=== PATIENT | female | born 1945 | race Caucasian/White ===

== ENCOUNTER → 2023-06-06 10:34 | Outpatient (REF) | payer MEDICARE, BC, SELFPAY | LOC: WOUND 10:34 | PROVIDERS: ATTENDING PHYSICIAN Surgery; REFERRING PHYSICIAN Surgery | DX: L89.314 Pressure ulcer of right buttock, stage 4 (principal); E11.65 Type 2 diabetes mellitus with hyperglycemia; E66.01 Morbid (severe) obesity due to excess calories | CPT/HCPCS: 11042 ==

== ENCOUNTER → 2023-06-14 13:58 | Outpatient (REF) | payer MEDICARE, BC, SELFPAY | LOC: RAD 13:58 | PROVIDERS: ATTENDING PHYSICIAN Internal Medicine Critical Care Medicine | DX: R06.00 Dyspnea, unspecified (principal) | CPT/HCPCS: 71046 ==

== ENCOUNTER → 2023-06-27 10:27 | Outpatient (REF) | payer MEDICARE, BC, SELFPAY | LOC: WOUND 10:27 | PROVIDERS: ATTENDING PHYSICIAN Surgery; FAMILY PHYSICIAN Family Medicine | DX: L89.314 Pressure ulcer of right buttock, stage 4 (principal); E11.65 Type 2 diabetes mellitus with hyperglycemia; E66.01 Morbid (severe) obesity due to excess calories; I10 Essential (primary) hypertension; J44.9 Chronic obstructive pulmonary disease, unspecified; D64.9 Anemia, unspecified; I35.0 Nonrheumatic aortic (valve) stenosis | CPT/HCPCS: 11042 ==

== ENCOUNTER → 2023-07-18 10:34 | Outpatient (REF) | payer MEDICARE, BC, SELFPAY | LOC: WOUND 10:34 | PROVIDERS: ATTENDING PHYSICIAN Surgery; FAMILY PHYSICIAN Family Medicine | DX: L89.314 Pressure ulcer of right buttock, stage 4 (principal); E11.65 Type 2 diabetes mellitus with hyperglycemia; E66.01 Morbid (severe) obesity due to excess calories; I10 Essential (primary) hypertension; J44.9 Chronic obstructive pulmonary disease, unspecified; D64.9 Anemia, unspecified; I35.0 Nonrheumatic aortic (valve) stenosis | CPT/HCPCS: 11042 ==

== ENCOUNTER → 2023-08-15 10:27 | Outpatient (REF) | payer MEDICARE, BC, SELFPAY | LOC: WOUND 10:27 | PROVIDERS: ATTENDING PHYSICIAN Surgery; FAMILY PHYSICIAN Family Medicine | DX: L89.314 Pressure ulcer of right buttock, stage 4 (principal); E11.65 Type 2 diabetes mellitus with hyperglycemia; E66.01 Morbid (severe) obesity due to excess calories; I10 Essential (primary) hypertension; J44.9 Chronic obstructive pulmonary disease, unspecified; D64.9 Anemia, unspecified; I35.0 Nonrheumatic aortic (valve) stenosis | CPT/HCPCS: 11042 ==

== ENCOUNTER 2023-08-19 17:49 | Emergency (ER) | payer MEDICARE, BC, SELFPAY ==
[2023-08-19 17:52] VITALS: BP 113/84
[2023-08-19 17:55] VITALS: BP 113/84
--- NOTE | 2023-08-19 17:55 | ED.MUSCINJ ---
HPI-Injury
General
Chief Complaint: Fall
Source: patient and ambulance crew
Exam Limitations: none
Nursing documentation reviewed up to this point in time: agreed with
Travel History
Have you had any contact with someone who has COVID-19?: No
Do you have any symptoms of coronavirus? Fever > 100 degrees, chills, cough, shortness of breath, sore throat, loss of taste or smell, muscle aches, or headache?: No
History of Present Illness-Injury
Initial Injury comments:
78 yo female w h/o COPD Home O2, CHF HTN, IDDM, from home where she lives with her states she was holding on to her walker, bend over to pick something up from the floor, lost her balance and fell backwards hitting back of head on walker.
States pain left side of neck, pain and scrape left knee. EMS arrived to find her sitting upright against the counter.
Denies headache, vision change, CP, SOB, abd pain, n/v/d/c, denies feeling weak or dizzy prior to fall, denies weakness in arms or legs.
Past History
Past History
ED Past Medical History: COPD, HTN, IDDM and Other (Pneumonia, home O2, morbid obesity)
ED Past Surgical History: Appendectomy, , Gynecological and Orthopedic
Social History
Tobacco: Former smoker
Alcohol: None
Personal:
Living: with family
Review of Systems
Review of Systems
Allergies reviewed?: Yes
All Other Systems: ROS reviewed and negative except as documented in HPI and ROS
Constitutional: Denies fever
Respiratory: Denies trouble breathing
Cardiac: Denies chest pain or syncope
ABD/GI: Denies abdominal pain, nausea, vomiting or diarrhea
: Denies dysuria, frequency, flank pain, difficulty voiding or urgency
Musculoskeletal: Reports neck pain; Denies edema
Skin: Reports other (mild scrape left knee)
Neurological: Denies dizzy, headache, weakness or numbness
Phy Exam
Physical Exam
Physical Exam:
GENERAL: No acute distress. A&Ox3.
CONSTITUTIONAL: Afebrile.
EYES: PERRL, conjunctivae normal
Neck: Hard collar removed, left and mid c spine tender, collar replaced.
ENMT: moist mucus membranes, Pharynx nl
RESPIRATORY: Regular respirations, nonlabored, lungs clear with diminished BS
CARDIOVASCULAR: Regular rate and rhythm, no murmurs, no rubs.
GI: Soft, obese, normal BS
MUSCULOSKELETAL: Mid C spine tenderness, rest of spine and back nontender. Extremities non tender with adequate ROM. Moves with ease. Well perfused. No edema
SKIN: Warm, dry, pink, superficial abrasion and mild ecchymosis and swelling over patella
PSYCH: Normal mood and affect. Well kept, interactive and appropriate
NEUROLOGIC: Awake, alert and oriented. Speech clear. CN 2-12 intact. No focal neurological deficits Strength equal throughout
Injury Course
Orders/Labs/Results
Orders:
Orders
08/19/23 17:54
CT Cervical Spine W/o Iv Contr Urgent
Comment:
Reason For Exam: left neck pain after fall.
08/19/23 17:55
CT Head W/o Iv Contrast Urgent
Comment:
Reason For Exam: fall, struck head
Knee, Left 4 or More Views [CR Knee - Left 4 Or More View*] Urgent
Comment:
Reason For Exam: fall, direct impact to patella
MDM/Problems Addressed
Differential Diagnosis Includes:
cervical strain/fx, minor head injury/concussion, knee contusion/fracture
MDM/Problems Addressed:
78 yo female w h/o COPD Home O2, CHF HTN, IDDM, from home where she lives with her states she was holding on to her walker, bend over to pick something up from the floor, lost her balance and fell backwards hitting back of head on walker.
States pain left side of neck, pain and scrape left knee. EMS arrived to find her sitting upright against the counter.
Denies headache, vision change, CP, SOB, abd pain, n/v/d/c, denies feeling weak or dizzy prior to fall, denies weakness in arms or legs.
This was clearly a mechanical fall, no indication for lab work
7:42 PM
Left knee x-ray initially read by this examiner, no acute bony abnormality. Small suprapatellar effusion. Confirmed with radiology read.
Head and C-spine CT: Radiology report read no acute abnormality: No acute fracture or subluxation of the cervical spine, multilevel degenerative changes of the C-spine.
Patient out of bed and ambulating well
Stable for discharge, family here to take her home
Chronic conditions affecting care: DM, HTN and COPD
*Critical Care Note
Total Time (30-74mins, 75-104mins- exclusive of procedures): Not Applicable
ED Attending Note
-
Portions of this chart may have been created with voice recognition software.� Occasional wrong word or��sound alike� substitutions may have occurred due to the inherent limitations of voice recognition software.
Discharge Plan
Departure
Patient Disposition: Home (Routine Discharge)
Date of Disposition: 08/19/23
Time of Disposition: 19:43
Patient with high blood pressure during this ER visit?: No
Condition: Good
Discharge Problem:
Fall from slip, trip, or stumble, Acute cervical myofascial strain, Contusion of left knee
Instructions: Head Injury in Adults (DC), Contusion (DC), Preventing falls in adults, Cervical Muscle Strain (DC)
Prescriptions:
No Action
albuterol sulfate 1 PUFF HFA aerosol inhaler
2 puff inhalation R Q4HPRN PRN (Reason: sob)
Humulin N NPH U-100 Insulin 100 UNIT/1 ML suspension
60 - 80 units SC HS
insulin lispro [Humalog U-100 Insulin] 100 UNIT/ML solution
12 unit SC AC
Rx Instructions:
14-16 units at dinner
metoprolol tartrate 25 MG tablet
25 mg PO BID
atorvastatin 20 MG tablet
20 mg PO HS
ipratropium-albuterol 3 ML solution for nebulization
3 ml inhalation R QID
metformin 1,000 MG tablet
1,000 mg PO BID@0800,1700
budesonide 0.5 MG/2 ML suspension for nebulization
0.5 mg inhalation R BID@0800,1700
multivitamin with folic acid [Tab-A-Vern] 1 TABLET tablet
1 tab PO DAILY
ferrous sulfate [FeroSul] 325 MG tablet
325 mg PO QPM
nifedipine 30 MG tablet extended release
30 mg PO DAILY Qty: 30 0RF
Jardiance 10 MG tablet
10 mg PO DAILY Qty: 30 0RF
terazosin 2 mg Capsule
2 mg PO HS
Hold Instructions: this medication was HELD during hospitalization due to low blood pressure - please DO NOT take this medication until you follow up with your primary care doctor - please discuss if this should be restarted
Dakin's Solution 0.125 % solution
1 applic topical BID
miconazole nitrate [Desenex] 2 % Powder
1 applic TOPICAL DAILY
furosemide 80 mg Tablet
80 mg PO BID 30 Days Qty: 60 0RF
Referrals:
Trina Ralph DO [Family Provider] - As needed
Activity Restrictions/Additional Instructions:
As we discussed, the CAT scan of your head and neck showed nothing worrisome.
Your knee x-ray shows nothing broken
You may be more stiff and sore in the next day or 2. Tylenol 1000 mg up to 3 times a day as needed for pain.
Cool compress 20 minutes off and on as needed to reduce swelling
Interventions
Interventions:
*Risk Screen - Suicide Last Done: 08/19/23 17:53
*General Assessment Last Done: 08/19/23 17:53
*Neglect/Abuse Screening Last Done: 08/19/23 17:53
ED- Fall Risk Assessment Last Done: 08/19/23 20:02
*ED COVID-19 Vaccine History Last Done: 08/19/23 17:53
*Nursing Disposition Last Done: 08/19/23 20:02
ED-Musculoskeletal Assessment Last Done: 08/19/23 17:55
ED- Neurological Assessment Last Done: 08/19/23 17:55
ED-Skin Assessment Last Done: 08/19/23 17:55
Discharge Date and Time
Discharge Date/Time: 08/19/23 20:10
Print Language: PAKISTANI
[2023-08-19 18:01] VITALS: BP 98/55
== END 2023-08-19 20:10 | disposition home or self-care (01) ==
LOC: EMR 17:49
PROVIDERS: EMERGENCY PHYSICIAN Student in an Organized Health Care Education/Training Program; FAMILY PHYSICIAN Family Medicine
DX: S80.02XA Contusion of left knee, initial encounter (principal); S80.212A Abrasion, left knee, initial encounter; S16.1XXA Strain of muscle, fascia and tendon at neck level, initial encounter; W01.198A Fall on same level from slipping, tripping and stumbling with subsequent striking against other object, initial encounter; Y92.009 Unspecified place in unspecified non-institutional (private) residence as the place of occurrence of the external cause; J44.9 Chronic obstructive pulmonary disease, unspecified; I11.0 Hypertensive heart disease with heart failure; I50.9 Heart failure, unspecified; E11.9 Type 2 diabetes mellitus without complications; Z99.81 Dependence on supplemental oxygen; Z79.4 Long term (current) use of insulin; Z87.891 Personal history of nicotine dependence; Z87.01 Personal history of pneumonia (recurrent); Z88.6 Allergy status to analgesic agent
CPT/HCPCS: 99284; 70450; 72125; 73564

== ENCOUNTER → 2023-09-12 10:30 | Outpatient (REF) | payer MEDICARE, BC, SELFPAY | LOC: WOUND 10:30 | PROVIDERS: ATTENDING PHYSICIAN Surgery; FAMILY PHYSICIAN Family Medicine | DX: L89.314 Pressure ulcer of right buttock, stage 4 (principal); E11.65 Type 2 diabetes mellitus with hyperglycemia; E66.01 Morbid (severe) obesity due to excess calories; I10 Essential (primary) hypertension; J44.9 Chronic obstructive pulmonary disease, unspecified; D64.9 Anemia, unspecified; I35.0 Nonrheumatic aortic (valve) stenosis | CPT/HCPCS: 11042 ==

== ENCOUNTER → 2023-10-10 10:29 | Outpatient (REF) | payer MEDICARE, BC, SELFPAY | LOC: WOUND 10:29 | PROVIDERS: ATTENDING PHYSICIAN Surgery; FAMILY PHYSICIAN Family Medicine | DX: L89.314 Pressure ulcer of right buttock, stage 4 (principal); E11.65 Type 2 diabetes mellitus with hyperglycemia; E66.01 Morbid (severe) obesity due to excess calories; I10 Essential (primary) hypertension; J44.9 Chronic obstructive pulmonary disease, unspecified; D64.9 Anemia, unspecified; I35.0 Nonrheumatic aortic (valve) stenosis | CPT/HCPCS: 11042 ==

== ENCOUNTER → 2023-11-14 10:29 | Outpatient (REF) | payer MEDICARE, BC, SELFPAY | LOC: WOUND 10:29 | PROVIDERS: ATTENDING PHYSICIAN Surgery; FAMILY PHYSICIAN Family Medicine | DX: L89.314 Pressure ulcer of right buttock, stage 4 (principal) | CPT/HCPCS: 11042 ==

== ENCOUNTER → 2023-12-12 10:25 | Outpatient (REF) | payer MEDICARE, BC, SELFPAY | LOC: WOUND 10:25 | PROVIDERS: ATTENDING PHYSICIAN Surgery; FAMILY PHYSICIAN Family Medicine | DX: L89.314 Pressure ulcer of right buttock, stage 4 (principal); D64.9 Anemia, unspecified; E11.65 Type 2 diabetes mellitus with hyperglycemia; I35.0 Nonrheumatic aortic (valve) stenosis | CPT/HCPCS: 11042 ==

== ENCOUNTER → 2023-12-21 13:55 | Outpatient (REF) | payer MEDICARE, BC, SELFPAY | LOC: RCS 13:55 | PROVIDERS: ATTENDING PHYSICIAN Internal Medicine Cardiovascular Disease; FAMILY PHYSICIAN Family Medicine | DX: I35.0 Nonrheumatic aortic (valve) stenosis (principal) | CPT/HCPCS: 93306 ==

== ENCOUNTER → 2024-01-16 10:24 | Outpatient (REF) | payer MEDICARE, BC, SELFPAY | LOC: WOUND 10:24 | PROVIDERS: ATTENDING PHYSICIAN Surgery; FAMILY PHYSICIAN Family Medicine | DX: L89.314 Pressure ulcer of right buttock, stage 4 (principal); E11.65 Type 2 diabetes mellitus with hyperglycemia; E66.01 Morbid (severe) obesity due to excess calories; I10 Essential (primary) hypertension; J44.9 Chronic obstructive pulmonary disease, unspecified; D64.9 Anemia, unspecified; I35.0 Nonrheumatic aortic (valve) stenosis | CPT/HCPCS: 11042 ==

== ENCOUNTER → 2024-02-13 10:24 | Outpatient (REF) | payer MEDICARE, BC, SELFPAY | LOC: WOUND 10:24 | PROVIDERS: ATTENDING PHYSICIAN Surgery; FAMILY PHYSICIAN Family Medicine | DX: L89.314 Pressure ulcer of right buttock, stage 4 (principal); E11.65 Type 2 diabetes mellitus with hyperglycemia; E66.01 Morbid (severe) obesity due to excess calories; I10 Essential (primary) hypertension; J44.9 Chronic obstructive pulmonary disease, unspecified; I35.0 Nonrheumatic aortic (valve) stenosis | CPT/HCPCS: 11042 ==

== ENCOUNTER → 2024-03-12 10:25 | Outpatient (REF) | payer MEDICARE, BC, SELFPAY | LOC: WOUND 10:25 | PROVIDERS: ATTENDING PHYSICIAN Surgery; FAMILY PHYSICIAN Family Medicine | DX: L89.314 Pressure ulcer of right buttock, stage 4 (principal); E11.65 Type 2 diabetes mellitus with hyperglycemia; E66.01 Morbid (severe) obesity due to excess calories; I10 Essential (primary) hypertension; J44.9 Chronic obstructive pulmonary disease, unspecified; D64.9 Anemia, unspecified; I35.0 Nonrheumatic aortic (valve) stenosis | CPT/HCPCS: 11042 ==

== ENCOUNTER → 2024-04-09 10:27 | Outpatient (REF) | payer MEDICARE, BC, SELFPAY | LOC: WOUND 10:27 | PROVIDERS: ATTENDING PHYSICIAN Surgery; FAMILY PHYSICIAN Family Medicine | DX: L89.314 Pressure ulcer of right buttock, stage 4 (principal); E11.65 Type 2 diabetes mellitus with hyperglycemia; E66.01 Morbid (severe) obesity due to excess calories; I10 Essential (primary) hypertension; J44.9 Chronic obstructive pulmonary disease, unspecified; D64.9 Anemia, unspecified; I35.0 Nonrheumatic aortic (valve) stenosis | CPT/HCPCS: 11042 ==

== ENCOUNTER → 2024-05-14 10:23 | Outpatient (REF) | payer MEDICARE, BC, SELFPAY | LOC: WOUND 10:23 | PROVIDERS: ATTENDING PHYSICIAN Surgery; FAMILY PHYSICIAN Family Medicine | DX: L89.314 Pressure ulcer of right buttock, stage 4 (principal); E11.65 Type 2 diabetes mellitus with hyperglycemia; E66.01 Morbid (severe) obesity due to excess calories; I10 Essential (primary) hypertension; J44.9 Chronic obstructive pulmonary disease, unspecified; I35.0 Nonrheumatic aortic (valve) stenosis | CPT/HCPCS: 11042; 72190 ==

== ENCOUNTER 2024-06-10 16:36 | Inpatient (IN) | payer MEDICARE, BC, SELFPAY ==
[2024-06-10] VITALS (11 sets, daily range): BP systolic 105–138; BP diastolic 46–63; PULSE 2–86; BMI 36.4
--- NOTE | 2024-06-10 13:49 | ED.GENMED ---
ED Provider Triage
<Jaret Nevarez PA-C - Last Filed: 06/10/24 13:51>
-
Patient seen by provider in Triage?: Seen in Triage
78-year-old female with history of COPD chronically on 3 L of oxygen presents with increased shortness of breath. She is now on 5 L of oxygen. She had some pain in her chest on the way over here.
In triage she is toxic on 5 L and tachypneic. Ordered labs including troponin EKG BNP CBC CMP. Chest x-ray ordered as well
Patient seen by provider in triage. Recommended that patient receive her room secondary to increased work of breathing tachypnea and hypoxia
History of Present Illness
<Jaret Nevarez PA-C - Last Filed: 06/10/24 13:51>
General
Chief Complaint: Breathing Problem
Time Seen by Provider: 06/10/24 14:11
<Bouchra Wilson MD - Last Filed: 06/10/24 15:22>
History of Present Illness
History of Present Illness:
Patient is a 78-year-old woman with history of COPD on 3 L presenting to the emergency department shortness of breath. Patient states for the past 3 to 4 days has been having worsening shortness of breath rhinorrhea. She does feel as if she needs
more oxygen than normal. This morning she went to her primary care doctor given the constellation of symptoms she was about to go for an outpatient chest x-ray when symptoms worsened so she came in for further evaluation. She denies any chest pain
hemoptysis leg swelling. No nausea vomiting. No diarrhea.
Past History
<Jaret Nevarez PA-C - Last Filed: 06/10/24 13:51>
Past History
ED Past Medical History: COPD, HTN, IDDM and Other (Pneumonia, home O2, morbid obesity)
ED Past Surgical History: Appendectomy, , Gynecological and Orthopedic
Social History
Tobacco: Former smoker
Alcohol: None
Personal:
Living: with family
Phy Exam
<Bouchra Wilson MD - Last Filed: 06/10/24 15:22>
Physical Exam
Physical Exam:
GENERAL: in no acute distress
HEENT: normocephalic, extraocular movements intact, moist oral mucosa
NECK: normal inspection
RESPIRATORY: Tachypneic, mild respiratory distress, poor air movement bilaterally with some crackles at right base
CARDIOVASCULAR: regular rate and rhythm
ABDOMEN/: soft, non-distended, non-tender to palpation, no rebound or guarding
EXTREMITIES: non-tender, no edema/swelling
NEUROLOGIC: awake and alert, moves all extremities
SKIN: warm
Scores
<Bouchra Wilson MD - Last Filed: 06/10/24 15:22>
Heart Failure Risk
Heart Failure Risk Score: Not Applicable
Course
<Jaret Nevarez PA-C - Last Filed: 06/10/24 13:51>
Orders/Labs/Results
Orders:
Orders
06/10/24 13:48
Electrocardiogram (*1) Urgent
Reason for Study: Shortness of Breath
EKG- Treatment ONCE
06/10/24 13:49
CR Chest - 2 Views Urgent
Comment:
Reason For Exam: sob
06/10/24 14:03
COVID-19 Antigen Urgent
Source: Nasal Swab
Complete Blood Count/With Diff Urgent
Comprehensive Metabolic Panel Urgent
NT-proBNP Urgent
Troponin I Urgent
Influenza A+B Rapid Molecular Urgent
JUSTINE Source: Nasal Swab
Specimen Description:
06/10/24 14:17
Albuterol Sulfate [Ventolin Nebules] 15 mg INH R NOW STA
Ipratropium Nebs [Atrovent Nebules] 1 mg INH R NOW STA
06/10/24 14:22
Venous Blood Gas Urgent
%Oxygen/Room Air: 80
06/10/24 14:31
Dexamethasone Sod Phosphate [Decadron] 8 mg IV NOW STA
Abnormal Lab Results
06/10/24 06/10/24
14:03 14:22
WBC 13.3 H 10^3/uL
(4.8-10.8)
RBC 3.54 L 10^6/uL
(4.20-5.40)
Hgb 10.1 L g/dL
(12.0-16.0)
Hct 34.7 L %
(37.0-47.0)
MCHC 29.1 L g/dL
(33.0-37.0)
MPV 10.7 H fL
(7.4-10.4)
Abs Immat Gran (auto) 0.1 H 10^3/uL
(0-0.05)
Absolute Neuts (auto) 11.3 H 10^3/uL
(1.4-6.5)
Absolute Lymphs (auto) 0.8 L 10^3/uL
(1.2-3.4)
Absolute Monos (auto) 1.0 H 10^3/uL
(0.1-0.6)
Neutrophils % 84.8 H %
(42.2-75.2)
Lymphocytes % 5.9 L %
(20.5-51.1)
VBG pCO2 85 H* mmHg
(35-48)
VBG HCO3 45.9 H mmol/L
(22-27)
Chloride 92 L mmol/L
(98-107)
Carbon Dioxide 37 H mmol/L
(22-30)
BUN 35 H mg/dl
(7-17)
Glucose 199 H mg/dl
(70-99)
06/10/24 14:03
06/10/24 14:03
Vital Signs
Initial and Last Documented VS:
Initial Vital Signs
Temp Pulse Resp BP Pulse Ox
99.3 F 90 30 118/57 80
06/10/24 13:48 06/10/24 13:48 06/10/24 13:48 06/10/24 13:48 06/10/24 13:48
Last Documented Vital Signs
Temp Pulse Resp BP Pulse Ox
99.3 F 95 30 129/59 90
06/10/24 13:48 06/10/24 15:00 06/10/24 15:00 06/10/24 15:00 06/10/24 15:00
<Bouchra Wilson MD - Last Filed: 06/10/24 15:22>
Orders/Labs/Results
Orders:
Orders
06/10/24 13:48
Electrocardiogram (*1) Urgent
Reason for Study: Shortness of Breath
EKG- Treatment ONCE
06/10/24 13:49
CR Chest - 2 Views Urgent
Comment:
Reason For Exam: sob
06/10/24 14:03
COVID-19 Antigen Urgent
Source: Nasal Swab
Complete Blood Count/With Diff Urgent
Comprehensive Metabolic Panel Urgent
NT-proBNP Urgent
Troponin I Urgent
Influenza A+B Rapid Molecular Urgent
JUSTINE Source: Nasal Swab
Specimen Description:
06/10/24 14:17
Albuterol Sulfate [Ventolin Nebules] 15 mg INH R NOW STA
Ipratropium Nebs [Atrovent Nebules] 1 mg INH R NOW STA
06/10/24 14:22
Venous Blood Gas Urgent
%Oxygen/Room Air: 80
06/10/24 14:31
Dexamethasone Sod Phosphate [Decadron] 8 mg IV NOW STA
Abnormal Lab Results
06/10/24 06/10/24
14:03 14:22
WBC 13.3 H 10^3/uL
(4.8-10.8)
RBC 3.54 L 10^6/uL
(4.20-5.40)
Hgb 10.1 L g/dL
(12.0-16.0)
Hct 34.7 L %
(37.0-47.0)
MCHC 29.1 L g/dL
(33.0-37.0)
MPV 10.7 H fL
(7.4-10.4)
Abs Immat Gran (auto) 0.1 H 10^3/uL
(0-0.05)
Absolute Neuts (auto) 11.3 H 10^3/uL
(1.4-6.5)
Absolute Lymphs (auto) 0.8 L 10^3/uL
(1.2-3.4)
Absolute Monos (auto) 1.0 H 10^3/uL
(0.1-0.6)
Neutrophils % 84.8 H %
(42.2-75.2)
Lymphocytes % 5.9 L %
(20.5-51.1)
VBG pCO2 85 H* mmHg
(35-48)
VBG HCO3 45.9 H mmol/L
(22-27)
Chloride 92 L mmol/L
(98-107)
Carbon Dioxide 37 H mmol/L
(22-30)
BUN 35 H mg/dl
(7-17)
Glucose 199 H mg/dl
(70-99)
06/10/24 14:03
06/10/24 14:03
Vital Signs
Initial and Last Documented VS:
Initial Vital Signs
Temp Pulse Resp BP Pulse Ox
99.3 F 90 30 118/57 80
06/10/24 13:48 06/10/24 13:48 06/10/24 13:48 06/10/24 13:48 06/10/24 13:48
Last Documented Vital Signs
Temp Pulse Resp BP Pulse Ox
99.3 F 95 30 129/59 90
06/10/24 13:48 06/10/24 15:00 06/10/24 15:00 06/10/24 15:00 06/10/24 15:00
<Bouchra Wilson MD - Last Filed: 06/10/24 15:22>
MDM/Problems Addressed
Differential Diagnosis Includes:
Patient is a 78-year-old with history of COPD on 3 L, CHF, diabetes presenting to the emergency department shortness of breath. On arrival patient was increased to 5L with improvement in her oxygenation. On exam patient is in mild respiratory
distress. She is tachypneic with diminished air movement. Likely COPD exacerbation howeoerv Concern for pneumonia versus CHF exacerbation. Consider atypical ACS though less likely. History exam not consistent with PE. Will check blood work EKG
chest x-ray and obtain a VBG. Will give continuous nebulizer. Patient will need admission.
<Bouchra Wilson MD - Last Filed: 06/10/24 15:22>
*Critical Care Note
Total Time (30-74mins, 75-104mins- exclusive of procedures): Not Applicable
<Bouchra Wilson MD - Last Filed: 06/10/24 15:22>
Update Note
Update Note:
VBG does show chronic retention. considered bipap though patient appears comfortable. Discussed with hospitalist who accepted patient. Chest x-ray pending at this time.
ED Attending Note
<Jaret Nevarez PA-C - Last Filed: 06/10/24 13:51>
-
Portions of this chart may have been created with voice recognition software.� Occasional wrong word or��sound alike� substitutions may have occurred due to the inherent limitations of voice recognition software.
Discharge Plan
Departure
Patient Disposition: Admit
Date of Disposition: 06/10/24
Time of Disposition: 15:19
Presentation/result/management discussed w/ accepting /: Hospitalist
Discharge Problem:
COPD exacerbation
Prescriptions:
No Action
albuterol sulfate 1 PUFF HFA aerosol inhaler
2 puff inhalation R Q4HPRN PRN (Reason: sob)
Humulin N NPH U-100 Insulin 100 UNIT/1 ML suspension
60 - 80 units SC HS
insulin lispro [Humalog U-100 Insulin] 100 UNIT/ML solution
12 unit SC AC
Rx Instructions:
14-16 units at dinner
metoprolol tartrate 25 MG tablet
25 mg PO BID
atorvastatin 20 MG tablet
20 mg PO HS
ipratropium-albuterol 3 ML solution for nebulization
3 ml inhalation R QID
metformin 1,000 MG tablet
1,000 mg PO BID@0800,1700
budesonide 0.5 MG/2 ML suspension for nebulization
0.5 mg inhalation R BID@0800,1700
multivitamin with folic acid [Tab-A-Vern] 1 TABLET tablet
1 tab PO DAILY
ferrous sulfate [FeroSul] 325 MG tablet
325 mg PO QPM
nifedipine 30 MG tablet extended release
30 mg PO DAILY Qty: 30 0RF
Jardiance 10 MG tablet
10 mg PO DAILY Qty: 30 0RF
terazosin 2 mg Capsule
2 mg PO HS
Dakin's Solution 0.125 % solution
1 applic topical BID
miconazole nitrate [Desenex] 2 % Powder
1 applic TOPICAL DAILY
furosemide 80 mg Tablet
80 mg PO BID 30 Days Qty: 60 0RF
Referrals:
Trina Ralph DO [Family Provider] -
Interventions
Interventions:
*Risk Screen - Suicide Last Done: 06/10/24 13:48
*General Assessment Last Done: 06/10/24 14:05
*Neglect/Abuse Screening Last Done: 06/10/24 13:48
*ED COVID-19 Vaccine History Last Done: 06/10/24 14:05
ED- Cardiac Assessment Last Done: 06/10/24 14:05
ED- Pulmonary Assessment Last Done: 06/10/24 14:05
Discharge Date and Time
Print Language: AFGHAN
[2024-06-10] MEDS: VENTOLIN NEBULES 15 MG INH (14:25)
[2024-06-10] MEDS: ATROVENT NEBULES 1 MG INH (14:26)
[2024-06-10 14:27] LABS: Venous Blood Gas B.E. 16.9 mmol/L (-4 to +4); Venous Blood Gas HCO3 45.9 mmol/L (22-27); Venous Blood Gas O2 Sat % 78.1 %; Venous Blood Gas pH 7.34 (7.32-7.43); Venous Blood Gas pO2 49 mmHg (30-50)
[2024-06-10 14:30] LABS: % Basophils 0.4 % (0-2); % Immature Granulocytes 0.5 % (0-0.5); % Lymphocytes 5.9 % (20.5-51.1); % Monocytes 7.4 % (1.7-9.3); % Neutrophils 84.8 % (42.2-75.2); Absolute Basophils 0.1 10^3/uL (0-0.2); Absolute Eosinophils 0.1 10^3/uL (0-0.7); Absolute Immature Granulocytes 0.1 10^3/uL (0-0.05); Absolute Lymphocytes 0.8 10^3/uL (1.2-3.4); Absolute Neutrophils 11.3 10^3/uL (1.4-6.5); Hematocrit 34.7 % (37.0-47.0); Hemoglobin 10.1 g/dL (12.0-16.0); Mean Corp Hgb Conc. 29.1 g/dL (33.0-37.0); Mean Corpuscular Hgb 28.5 pg (27.0-31.0); Mean Platelet Volume 10.7 fL (7.4-10.4); Nucleated Red Blood Cells % 0 %; Platelet Count 335 10^3/uL (130-400); Red Blood Cell Count 3.54 10^6/uL (4.20-5.40); Red Cell Dist. Width 14.4 % (11.5-14.5); White Blood Cell Count 13.3 10^3/uL (4.8-10.8)
[2024-06-10 14:33] LABS: Venous Blood Gas pCO2 85 mmHg (35-48)
[2024-06-10] MEDS: DECADRON 8 MG IV (14:38)
[2024-06-10 14:43] LABS: ALT (SGPT) 13 U/L (0-35); AST (SGOT) 20 U/L (14-36); Albumin 4.1 g/dl (3.5-5.0); Alkaline Phosphatase 100 U/L (38-126); Blood Urea Nitrogen 35 mg/dl (7-17); Calcium 8.5 mg/dl (8.4-10.2); Chloride 92 mmol/L (98-107); Glucose 199 mg/dl (70-99); Potassium 4.7 mmol/L (3.5-5.1); Sodium 142 mmol/L (135-145); Total Bilirubin 0.5 mg/dl (0.2-1.3); Total Protein 8.2 g/dl (6.3-8.2); eGFR > 60.00
[2024-06-10 14:51] LABS: COVID-19 Antigen Negative (Negative); NT-proBNP 1590 pg/ml; Troponin I < 0.012 ng/ml
[2024-06-10 15:08] LABS: Carbon Dioxide 37 mmol/L (22-30)
--- NOTE | 2024-06-10 18:01 | W.PN.UPDATE ---
Update Note
Progress Note Update
Seen and examined by me independently in collaboration with the resident Dr. Sonya Gaitan.
Past medical history/social history/medication/allergies reviewed.
Lab data and imaging data reviewed.
Patient with history of underlying COPD on inhaler therapy, BiPAP, and home O2 for chronic hypoxic respiratory insufficiency presents with 4-day symptoms of progressive shortness of breath and increasing hypoxia at home.
She has got some runny nose and phlegm but not significant cough. No fever or chills. Denies any chest pain.
Holt improved with the treatments in the ED.
Currently without respiratory distress. No active bronchospasm but has bilateral basilar crackles.
No lower extremity edema noted. No JVD. Troponins negative. BNP 1599 higher than her prior labs .
Clinical concern is acute COPD flare. Start on DuoNebs, empirical antibiotics with doxycycline, and IV steroids.
Swab for COVID-19 and flu were negative. Chest x-ray shows small right pleural effusion but there is a diffuse prominence of interstitial marking. Cardiomegaly noted. Cant rule out concurrent CHF. Will add IV lasix and follow response and chest
x-ray.
Echo from December 2023 showed LV function of 55 to 60% with moderate mitral stenosis and moderate aortic stenosis. There were progression of valve gradients both across the mitral and aortic valve compared to a year ago. Will consider repeat
echocardiogram if no improvement.
Full code.
Discussed with at bedside.
--- NOTE | 2024-06-10 19:00 | PTCARENOTE ---
Patient arrived to 339-2 from ED via stretcher, present at bedside. Patient alert and oriented, no complaints of pain, slight SOB noted with ambulation. Patient ambulated from stretcher to bed with walker and assist of 1 person, slightly
unsteady on feet. Patient uses walker and cane at baseline. Maintained on 5LNC at this time, uses 3LNC baseline at home. Hx COPD/sleep apnea -- bipap at HS baseline. Patient requesting to sit up in chair at this time, tolerated well. Upon arrival
patient stating she felt her blood sugar was low -- checked fingerstick level, resulted 231. Provided patient with boxed lunch as she did not receive a dinner tray in ED and was not available to receive one once on unit. Will recheck HS sugar around
2300pm. Call schuster in reach, patient verbalizes understanding on use. Will continue to monitor.
--- NOTE | 2024-06-10 19:41 | HPS.HSE ---
Family Physician
-
Family Physician: Trina Ralph
Chief Complaint
-
Shortness of breath, rhinorrhea
History of Present Illness
Patient is a 78-year-old female with past medical history of COPD on BiPAP (IPAP 20, EPAP 12), hypertension, insulin-dependent diabetes, hypercholesterolemia, obesity, HFpEF, AAS, MS, chronic left pleural effusion presenting with shortness of breath
and hypoxemia (lower 80s) for the past 3 to 4 days. Patient also reports runny nose but denies cough, fever, chest pain, nausea/vomiting, abdominal pain, diarrhea, headache. Denies sick contacts and recent travel. Patient was seen by her PCP this
morning and was going to get an outpatient chest x-ray but her symptoms worsened and she came to the hospital. Reports some mild pain between her shoulders on the way to the hospital which has resolved now.
Patient has a history of chronic left pleural effusion for which she follows up with Dr. Zapien.
Medical History
Past Medical History
Past Medical History: Reports CHF (HFpEF), COPD, HTN, Hypercholesterolemia and IDDM
Additional Past Medical History:
Pressure ulcer on right buttock, chronic left pleural effusion, , MS, obesity
Past Surgical History: Reports Appendectomy, Gynocological (Hysterectomy) and Orthopedic
Social History
Tobacco: Former Smoker
Personal:
Living: With Family
Family History
Family History: Not pertinent
Allergies / Home Medications
Allergies reflects when Allergies were last updated in [employer].
Home Medications with original date entered in [employer]
Allergy/Medication List:
Allergies
Allergy/AdvReac Type Severity Reaction Status Date / Time
aspirin Allergy Anxiety Verified 03/25/22 12:50
Home Medications
albuterol sulfate 90 mcg/actuation aerosol inhaler 2 puff inhalation R Q4HPRN PRN sob 05/03/13
insulin NPH isoph U-100 human 100 unit/mL subcutaneous suspension (Humulin N NPH U-100 Insulin (isophane susp)) 20 - 40 units SC HS Diabetes 10/15/15
insulin lispro 100 unit/mL subcutaneous solution (Humalog U-100 Insulin) 12 unit SC BID@0730,1130 Diabetes 10/15/15
metoprolol tartrate 25 mg tablet 25 mg PO BID Blood pressure 10/15/15
atorvastatin 20 mg tablet 20 mg PO HS High cholesterol 09/23/21
budesonide 0.5 mg/2 mL suspension for nebulization 0.5 mg inhalation R BID Lung/breathing issues 09/23/21
ferrous sulfate 325 mg (65 mg iron) tablet (FeroSul) 325 mg PO QPM Supplement 09/23/21
ipratropium 0.5 mg-albuterol 3 mg (2.5 mg base)/3 mL nebulization soln 3 ml inhalation R TID Lung/breathing issues 09/23/21
metformin 1,000 mg tablet 1,000 mg PO BID@0800,1700 Diabetes 09/23/21
multivitamin with folic acid 400 mcg tablet (Tab-A-Vern) 1 tab PO DAILY Supplement 09/23/21
empagliflozin 10 mg tablet (Jardiance) 10 mg PO DAILY Heart Failure #30 tabs 09/28/21
nifedipine 30 mg tablet,extended release 30 mg PO DAILY Blood pressure #30 tabs 09/28/21
miconazole nitrate 2 % topical powder (Desenex) 1 applic topical DAILY underbreasts, abd fold,flanks 03/25/22
ammonium lactate 5 % lotion 1 applic topical DAILYPRN PRN feet rash 06/10/24
ferrous sulfate 325 mg (65 mg iron) tablet 650 mg PO DAILY 06/10/24
furosemide 80 mg tablet 80 mg PO BID@0800,1600 06/10/24
insulin lispro 100 unit/mL subcutaneous solution (Humalog U-100 Insulin) 16 unit SC DAILY@1630 06/10/24
potassium chloride 20 mEq tablet,extended release(part/cryst) (Klor-Con M) 20 meq PO BID@0800,1700 06/10/24
Review of Systems
-
History Source: Patient
Constitutional: Reports No Symptoms
EENT: Reports No Symptoms, Runny Nose and Other (Phlegm)
Respiratory: Reports Trouble Breathing
Cardiac: Reports No Symptoms
Abdomen/GI: Reports No Symptoms
: Reports No Symptoms
Musculoskeletal: Reports No Symptoms
Skin: Reports No Symptoms
Neurological: Reports No Symptoms
Endocrine: Reports No Symptoms
Hematologic/Lymphatic: Reports No Symptoms
Psych: Reports Calm
Physical Exam
Vital Signs
Vital Signs
Temp Pulse Resp BP Pulse Ox
99.3 F 106 30 105/46 92
06/10/24 16:47 06/10/24 17:15 06/10/24 17:15 06/10/24 17:00 06/10/24 17:15
Physical Exam
General: Well Developed, Well Nourished, No Apparent Distress and Comfortable
HEENT: NormoCephalic
Respiratory: Crackles (Right lung base) and Decreased Breath Sounds (Bilateral lung bases)
Cardiac: S1/S2, Regular Rhythm, Tachycardia and Murmur
GI: Soft, Non Tender, Non Distended and Normal Bowel Sounds
Genito-urinary: No costovertebral tender
Musculoskeletal: No Clubbing, No Cyanosis and No Edema
Skin: Warm
Neuro: Awake, Alert and Oriented
Hematologic/Lymphatic: No Lymphadenopathy
Psych: Calm
Laboratory Results
-
06/10/24 14:03
06/10/24 14:03
Laboratory Results
Total Bilirubin 0.5 mg/dl (0.2-1.3) 06/10/24 14:03
AST 20 U/L (14-36) 06/10/24 14:03
ALT 13 U/L (0-35) 06/10/24 14:03
Alkaline Phosphatase 100 U/L (38-126) 06/10/24 14:03
Troponin I < 0.012 ng/ml 06/10/24 14:03
Impression/Plan
-
78-year-old female with past medical history of COPD on BiPAP presenting with:
#Shortness of breath, acute on chronic hypoxic respiratory failure
- likely COPD exacerbation vs CHF
- Patient tachypneic and hypoxic in ED, now on 5 L oxygen -- wean oxygen as able
- DuoNebs and dexamethasone started in ED, will continue
- Chest x-ray: New small right pleural effusion, diffuse interstitial markings possible CHF, moderate cardiomegaly.
- Will treat for possible pneumonia, start doxycycline
- Continue BiPAP on home settings
- Troponin negative, EKG normal sinus rhythm with RBBB
- VBG shows chronic CO2 retention
- COVID, flu negative
- Continue lasix
#Respiratory acidosis
#HFpEF
- Continue lasix, jardiance
#IDDM
- Continue insulin
- Metformin held
#Right buttock pressure ulcer
- Wound care consult
#HTN
- Continue nifedipine and metoprolol
#Anemia, chronic
- Stable
- Continue ferrous sulfate
#Hyperlipidemia
- Continue statin
DVT prophylaxis Lovenox
Full code
[2024-06-10] MEDS: PULMICORT 0.5 MG INH (19:56)
[2024-06-10] MEDS: DUONEB 3 ML INH (19:56)
[2024-06-10 20:05] LABS: Glucose - Point of Care 231 mg/dl (70-99)
[2024-06-10] MEDS: FEOSOL 325 MG PO (20:40)
[2024-06-10] MEDS: VIBRAMYCIN 100 MG PO (20:40)
[2024-06-10] MEDS: LIPITOR 20 MG PO (20:40)
[2024-06-10] MEDS: LOPRESSOR 25 MG PO (20:40)
[2024-06-10] MEDS: KCL 20 MEQ PO (20:41)
[2024-06-10] MEDS: DESENEX/MITRAZOL/ZEASORB 1 APPLIC TOPICAL (20:41)
[2024-06-10] MEDS: LOVENOX 40 MG SC (20:41)
[2024-06-10] MEDS: FLUSH (NSS) 1 FLUSH IV (20:42)
[2024-06-10] MEDS: DECADRON 4 MG IV (20:42)
[2024-06-10] MEDS: NOVOLOG FLEXPEN-LOW RESISTANCE 2 UNITS SC (20:43)
[2024-06-10] MEDS: LASIX 40 MG IV (20:45)
[2024-06-10 23:06] LABS: Glucose - Point of Care 332 mg/dl (70-99)
[2024-06-10] MEDS: HUMULIN N KWIKPEN 20 UNITS SC (23:17)
[2024-06-11] MEDS: FLUSH (NSS) 1 FLUSH IV (02:47)
[2024-06-11] MEDS: DECADRON 4 MG IV ×4 (02:47→20:06)
[2024-06-11 06:01] LABS: % Basophils 0.1 % (0-2); % Immature Granulocytes 0.5 % (0-0.5); % Lymphocytes 5.6 % (20.5-51.1); % Monocytes 2.4 % (1.7-9.3); % Neutrophils 91.4 % (42.2-75.2); Absolute Lymphocytes 0.5 10^3/uL (1.2-3.4); Absolute Monocytes 0.2 10^3/uL (0.1-0.6); Absolute Neutrophils 7.6 10^3/uL (1.4-6.5); Hematocrit 33.6 % (37.0-47.0); Hemoglobin 9.8 g/dL (12.0-16.0); Mean Corp Hgb Conc. 29.2 g/dL (33.0-37.0); Mean Corpuscular Volume 99.4 fL (81.0-99.0); Mean Platelet Volume 10.8 fL (7.4-10.4); Nucleated Red Blood Cells % 0 %; Platelet Count 304 10^3/uL (130-400); Red Blood Cell Count 3.38 10^6/uL (4.20-5.40); Red Cell Dist. Width 14.4 % (11.5-14.5); White Blood Cell Count 8.3 10^3/uL (4.8-10.8)
[2024-06-11 06:05] LABS: Blood Urea Nitrogen 42 mg/dl (7-17); Calcium 8.7 mg/dl (8.4-10.2); Chloride 97 mmol/L (98-107); Estimated Creatinine Clearance 70 ml/min; Glucose 180 mg/dl (70-99); Potassium 5.1 mmol/L (3.5-5.1); Sodium 148 mmol/L (135-145); eGFR > 60.00
[2024-06-11 06:17] LABS: Carbon Dioxide 39 mmol/L (22-30)
[2024-06-11 07:30] VITALS: BP 114/56
[2024-06-11 08:01] LABS: Glucose - Point of Care 179 mg/dl (70-99)
[2024-06-11] MEDS: PULMICORT 0.5 MG INH ×2 (08:16→19:12)
[2024-06-11] MEDS: DUONEB 3 ML INH ×4 (08:16→19:12)
[2024-06-11 08:48] LABS: Glycohemoglobin (HgbA1c) 6.8 % (4.0-5.6)
[2024-06-11] MEDS: HYDROPHOR 1 APPLIC TOPICAL (09:14)
[2024-06-11] MEDS: FARXIGA 10 MG PO (09:17)
[2024-06-11] MEDS: VIBRAMYCIN 100 MG PO ×2 (09:17→20:06)
[2024-06-11] MEDS: FEOSOL 650 MG PO (09:19)
[2024-06-11] MEDS: KCL 20 MEQ PO (09:20)
[2024-06-11] MEDS: LOPRESSOR 25 MG PO ×2 (09:24→20:07)
[2024-06-11] MEDS: PROCARDIA XL (EXTENDED RELEASE) 30 MG PO (09:24)
[2024-06-11] MEDS: LASIX 40 MG IV ×2 (09:36→17:45)
[2024-06-11] MEDS: NOVOLOG FLEXPEN 12 UNITS SC ×2 (09:46→13:54)
[2024-06-11] MEDS: NOVOLOG FLEXPEN-LOW RESISTANCE 1 UNITS SC ×3 (09:46→17:47)
[2024-06-11] MEDS: DESENEX/MITRAZOL/ZEASORB 1 APPLIC TOPICAL (09:47)
--- NOTE | 2024-06-11 10:01 | W.PN.HOSP.TC ---
Addendum entered and electronically signed by Jerel Connelly MD 06/11/24 16:00:
Seen and examined by me independently in collaboration with the medical record administrator.
Lab data and imaging data reviewed.
Addendum as below :
Patient this morning had more shortness of breath and respiratory distress which settled down. Currently on 5 L. No chest pain. Remains with cough butproductive phlegm.
No active wheezing but she has bilateral lower zone crackles.
Continue with the treatments for COPD flare as well as treatments for possible heart failure. Repeated chest x-ray in a.m. Follow on telemetry. Add antitussives.
Discussed with at bedside regarding the treatment plan.
Total time spent on today's encounter was 52 minutes which included time spent in counseling the patient/family regarding diagnosis and treatment plan as listed above, goals of care, and symptom management. Case was discussed with nursing staff,
specialists, and care coordinators/case management. All labs and imaging personally reviewed by me. Remainder the time spent in detailed review of previous records, lab data, imaging, and other medical provider documentation.
Original Note:
Today's Communication/Plan
-
Continue doxycycline
Continue IV Lasix
Continue Duonebs, Decadron
Wean oxygen as able
Assessment / Plan
Assessment / Plan
78-year-old female with past medical history of COPD on BiPAP presenting with:
#Shortness of breath, acute on chronic hypoxic respiratory failure
- likely COPD exacerbation vs CHF
- Patient tachypneic and hypoxic in ED, now on 6 L oxygen -- wean oxygen as able
- DuoNebs and dexamethasone started in ED, will continue
- Chest x-ray: New small right pleural effusion, diffuse interstitial markings possible CHF, moderate cardiomegaly.
- Will treat for possible pneumonia, continue doxycycline
- Continue BiPAP, currently IPAP 10, EPAP 6, on 6 Lit, saturating at 92-94%
- Troponin negative, EKG normal sinus rhythm with RBBB
- VBG shows chronic CO2 retention
- COVID, flu negative
- Continue lasix IV 40 BID
#Respiratory acidosis
#HFpEF
- Continue lasix, jardiance
#IDDM
- Continue insulin
- Metformin held
#Right buttock pressure ulcer
- Wound care consult
#HTN
- Continue nifedipine and metoprolol
#Anemia, chronic
- Stable
- Continue ferrous sulfate
#Hyperlipidemia
- Continue statin
DVT prophylaxis Lovenox
Full code
Anticipated Discharge: 24 - 48 hours
Subjective/Interval History
-
Date of Service: June 11, 2024
Objective Data
-
Labs:
Laboratory Results
06/11/24
05:21
WBC 8.3
Hgb 9.8 L
Hct 33.6 L
Plt Count 304
Sodium 148 H
Potassium 5.1
Chloride 97 L
Carbon Dioxide 39 H
BUN 42 H
Creatinine 0.7
Glucose 180 H
Calcium 8.7
Vital Signs:
Vital Signs
Temp Pulse Resp BP Pulse Ox
98.1 F 98 20 114/56 94
06/11/24 07:30 06/11/24 09:24 06/11/24 08:22 06/11/24 09:24 06/11/24 08:22
I&O
06/10/24 06/11/24 06/12/24
06:59 06:59 06:59
Intake Total 120 / 120
Balance 120 / 120
Review of Systems
-
History Source: Patient
Constitutional: Reports No Symptoms
EENT: Reports No Symptoms Reported
Respiratory: Reports Trouble Breathing
Cardiac: Reports No Symptoms; Denies Chest Pain
Abdomen/GI: Reports No Symptoms
Breast: Reports No Symptoms
Genitourinary: Reports No Symptoms
Musculoskeletal: Reports No Symptoms
Skin: Reports No Symptoms
Neuro: Reports No Symptoms
Endocrine: Reports No Symptoms
Hematologic / Lymphatic: Reports No Symptoms
Allergy / Immunology: Reports No Symptoms
Physical Exam
-
General: Well Developed, Well Nourished, No Apparent Distress and Comfortable
HEENT: Normocephalic
Respiratory: Crackles and Decreased Breath Sounds
Cardiac: Regular Rhythm, S1/S2 and Tachycardic
GI: Soft, Nontender, Nondistended and Normal Bowel Sounds
Genito-urinary: No Costovertebral Tender
Musculoskeletal: No Clubbing, No Cyanosis and No Edema
Skin: Warm
Neuro: Awake, Alert and Oriented
Hematologic / Lymphatic: No Lymphadenopathy
Psych: Agitated
--- NOTE | 2024-06-11 10:52 | WOUNDNOTE ---
R UPPER BUTTOCK AND SACRUM
--- NOTE | 2024-06-11 10:54 | WOUNDNOTE ---
R DISTAL BUTTOCK AND ISCHIUM
--- NOTE | 2024-06-11 10:55 | WOUNDNOTE ---
WON RN note: Patient admitted with COPD exacerbation.
See H&P for complete history. Patient lives with her . She is current with [facility].
PMH: COPD (on o2), CHF, stage 4 R sacral pressure injury, morbid obesity, IDDM, uses Bipap, former smoker.
Wound Location and type/assessment:Patient known to service, last seen 04/28/22 for same R buttock PI stage 4. Patient goes to [facility] monthly and at bedside states he does wound care at home. Confirmed has ROHO cushion for wheelchair and air
mattress at home. Ambulates with walker states patient. Compared to last seen, wound much smaller and latrine cleaner. Sacrum and heels are intact, patient turns to sides with minimal assist.
Appetite: Good. Drinks boost as protein supplement.
Pressure redistribution devices in place: Accumax, added air overlay to bed while patient sitting on commode. air chair cushion provided and pillow under calves.
Plan: R proximal buttock dressing changed with 1/2 ' Iodoform packing, 2x2 gauze and silicone foam, already on order. Sacral Silicone border foam applied and heel foams to protect. Instructed patient and , pressure injury prevention measures
while in chair and in bed, they state understanding.
Confirmed orders with hospitalist and updated RN.
Updated care plan and will follow as needed. Patient to follow up with [facility] when discharged.
[2024-06-11 11:03] VITALS: BP 128/63; PULSE 87; O2SAT 90
[2024-06-11 11:05] VITALS: BP 128/63; O2SAT 90
[2024-06-11 11:26] LABS: Glucose - Point of Care 176 mg/dl (70-99)
[2024-06-11 15:11] VITALS: BP 101/53
[2024-06-11 16:31] LABS: Glucose - Point of Care 178 mg/dl (70-99)
--- NOTE | 2024-06-11 16:35 | CM ---
Alert awake oriented patient who lives with her Elfego who lives in a 2 story home with 0 step to enter and stairlyft to upstairs bed bathroom. She is independent in all activities of daily living.Will need PT for dc planning.Pt has Oxygen
Bipap with Rotch, walker and wheelchair.
[facility] hx / No SNF hx
Pharmacy [facility]
PCP Dr Ambrocio
PLAN will need PT OT for dc plan
[2024-06-11] MEDS: NOVOLOG FLEXPEN 16 UNITS SC (17:47)
[2024-06-11] MEDS: FEOSOL 325 MG PO (17:48)
[2024-06-11] MEDS: LOVENOX 40 MG SC (17:48)
[2024-06-11 20:00] VITALS: BP 120/55
[2024-06-11] MEDS: LIPITOR 20 MG PO (20:06)
[2024-06-11 21:54] LABS: Glucose - Point of Care 141 mg/dl (70-99)
[2024-06-11] MEDS: HUMULIN N KWIKPEN 20 UNITS SC (22:44)
[2024-06-11 23:45] VITALS: BP 109/58
[2024-06-12] MEDS: DECADRON 4 MG IV ×3 (01:33→20:47)
--- NOTE | 2024-06-12 03:37 | PTCARENOTE ---
Pt assessed as per flow sheet. No s/s of distress assessed thus far. Dsg to buttock changed as it was soiled. Sm amt purulent drainage noted on iodiform. Area cleansed with NS. Packed and dressed as per wound care recommendation. Will continue to
monitor.
[2024-06-12 04:00] VITALS: BP 138/68
[2024-06-12 05:43] VITALS: BMI 36.4
[2024-06-12 07:10] LABS: % Basophils 0.1 % (0-2); % Immature Granulocytes 0.5 % (0-0.5); % Lymphocytes 5.6 % (20.5-51.1); % Monocytes 2.1 % (1.7-9.3); % Neutrophils 91.7 % (42.2-75.2); Absolute Immature Granulocytes 0.1 10^3/uL (0-0.05); Absolute Lymphocytes 0.6 10^3/uL (1.2-3.4); Absolute Monocytes 0.2 10^3/uL (0.1-0.6); Absolute Neutrophils 9.1 10^3/uL (1.4-6.5); Blood Urea Nitrogen 59 mg/dl (7-17); Calcium 8.7 mg/dl (8.4-10.2); Chloride 94 mmol/L (98-107); Estimated Creatinine Clearance 62 ml/min; Glucose 190 mg/dl (70-99); Hematocrit 36.1 % (37.0-47.0); Hemoglobin 10.2 g/dL (12.0-16.0); Mean Corp Hgb Conc. 28.3 g/dL (33.0-37.0); Mean Corpuscular Hgb 28.3 pg (27.0-31.0); Mean Corpuscular Volume 100.3 fL (81.0-99.0); Mean Platelet Volume 10.9 fL (7.4-10.4); Nucleated Red Blood Cells % 0 %; Platelet Count 332 10^3/uL (130-400); Red Cell Dist. Width 14.2 % (11.5-14.5); Sodium 147 mmol/L (135-145); White Blood Cell Count 9.9 10^3/uL (4.8-10.8); eGFR > 60.00
[2024-06-12 07:16] VITALS: BP 111/59
[2024-06-12 07:35] LABS: Carbon Dioxide 35 mmol/L (22-30)
[2024-06-12 07:38] LABS: Anisocytosis 1+; Hypochromasia 1+; Normal RBC Morphology No; Polychromasia 1+
[2024-06-12 07:39] LABS: Ovalocytes 1+
[2024-06-12] MEDS: PULMICORT INH (08:01)
[2024-06-12] MEDS: DUONEB INH (08:01)
[2024-06-12 08:05] LABS: Glucose - Point of Care 175 mg/dl (70-99)
--- NOTE | 2024-06-12 08:24 | W.PN.HOSP.TC ---
Today's Communication/Plan
-
Cardiology consulted
Increase Lasix to 80 twice daily
Continue Doxy and DuoNeb
Taper steroids to Decadron 4 Q12
Assessment / Plan
Assessment / Plan
78-year-old female with past medical history of COPD on BiPAP presenting with:
#Shortness of breath, acute on chronic hypoxic respiratory failure
- likely COPD exacerbation vs CHF
- Patient tachypneic and hypoxic in ED,
- Now on 5 L oxygen -- wean oxygen as able
- Continue DuoNebs and switch to dexamethason 4 q12
- Chest x-ray: New small right pleural effusion, diffuse interstitial markings possible CHF, moderate cardiomegaly --> Repeat chest x-ray: Mild improvement
- Will treat for possible pneumonia, continue doxycycline
- Continue BiPAP, home settings, saturating at >95%
- Troponin negative, EKG normal sinus rhythm with RBBB
- VBG shows chronic CO2 retention
- COVID, flu negative
- Continue lasix IV 40 BID
- Cardiology consulted for CHF management - increase Lasix to 80 twice daily, could consider metolazone
#Respiratory acidosis
#HFpEF
- Cardiology consulted
- Increase lasix
- Continue jardiance
#IDDM
- Continue insulin
- Metformin held
#Right buttock pressure ulcer
- Wound care consult
#HTN
- Continue nifedipine and metoprolol
#Anemia, chronic
- Stable
- Continue ferrous sulfate
#Hyperlipidemia
- Continue statin
DVT prophylaxis Lovenox
Full code
Anticipated Discharge: 24 - 48 hours
Subjective/Interval History
-
Date of Service: June 12, 2024
Objective Data
-
Labs:
Laboratory Results
06/12/24
06:01
WBC 9.9
Hgb 10.2 L
Hct 36.1 L
Plt Count 332
Sodium 147 H
Potassium 5.0
Chloride 94 L
Carbon Dioxide 35 H
BUN 59 H
Creatinine 0.8
Glucose 190 H
Calcium 8.7
Vital Signs:
Vital Signs
Temp Pulse Resp BP Pulse Ox
97.7 F 80 22 111/59 97
06/12/24 07:16 06/12/24 07:16 06/12/24 07:16 06/12/24 07:16 06/12/24 07:16
I&O
06/11/24 06/12/24 06/13/24
06:59 06:59 06:59
Intake Total 120 / 120 1020 / 1020
Balance 120 / 120 1020 / 1020
Review of Systems
-
History Source: Patient
Constitutional: Reports No Symptoms
EENT: Reports No Symptoms Reported
Respiratory: Reports No Symptoms
Cardiac: Reports No Symptoms
Abdomen/GI: Reports No Symptoms
Breast: Reports No Symptoms
Genitourinary: Reports No Symptoms
Musculoskeletal: Reports No Symptoms
Skin: Reports No Symptoms
Neuro: Reports No Symptoms
Endocrine: Reports No Symptoms
Hematologic / Lymphatic: Reports No Symptoms
Allergy / Immunology: Reports No Symptoms
Physical Exam
-
General: Well Developed, Well Nourished, No Apparent Distress and Comfortable
HEENT: Normocephalic
Respiratory: Rales
Cardiac: Regular Rhythm and S1/S2
GI: Soft, Nontender, Nondistended and Normal Bowel Sounds
Genito-urinary: No Costovertebral Tender
Musculoskeletal: No Clubbing and No Cyanosis
Skin: Warm
Neuro: Awake, Alert, Oriented and AO x 3
Hematologic / Lymphatic: No Lymphadenopathy
Psych: Calm
[2024-06-12] MEDS: VIBRAMYCIN 100 MG PO ×2 (09:10→20:47)
[2024-06-12] MEDS: FEOSOL 650 MG PO (09:11)
[2024-06-12] MEDS: LOPRESSOR 25 MG PO ×2 (09:11→20:47)
[2024-06-12] MEDS: PROCARDIA XL (EXTENDED RELEASE) 30 MG PO (09:12)
[2024-06-12] MEDS: FARXIGA 10 MG PO (09:12)
[2024-06-12] MEDS: LASIX 40 MG IV (09:14)
[2024-06-12] MEDS: DESENEX/MITRAZOL/ZEASORB 1 APPLIC TOPICAL (09:20)
[2024-06-12] MEDS: NOVOLOG FLEXPEN-LOW RESISTANCE 1 UNITS SC ×2 (10:06→13:06)
[2024-06-12] MEDS: NOVOLOG FLEXPEN 12 UNITS SC ×2 (10:08→13:07)
[2024-06-12] MEDS: DUONEB 3 ML INH ×3 (11:48→20:32)
[2024-06-12 11:50] VITALS: BP 109/53
[2024-06-12 12:02] LABS: Glucose - Point of Care 193 mg/dl (70-99)
--- NOTE | 2024-06-12 14:50 | CON.CAR ---
Addendum entered and electronically signed by Cy Cantor DO 06/12/24 16:51:
I saw and examined the patient.
The Farm Instructor's note was reviewed and I agree with the note.
Comment:
Admitted with exacerbation of COPD
Cardiology consulted for possible component of heart failure.
Patient was initially started on oral diuretic therapy then transition to Lasix 40 mg IV twice daily. Will increase Lasix to 80 mg IV twice daily for improved diuresis. Could consider metolazone.
Continue daily weights, I's and O's and creatinine monitoring.
Check echo to reevaluate left ventricular systolic function. Last echo from December 2023 showed preserved LV function and evaluation of mitral and aortic stenosis which were moderate by last echo.
Discussed with family at bedside.
Original Note:
Consultation
Consultation Request
Date/Time Consultation Requested: 06/12/24
Date/Time Consultation Performed: 06/12/24
Requesting Provider: Dr. Connelly
Performing Provider: Dr. Cantor
Reason for Consultation: Acute HF, MS,
Medical History
-
History of Present Illness:
Patient came to [facility] on Monday after she was sent for an outpatient CXR by her PCP and was in distress so instead she went to [facility] and was admitted with AE COPD, but cardiology is now consulted for possible component of acute HF. Patient saw her PCP
on 06/10/2024 for increased SOB. Patient has chronic hypoxic respiratory failure and is generally on supplemental oxygen at 3 L NC, but had increased to 5 L NC. Her PCP was worried and started patient on Levaquin and referred her to for an
outpatient CXR, but when patient arrived and ambulated to outpatient registration she felt unstable and asked to go to ER instead. Patient was negative for COVID and influenza swabs. Initial concern was for AECOPD and patient was started on
Decadron IV. CXR showed a small right pleural effusion and patient was given Lasix 40 mg IV x 1 on 06/10/2024, but then transition back to her outpatient dose of Lasix 80 mg PO BID as it was felt that she had more COPD than CHF.
PMH:
COPD
Chronic HFpEF
Mod peak/mean 48/27 mmHg and ZAY 1.0 cm sq by echo 12/21/23
Mod MS with peak/mean 17/7 mmHg by echo 12/21/23
MARK on BiPAP
HTN
HLD
DM2
Chronic iron deficiency anemia
Morbid obesity, BMI 36.4
h/o pulmonary nodules
Past Medical History
Past Medical History: Other (See HPI)
Past Surgical History: Appendectomy, and Other (Reconstruction of finger)
Social History
Tobacco: Former Smoker
Alcohol: None
Drug: None
Personal:
Living: With Family (Lives with granddaughter)
Family History
Family History: CAD (Father) and Hypertension (Mother)
Allergies / Home Medications
Allergy/AdvReac Type Severity Reaction Status Date / Time
aspirin Allergy Anxiety Verified 03/25/22 12:50
�Medication �Instructions �Recorded �Confirmed �Type
albuterol sulfate 90 mcg/actuation 2 puff inhalation R Q4HPRN PRN sob 05/03/13 06/10/24 History
aerosol inhaler
insulin NPH isoph U-100 human 100 20 - 40 units SC HS Diabetes 10/15/15 06/10/24 History
unit/mL subcutaneous suspension
(Humulin N NPH U-100 Insulin
(isophane susp))
insulin lispro 100 unit/mL 12 unit SC BID@0730,1130 Diabetes 10/15/15 06/10/24 History
subcutaneous solution (Humalog
U-100 Insulin)
metoprolol tartrate 25 mg tablet 25 mg PO BID Blood pressure 10/15/15 06/10/24 History
atorvastatin 20 mg tablet 20 mg PO HS High cholesterol 09/23/21 06/10/24 History
budesonide 0.5 mg/2 mL suspension 0.5 mg inhalation R BID 09/23/21 06/10/24 History
for nebulization Lung/breathing issues
ferrous sulfate 325 mg (65 mg 325 mg PO QPM Supplement 09/23/21 06/10/24 History
iron) tablet (FeroSul)
ipratropium 0.5 mg-albuterol 3 mg 3 ml inhalation R TID 09/23/21 06/10/24 History
(2.5 mg base)/3 mL nebulization Lung/breathing issues
soln
metformin 1,000 mg tablet 1,000 mg PO BID@0800,1700 Diabetes 09/23/21 06/10/24 History
multivitamin with folic acid 400 1 tab PO DAILY Supplement 09/23/21 06/10/24 History
mcg tablet (Tab-A-Vern)
empagliflozin 10 mg tablet 10 mg PO DAILY Heart Failure #30 09/28/21 06/10/24 Rx
(Jardiance) tabs
nifedipine 30 mg tablet,extended 30 mg PO DAILY Blood pressure #30 09/28/21 06/10/24 Rx
release tabs
miconazole nitrate 2 % topical 1 applic topical DAILY 03/25/22 06/10/24 History
powder (Desenex) underbreasts, abd fold,flanks
ammonium lactate 5 % lotion 1 applic topical DAILYPRN PRN feet 06/10/24 06/10/24 History
rash
ferrous sulfate 325 mg (65 mg 650 mg PO DAILY Supplement 06/10/24 06/10/24 History
iron) tablet
furosemide 80 mg tablet 80 mg PO BID@0800,1600 Fluid 06/10/24 06/10/24 History
Retention/Swelling
insulin lispro 100 unit/mL 16 unit SC DAILY@1630 Diabetes 06/10/24 06/10/24 History
subcutaneous solution (Humalog
U-100 Insulin)
potassium chloride 20 mEq 20 meq PO BID@0800,1700 Supplement 06/10/24 06/10/24 History
tablet,extended
release(part/cryst) (Klor-Con M)
Review of Systems
-
History Source: Patient and Family ( sitting bedside helps with HPI)
All other systems: Negative unless noted
Physical Exam
Vital Signs
Temp Pulse Resp BP Pulse Ox
97.7 F 71 18 109/53 93
06/12/24 11:50 06/12/24 11:51 06/12/24 11:51 06/12/24 11:50 06/12/24 11:51
Gen: NAD, AAOx3, obese
HEENT: EOMI, MMM, wearing glasses
CV: SR. Reg, NL s1/s2, 2/6 FINA
Lungs: 5 L NC. B/L rales
Abd: Distended abdomen with +BS and NT
Ext: Chronic skin changes with thickened and rough skin B/L LE and +1 non-pitting B/L LE edema. No clubbing, cyanosis or lesions
Skin: Warm, dry and pink. No rash
Neuro: Non-focal
Lab Results
06/12/24 06:01
06/12/24 06:01
Troponin I < 0.012 ng/ml 06/10/24 14:03
Xjk-T-Pletiosvtbo Pept 1590 pg/ml 06/10/24 14:03
Impression / Plan
-
Family Physician:� Trina Ralph
Primary Probate Clerk: Dr. Simmons
Impression:
Admitted with SOB and acute on hypoxic respiratory failure 06/10/24
AE COPD
Acute HFpEF
Mod peak/mean 48/27 mmHg and ZAY 1.0 cm sq by echo 12/21/23
Mod MS with peak/mean 17/7 mmHg by echo 12/21/23
MARK on BiPAP
HTN
HLD
DM2
Chronic iron deficiency anemia
Morbid obesity, BMI 36.4
h/o pulmonary nodules
ECHO 07/2019: EF 60-65%, mod cLVH, MAC, mild MR, mild to mod , peak/mean 26/16mmHg, ZAY 1.1cm2
ECHO 09/24/21: EF 65 to 70%, mild concentric LVH, mild , peak/mean gradients 31/19 mmHg, ZAY 1.1 cm�, trivial pericardial effusion, no significant change compared to prior
Echo 12/21/23: EF 55-60%, mild conc LVH, mod MS with peak/mean 17/7 mmHg, mod peak/mean 48/27 mmHg and ZAY 1.0 cm sq
Plan:
-Patient came to [facility] on Monday after she was sent for an outpatient CXR by her PCP and was in distress so instead she went to [facility] and was admitted with AE COPD, but cardiology is now consulted for possible component of acute HF. Patient saw her
PCP on 06/10/2024 for increased SOB. Patient has chronic hypoxic respiratory failure and is generally on supplemental oxygen at 3 L NC, but had increased to 5 L NC. Her PCP was worried and started patient on Levaquin and referred her to for an
outpatient CXR, but when patient arrived and ambulated to outpatient registration she felt unstable and asked to go to ER instead. Patient was negative for COVID and influenza swabs. Initial concern was for AECOPD and patient was started on
Decadron IV. CXR showed a small right pleural effusion and patient was given Lasix 40 mg IV x 1 on 06/10/2024, but then transition back to her outpatient dose of Lasix 80 mg PO BID as it was felt that she had more COPD than CHF.
-ECG on admission reviewed by me shows NSR with RBBB. Telemetry reviewed by me also shows NSR
-Patient has a report chronic rales at left base, but I hear rales B/L. Patient reports weight is down 3 lbs at home with daily weights, but proBNP here is elevated at 1590 and suspect there is a component of acute HFpEF.
-Patient was taking Lasix 80 mg PO BID prior to admission and currently ordered Lasix 40 mg IV BID. Will increase to Lasix 80 mg IV BID and pending response to diuresis could consider dose of metolazone.
-Follow daily weights. Patient is below any previous dry weight we have on record. Will need to establish a new dry weight on day of d/c.
-Recheck echo, EF was 55-60% by echo in 12/2023.
-Outpatient dose of Lopressor 25 mg twice daily has been continued, but would consider transitioning to Toprol XL or Coreg in the setting of CHF
-Patient is not chronically on NAJMA/ARB/aldosterone antagonist and will not add at this time due to hypotension
-Outpatient dose of Jardiance 10 mg daily was transition to Farxiga 10 mg daily due to formulary changes while in , but patient should resume Jardiance upon discharge.
-Patient with mod MS and by last echo. Await updated echo gradients. Not clear what type of intervention the patient would be a candidate for based on her chronic hypoxic respiratory failure and body habitus
[2024-06-12 15:02] VITALS: BP 103/51
[2024-06-12 15:30] VITALS: BMI 36.4
--- NOTE | 2024-06-12 16:16 | W.PN.UPDATE ---
Update Note
Progress Note Update
Seen and examined by me independently in collaboration with the medical scientific officer.
Lab data and imaging data reviewed.
Addendum as below :
Better morning than yesterday. Feeling improved with the breathing. No chest pain.
Remains without bronchospasm. Still crackles heard in bibasilar R>L but less prominent than yesterday. Follow-up chest x-ray today shows improvement in CHF.
She is known to have stenotic valvular heart disease. I suspect this is more likely CHF than COPD flare. Consult cardiology. Continue diuresis.
Taper steroids.
Discussed with at bedside
Total time spent on today's encounter was 52 minutes which included time spent in counseling the patient/family regarding diagnosis and treatment plan as listed above, goals of care, and symptom management. Case was discussed with nursing staff,
specialists, and care coordinators/case management. All labs and imaging personally reviewed by me. Remainder the time spent in detailed review of previous records, lab data, imaging, and other medical provider documentation.
[2024-06-12 16:20] LABS: Glucose - Point of Care 205 mg/dl (70-99)
[2024-06-12] MEDS: LOVENOX 40 MG SC (17:25)
[2024-06-12] MEDS: FEOSOL 325 MG PO (17:26)
[2024-06-12] MEDS: LASIX 80 MG IV (17:26)
[2024-06-12] MEDS: NOVOLOG FLEXPEN-LOW RESISTANCE 2 UNITS SC (17:27)
[2024-06-12] MEDS: NOVOLOG FLEXPEN 16 UNITS SC (17:27)
[2024-06-12 19:25] VITALS: BP 130/63
[2024-06-12] MEDS: PULMICORT 0.5 MG INH (20:32)
[2024-06-12] MEDS: LIPITOR 20 MG PO (20:51)
[2024-06-12 21:29] LABS: Glucose - Point of Care 144 mg/dl (70-99)
[2024-06-12] MEDS: HUMULIN N KWIKPEN 20 UNITS SC (21:54)
[2024-06-12 23:27] VITALS: BP 108/54
[2024-06-13] VITALS (12 sets, daily range): BP systolic 105–121; BP diastolic 48–81; PULSE 2–85; O2SAT 92; BMI 36.8; BMI 36.6
[2024-06-13 05:56] LABS: % Basophils 0.1 % (0-2); % Immature Granulocytes 1.3 % (0-0.5); % Lymphocytes 8.3 % (20.5-51.1); % Neutrophils 85.3 % (42.2-75.2); Absolute Immature Granulocytes 0.1 10^3/uL (0-0.05); Absolute Lymphocytes 0.9 10^3/uL (1.2-3.4); Absolute Monocytes 0.5 10^3/uL (0.1-0.6); Absolute Neutrophils 8.7 10^3/uL (1.4-6.5); Hematocrit 35.3 % (37.0-47.0); Mean Corp Hgb Conc. 28.3 g/dL (33.0-37.0); Mean Corpuscular Volume 102.3 fL (81.0-99.0); Mean Platelet Volume 10.8 fL (7.4-10.4); Nucleated Red Blood Cells % 0 %; Platelet Count 336 10^3/uL (130-400); Red Blood Cell Count 3.45 10^6/uL (4.20-5.40); Red Cell Dist. Width 13.8 % (11.5-14.5); White Blood Cell Count 10.2 10^3/uL (4.8-10.8)
[2024-06-13 06:17] LABS: Blood Urea Nitrogen 63 mg/dl (7-17); Calcium 8.7 mg/dl (8.4-10.2); Chloride 91 mmol/L (98-107); Estimated Creatinine Clearance 49 ml/min; Glucose 158 mg/dl (70-99); Potassium 4.6 mmol/L (3.5-5.1); Sodium 143 mmol/L (135-145); eGFR 58.02
[2024-06-13 07:14] LABS: Carbon Dioxide 46 mmol/L (22-30)
[2024-06-13 07:50] LABS: Glucose - Point of Care 155 mg/dl (70-99)
[2024-06-13] MEDS: DUONEB INH (08:08)
[2024-06-13] MEDS: PULMICORT INH (08:08)
--- NOTE | 2024-06-13 08:30 | W.PN.HOSP.TC ---
Addendum entered and electronically signed by Jerel Connelly MD 06/13/24 14:29:
Seen and examined by me independently in collaboration with the biomedical engineering aide.
Lab data and imaging data reviewed.
Addendum as below :
Patient slowly improved from her breathing. Still requiring 5 L of oxygen via nasal cannula. She is normally on 3 L. No chest pain or cough.
Chest without wheeze. Her crackles are much improved hardly hear them in the left and very few in the right lower zone. Weight has come down.
Continue the diuretics per cardiology and DC home when stable from cardiology.
Taper steroids further
Original Note:
Today's Communication/Plan
-
Continue IV lasix
Echo today
Assessment / Plan
Assessment / Plan
78-year-old female with past medical history of COPD on BiPAP presenting with:
#Shortness of breath, acute on chronic hypoxic respiratory failure
- likely COPD exacerbation vs CHF
- Patient tachypneic and hypoxic in ED
- On 5 L oxygen -- wean oxygen as able
- Continue DuoNebs and switch to dexamethason 4 q12
- Chest x-ray: New small right pleural effusion, diffuse interstitial markings possible CHF, moderate cardiomegaly --> Repeat chest x-ray: Mild improvement
- Will treat for possible pneumonia, continue doxycycline
- Continue BiPAP, home settings, saturating at >95%
- Troponin negative, EKG normal sinus rhythm with RBBB
- VBG shows chronic CO2 retention
- COVID, flu negative
- Continue lasix IV 80 BID
- Cardiology following for CHF management - continue IV Lasix 80 twice daily, could consider metolazone, echo this am
#Respiratory acidosis
#HFpEF
- Cardiology following -- echo this am
- Increase lasix
- Continue jardiance
#IDDM
- Continue insulin
- Metformin held
#Right buttock pressure ulcer
- Wound care consult
#HTN
- Continue nifedipine and metoprolol
#Anemia, chronic
- Stable
- Continue ferrous sulfate
#Hyperlipidemia
- Continue statin
DVT prophylaxis Lovenox
Full code
Anticipated Discharge: 24 - 48 hours
Subjective/Interval History
-
Date of Service: June 13, 2024
Objective Data
-
Labs:
Laboratory Results
06/13/24
05:05
WBC 10.2
Hgb 10.0 L
Hct 35.3 L
Plt Count 336
Sodium 143
Potassium 4.6
Chloride 91 L
Carbon Dioxide 46 H
BUN 63 H
Creatinine 1.0
Glucose 158 H
Calcium 8.7
Vital Signs:
Vital Signs
Temp Pulse Resp BP Pulse Ox
98.1 F 79 19 119/81 99
06/13/24 07:05 06/13/24 07:05 06/13/24 07:05 06/13/24 07:05 06/13/24 07:05
I&O
06/12/24 06/13/24 06/14/24
06:59 06:59 06:59
Intake Total 1020 / 1020 680 / 680
Balance 1020 / 1020 680 / 680
Review of Systems
-
History Source: Patient
Constitutional: Reports No Symptoms
EENT: Reports No Symptoms Reported
Respiratory: Reports No Symptoms
Cardiac: Reports No Symptoms
Abdomen/GI: Reports No Symptoms
Breast: Reports No Symptoms
Genitourinary: Reports No Symptoms
Musculoskeletal: Reports No Symptoms
Skin: Reports No Symptoms
Neuro: Reports No Symptoms
Endocrine: Reports No Symptoms
Hematologic / Lymphatic: Reports No Symptoms
Allergy / Immunology: Reports No Symptoms
Physical Exam
-
General: Well Developed, Well Nourished and Comfortable
HEENT: Normocephalic
Respiratory: Rales (Improved compared to yesterday) and Decreased Breath Sounds
Cardiac: Regular Rhythm, S1/S2 and Murmur
GI: Soft, Nontender, Normal Bowel Sounds and Distended
Genito-urinary: No Costovertebral Tender
Musculoskeletal: No Clubbing, No Cyanosis and No Edema
Skin: Warm and Dry
Neuro: Awake, Alert and Oriented
Hematologic / Lymphatic: No Lymphadenopathy
Psych: Calm
[2024-06-13] MEDS: PROCARDIA XL (EXTENDED RELEASE) 30 MG PO (09:21)
[2024-06-13] MEDS: LASIX 80 MG IV ×2 (09:22→17:02)
[2024-06-13] MEDS: VIBRAMYCIN 100 MG PO ×2 (09:22→19:50)
[2024-06-13] MEDS: LOPRESSOR 25 MG PO ×2 (09:22→19:50)
[2024-06-13] MEDS: FEOSOL 650 MG PO (09:22)
[2024-06-13] MEDS: FARXIGA 10 MG PO (09:23)
[2024-06-13] MEDS: DECADRON 4 MG IV (09:23)
[2024-06-13] MEDS: DESENEX/MITRAZOL/ZEASORB 1 APPLIC TOPICAL (09:23)
[2024-06-13] MEDS: NOVOLOG FLEXPEN-LOW RESISTANCE SC ×2 (11:01→17:03)
[2024-06-13] MEDS: NOVOLOG FLEXPEN SC ×3 (11:01→17:03)
[2024-06-13 11:46] LABS: Glucose - Point of Care 186 mg/dl (70-99)
[2024-06-13] MEDS: DUONEB 3 ML INH (11:51)
[2024-06-13] MEDS: NOVOLOG FLEXPEN-LOW RESISTANCE 1 UNITS SC (12:05)
[2024-06-13] MEDS: NOVOLOG FLEXPEN 12 UNITS SC (12:06)
--- NOTE | 2024-06-13 12:10 | VNURNOTE ---
Home Health Liaison met with patient and spouse at bedside to discuss [facility] nurse/therapy, visits, schedule and homebound status. Patient is agreeable and understands that visits at home will be 2-3 x per week to assess and teach medical management.
[facility] brochure provided with contact information. Patient is aware that [facility] will contact them for start of care in 1-2 days after discharge from .
[facility] referral completed in [facility].
--- NOTE | 2024-06-13 13:11 | W.PN.CARDCBS ---
Addendum entered and electronically signed by Nazario Navas MD 06/13/24 13:23:
I saw and examined the patient.
The SHOP TECHNICIAN or PA's note was reviewed and I agree with the note.
Comment: General: Well developed, well nourished in NAD.
Neck: Supple, no JVD, HJR, carotids +2 B/L, no bruits bilaterally.
Heart: Non displaced PMI, RRR, no murmurs, No S3, S4, no rubs.
Lungs: Scattered rhonchi throughout
Extremities: No clubbing, cyanosis or edema bilaterally.
Neuro: Grossly nonfocal, awake, alert and oriented x3.
Difficult to determine how much is COPD versus CHF. Continue IV Lasix. She remains on 5 L of oxygen and is on 3 L at home. Discussed with patient and at bedside.
Original Note:
Today's Communication / Plan
-
Remains on 5 L
Await echo
Cont Lasix 80 mg IV BID
Volume status is difficult and bed scale weight measurements don't help
Impression / Plan
-
Family Physician:� Trina Ralph
Primary Boxcar Weigher: Dr. Simmons
Impression:
Admitted with SOB and acute on hypoxic respiratory failure 06/10/24
AE COPD
Acute HFpEF
Mod peak/mean 48/27 mmHg and ZAY 1.0 cm sq by echo 12/21/23
Mod MS with peak/mean 17/7 mmHg by echo 12/21/23
MARK on BiPAP
HTN
HLD
DM2
Chronic iron deficiency anemia
Morbid obesity, BMI 36.4
h/o pulmonary nodules
ECHO 07/2019: EF 60-65%, mod cLVH, MAC, mild MR, mild to mod , peak/mean 26/16mmHg, ZAY 1.1cm2
ECHO 09/24/21: EF 65 to 70%, mild concentric LVH, mild , peak/mean gradients 31/19 mmHg, ZAY 1.1 cm�, trivial pericardial effusion, no significant change compared to prior
Echo 12/21/23: EF 55-60%, mild conc LVH, mod MS with peak/mean 17/7 mmHg, mod peak/mean 48/27 mmHg and ZAY 1.0 cm sq
Echo 06/13/24: Report pending
Plan:
-Patient being weighed with bed scale. I&Os not accurate. Some mild subjective improvement.
-Cont Lasix 80 mg IV BID. Patient was taking Lasix 80 mg PO BID prior to admission. Pending response to diuresis could consider dose of metolazone.
-Patient is below any previous dry weight we have on record. Will need to establish a new dry weight on day of d/c.
-Recheck echo, EF was 55-60% by echo in 12/2023.
-Outpatient dose of Lopressor 25 mg BID has been continued, but will switch to Toprol XL 25 mg dialy due to CHF
-Patient is not chronically on NAJMA/ARB/aldosterone antagonist and will not add at this time due to hypotension
-Outpatient dose of Jardiance 10 mg daily was transition to Farxiga 10 mg daily due to formulary changes while in , but patient should resume Jardiance upon discharge.
-Patient with mod MS and by last echo. Await updated echo gradients. Not clear what type of intervention the patient would be a candidate for based on her chronic hypoxic respiratory failure and body habitus
-Remains on Decadron 4 mg IV q 12 hours and antibiotics
HPI: Patient came to [facility] on Monday after she was sent for an outpatient CXR by her PCP and was in distress so instead she went to [facility] and was admitted with AE COPD, but cardiology is now consulted for possible component of acute HF. Patient saw
her PCP on 06/10/2024 for increased SOB. Patient has chronic hypoxic respiratory failure and is generally on supplemental oxygen at 3 L NC, but had increased to 5 L NC. Her PCP was worried and started patient on Levaquin and referred her to for
an outpatient CXR, but when patient arrived and ambulated to outpatient registration she felt unstable and asked to go to ER instead. Patient was negative for COVID and influenza swabs. Initial concern was for AECOPD and patient was started on
Decadron IV. CXR showed a small right pleural effusion and patient was given Lasix 40 mg IV x 1 on 06/10/2024, but then transition back to her outpatient dose of Lasix 80 mg PO BID as it was felt that she had more COPD than CHF.
Progress Note - Boxcar Weigher
Subjective
Date of Service: June 13, 2024
She just had the echo, they didn't get to it yesterday, she feels a bit better
Objective
Labs:
06/13/24 05:05
06/13/24 05:05
Labs
Hgb 10.0 g/dL (12.0-16.0) L 06/13/24 05:05
Hct 35.3 % (37.0-47.0) L 06/13/24 05:05
Plt Count 336 10^3/uL (130-400) 06/13/24 05:05
Sodium 143 mmol/L (135-145) 06/13/24 05:05
Potassium 4.6 mmol/L (3.5-5.1) 06/13/24 05:05
BUN 63 mg/dl (7-17) H 06/13/24 05:05
Creatinine 1.0 mg/dL (0.6-1.0) 06/13/24 05:05
Glucose 158 mg/dl (70-99) H 06/13/24 05:05
Troponins
06/10/24
14:03
Troponin I < 0.012
Vital Signs and I&O:
Vital Signs
Temp Pulse Resp BP Pulse Ox
97.9 F 78 16 114/68 96
06/13/24 11:06 06/13/24 11:57 06/13/24 11:57 06/13/24 11:06 06/13/24 11:57
Vital Signs
Temp Pulse Resp BP Pulse Ox
97.9 F 78 16 114/68 96
06/13/24 11:06 06/13/24 11:57 06/13/24 11:57 06/13/24 11:06 06/13/24 11:57
Intake & Output
06/11/24 06/12/24 06/13/24 06/14/24
06:59 06:59 06:59 06:59
Intake Total 120 / 120 1020 / 1020 680 / 680
Balance 120 / 120 1020 / 1020 680 / 680
Physical Exam
Physical Exam
Gen: NAD, AAOx3, obese
HEENT: EOMI, MMM, wearing glasses
CV: SR.
Lungs: 5 L NC. B/L rales
Abd: Distended abdomen with +BS and NT
Ext: Chronic skin changes, +1 non-pitting B/L LE edema
Skin: Warm, dry and pink. No rash
Neuro: Non-focal
[2024-06-13 16:01] LABS: Venous Blood Gas B.E. 20.5 mmol/L (-4 to +4); Venous Blood Gas HCO3 51.9 mmol/L (22-27); Venous Blood Gas O2 Sat % 81.5 %; Venous Blood Gas pH 7.27 (7.32-7.43); Venous Blood Gas pO2 49 mmHg (30-50)
[2024-06-13 16:05] LABS: Venous Blood Gas pCO2 113 mmHg (35-48)
--- NOTE | 2024-06-13 16:18 | PTCARENOTE ---
PCT alerted RN that patient's family member wanted to speak with their nurse. This RN went in to speak to family, family expressed concern that patients mentation was not right and her breathing was off. This RN assessed patient. Pt. appeared
visibly short of breath with head bobbing and nodding in and out of sleep mid conversation. Pulse ox 99% and VSS. This RN updated MD, STAT VBG obtained. Critical lab-pCO2 113. MD updated and orders for patient to be transferred to IMU put in. Pt.
currently on her own CPAP from home and awaiting transfer to IMU.
--- NOTE | 2024-06-13 16:39 | CON.PUL ---
Consultation
Consultation Request
Date/Time Consultation Requested: 06/13
Date/Time Consultation Performed: 06/13
Reason for Consultation: shortness of breath, hypercapnia
Medical History
-
History of Present Illness:
history obtained from the patient, family at bedside, reviewing inpatient and outpatient records. 78-year-old female with chronic hypercapnia on nocturnal BiPAP, chronic hypoxia, diabetes, morbid obesity who had been complaining of increased upper
respiratory symptoms, shortness of breath for 4 days prior to admission. Patient saw primary physician. Upon arrival to the [facility], temperature 99.3, pulse 90, breathing at 30, blood pressure 118/57, 80% saturation. White count noted to
be 13.3, serum bicarbonate 37. Chest x-ray suggested pneumonia versus heart failure. Patient was given nebulizer, antibiotics, admitted for further management. Hospital course was reviewed. Patient was seen by cardiology. Patient diuresis was
increased. Of note, daughter states patient was more lethargic, noted to have hypercapnia. Patient had been using her BiPAP during hospital stay. We are asked to help from a standpoint
Presently, she denies cough, chest pain. She is able to sit up with minimal assistance. She is following commands, BiPAP is in place
.
PMH: Hypertension, hyperlipidemia, insulin-dependent diabetes, history of heart failure, but sleep apnea on BiPAP, history of anemia, asthma, aortic stenosis, elevated IgE, history of pleural effusion
Past Medical History
Past Medical History: None ( see above)
Past Surgical History: None ( see above)
Social History
Tobacco: Non-smoker
Alcohol: None
Drug: None
Personal:
Living: With Family
Employment: Not Employed
Family History
Family History: Other ( 3 brothers, 2 sisters. 3 children. Healthy. One sister from cancer. There is a family history of heart disease and hypertension)
Allergies / Home Medications
Allergies
Allergy/AdvReac Type Severity Reaction Status Date / Time
aspirin Allergy Anxiety Verified 03/25/22 12:50
Home Medications
�Medication �Instructions �Recorded �Confirmed �Last Taken �Type
albuterol sulfate 90 mcg/actuation 2 puff inhalation R Q4HPRN PRN sob 05/03/13 06/10/24 03/24/22 History
aerosol inhaler
insulin NPH isoph U-100 human 100 20 - 40 units SC HS Diabetes 10/15/15 06/10/24 04/13/22 History
unit/mL subcutaneous suspension
(Humulin N NPH U-100 Insulin
(isophane susp))
insulin lispro 100 unit/mL 12 unit SC BID@0730,1130 Diabetes 10/15/15 06/10/24 04/14/22 History
subcutaneous solution (Humalog
U-100 Insulin)
metoprolol tartrate 25 mg tablet 25 mg PO BID Blood pressure 10/15/15 06/10/24 04/14/22 History
atorvastatin 20 mg tablet 20 mg PO HS High cholesterol 09/23/21 06/10/24 04/13/22 History
budesonide 0.5 mg/2 mL suspension 0.5 mg inhalation R BID 09/23/21 06/10/24 04/14/22 History
for nebulization Lung/breathing issues
ferrous sulfate 325 mg (65 mg 325 mg PO QPM Supplement 09/23/21 06/10/24 04/13/22 History
iron) tablet (FeroSul)
ipratropium 0.5 mg-albuterol 3 mg 3 ml inhalation R TID 09/23/21 06/10/24 04/14/22 History
(2.5 mg base)/3 mL nebulization Lung/breathing issues
soln
metformin 1,000 mg tablet 1,000 mg PO BID@0800,1700 Diabetes 09/23/21 06/10/24 04/14/22 History
multivitamin with folic acid 400 1 tab PO DAILY Supplement 09/23/21 06/10/24 04/14/22 History
mcg tablet (Tab-A-Vern)
empagliflozin 10 mg tablet 10 mg PO DAILY Heart Failure #30 09/28/21 06/10/24 04/14/22 Rx
(Jardiance) tabs
nifedipine 30 mg tablet,extended 30 mg PO DAILY Blood pressure #30 09/28/21 06/10/24 04/14/22 Rx
release tabs
miconazole nitrate 2 % topical 1 applic topical DAILY 03/25/22 06/10/24 03/25/22 History
powder (Desenex) underbreasts, abd fold,flanks
ammonium lactate 5 % lotion 1 applic topical DAILYPRN PRN feet 06/10/24 06/10/24 Unknown History
rash
ferrous sulfate 325 mg (65 mg 650 mg PO DAILY Supplement 06/10/24 06/10/24 Unknown History
iron) tablet
furosemide 80 mg tablet 80 mg PO BID@0800,1600 Fluid 06/10/24 06/10/24 Unknown History
Retention/Swelling
insulin lispro 100 unit/mL 16 unit SC DAILY@1630 Diabetes 06/10/24 06/10/24 Unknown History
subcutaneous solution (Humalog
U-100 Insulin)
potassium chloride 20 mEq 20 meq PO BID@0800,1700 Supplement 06/10/24 06/10/24 Unknown History
tablet,extended
release(part/cryst) (Klor-Con M)
Review of Systems
-
All other systems: Negative unless noted
Vitals / Labs / Diagnostic Testing
Vital Signs
Temp Pulse Resp BP Pulse Ox
97.4 F 78 19 121/60 99
06/13/24 15:05 06/13/24 15:05 06/13/24 15:05 06/13/24 15:05 06/13/24 15:05
Lab Data
06/13/24 05:05
06/13/24 05:05
Microbiology
06/11/24 12:10 Nose MRSA Screen - Final
No Methicillin Resistant Staphylococcus aureus isolated.
06/10/24 14:03 Nasal Swab Influenza Types A & B ([place]) - Final
Negative for Influenza A & B, NAAT
Negative results must be combined with clinical observations
and patient history.
Nucleic Acid Amplification test (NAAT)performed on the
[employer] platform.
Diagnostic Testing:
Physical Exam
-
HEENT: Normocephalic, Anicteric and Other ( on BiPAP in place)
Cardiovascular: S1/S2, Regular Rhythm, Murmur ( 2/6 systolic murmur) and Peripheral Edema ( trace edema)
Respiratory: Wheeze (n), Rales (n), Rhonchi (n) and Non-Labored Respirations
GI: Soft, Non Distended ( obese) and Non Tender
Neurology: Awake, Alert and No Motor Deficits
Skin: Good Color
General: Comfortable
Assessment
-
78-year-old female with complex medical history, on home oxygen chronically, chronic hypercapnia compensated on BiPAP first for severe sleep apnea, aortic stenosis, history of heart failure, history of recurrent right pleural effusion, resolved. We
are asked to comment on her pulmonary process 06/13/24
Acute hypoxic respiratory insufficiency, requiring 5 L
Baseline 3 L at home
Bilateral infiltrates
Pneumonitis versus heart failure
Left lower lobe atelectasis/pneumonitis
Valvular disease, per echo 06/13/24
Moderate mitral stenosis, moderate aortic stenosis, valve area 1.1 cm�
Normal biventricular function, right heart pressures not determined
Leukocytosis, improved
Acute on chronic hypercapnic respiratory failure
Baseline PCO2 90
Severe sleep apnea, total index 56, desaturation adamaris 51%
Compliant and adequate with auto BiPAP
Conditions present prior to admission
Diabetes
Hypertension/hyperlipidemia
Morbid obesity
Elevated IgE
Moderate to severe asthma, FEV1 33%
TLC 86%, DLCO 40% (2017)
History of recurrent heart failure
History of anemia
History of pleural effusions, stable since 2010
Plan/recommendations
At this time, patient appears to be comfortable, currently on her home auto BiPAP. This has been adequate with 100% compliance, no apnea in the past. She has severe baseline sleep apnea total index 56 with desaturation adamaris 51%
She uses 3 L with her BiPAP at home
She also has severe obstructive lung disease
This is likely more consistent with asthma than COPD, she has minimal smoking history
She has not tolerated inhaled therapy in the past. She is maintained on duo nebs and budesonide
In the past or shortness of breath, hypoxia has improved with diuresis
Although she has left lower lobe atelectasis, possible pneumonia, I suspect that the majority of her symptoms may be fluid related
Cardiology correspondence reviewed. Continues with diuresis
Furthermore, given her current acute illness, she may be napping more during the day than usual, less active than usual
This likely has led to an elevated PCO2 given her baseline PCO2 is 90. She has very little room for changes
Given that she is awake, comfortable, would maintain BiPAP intimately throughout the day and daily at bedtime as you are
We will repeat chest x-ray 06/14 given more aggressive diuresis per cardiology
Her valvular disease is noted
Hopefully she can initiate PT/OT
Reviewed above at length with patient, family members at bedside
Patient is well-known to myself
We will follow
[2024-06-13 16:40] LABS: Glucose - Point of Care 149 mg/dl (70-99)
[2024-06-13] MEDS: FEOSOL 325 MG PO (17:03)
[2024-06-13] MEDS: LOVENOX 40 MG SC (17:03)
--- NOTE | 2024-06-13 17:43 | PTCARENOTE ---
Pt. transferred to IMU with RT on 5L nasal cannula and on ekg monitor. RT to connect patient to our BiPAP in IMU. Report given to IMU nurse, pt AAO x3 and VSS.
--- NOTE | 2024-06-13 18:10 | PTCARENOTE ---
Patient received from the floors. Patient awake and alert but to be placed on Hospital BiPAP unit and not home unit. Family at bedside. Skin assessed. Oriented to new room. Call schuster in reach.
[2024-06-13 19:01] LABS: Glucose - Point of Care 112 mg/dl (70-99)
[2024-06-13] MEDS: PULMICORT 0.5 MG INH (19:57)
[2024-06-13] MEDS: LIPITOR 20 MG PO (20:00)
[2024-06-13 21:37] LABS: Glucose - Point of Care 283 mg/dl (70-99)
[2024-06-13] MEDS: HUMULIN N KWIKPEN 20 UNITS SC (22:17)
[2024-06-14] VITALS (18 sets, daily range): BP systolic 96–129; BP diastolic 49–71; PULSE 2–116; BMI 33.1
--- NOTE | 2024-06-14 00:54 | PTCARENOTE ---
Assumed care of patient from previous RN. Patient is Aox3 and NSR with BBB on monitor. Patient on bipap 18/8 with 10L tolerating well. purewick in place draining yellow urine. and daughter at bedside. Assessment and vital signs as
documented.
[2024-06-14 05:06] LABS: Venous Blood Gas B.E. 27.7 mmol/L (-4 to +4); Venous Blood Gas HCO3 54.7 mmol/L (22-27); Venous Blood Gas O2 Sat % 99.1 %; Venous Blood Gas pCO2 67 mmHg (35-48); Venous Blood Gas pH 7.52 (7.32-7.43); Venous Blood Gas pO2 110 mmHg (30-50)
[2024-06-14 05:15] LABS: % Basophils 0.1 % (0-2); % Eosinophils 0.5 % (0-6); % Immature Granulocytes 0.4 % (0-0.5); % Lymphocytes 11.7 % (20.5-51.1); % Monocytes 9.9 % (1.7-9.3); % Neutrophils 77.4 % (42.2-75.2); Absolute Eosinophils 0.1 10^3/uL (0-0.7); Absolute Lymphocytes 1.1 10^3/uL (1.2-3.4); Absolute Monocytes 0.9 10^3/uL (0.1-0.6); Absolute Neutrophils 7.1 10^3/uL (1.4-6.5); Hematocrit 35.2 % (37.0-47.0); Hemoglobin 10.1 g/dL (12.0-16.0); Mean Corp Hgb Conc. 28.7 g/dL (33.0-37.0); Mean Corpuscular Hgb 28.5 pg (27.0-31.0); Mean Corpuscular Volume 99.2 fL (81.0-99.0); Mean Platelet Volume 10.7 fL (7.4-10.4); Nucleated Red Blood Cells % 0 %; Platelet Count 328 10^3/uL (130-400); Red Blood Cell Count 3.55 10^6/uL (4.20-5.40); Red Cell Dist. Width 13.8 % (11.5-14.5); White Blood Cell Count 9.2 10^3/uL (4.8-10.8)
[2024-06-14 05:37] LABS: Blood Urea Nitrogen 73 mg/dl (7-17); Calcium 8.6 mg/dl (8.4-10.2); Chloride 93 mmol/L (98-107); Estimated Creatinine Clearance 62 ml/min; Glucose 119 mg/dl (70-99); Magnesium 2.2 mg/dl (1.6-2.3); Potassium 3.8 mmol/L (3.5-5.1); Sodium 146 mmol/L (135-145); eGFR > 60.00
[2024-06-14 05:48] LABS: Carbon Dioxide 51 mmol/L (22-30)
[2024-06-14 06:13] LABS: B.E. 28.4 mmol/L; O2 Saturation % 99.7 % (94-98); PO2 129 mmHg (83-108); pH 7.41 (7.35-7.45)
[2024-06-14 06:24] LABS: PCO2 90 mmHg (32-35)
[2024-06-14] MEDS: DUONEB 3 ML INH (07:29)
[2024-06-14] MEDS: PULMICORT 0.5 MG INH ×2 (07:29→19:55)
[2024-06-14 07:44] LABS: Glucose - Point of Care 109 mg/dl (70-99)
--- NOTE | 2024-06-14 08:09 | W.PN.HOSP.TC ---
Addendum entered and electronically signed by Jerel Connelly MD 06/14/24 14:35:
Seen and examined by me independently in collaboration with the medical claims manager.
Lab data and imaging data reviewed.
Addendum as below :
Last evening events noted. Patient was confused along with worsening hypoxia with acidosis.
Patient was transferred to IMU was put on BiPAP. She normally uses auto BiPAP at home.
This morning patient is alert and oriented to place, day, month and the year. Her immediate recall was 3 out of 3 objects.
Says her breathing is okay. She has a cough but not much phlegm. No chest pain. No nausea vomiting. No fevers.
No respiratory distress noted.
No wheezing. Few right basilar crackles.
ABG from this morning shows compensated hypercapnic respiratory acidosis. There is also worsening metabolic alkalosis. She was put on a higher dose of Lasix.
Unclear the precipitant of decompensation of her compensated respiratory acidosis-may be more alkalotic from diuresis. We will start her on Diamox for couple of days and follow ABG closely.
Continue with diuresis per cardiology. Continue to wean steroids. Nebulizers as needed
Monitor shows tachycardia. Twelve-lead EKG shows rate controlled A-fib. Notified cardiology.
Discussed with pulmonary.
Discussed with family at bedside.
Total time spent on today's encounter was 52 minutes which included time spent in counseling the patient/family regarding diagnosis and treatment plan as listed above, goals of care, and symptom management. Case was discussed with nursing staff,
specialists, and care coordinators/case management. All labs and imaging personally reviewed by me. Remainder the time spent in detailed review of previous records, lab data, imaging, and other medical provider documentation.
Original Note:
Today's Communication/Plan
-
Continue IV Lasix, consider transition to p.o. tomorrow
Continue BiPAP
Monitor rate
Start Diamox 250 twice daily
Continue prednisone 20 Mg daily
Replete potassium and magnesium as needed
Continue metoprolol
Assessment / Plan
Assessment / Plan
78-year-old female with past medical history of COPD on BiPAP presenting with:
#Shortness of breath, acute on chronic hypoxic respiratory insufficiency
- likely multifactorial, COPD exacerbation vs CHF
- Patient tachypneic and hypoxic in ED
- On 3 L oxygen -- wean oxygen as able
- Continue DuoNebs and BiPAP
- Continue prednisone 20 mg daily
- Chest x-ray: New small right pleural effusion, diffuse interstitial markings possible CHF, moderate cardiomegaly --> Repeat chest x-ray today: Mild pulmonary edema, slightly improved compared to prior. Partial obstruction of the left
hemidiaphragm, which may represent left lower lobe airspace disease and/or small left pleural effusion.
- Last dose of doxycycline today
- Continue BiPAP, home settings, saturating at >99%
- Troponin negative
- VBG shows chronic CO2 retention
- COVID, flu negative
- Continue lasix IV 80 BID
- Weight stable
- Cardiology following for CHF management - continue IV Lasix 80 twice daily, could consider metolazone, echo this am
- Per family, patient became more confused yesterday. VBG stat showed pH 27 and CO2 113. Patient was transferred to IMU, pulmonary consulted.
- Today, patient is oriented and seems to be back at baseline. ABG this a.m. shows pH 7.41, CO2 90, bicarb 57. Metabolic alkalosis likely related to IV Lasix. Will add Diamox.
# Atrial fibrillation, new
- Patient was tachycardic this a.m.
- Asymptomatic, no chest pain, no palpitations
- EKG shows A-fib, rate controlled
- Cardiology following
- Continue metoprolol
#Respiratory acidosis
- Chronic CO2 retention
# Metabolic alkalosis
- Likely secondary to diuresis
#HFpEF
- Cardiology following -- echo no significant change compared to prior
- Increase lasix
- Continue jardiance
#IDDM
- Continue insulin
- Metformin held
#Right buttock pressure ulcer
- Wound care consult
#HTN
- Continue nifedipine and metoprolol
#Anemia, chronic
- Stable
- Continue ferrous sulfate
#Hyperlipidemia
- Continue statin
DVT prophylaxis Lovenox
Full code
Anticipated Discharge: 24 - 48 hours
Subjective/Interval History
-
Date of Service: June 14, 2024
Objective Data
-
Labs:
Laboratory Results
06/14/24 06/14/24
04:57 05:56
WBC 9.2
Hgb 10.1 L
Hct 35.2 L
Plt Count 328
HCO3 57.0 H*
Sodium 146 H
Potassium 3.8
Chloride 93 L
Carbon Dioxide 51 H
BUN 73 H
Creatinine 0.8
Glucose 119 H
Calcium 8.6
Vital Signs:
Vital Signs
Temp Pulse Resp BP Pulse Ox
98.7 F 71 22 107/51 95
06/13/24 19:40 06/14/24 02:00 06/14/24 02:00 06/14/24 02:00 06/14/24 01:00
I&O
06/13/24 06/14/24 06/15/24
06:59 06:59 06:59
Intake Total 680 / 680
Output Total 1000 / 1000
Balance 680 / 680 -1000 / -1000
Review of Systems
-
History Source: Patient and Family
Constitutional: Reports Fatigue
EENT: Reports No Symptoms Reported
Respiratory: Reports No Symptoms
Cardiac: Reports No Symptoms
Abdomen/GI: Reports No Symptoms
Breast: Reports No Symptoms
Genitourinary: Reports No Symptoms
Musculoskeletal: Reports No Symptoms
Skin: Reports No Symptoms
Neuro: Reports No Symptoms
Endocrine: Reports No Symptoms
Hematologic / Lymphatic: Reports No Symptoms
Allergy / Immunology: Reports No Symptoms
Physical Exam
-
General: Well Developed, Well Nourished, No Apparent Distress, Comfortable and Obese
HEENT: Normocephalic
Respiratory: Rales and Decreased Breath Sounds
Cardiac: S1/S2, Irregular Rhythm, Murmur and Tachycardic
GI: Soft, Nontender, Normal Bowel Sounds and Distended
Genito-urinary: No Costovertebral Tender
Musculoskeletal: No Clubbing, No Cyanosis and No Edema
Skin: Warm
Neuro: Awake, Alert, Oriented and Tremors
Hematologic / Lymphatic: No Lymphadenopathy
Psych: Calm and Intact Judgement/Insight
--- NOTE | 2024-06-14 08:10 | W.PN.PUL3 ---
Today's Communication / Plan
-
Patient appears to be comfortable from respiratory standpoint
Recommend continued BiPAP throughout the day and nightly
Recommend ongoing diuresis, crackles on exam noted
ABG noted, pCO2 is her baseline
Okay to try Diamox twice a day for 2 days, plan to repeat ABG prior to discharge
Assessment
-
78-year-old female with complex medical history, on home oxygen chronically, chronic hypercapnia compensated on BiPAP first for severe sleep apnea, aortic stenosis, history of heart failure, history of recurrent right pleural effusion, resolved. We
are asked to comment on her pulmonary process 06/13/24
Acute hypoxic respiratory insufficiency, requiring 5 L
Baseline 3 L at home
Bilateral infiltrates
Pneumonitis versus heart failure
Left lower lobe atelectasis/pneumonitis
Valvular disease, per echo 06/13/24
Moderate mitral stenosis, moderate aortic stenosis, valve area 1.1 cm�
Normal biventricular function, right heart pressures not determined
Leukocytosis, improved
Acute on chronic hypercapnic respiratory failure
Baseline PCO2 90
Severe sleep apnea, total index 56, desaturation adamaris 51%
Compliant and adequate with auto BiPAP
Conditions present prior to admission
Diabetes
Hypertension/hyperlipidemia
Morbid obesity
Elevated IgE
Moderate to severe asthma, FEV1 33%
TLC 86%, DLCO 40% (2018)
History of recurrent heart failure
History of anemia
History of pleural effusions, stable since 2010
Plan/recommendations
At this time, patient appears to be comfortable, currently on her home auto BiPAP.
This has been adequate with 100% compliance, no apnea in the past. She has severe baseline sleep apnea total index 56 with desaturation adamaris 51%
She uses 3 L with her BiPAP at home
Chest exam with scattered crackles posteriorly
Negative fluid status noted
ABG reviewed
7.41/90/129 on BiPAP with 5 L
She also has severe obstructive lung disease
This is likely more consistent with asthma than COPD, she has minimal smoking history
She has not tolerated inhaled therapy in the past. She is maintained on duo nebs and budesonide
Moving forward
I suspect given her crackles, this is more fluid than airway inflammation
Agree with continued diuresis per cardiology, negative fluid status is encouraging
Her ABG is at her baseline with regards to her pCO2, baseline is around 90
MARK/obesity hypoventilation syndrome
Okay to start Diamox 250 mg twice a day for the next few days with plans to repeat ABG prior to discharge
Would not discharge on Diamox
In the past or shortness of breath, hypoxia has improved with diuresis
Although she has left lower lobe atelectasis, possible pneumonia, I suspect that the majority of her symptoms may be fluid related
Cardiology correspondence reviewed. Continues with diuresis
Furthermore, given her current acute illness, she may be napping more during the day than usual, less active than usual
This likely has led to an elevated PCO2 given her baseline PCO2 is 90. She has very little room for changes
Hopefully we can get her out of bed, PT/OT, ambulate
Repeat x-ray today appears to be improved somewhat
Hopefully she can initiate PT/OT
Reviewed above at length with patient, family members at bedside
Patient is well-known to myself
Disposition efforts
Reviewed with primary service
Subjective Data
-
Date of Service:
Date of Service: June 14, 2024
Subjective:
Patient awake, following commands. Daughter at bedside states she is still a little bit confused. Patient denies any chest pain, nausea. She is coughing up, expectorating mucus
Objective Data
Data Reviewed
Vital Signs / I&O / Oxygen:
Vital Signs
Temp Pulse Resp BP Pulse Ox
98.7 F 71 22 107/51 95
06/13/24 19:40 06/14/24 02:00 06/14/24 02:00 06/14/24 02:00 06/14/24 01:00
Intake and Output
06/13/24 06/14/24 06/15/24
06:59 06:59 06:59
Intake Total 680 / 680
Output Total 1000 / 1000
Balance 680 / 680 -1000 / -1000
SaO2 95
Nasal Cannula flow liters per 5
minute
Physical Exam
General: Comfortable and Other (Large neck)
HEENT: Normocephalic and Anicteric
Cardiovascular: S1-S2, Regular Rhythm, Murmur (2/6 systolic murmur) and Peripheral Edema (Trace to 1+)
Respiratory: Wheeze (n), Crackles (Few scattered posteriorly), Rhonchi (n) and Non-Labored Respirations
GI: Soft, Non Distended (Obese) and Non Tender
Neurology: Awake, Alert and No Motor Deficits (Generally weak but can sit up with minimal assistance)
Skin: Good Color (n), Cyanosis (n) and Jaundice (n)
Labs/Micro/Reports
Lab Data
06/14/24 04:57
06/14/24 04:57
Laboratory Results
06/14/24
05:56
pH 7.41
pCO2 90 H*
pO2 129 H
HCO3 57.0 H*
O2 Delivery Level Bipap, 5l
Microbiology
06/11/24 12:10 Nose MRSA Screen - Final
No Methicillin Resistant Staphylococcus aureus isolated.
--- NOTE | 2024-06-14 08:35 | PTCARENOTE ---
Patient received from shift superintendent caustic cresylate. Patient resting comfortably in bed. AAO but a little confused, VSS. No events noted overnight. No complaints of pain at this time. Daughter spent the night again. Continuing ABX and IV Lasix. Patient wore
BiPAP for the night, ABG was drawn. Plan to let patient off at times to eat and have breaks but other than that to have on BiPAP as tolerated. No tests scheduled at this time. Call schuster in reach.
[2024-06-14] MEDS: NOVOLOG FLEXPEN-LOW RESISTANCE SC ×3 (09:33→17:24)
[2024-06-14] MEDS: LASIX 80 MG IV ×2 (09:34→17:20)
[2024-06-14] MEDS: NOVOLOG FLEXPEN 12 UNITS SC ×2 (09:34→13:29)
[2024-06-14] MEDS: FARXIGA 10 MG PO (09:36)
[2024-06-14] MEDS: DESENEX/MITRAZOL/ZEASORB 1 APPLIC TOPICAL (09:36)
[2024-06-14] MEDS: DELTASONE 20 MG PO (09:36)
[2024-06-14] MEDS: VIBRAMYCIN 100 MG PO ×2 (09:36→20:12)
[2024-06-14] MEDS: LOPRESSOR 25 MG PO ×2 (09:36→20:12)
[2024-06-14] MEDS: PROCARDIA XL (EXTENDED RELEASE) 30 MG PO (09:36)
[2024-06-14] MEDS: FEOSOL 650 MG PO (09:36)
--- NOTE | 2024-06-14 09:54 | W.PN.CARDCBS ---
Today's Communication / Plan
-
Continue IV diuresis, hopefully can transition to PO in next 24-48hrs
Start spironolactone
Impression / Plan
-
Family Physician:� Trina Ralph
Primary Computer Systems Security Analyst: Dr. Simmons
Impression:
Admitted with SOB and acute on hypoxic respiratory failure 06/10/24
AE COPD
Acute HFpEF
Mod peak/mean 48/27 mmHg and ZAY 1.0 cm sq by echo 12/21/23
Mod MS with peak/mean 17/7 mmHg by echo 12/21/23
MARK on BiPAP
HTN
HLD
DM2
Chronic iron deficiency anemia
Morbid obesity, BMI 36.4
h/o pulmonary nodules
ECHO 07/2019: EF 60-65%, mod cLVH, MAC, mild MR, mild to mod , peak/mean 26/16mmHg, ZAY 1.1cm2
ECHO 09/24/21: EF 65 to 70%, mild concentric LVH, mild , peak/mean gradients 31/19 mmHg, ZAY 1.1 cm�, trivial pericardial effusion, no significant change compared to prior
Echo 12/21/23: EF 55-60%, mild conc LVH, mod MS with peak/mean 17/7 mmHg, mod peak/mean 48/27 mmHg and ZYA 1.0 cm sq
Echo 06/13/24: EF 55-60%, mild conc LVH, mild-mod MS, peak/mean 46/28 mmHg and ZAY 1.1 cm sq
Plan:
-Suspect worsening dyspnea is multifactorial but in part due to CHF
-Echo stable with preserved LVEF and mod
-Cont Lasix 80 mg IV BID. Patient was taking Lasix 80 mg PO BID prior to admission. Pending response to diuresis could consider dose of metolazone.
-Follow Cr and electrolytes
-Ideally would have standing weights. Patient is below any previous dry weight we have on record. Will need to establish a new dry weight on day of d/c
-Outpatient dose of Jardiance 10 mg daily was transition to Farxiga 10 mg daily due to formulary changes while in , but patient should resume Jardiance upon discharge.
-Add low dose spironolactone
-Given mitral stenosis would likely benefit from HR ~60 bpm, continue home BB
-Management of steroids/antibiotics/nebs per pulmonology and primary team
Discussed with family at bedside
HPI: Patient came to [facility] on Monday after she was sent for an outpatient CXR by her PCP and was in distress so instead she went to [facility] and was admitted with AE COPD, but cardiology is now consulted for possible component of acute HF. Patient saw
her PCP on 06/10/2024 for increased SOB. Patient has chronic hypoxic respiratory failure and is generally on supplemental oxygen at 3 L NC, but had increased to 5 L NC. Her PCP was worried and started patient on Levaquin and referred her to for
an outpatient CXR, but when patient arrived and ambulated to outpatient registration she felt unstable and asked to go to ER instead. Patient was negative for COVID and influenza swabs. Initial concern was for AECOPD and patient was started on
Decadron IV. CXR showed a small right pleural effusion and patient was given Lasix 40 mg IV x 1 on 06/10/2024, but then transition back to her outpatient dose of Lasix 80 mg PO BID as it was felt that she had more COPD than CHF.
Progress Note - Computer Systems Security Analyst
Subjective
Date of Service: June 14, 2024
No acute overnight events. Patient moved from telemetry floor up to IMU. Resting comfortably in bed, eating breakfast this morning, no cardiac complaints.
Objective
Labs:
06/14/24 04:57
06/14/24 04:57
Labs
Hgb 10.1 g/dL (12.0-16.0) L 06/14/24 04:57
Hct 35.2 % (37.0-47.0) L 06/14/24 04:57
Plt Count 328 10^3/uL (130-400) 02/07/25 04:57
Sodium 146 mmol/L (135-145) H 06/14/24 04:57
Potassium 3.8 mmol/L (3.5-5.1) 06/14/24 04:57
BUN 73 mg/dl (7-17) H 06/14/24 04:57
Creatinine 0.8 mg/dL (0.6-1.0) 06/14/24 04:57
Glucose 119 mg/dl (70-99) H 06/14/24 04:57
Vital Signs and I&O:
Vital Signs
Temp Pulse Resp BP Pulse Ox
98.4 F 106 22 123/57 95
06/14/24 07:20 06/14/24 09:34 06/14/24 02:00 06/14/24 09:34 06/14/24 09:17
Vital Signs
Temp Pulse Resp BP Pulse Ox
98.4 F 106 22 123/57 95
06/14/24 07:20 06/14/24 09:34 06/14/24 02:00 06/14/24 09:34 06/14/24 09:17
Intake & Output
06/12/24 06/13/24 06/14/24 06/15/24
06:59 06:59 06:59 06:59
Intake Total 1020 / 1020 680 / 680
Output Total 1000 / 1000
Balance 1020 / 1020 680 / 680 -1000 / -1000
Physical Exam
Physical Exam
Gen: NAD, AA
HEENT: NC/AT, sclera anicteric
Neck: No JVD
CV: RRR, NL s1/s2, 2 out of 6 systolic ejection murmur throughout the precordium
Lungs: Crackles at the bases bilaterally on 3L NC
Abd: S/ND
Ext: No LE edema
Skin: Warm, dry
Neuro: Non-focal
[2024-06-14] MEDS: ALDACTONE 12.5 MG PO (10:51)
[2024-06-14] MEDS: KCL 20 MEQ PO (10:51)
[2024-06-14 12:34] LABS: Glucose - Point of Care 129 mg/dl (70-99)
[2024-06-14] MEDS: DIAMOX 250 MG PO (17:19)
[2024-06-14] MEDS: FEOSOL 325 MG PO (17:20)
[2024-06-14] MEDS: LOVENOX 40 MG SC (17:20)
[2024-06-14] MEDS: NOVOLOG FLEXPEN SC (17:30)
[2024-06-14 17:35] LABS: Glucose - Point of Care 95 mg/dl (70-99)
--- NOTE | 2024-06-14 20:00 | PTCARENOTE ---
Received pt at shift change, family at the bedside. Pt AAOx3, c/o mild throat pain, offers no other complaints. Pt Afib on the monitor, controlled rate 80's-90's. Pt currently on 3L O2 NC, which pt states is her baseline during the day at home,
lungs diminished with crackles at the bases. Purewick in place draining yellow urine, remainder of assessment as documented. RT at the bedside, waiting to place pt on BiPAP when she's finished with HS medications. Pt and family updated on POC for
the evening.
[2024-06-14] MEDS: LIPITOR 20 MG PO (20:12)
[2024-06-14 21:52] LABS: Glucose - Point of Care 200 mg/dl (70-99)
[2024-06-14] MEDS: MYCOSTATIN ORAL SUSPENSION 5 ML PO (22:06)
[2024-06-14] MEDS: HUMULIN N KWIKPEN 20 UNITS SC (22:07)
[2024-06-15] VITALS (36 sets, daily range): BP systolic 89–127; BP diastolic 50–67; PULSE 2–92; O2SAT 98; BMI 33.1; BMI 33.7
[2024-06-15 04:43] LABS: % Basophils 0.2 % (0-2); % Eosinophils 0.9 % (0-6); % Immature Granulocytes 0.5 % (0-0.5); % Lymphocytes 11.8 % (20.5-51.1); % Monocytes 10.7 % (1.7-9.3); % Neutrophils 75.9 % (42.2-75.2); Absolute Eosinophils 0.1 10^3/uL (0-0.7); Absolute Lymphocytes 1.1 10^3/uL (1.2-3.4); Absolute Neutrophils 6.7 10^3/uL (1.4-6.5); Hematocrit 37.3 % (37.0-47.0); Hemoglobin 10.7 g/dL (12.0-16.0); Mean Corp Hgb Conc. 28.7 g/dL (33.0-37.0); Mean Corpuscular Hgb 28.5 pg (27.0-31.0); Mean Corpuscular Volume 99.2 fL (81.0-99.0); Nucleated Red Blood Cells % 0 %; Platelet Count 326 10^3/uL (130-400); Red Blood Cell Count 3.76 10^6/uL (4.20-5.40); Red Cell Dist. Width 14.1 % (11.5-14.5); White Blood Cell Count 8.9 10^3/uL (4.8-10.8)
[2024-06-15 05:02] LABS: Blood Urea Nitrogen 54 mg/dl (7-17); Calcium 8.8 mg/dl (8.4-10.2); Chloride 92 mmol/L (98-107); Estimated Creatinine Clearance 49 ml/min; Glucose 111 mg/dl (70-99); Magnesium 2.2 mg/dl (1.6-2.3); Potassium 3.4 mmol/L (3.5-5.1); Sodium 148 mmol/L (135-145); eGFR 58.02
[2024-06-15 06:36] LABS: Carbon Dioxide 51 mmol/L (22-30)
[2024-06-15] MEDS: PULMICORT 0.5 MG INH ×2 (07:28→19:26)
[2024-06-15] MEDS: DUONEB 3 ML INH ×2 (07:29→19:26)
[2024-06-15 08:12] LABS: Glucose - Point of Care 112 mg/dl (70-99)
[2024-06-15] MEDS: NOVOLOG FLEXPEN-LOW RESISTANCE SC ×2 (08:52→18:01)
[2024-06-15] MEDS: ALDACTONE 12.5 MG PO (08:52)
[2024-06-15] MEDS: LASIX 80 MG IV ×2 (08:53→15:41)
[2024-06-15] MEDS: FARXIGA 10 MG PO (08:54)
[2024-06-15] MEDS: VIBRAMYCIN 100 MG PO (08:54)
[2024-06-15] MEDS: DIAMOX 250 MG PO ×2 (08:54→15:42)
[2024-06-15] MEDS: LOPRESSOR 25 MG PO (08:55)
[2024-06-15] MEDS: FEOSOL 650 MG PO (08:55)
[2024-06-15] MEDS: ELIQUIS 5 MG PO ×2 (09:01→20:00)
[2024-06-15] MEDS: DESENEX/MITRAZOL/ZEASORB 1 APPLIC TOPICAL (09:01)
[2024-06-15] MEDS: NOVOLOG FLEXPEN 12 UNITS SC ×2 (09:06→13:53)
--- NOTE | 2024-06-15 09:11 | W.PN.HOSP.TC ---
Today's Communication/Plan
-
Continue with IV Lasix, spironolactone. Continue with Diamox
Eliquis initiated today
Wean steroids
PT OT eval
Assessment / Plan
Assessment / Plan
78-year-old female with past medical history of COPD on BiPAP presenting with:
#Shortness of breath secondary to acute hypoxic and hypercapnic respiratory failure on chronic respiratory insufficiency
- likely multifactorial, most likely primarily secondary to CHF. Doubt COPD flare. With cough and phlegm cannot rule out superimposed bronchitis.
-Clinically improved. Not confused anymore. Still feeling weak.
-Improved oxygenation-back to her 3 L of oxygen which she uses at home
- Continue DuoNebs and BiPAP
- Continue prednisone 20 mg daily and taper for pulmonary
- Chest x-ray: New small right pleural effusion, diffuse interstitial markings possible CHF, moderate cardiomegaly --> Repeat chest x-ray today: Mild pulmonary edema, slightly improved compared to prior. Partial obstruction of the left
hemidiaphragm, which may represent left lower lobe airspace disease and/or small left pleural effusion.
-Finished 5 days of antibiotics
- Troponin negative
- VBG shows chronic CO2 retention
- COVID, flu negative
- Continue lasix IV 80 BID. Continue Diamox for another day or so for superimposed metabolic alkalosis from diuresis. Follow ABG
- Weight improved
- Cardiology following for CHF management - continue IV Lasix 80 twice daily.
- echo no significant change compared to prior
# Atrial fibrillation, new
-Hemodynamically stable.
- Asymptomatic, no chest pain, no palpitations
- EKG shows A-fib, rate controlled
-Discussed with cardiology-initiating on Eliquis today
- Continue metoprolol
#Hypokalemia-replete
#IDDM
- Continue insulin
- Metformin held
#Right buttock pressure ulcer
- Wound care consult
#HTN
- Continue nifedipine and metoprolol
#Anemia, chronic
- Stable
- Continue ferrous sulfate
#Hyperlipidemia
- Continue statin
DVT prophylaxis Lovenox
Full code
Renew PT OT eval and treatments.
Discussed with and family at bedside
Discussed with RN.
Total time spent on today's encounter was 52 minutes which included time spent in counseling the patient/family regarding diagnosis and treatment plan as listed above, goals of care, and symptom management. Case was discussed with nursing staff,
specialists, and care coordinators/case management. All labs and imaging personally reviewed by me. Remainder the time spent in detailed review of previous records, lab data, imaging, and other medical provider documentation.
Anticipated Discharge: > 48 hours
Subjective/Interval History
-
Date of Service: June 15, 2024
Improved per family but still a bit slow according to the Family
Patient denies shortness of breath at rest. She is alert and oriented. No chest pain. Cough present.
Tolerating diet.
Objective Data
-
Labs:
Laboratory Results
06/15/24
04:12
WBC 8.9
Hgb 10.7 L
Hct 37.3
Plt Count 326
Sodium 148 H
Potassium 3.4 L
Chloride 92 L
Carbon Dioxide 51 H
BUN 54 H
Creatinine 1.0
Glucose 111 H
Calcium 8.8
Vital Signs:
Vital Signs
Temp Pulse Resp BP Pulse Ox
98.3 F 92 22 124/59 99
06/15/24 07:18 06/15/24 08:00 06/15/24 08:00 06/15/24 08:00 06/15/24 08:00
I&O
06/14/24 06/15/24 06/16/24
06:59 06:59 06:59
Intake Total 600 / 600
Output Total 1000 / 1000 2400 / 2400
Balance -1000 / -1000 -1800 / -1800
Review of Systems
-
Constitutional: Denies Fever
Cardiac: Denies Chest Pain or Palpitations
Abdomen/GI: Denies Abdominal Pain, Nausea or Vomiting
Neuro: Denies Dizzy
Physical Exam
-
General: No Apparent Distress
Respiratory: Crackles (I do not hear any crackles today) and Non Labored Respirations; Negative Wheezes or Accessory Resp Muscle Use
Cardiac: S1/S2, Irregular Rhythm and Tachycardic
GI: Soft and Nontender
Musculoskeletal: No Edema
Neuro: AO x 3
Data Reviewed
-
Labs: Labs Reviewed by me
[2024-06-15] MEDS: KCL 40 MEQ PO (10:32)
--- NOTE | 2024-06-15 11:15 | PTCARENOTE ---
Patient drowsy but easily arousable. Family in room at bedside. Patient out of bed to chair. Heavy assist x 2. IV lasix given as ordered. Pure wick in use. Sacral foam intact. Sacrum pink but blanchable, calazime cream applied. VS stable.
Will continue to monitor.
--- NOTE | 2024-06-15 13:05 | W.PN.CARDCBS ---
Today's Communication / Plan
-
Newly in atrial fibrillation
Increase metoprolol for rate control
Add Eliquis
Continue IV diuretics
Ideally would have standing weights
Impression / Plan
-
Family Physician:� Trina Ralph
Primary Manager Unix: Dr. Simmons
Impression:
Admitted with SOB and acute on hypoxic respiratory failure 06/10/24
AE COPD
Acute HFpEF
Mod peak/mean 48/27 mmHg and ZAY 1.0 cm sq by echo 12/21/23
Mod MS with peak/mean 17/7 mmHg by echo 12/21/23
Atrial fibrillation - new this admission
MARK on BiPAP
HTN
HLD
DM2
Chronic iron deficiency anemia
Morbid obesity, BMI 36.4
h/o pulmonary nodules
ECHO 07/2019: EF 60-65%, mod cLVH, MAC, mild MR, mild to mod , peak/mean 26/16mmHg, ZAY 1.1cm2
ECHO 09/24/21: EF 65 to 70%, mild concentric LVH, mild , peak/mean gradients 31/19 mmHg, ZAY 1.1 cm�, trivial pericardial effusion, no significant change compared to prior
Echo 12/21/23: EF 55-60%, mild conc LVH, mod MS with peak/mean 17/7 mmHg, mod peak/mean 48/27 mmHg and ZAY 1.0 cm sq
Echo 06/13/24: EF 55-60%, mild conc LVH, mild-mod MS, peak/mean 46/28 mmHg and ZAY 1.1 cm sq
Plan:
-Suspect worsening dyspnea is multifactorial but in part due to CHF
-Echo stable with preserved LVEF and mod
-Cont Lasix 80 mg IV BID. Patient was taking Lasix 80 mg PO BID prior to admission. Pending response to diuresis could consider dose of metolazone.
-Follow Cr and electrolytes
-Ideally would have standing weights. Patient is below any previous dry weight we have on record. Will need to establish a new dry weight on day of d/c
-Outpatient dose of Jardiance 10 mg daily was transition to Farxiga 10 mg daily due to formulary changes while in , but patient should resume Jardiance upon discharge.
-Low dose spironolactone added
-Currently in atrial fibrillation, this seems to be a new diagnosis for her
-Increase metoprolol for rate control goal HR <110 bpm
-Start Eliquis 5mg BID for cardioembolic ppx
-Management of steroids/antibiotics/nebs per pulmonology and primary team
Discussed with family at bedside
HPI: Patient came to [facility] on Monday after she was sent for an outpatient CXR by her PCP and was in distress so instead she went to [facility] and was admitted with AE COPD, but cardiology is now consulted for possible component of acute HF. Patient saw
her PCP on 06/10/2024 for increased SOB. Patient has chronic hypoxic respiratory failure and is generally on supplemental oxygen at 3 L NC, but had increased to 5 L NC. Her PCP was worried and started patient on Levaquin and referred her to for
an outpatient CXR, but when patient arrived and ambulated to outpatient registration she felt unstable and asked to go to ER instead. Patient was negative for COVID and influenza swabs. Initial concern was for AECOPD and patient was started on
Decadron IV. CXR showed a small right pleural effusion and patient was given Lasix 40 mg IV x 1 on 06/10/2024, but then transition back to her outpatient dose of Lasix 80 mg PO BID as it was felt that she had more COPD than CHF.
Progress Note - Manager Unix
Subjective
Date of Service: June 15, 2024
No cardiac complaints. Remains in IMU on supplemental O2. Went into AFib last evening and remains in AFib this AM.
Objective
Labs:
06/15/24 04:12
06/15/24 04:12
Labs
Hgb 10.7 g/dL (12.0-16.0) L 06/15/24 04:12
Hct 37.3 % (37.0-47.0) 06/15/24 04:12
Plt Count 326 10^3/uL (130-400) 06/15/24 04:12
Sodium 148 mmol/L (135-145) H 06/15/24 04:12
Potassium 3.4 mmol/L (3.5-5.1) L 06/15/24 04:12
BUN 54 mg/dl (7-17) H 06/15/24 04:12
Creatinine 1.0 mg/dL (0.6-1.0) 06/15/24 04:12
Glucose 111 mg/dl (70-99) H 06/15/24 04:12
Vital Signs and I&O:
Vital Signs
Temp Pulse Resp BP Pulse Ox
98.8 F 95 25 113/57 97
06/15/24 11:00 06/15/24 11:00 06/15/24 11:00 06/15/24 10:30 06/15/24 10:30
Vital Signs
Temp Pulse Resp BP Pulse Ox
98.8 F 95 25 113/57 97
06/15/24 11:00 06/15/24 11:00 06/15/24 11:00 06/15/24 10:30 06/15/24 10:30
Intake & Output
06/13/24 06/14/24 06/15/24 06/16/24
06:59 06:59 06:59 06:59
Intake Total 680 / 680 600 / 600
Output Total 1000 / 1000 2400 / 2400
Balance 680 / 680 -1000 / -1000 -1800 / -1800
Physical Exam
Physical Exam
Gen: NAD, AA
HEENT: NC/AT, sclera anicteric
Neck: No JVD
CV: Irregularly irregular, 2 out of 6 systolic ejection murmur
Lungs: Crackles at the bases bilaterally on 3 L nasal cannula
Abd: S/ND
Ext: Trace LE edema
Skin: Warm, dry
Neuro: Non-focal
[2024-06-15 13:12] LABS: Glucose - Point of Care 216 mg/dl (70-99)
[2024-06-15] MEDS: NOVOLOG FLEXPEN-LOW RESISTANCE 2 UNITS SC (13:53)
--- NOTE | 2024-06-15 15:36 | W.PN.PUL3 ---
Today's Communication / Plan
-
Continue BiPAP at night and with naps
Continue diuretics
Acetazolamide for additional 24 to 48 hours
Incentive spirometry
Follow renal function electrolytes
Continue nebulizer therapy
No indication for systemic corticosteroids
Will follow-up
Assessment
-
78-year-old female with complex medical history, on home oxygen chronically, chronic hypercapnia compensated on BiPAP first for severe sleep apnea, aortic stenosis, history of heart failure, history of recurrent right pleural effusion, resolved. We
are asked to comment on her pulmonary process 06/13/24
Acute hypoxic respiratory insufficiency, requiring 5 L
Baseline 3 L at home
Bilateral infiltrates
Pneumonitis versus heart failure
Left lower lobe atelectasis/pneumonitis
Valvular disease, per echo 06/13/24
Moderate mitral stenosis, moderate aortic stenosis, valve area 1.1 cm�
Normal biventricular function, right heart pressures not determined
Leukocytosis, improved
Acute on chronic hypercapnic respiratory failure
Baseline PCO2 90
Severe sleep apnea, total index 56, desaturation adamaris 51%
Compliant and adequate with auto BiPAP
Conditions present prior to admission
Diabetes
Hypertension/hyperlipidemia
Morbid obesity
Elevated IgE
Moderate to severe asthma, FEV1 33%
TLC 86%, DLCO 40% (2018)
History of recurrent heart failure
History of anemia
History of pleural effusions, stable since 2010
Plan/recommendations
Comfortable at rest, currently on her home auto BiPAP. Baseline mental status.
This has been adequate with 100% compliance, no apnea in the past. She has severe baseline sleep apnea total index 56 with desaturation adamaris 51%
She uses 3 L with her BiPAP at home
-
Crackles on exam consistent with pulmonary edema.
Negative fluid status noted
ABG -7.41/90/129 on BiPAP with 5 L(compensated)
History of obstructive lung disease:
This is likely more consistent with asthma than COPD, she has minimal smoking history
She has not tolerated inhaled therapy in the past.
-Continue for now. She is maintained on duo nebs and budesonide
no indication for systemic corticosteroids.
I suspect given her crackles, this is more fluid than airway inflammation
Agree with continued diuresis per cardiology, negative fluid status is encouraging
-
MARK/obesity hypoventilation syndrome
Her ABG is at her baseline with regards to her pCO2, baseline is around 90
continue Diamox 250 mg twice a day for the next few days with plans to repeat ABG prior to discharge
Daily labs
Would not discharge on Diamox
In the past or shortness of breath, hypoxia has improved with diuresis
Continue with cardiac management for now.
Anticoagulation started for atrial fibrillation.
Chest x-ray 06/14/2024 appears to be improved somewhat
Physical therapy/Occupational Therapy as able.
Outpatient follow-up with Dr. Zapien after DC
Disposition efforts
Reviewed with primary service
Subjective Data
-
Date of Service:
Date of Service: June 15, 2024
Chief Complaint: Pulmonary Follow Up
Subjective:
No new complaints
Continues to tolerate BiPAP
Review of Systems
Cardiopulmonary: Dyspnea and Dyspnea on Exertion
Objective Data
Data Reviewed
Vital Signs / I&O / Oxygen:
Vital Signs
Temp Pulse Resp BP Pulse Ox
98.3 F 95 25 113/57 97
06/15/24 15:00 06/15/24 11:00 06/15/24 11:00 06/15/24 10:30 06/15/24 10:30
Intake and Output
06/14/24 06/15/24 06/16/24
06:59 06:59 06:59
Intake Total 600 / 600 325 / 325
Output Total 1000 / 1000 2400 / 2400
Balance -1000 / -1000 -1800 / -1800 325 / 325
SaO2 97
Nasal Cannula flow liters per 3
minute
Physical Exam
General: Comfortable and Other (Large neck)
HEENT: Normocephalic and Anicteric
Cardiovascular: S1-S2, Regular Rhythm, Murmur (2/6 systolic murmur) and Peripheral Edema (Trace to 1+)
Respiratory: Wheeze (n), Crackles (Few scattered posteriorly), Rhonchi (n) and Non-Labored Respirations
GI: Soft, Non Distended (Obese) and Non Tender
Neurology: Awake, Alert and No Motor Deficits (Generally weak but can sit up with minimal assistance)
Skin: Good Color (n), Cyanosis (n) and Jaundice (n)
Labs/Micro/Reports
Lab Data
06/15/24 04:12
06/15/24 04:12
Microbiology
06/11/24 12:10 Nose MRSA Screen - Final
No Methicillin Resistant Staphylococcus aureus isolated.
[2024-06-15 17:02] LABS: Glucose - Point of Care 93 mg/dl (70-99)
[2024-06-15] MEDS: FEOSOL 325 MG PO (18:07)
[2024-06-15] MEDS: NOVOLOG FLEXPEN 8 UNITS SC (18:11)
[2024-06-15] MEDS: LOPRESSOR 50 MG PO (20:00)
[2024-06-15] MEDS: LIPITOR PO (22:00)
[2024-06-15] MEDS: HUMULIN N KWIKPEN 20 UNITS SC (22:00)
[2024-06-15 22:03] LABS: Glucose - Point of Care 133 mg/dl (70-99)
[2024-06-16] VITALS (16 sets, daily range): BP systolic 84–107; BP diastolic 44–74; PULSE 2–95; BMI 34.9; BMI 34.6
[2024-06-16 05:41] LABS: Blood Urea Nitrogen 46 mg/dl (7-17); Calcium 8.5 mg/dl (8.4-10.2); Chloride 91 mmol/L (98-107); Estimated Creatinine Clearance 48 ml/min; Glucose 128 mg/dl (70-99); Magnesium 2.4 mg/dl (1.6-2.3); Potassium 3.7 mmol/L (3.5-5.1); Sodium 145 mmol/L (135-145); eGFR 58.02
[2024-06-16 06:00] LABS: Carbon Dioxide 49 mmol/L (22-30)
[2024-06-16 06:03] LABS: % Basophils 0.2 % (0-2); % Eosinophils 1.9 % (0-6); % Immature Granulocytes 0.5 % (0-0.5); % Lymphocytes 9.5 % (20.5-51.1); % Monocytes 8.9 % (1.7-9.3); Absolute Eosinophils 0.2 10^3/uL (0-0.7); Absolute Immature Granulocytes 0.1 10^3/uL (0-0.05); Absolute Monocytes 0.9 10^3/uL (0.1-0.6); Absolute Neutrophils 8.1 10^3/uL (1.4-6.5); Hematocrit 36.8 % (37.0-47.0); Hemoglobin 10.6 g/dL (12.0-16.0); Mean Corp Hgb Conc. 28.8 g/dL (33.0-37.0); Mean Corpuscular Hgb 28.7 pg (27.0-31.0); Mean Corpuscular Volume 99.7 fL (81.0-99.0); Mean Platelet Volume 10.9 fL (7.4-10.4); Nucleated Red Blood Cells % 0 %; Platelet Count 298 10^3/uL (130-400); Red Blood Cell Count 3.69 10^6/uL (4.20-5.40); Red Cell Dist. Width 14.2 % (11.5-14.5); White Blood Cell Count 10.3 10^3/uL (4.8-10.8)
[2024-06-16] MEDS: PULMICORT 0.5 MG INH ×2 (07:10→17:47)
[2024-06-16] MEDS: DUONEB 3 ML INH (07:10)
[2024-06-16 08:07] LABS: Glucose - Point of Care 138 mg/dl (70-99)
--- NOTE | 2024-06-16 09:22 | W.PN.HOSP.TC ---
Today's Communication/Plan
-
Continue diuresis per cardiology
Consult Diamox today. Check ABG in AM.
Start on nystatin oral
Assessment / Plan
Assessment / Plan
78-year-old female with past medical history of COPD on BiPAP presenting with:
#Shortness of breath secondary to acute hypoxic and hypercapnic respiratory failure on chronic respiratory insufficiency
- likely multifactorial, most likely primarily secondary to CHF. Doubt COPD flare. With cough and phlegm cannot rule out superimposed bronchitis.
-Clinically improved. Not confused .feels weak mostly in the afternoons but better in the morning.
-Improved oxygenation-back to her 3 L of oxygen which she uses at home
- Continue DuoNebs and BiPAP
-Steroids discontinued by pulmonary
- Chest x-ray: New small right pleural effusion, diffuse interstitial markings possible CHF, moderate cardiomegaly --> Repeat chest x-ray today: Mild pulmonary edema, slightly improved compared to prior. Partial obstruction of the left
hemidiaphragm, which may represent left lower lobe airspace disease and/or small left pleural effusion.
-Finished 5 days of antibiotics
- Troponin negative
- VBG shows chronic CO2 retention
- COVID, flu negative
- Continue lasix IV 80 BID. Continue Diamox for today for superimposed metabolic alkalosis from diuresis. Follow ABG in a.m.
- Weight fluctuate due to variance from scale used. Always check standing scale.
- Cardiology following for CHF management - continue IV Lasix 80 twice daily.
- echo no significant change compared to prior
# Atrial fibrillation, new
-Hemodynamically stable.
- Asymptomatic, no chest pain, no palpitations
- EKG shows A-fib, rate controlled
-Patient initiated on Eliquis this admission.
- Continue metoprolol
# Oral thrush-start on nystatin swish and swallow
#IDDM
- Continue insulin
- Metformin held
#Right buttock pressure ulcer
- Wound care consult
#HTN
- Continue nifedipine and metoprolol
#Anemia, chronic
- Stable
- Continue ferrous sulfate
#Hyperlipidemia
- Continue statin
DVT prophylaxis Lovenox
Full code
cw PT OT eval and treatments.
Discussed with and family at bedside
Discussed with RN.
Discussed with cardiology this morning
Anticipated Discharge: > 48 hours
Subjective/Interval History
-
Date of Service: June 16, 2024
Patient has improved a then couple of days ago.
Family had noticed that when she gets up in the morning she is perky but in the afternoon she is weaker. No confusion today.
Patient denies shortness of breath at rest. She is on 3 L which is her home O2.
Complains of sore throat.
Objective Data
-
Labs:
Laboratory Results
06/16/24
05:02
WBC 10.3
Hgb 10.6 L
Hct 36.8 L
Plt Count 298
Sodium 145
Potassium 3.7
Chloride 91 L
Carbon Dioxide 49 H
BUN 46 H
Creatinine 1.0
Glucose 128 H
Calcium 8.5
Vital Signs:
Vital Signs
Temp Pulse Resp BP Pulse Ox
98.3 F 86 20 101/59 98
06/16/24 07:27 06/16/24 07:14 06/16/24 07:14 06/16/24 06:00 06/16/24 07:14
I&O
06/15/24 06/16/24 06/17/24
06:59 06:59 06:59
Intake Total 600 / 600 1205 / 1205
Output Total 2400 / 2400 1200 / 1200
Balance -1800 / -1800 5 / 5
Review of Systems
-
Constitutional: Denies Fever
Cardiac: Denies Chest Pain
Abdomen/GI: Denies Abdominal Pain, Nausea, Vomiting or Anorexia
Neuro: Denies Dizzy
Physical Exam
-
General: Comfortable
HEENT: Moist Mucous Membranes
Respiratory: Non Labored Respirations; Negative Wheezes or Crackles (Today)
Cardiac: S1/S2 and Irregular Rhythm; Negative Tachycardic
GI: Soft, Nontender and Other (Obese)
Neuro: AO x 3
Psych: Calm
Data Reviewed
-
Labs: Labs Reviewed by me
[2024-06-16] MEDS: NOVOLOG FLEXPEN 12 UNITS SC ×2 (09:41→14:34)
[2024-06-16] MEDS: NOVOLOG FLEXPEN-LOW RESISTANCE SC ×3 (09:41→17:38)
[2024-06-16] MEDS: FARXIGA 10 MG PO (09:42)
[2024-06-16] MEDS: ALDACTONE 25 MG PO (09:42)
[2024-06-16] MEDS: DIAMOX 250 MG PO ×2 (09:42→16:34)
[2024-06-16] MEDS: FEOSOL 650 MG PO (09:42)
[2024-06-16] MEDS: LASIX 80 MG IV ×2 (09:43→16:34)
[2024-06-16] MEDS: ELIQUIS 5 MG PO ×2 (09:43→21:04)
[2024-06-16] MEDS: DESENEX/MITRAZOL/ZEASORB 1 APPLIC TOPICAL (09:43)
[2024-06-16] MEDS: HYDROPHOR 1 APPLIC TOPICAL (09:44)
[2024-06-16] MEDS: FLUSH (NSS) 2 FLUSH IV (09:44)
--- NOTE | 2024-06-16 11:56 | W.PN.CARDCBS ---
Today's Communication / Plan
-
Transition to oral Lasix tomorrow
We will sign off, please recall as needed
Impression / Plan
-
Family Physician:� Trina Ralph
Primary Disease And Insect Control Boss: Dr. Simmons
Impression:
Admitted with SOB and acute on hypoxic respiratory failure 06/10/24
AE COPD
Acute HFpEF
Mod peak/mean 48/27 mmHg and ZAY 1.0 cm sq by echo 12/21/23
Mod MS with peak/mean 17/7 mmHg by echo 12/21/23
Atrial fibrillation - new this admission
MARK on BiPAP
HTN
HLD
DM2
Chronic iron deficiency anemia
Morbid obesity, BMI 36.4
h/o pulmonary nodules
ECHO 07/2019: EF 60-65%, mod cLVH, MAC, mild MR, mild to mod , peak/mean 26/16mmHg, ZAY 1.1cm2
ECHO 09/24/21: EF 65 to 70%, mild concentric LVH, mild , peak/mean gradients 31/19 mmHg, ZAY 1.1 cm�, trivial pericardial effusion, no significant change compared to prior
Echo 12/21/23: EF 55-60%, mild conc LVH, mod MS with peak/mean 17/7 mmHg, mod peak/mean 48/27 mmHg and ZAY 1.0 cm sq
Echo 06/13/24: EF 55-60%, mild conc LVH, mild-mod MS, peak/mean 46/28 mmHg and ZAY 1.1 cm sq
Plan:
-Suspect worsening dyspnea is multifactorial but in part due to CHFpEF
-Echo stable with preserved LVEF and mod
-Weight is lowest on record and volume status is reasonable on exam
-Cont Lasix 80 mg IV BID today and transition to PO Lasix 80 mg BID tomorrow and continue on discharge.
-Outpatient dose of Jardiance 10 mg daily was transition to Farxiga 10 mg daily due to formulary changes while in , but patient should resume Jardiance upon discharge.
-Low dose spironolactone added
-Currently in atrial fibrillation, this seems to be a new diagnosis for her
-Metoprolol increased for rate control goal HR <110 bpm
-New to Eliquis 5mg BID for cardioembolic ppx
-Consideration of outpatient DCCV if she remains in AFib
-Management of steroids/antibiotics/nebs per pulmonology and primary team
We will sign off, please recall as needed
Discussed with family at bedside and hospitalist
Cardiac meds on discharge:
-Lasix 80 mg twice daily
-Jardiance 10 mg daily
-Spironolactone 12.5 mg daily
-Metoprolol 50 mg twice daily
-Eliquis 5 mg twice daily
HPI: Patient came to [facility] on Monday after she was sent for an outpatient CXR by her PCP and was in distress so instead she went to [facility] and was admitted with AE COPD, but cardiology is now consulted for possible component of acute HF. Patient saw
her PCP on 06/10/2024 for increased SOB. Patient has chronic hypoxic respiratory failure and is generally on supplemental oxygen at 3 L NC, but had increased to 5 L NC. Her PCP was worried and started patient on Levaquin and referred her to for
an outpatient CXR, but when patient arrived and ambulated to outpatient registration she felt unstable and asked to go to ER instead. Patient was negative for COVID and influenza swabs. Initial concern was for AECOPD and patient was started on
Decadron IV. CXR showed a small right pleural effusion and patient was given Lasix 40 mg IV x 1 on 06/10/2024, but then transition back to her outpatient dose of Lasix 80 mg PO BID as it was felt that she had more COPD than CHF.
Progress Note - Disease And Insect Control Boss
Subjective
Date of Service: June 16, 2024
No acute overnight events. No cardiac complaints. Oxygenation seems to be at baseline. Feels lower extremity edema has resolved.
Objective
Labs:
06/16/24 05:02
06/16/24 05:02
Labs
Hgb 10.6 g/dL (12.0-16.0) L 06/16/24 05:02
Hct 36.8 % (37.0-47.0) L 06/16/24 05:02
Plt Count 298 10^3/uL (130-400) 06/16/24 05:02
Sodium 145 mmol/L (135-145) 06/16/24 05:02
Potassium 3.7 mmol/L (3.5-5.1) 06/16/24 05:02
BUN 46 mg/dl (7-17) H 06/16/24 05:02
Creatinine 1.0 mg/dL (0.6-1.0) 06/16/24 05:02
Glucose 128 mg/dl (70-99) H 06/16/24 05:02
Vital Signs and I&O:
Vital Signs
Temp Pulse Resp BP Pulse Ox
98.3 F 95 25 99/59 97
06/16/24 07:27 06/16/24 11:00 06/16/24 11:00 06/16/24 10:00 06/16/24 11:00
Vital Signs
Temp Pulse Resp BP Pulse Ox
98.3 F 95 25 99/59 97
06/16/24 07:27 06/16/24 11:00 06/16/24 11:00 06/16/24 10:00 06/16/24 11:00
Intake & Output
06/14/24 06/15/24 06/16/24 06/17/24
06:59 06:59 06:59 06:59
Intake Total 600 / 600 1205 / 1205
Output Total 1000 / 1000 2400 / 2400 1200 / 1200 700 / 700
Balance -1000 / -1000 -1800 / -1800 5 / 5 -700 / -700
Physical Exam
Physical Exam
Gen: NAD, AA
HEENT: NC/AT, sclera anicteric
Neck: No JVD
CV: Irregularly irregular, 3 out of 6 systolic ejection murmur at the base
Lungs: No increased work of breathing on 3 L nasal cannula
Abd: S/ND
Ext: No LE edema
Skin: Warm, dry
Neuro: Non-focal
[2024-06-16] MEDS: LOPRESSOR 50 MG PO (12:07)
[2024-06-16] MEDS: MYCOSTATIN ORAL SUSPENSION 5 ML PO ×3 (12:36→21:04)
[2024-06-16 13:06] LABS: Glucose - Point of Care 169 mg/dl (70-99)
--- NOTE | 2024-06-16 14:09 | W.PN.PUL3 ---
Today's Communication / Plan
-
Diuresis per cardiology
Continue BiPAP
Obtain ABG tomorrow
Will complete course of Diamox in the next 24 to 48 hours
Avoid sedative
Continue oxygen supplementation which is baseline
Clinically improved
Hopefully discharge soon
Assessment
-
78-year-old female with complex medical history, on home oxygen chronically, chronic hypercapnia compensated on BiPAP first for severe sleep apnea, aortic stenosis, history of heart failure, history of recurrent right pleural effusion, resolved. We
are asked to comment on her pulmonary process 06/13/24
Acute hypoxic respiratory insufficiency, requiring 5 L
Baseline 3 L at home
Bilateral infiltrates
Pneumonitis versus heart failure
Left lower lobe atelectasis/pneumonitis
Valvular disease, per echo 06/13/24
Moderate mitral stenosis, moderate aortic stenosis, valve area 1.1 cm�
Normal biventricular function, right heart pressures not determined
Leukocytosis, improved
Acute on chronic hypercapnic respiratory failure
Baseline PCO2 90
Severe sleep apnea, total index 56, desaturation adamaris 51%
Compliant and adequate with auto BiPAP
Conditions present prior to admission
Diabetes
Hypertension/hyperlipidemia
Morbid obesity
Elevated IgE
Moderate to severe asthma, FEV1 33%
TLC 86%, DLCO 40% (2018)
History of recurrent heart failure
History of anemia
History of pleural effusions, stable since 2010
Plan/recommendations:
Clinically improved since admission.
Responded to diuresis.
-
Obesity hypoventilation/obstructive sleep apnea: Continue BiPAP therapy at the current settings.
She has severe baseline sleep apnea total index 56 with desaturation adamaris 51%-per [facility] reports compliance is excellent.
3 L of oxygen with BiPAP.
-
Mental status is baseline.
ABG with baseline pCO2 around 90.
continue Diamox 250 mg twice a day for the next few days with plans to repeat ABG prior to discharge
Daily labs
Would not discharge on Diamox
Obtain ABG tomorrow 06/17/2024.
-
Heart failure exacerbation: Responding to diuresis. Historically in the past hypoxemia has improved with diuresis.
Chest x-ray 06/14/2024: Moderate cardiomegaly. Mild increased interstitial markings. Improved compared to prior 06/12/2024
Lung exam improved
Negative fluid status noted
ABG -7.41/90/129 on BiPAP with 5 L(compensated)
Cardiology recommending transition to oral Lasix tomorrow. They have signed off.
History of obstructive lung disease:
This is likely more consistent with asthma than COPD, she has minimal smoking history
She has not tolerated inhaled therapy in the past.
-Continue for now. She is maintained on duo nebs and budesonide
no indication for systemic corticosteroids.
I suspect given her crackles, this is more fluid than airway inflammation
Agree with continued diuresis per cardiology, negative fluid status is encouraging
-
Anticoagulation started for atrial fibrillation.
-
Physical therapy/Occupational Therapy as able.
Outpatient follow-up with Dr. Zapien after DC
Disposition efforts
Reviewed with primary service
Subjective Data
-
Date of Service:
Date of Service: June 16, 2024
Chief Complaint: Pulmonary Follow Up
Subjective:
No new complaints.
Denies increased phlegm production or hemoptysis
Review of Systems
Cardiopulmonary: Dyspnea (none at rest)
GI: Abdominal Pain (n) and Nausea (n)
Neuro: Headache
Objective Data
Data Reviewed
Vital Signs / I&O / Oxygen:
Vital Signs
Temp Pulse Resp BP Pulse Ox
97.8 F 95 25 99/59 97
06/16/24 11:13 06/16/24 11:00 06/16/24 11:00 06/16/24 10:00 06/16/24 11:00
Intake and Output
06/15/24 06/16/24 06/17/24
06:59 06:59 06:59
Intake Total 600 / 600 1205 / 1205
Output Total 2400 / 2400 1200 / 1200 700 / 700
Balance -1800 / -1800 5 / 5 -700 / -700
SaO2 97
Nasal Cannula flow liters per 3
minute
Physical Exam
General: Comfortable and Other (Large neck)
HEENT: Normocephalic and Anicteric
Cardiovascular: S1-S2, Regular Rhythm, Murmur (2/6 systolic murmur) and Peripheral Edema (Trace to 1+)
Respiratory: Wheeze (n), Crackles (Few scattered posteriorly), Rhonchi (n) and Non-Labored Respirations
GI: Soft, Non Distended (Obese) and Non Tender
Neurology: Awake (n), Alert and No Motor Deficits (Generally weak but can sit up with minimal assistance)
Skin: Good Color (n), Cyanosis (n) and Jaundice (n)
Labs/Micro/Reports
Lab Data
06/16/24 05:02
06/16/24 05:02
[2024-06-16] MEDS: FLUSH (NSS) 1 FLUSH IV (16:35)
[2024-06-16 17:37] LABS: Glucose - Point of Care 122 mg/dl (70-99)
[2024-06-16] MEDS: NOVOLOG FLEXPEN 14 UNITS SC (17:38)
[2024-06-16] MEDS: FEOSOL 325 MG PO (17:51)
[2024-06-16] MEDS: LIPITOR 20 MG PO (21:05)
[2024-06-16 21:38] LABS: Glucose - Point of Care 118 mg/dl (70-99)
[2024-06-16] MEDS: HUMULIN N KWIKPEN 20 UNITS SC (22:19)
[2024-06-16] MEDS: LOPRESSOR PO (23:30)
[2024-06-17] VITALS (20 sets, daily range): BP systolic 81–114; BP diastolic 51–79; PULSE 2–130; O2SAT 97; BMI 33.4; BMI 35.0
--- NOTE | 2024-06-17 01:09 | PTCARENOTE ---
Pt. rec'd in bed this shift AAOx3, awake visiting with family, watching Superbowl. No complaints of pain/discomfort, AF with [employer] on the monitor. 2000 Lopressor dose held due to SBP 90's; HR maintained 70's-90's. Bibasilar crackles present on
auscultation, pulse ox mid 90's on 3L O2 NC when awake, bipap 18/8 with sleep . Pt. heavily incontinent of urine, Purewick draining large amounts yellow urine. Pt. currently sleeping.
[2024-06-17 06:02] LABS: B.E. 23.4 mmol/L; O2 Saturation % 98.9 % (94-98); PO2 95 mmHg (83-108); pH 7.41 (7.35-7.45)
[2024-06-17 06:05] LABS: HCO3 52.6 mmol/L (21-28); PCO2 83 mmHg (32-35)
[2024-06-17 06:09] LABS: Blood Urea Nitrogen 53 mg/dl (7-17); Calcium 8.6 mg/dl (8.4-10.2); Chloride 87 mmol/L (98-107); Estimated Creatinine Clearance 43 ml/min; Glucose 128 mg/dl (70-99); Potassium 3.9 mmol/L (3.5-5.1); Sodium 141 mmol/L (135-145); eGFR 51.75
[2024-06-17 06:28] LABS: Carbon Dioxide 47 mmol/L (22-30)
[2024-06-17 08:00] LABS: Glucose - Point of Care 119 mg/dl (70-99)
[2024-06-17] MEDS: ALDACTONE 12.5 MG PO (08:35)
[2024-06-17] MEDS: DESENEX/MITRAZOL/ZEASORB 1 APPLIC TOPICAL (08:38)
[2024-06-17] MEDS: FEOSOL 650 MG PO (08:39)
[2024-06-17] MEDS: DIAMOX 250 MG PO ×2 (08:39→17:07)
[2024-06-17] MEDS: LASIX 80 MG PO ×2 (08:39→17:05)
[2024-06-17] MEDS: FARXIGA 10 MG PO (08:40)
[2024-06-17] MEDS: ELIQUIS 5 MG PO ×2 (08:40→20:28)
[2024-06-17] MEDS: MYCOSTATIN ORAL SUSPENSION 5 ML PO ×4 (08:40→20:28)
[2024-06-17] MEDS: NOVOLOG FLEXPEN-LOW RESISTANCE SC (08:47)
[2024-06-17] MEDS: NOVOLOG FLEXPEN 12 UNITS SC ×2 (08:48→12:51)
[2024-06-17] MEDS: LOPRESSOR PO (09:00)
--- NOTE | 2024-06-17 09:01 | W.PN.HOSP.TC ---
Addendum entered and electronically signed by Pinky Anderson MD 06/17/24 20:44:
I saw and evaluated the patient independently. I reviewed the resident�s note and agree with findings and plan as documented by Dr. Tam.
GENERAL: well developed, well nourished, female in no apparent distress
HEENT: NC/AT--3L O2 at baseline
HEART: regular rate and rhythm, +S1, +S2
LUNGS : clear to auscultation bilaterally
ABDOM: soft, nontender, nondistended, + bowel sounds
EXT: no cyanosis, clubbing, or edema
NEUROLOGIC: grossly intact
Shortness of breath secondary to acute on chronic hypoxemic/hypercapnic respiratory failure with chronic CO2 retention c/w metabolic compensation from chronic hypercarbia--CHF likely exacerbation factor--back on 3 L--cont nebs/BiPAP--apprec
pulm--Chest x-ray conducted on 06/14/2024 showed a mild cardiomegaly with mild interstitial prominence that improved compared to prior chest x-ray conducted on 06/12/2024. There is partial obscuration of the left hemidiaphragm. No radiographic
evidence of free intraperitoneal air--completed ABX, troponin neg--COVID, flu negative--Continue lasix IV 80 BID. Continue Diamox for today for superimposed metabolic alkalosis from diuresis--ABG conducted on 06/17/2024 had a pH of 7.4 with a pCO2
of 83, pO2 of 95, and bicarb of 52.6�this suggests compensated metabolic alkalosis from chronic respiratory acidosis
Constipation--glycerin suppository given
Atrial fibrillation, new--cont eliquis--apprec cards--Continue metoprolol
Oral thrush-Nystatin swish and swallow given
IDDM--Continue insulin--Metformin held
Right buttock pressure ulcer--Wound care consult
Essential HTN--Continue nifedipine and metoprolol
Anemia, chronic--cont iron supps
Hyperlipidemia--Continue statin
DVT proph-- Lovenox
code status--Full code
Original Note:
Today's Communication/Plan
-
The patient appears to be at her baseline on her normal flow of oxygen of 3 L. Current discharge plan is home with visiting nurse vs SNF. Moving forward with discharge planning.
Assessment / Plan
Assessment / Plan
HPI: The patient is a 78-year-old woman with a history of COPD on 3 L who presented to the emergency department with shortness of breath. The patient stated for the past 3 to 4 days prior to her presentation she had been having worsening symptoms
of shortness of breath with rhinorrhea. She did not feel as if she needed more oxygen than normal. The morning of her presentation she went to her primary care doctor given the constellation of symptoms and was going to go for an outpatient chest
x-ray when her symptoms significantly worsened and she decided to come in to the emergency department for further evaluation. The patient denied any chest pain, hemoptysis, or leg swelling. There was no nausea or vomiting or diarrhea. The patient
reported some mild pain between her shoulders on the way to the hospital which resolved by the time she arrived. The patient has a history of chronic left pleural effusion for which she follows up with Dr. Zapien in the outpatient setting. Chest
x-ray conducted in the emergency department showed a small right pleural effusion with a diffuse prominence of interstitial markings. Cardiomegaly was noted. An echo from December 2023 showed left ventricular function of 55 to 60% with moderate
mitral stenosis and moderate aortic stenosis. These were a progression of valve gradients both across the mitral and aortic valve compared to a year ago. The patient was admitted to [facility] for shortness of breath due to acute on chronic
hypoxemic respiratory failure.
Assessment/plan:
- Shortness of breath secondary to acute hypoxic and hypercapnic respiratory failure on chronic respiratory insufficiency
most likely primarily secondary to CHF.
Clinically improved. Not confused .feels weak mostly in the afternoons but better in the morning.
Improved oxygenation-back to her 3 L of oxygen which she uses at home
Continue DuoNebs and BiPAP
Pulmonology assessed the patient and believes the patient is at her baseline of 3 L at home and has signed off.
Chest x-ray conducted on 06/14/2024 showed a mild cardiomegaly with mild interstitial prominence that improved compared to prior chest x-ray conducted on 06/12/2024. There is partial obscuration of the left hemidiaphragm. No radiographic evidence of
free intraperitoneal air.
Finished 5 days of antibiotics
Troponin negative
VBG shows chronic CO2 retention
COVID, flu negative
No change from prior echo
Cardiology continues to follow
Continue lasix IV 80 BID. Continue Diamox for today for superimposed metabolic alkalosis from diuresis.
ABG conducted on 06/17/2024 had a pH of 7.4 with a pCO2 of 83, pO2 of 95, and bicarb of 52.6�this suggests metabolic alkalosis with compensatory respiratory acidosis
Pulmonology believes that the patient has clinically improved and is appropriate for discharge
-Constipation:
glycerin suppository given
-Atrial fibrillation, new: Stable
Hemodynamically stable.
Asymptomatic, no chest pain, no palpitations
EKG shows A-fib, rate controlled
Patient initiated on Eliquis this admission.
Continue metoprolol
-Oral thrush-
Nystatin swish and swallow given
-IDDM
Continue insulin
Metformin held
-Right buttock pressure ulcer
Wound care consult
-HTN
Continue nifedipine and metoprolol
-Anemia, chronic
Stable
Continue ferrous sulfate
-Hyperlipidemia
Continue statin
DVT prophylaxis Lovenox
Full code
Anticipated Discharge: 24 - 48 hours
Subjective/Interval History
-
Met with patient at the bedside. She is doing well but she stated that she has not had a bowel movement in 4 days. She offers no other complaints at the present time.
Objective Data
-
Labs:
Laboratory Results
02/10/25 02/10/25 02/10/25
05:25 05:53 08:10
WBC Pending
Hgb Pending
Hct Pending
Plt Count Pending
HCO3 52.6 H*
Sodium 141
Potassium 3.9
Chloride 87 L
Carbon Dioxide 47 H
BUN 53 H
Creatinine 1.1 H
Glucose 128 H
Calcium 8.6
Vital Signs:
Vital Signs
Temp Pulse Resp BP Pulse Ox
98.6 F 94 19 96/63 95
06/17/24 07:30 06/17/24 08:35 06/17/24 06:00 06/17/24 08:39 06/17/24 05:00
I&O
06/16/24 06/17/24 06/18/24
06:59 06:59 06:59
Intake Total 1205 / 1205 1530 / 1530
Output Total 1200 / 1200 1720 / 1720
Balance 5 / 5 -190 / -190
Review of Systems
-
History Source: Patient
Constitutional: Reports No Symptoms
EENT: Reports No Symptoms Reported
Cardiac: Reports No Symptoms
Abdomen/GI: Reports No Symptoms
Neuro: Reports No Symptoms
Endocrine: Reports No Symptoms
Physical Exam
-
General: Well Developed, Well Nourished, No Apparent Distress and Obese
HEENT: Normocephalic, Atraumatic and Moist Mucous Membranes
Respiratory: Clear to Auscultation and Non Labored Respirations
Cardiac: S1/S2 and Irregular Rhythm
Breast: Deferred by me
GI: Soft, Nontender, Nondistended and Normal Bowel Sounds
Rectal: Deferred by Provider
Genito-urinary: Deferred by me
Musculoskeletal: No Clubbing, No Cyanosis and No Edema
Skin: Warm and Dry
Neuro: Awake, Alert and Oriented
Psych: Calm
--- NOTE | 2024-06-17 09:18 | W.PN.PUL3 ---
Today's Communication / Plan
-
Remains on baseline O2 use, 3L
Encouraged OOB, IS, PT--ambulation if able
Lasix per cards team, follow daily weights/IOs
Reviewed discharge planning per primary team
No further recs from our perspective, we will sign off at this time, pls call with questions
Assessment
-
78-year-old female with complex medical history, on home oxygen chronically, chronic hypercapnia compensated on BiPAP first for severe sleep apnea, aortic stenosis, history of heart failure, history of recurrent right pleural effusion, resolved. We
are asked to comment on her pulmonary process 06/13/24
Acute hypoxic respiratory insufficiency, requiring 5 L
Baseline 3 L at home
Bilateral infiltrates
Pneumonitis versus heart failure
Left lower lobe atelectasis/pneumonitis
Valvular disease, per echo 06/13/24
Moderate mitral stenosis, moderate aortic stenosis, valve area 1.1 cm�
Normal biventricular function, right heart pressures not determined
Leukocytosis, improved
Acute on chronic hypercapnic respiratory failure
Baseline PCO2 90
Severe sleep apnea, total index 56, desaturation adamaris 51%
Compliant and adequate with auto BiPAP
Conditions present prior to admission
Diabetes
Hypertension/hyperlipidemia
Morbid obesity
Elevated IgE
Moderate to severe asthma, FEV1 33%
TLC 86%, DLCO 40% (2018)
History of recurrent heart failure
History of anemia
History of pleural effusions, stable since 2010
Plan/recommendations:
Clinically improved since admission, 95% on 3L NC
She is on baseline O2 use
Responded to diuresis.
-
Obesity hypoventilation/obstructive sleep apnea: Continue BiPAP therapy at the current settings.
She has severe baseline sleep apnea total index 56 with desaturation adamaris 51%-per [facility] reports compliance is excellent.
3 L of oxygen with BiPAP.
-
Mental status is baseline.
ABG with baseline pCO2 around 90.
Continue Diamox 250 mg twice a day for the next few days with plans to repeat ABG prior to discharge
Daily labs
Would not discharge on Diamox
Obtain ABG tomorrow 06/17/2024.
-
Heart failure exacerbation: Responding to diuresis. Historically in the past hypoxemia has improved with diuresis.
Chest x-ray 06/14/2024: Moderate cardiomegaly. Mild increased interstitial markings. Improved compared to prior 06/12/2024
Lung exam improved
Negative fluid status noted
ABG -7.41/90/129 on BiPAP with 5 L(compensated)
Cardiology recommending transition to oral Lasix tomorrow. They have signed off.
History of obstructive lung disease:
This is likely more consistent with asthma than COPD, she has minimal smoking history
She has not tolerated inhaled therapy in the past.
-Continue for now. She is maintained on duo nebs and budesonide
no indication for systemic corticosteroids.
I suspect given her crackles, this is more fluid than airway inflammation
Agree with continued diuresis per cardiology, negative fluid status is encouraging
-
Anticoagulation started for atrial fibrillation.
-
Physical therapy/Occupational Therapy as able.
Outpatient follow-up with Dr. Zapien after DC
Disposition efforts
Reviewed with primary service
Subjective Data
-
Date of Service:
Date of Service: June 17, 2024
Chief Complaint: Pulmonary Follow Up
Subjective:
No new complaints, sitting in chair
Maintained on baseline O2, wants to go home
Objective Data
Data Reviewed
Vital Signs / I&O / Oxygen:
Vital Signs
Temp Pulse Resp BP Pulse Ox
98.6 F 94 19 96/63 95
06/17/24 07:30 06/17/24 08:35 06/17/24 06:00 06/17/24 08:39 06/17/24 05:00
Intake and Output
06/16/24 06/17/24 06/18/24
06:59 06:59 06:59
Intake Total 1205 / 1205 1530 / 1530
Output Total 1200 / 1200 1720 / 1720
Balance 5 / 5 -190 / -190
SaO2 95
Nasal Cannula flow liters per 3
minute
Physical Exam
General: Comfortable and Other (Large neck)
HEENT: Normocephalic and Anicteric
Cardiovascular: S1-S2, Regular Rhythm, Murmur (2/6 systolic murmur) and Peripheral Edema (Trace to 1+)
Respiratory: Clear (overall diminished sounds), Wheeze (n), Rhonchi (n) and Non-Labored Respirations
GI: Soft, Non Distended (Obese) and Non Tender
Neurology: Awake (n), Alert and No Motor Deficits (Generally weak but can sit up with minimal assistance)
Skin: Good Color (n), Cyanosis (n) and Jaundice (n)
Labs/Micro/Reports
Lab Data
06/17/24 05:25
Laboratory Results
06/17/24
05:53
pH 7.41
pCO2 83 H*
pO2 95
HCO3 52.6 H*
O2 Delivery Level
[2024-06-17] MEDS: PULMICORT 0.5 MG INH ×2 (09:37→20:26)
[2024-06-17 10:34] LABS: Hematocrit 38.6 % (37.0-47.0); Hemoglobin 11.1 g/dL (12.0-16.0); Mean Corp Hgb Conc. 28.8 g/dL (33.0-37.0); Mean Corpuscular Hgb 28.7 pg (27.0-31.0); Mean Corpuscular Volume 99.7 fL (81.0-99.0); Mean Platelet Volume 11.1 fL (7.4-10.4); Platelet Count 305 10^3/uL (130-400); Red Blood Cell Count 3.87 10^6/uL (4.20-5.40); Red Cell Dist. Width 14.2 % (11.5-14.5); White Blood Cell Count 13.1 10^3/uL (4.8-10.8)
[2024-06-17 12:34] LABS: Glucose - Point of Care 207 mg/dl (70-99)
[2024-06-17] MEDS: NOVOLOG FLEXPEN-LOW RESISTANCE 2 UNITS SC (12:51)
[2024-06-17] MEDS: GLYCERIN SUPPOSITORY ADULT 1 SUPP RECTAL (14:33)
[2024-06-17 16:58] LABS: Glucose - Point of Care 261 mg/dl (70-99)
[2024-06-17] MEDS: FEOSOL 325 MG PO (17:06)
[2024-06-17] MEDS: NOVOLOG FLEXPEN-LOW RESISTANCE 3 UNITS SC (17:08)
[2024-06-17] MEDS: NOVOLOG FLEXPEN 16 UNITS SC (17:09)
--- NOTE | 2024-06-17 17:33 | CM ---
Patient seen at bedside with patient present. Patient for reassessment of PT/OT and patient would like to return home with [facility] and home O2 from [facility]. Patient also given IMM forms to review. Patient seen by PT/OT today and they are
recommending SNF however family is continuing to discuss options. CM will continue to follow for discharge planning needs.
Plan; home with VN vs SNF
[2024-06-17] MEDS: LOPRESSOR 50 MG PO (20:27)
[2024-06-17] MEDS: LIPITOR 20 MG PO (20:27)
[2024-06-17 21:29] LABS: Glucose - Point of Care 317 mg/dl (70-99)
[2024-06-17] MEDS: HUMULIN N KWIKPEN 20 UNITS SC (21:58)
[2024-06-17] MEDS: NOVOLOG FLEXPEN 4 UNITS SC (21:59)
--- NOTE | 2024-06-17 22:48 | PTCARENOTE ---
Caring for pt overnight. aaox3, flat affect. at bedside. Pt oob to chair & bsc x2RW. Denies pain. Remains on 3LNC. Afib. Blood sugar at night 317, may have contributed to apple sauce the pt ate with her pills (pt wanted to finish container).
TT [employer], 4Unovolog given on top of 20Ulong acting. Call schuster in reach. NO issues. will monitor.
[2024-06-18] VITALS (18 sets, daily range): BP systolic 85–106; BP diastolic 46–62; PULSE 2–97; BMI 33.4
[2024-06-18 05:46] LABS: Hematocrit 40.4 % (37.0-47.0); Mean Corp Hgb Conc. 29.7 g/dL (33.0-37.0); Mean Corpuscular Hgb 29.1 pg (27.0-31.0); Mean Corpuscular Volume 98.1 fL (81.0-99.0); Mean Platelet Volume 11.3 fL (7.4-10.4); Platelet Count 279 10^3/uL (130-400); Red Blood Cell Count 4.12 10^6/uL (4.20-5.40); Red Cell Dist. Width 14.4 % (11.5-14.5)
[2024-06-18 06:10] LABS: ALT (SGPT) 20 U/L (0-35); AST (SGOT) 29 U/L (14-36); Albumin 3.3 g/dl (3.5-5.0); Alkaline Phosphatase 73 U/L (38-126); Blood Urea Nitrogen 54 mg/dl (7-17); Calcium 8.3 mg/dl (8.4-10.2); Chloride 87 mmol/L (98-107); Estimated Creatinine Clearance 47 ml/min; Glucose 149 mg/dl (70-99); Potassium 3.8 mmol/L (3.5-5.1); Sodium 139 mmol/L (135-145); Total Bilirubin 0.6 mg/dl (0.2-1.3); Total Protein 6.5 g/dl (6.3-8.2); eGFR 58.02
[2024-06-18 06:32] LABS: Carbon Dioxide 41 mmol/L (22-30)
--- NOTE | 2024-06-18 07:49 | W.PN.HOSP.TC ---
Addendum entered and electronically signed by Pinky Anderson MD 06/18/24 19:01:
I saw and evaluated the patient independently. I reviewed the resident�s note and agree with findings and plan as documented by Dr. Tam.
GENERAL: well developed, well nourished, female in no apparent distress
HEENT: NC/AT--3L O2 at baseline
HEART: regular rate and rhythm, +S1, +S2
LUNGS : clear to auscultation bilaterally
ABDOM: soft, nontender, nondistended, + bowel sounds
EXT: no cyanosis, clubbing, or edema
NEUROLOGIC: grossly intact
Shortness of breath secondary to acute on chronic hypoxemic/hypercapnic respiratory failure with chronic CO2 retention c/w metabolic compensation from chronic hypercarbia--CHF likely exacerbation factor--back on 3 L--cont nebs/BiPAP--apprec
pulm--Chest x-ray conducted on 06/14/2024 showed a mild cardiomegaly with mild interstitial prominence that improved compared to prior chest x-ray conducted on 06/12/2024. There is partial obscuration of the left hemidiaphragm. No radiographic
evidence of free intraperitoneal air--completed ABX, troponin neg--COVID, flu negative--Continue lasix IV 80 BID. Continue Diamox for today for superimposed metabolic alkalosis from diuresis--ABG conducted on 06/17/2024 had a pH of 7.4 with a pCO2
of 83, pO2 of 95, and bicarb of 52.6�this suggests compensated metabolic alkalosis from chronic respiratory acidosis--pt was back on baseline 3 L
Constipation--glycerin suppository given
Atrial fibrillation, new--cont eliquis--apprec cards--Continue metoprolol
Oral thrush-Nystatin swish and swallow given
IDDM--Continue insulin--Metformin held
Right buttock pressure ulcer--Wound care consult
Essential HTN--Continue nifedipine and metoprolol
Anemia, chronic--cont iron supps
Hyperlipidemia--Continue statin
DVT proph-- Lovenox
code status--Full code
while preparing to d/c the patient, daughter noticed pt was lethargic in the early afternoon so a ABG was ordered. An ABG showed a pH of 7.33 comparatively to 7.41 from the day prior, pCO2 was 89 and slightly higher than the 83 from the day prior.
Bicarbonate was 46.9 as compared to 52.6 the day prior. Despite pulm 'signing off' yesterday, we did discuss with Dr. Pa these findings and she recommended that the patient be put at a 20 set rate for BiPAP and increase her duration of BiPAP time
by 2 hours. These changes were made and we will reassess tomorrow with a subsequent ABG. Patient also difficulty urinating and with straight cath to produce around 400 mL. Bladder scan showed 500 mL. Urine analysis with reflex to culture from
urine sample obtained.
Would hold off on ABX unless UA positive--review indicated not clean catch with > 30 squamous cells
discharge on hold
Original Note:
Today's Communication/Plan
-
Patient appeared to be lethargic in the early afternoon so a ABG was ordered. An ABG showed a pH of 7.33 comparatively to 7.41 from the day prior, pCO2 was 89 and slightly higher than the 83 from the day prior. Bicarbonate was 46.9 as compared to
52.6 the day prior. Had a curbside consultation with Dr. Pa in regards to these findings and she recommended that the patient be put at a 20 set rate for BiPAP and increase her duration of BiPAP time by 2 hours. These changes were made and we
will reassess tomorrow with a subsequent ABG. Patient also difficulty urinating and with straight cath to produce around 400 mL. Bladder scan showed 500 mL. Urine analysis with reflex to culture from urine sample obtained.
Assessment / Plan
Assessment / Plan
Assessment/plan:
- Shortness of breath secondary to acute hypoxic and hypercapnic respiratory failure on chronic respiratory insufficiency
most likely primarily secondary to CHF.
Clinically improved. Not confused .feels weak mostly in the afternoons but better in the morning.
Improved oxygenation-back to her 3 L of oxygen which she uses at home
Continue DuoNebs and BiPAP
Pulmonology assessed the patient and believes the patient is at her baseline of 3 L at home and has signed off.
Chest x-ray conducted on 06/14/2024 showed a mild cardiomegaly with mild interstitial prominence that improved compared to prior chest x-ray conducted on 06/12/2024. There is partial obscuration of the left hemidiaphragm. No radiographic evidence of
free intraperitoneal air.
Finished 5 days of antibiotics
Troponin negative
VBG shows chronic CO2 retention
COVID, flu negative
No change from prior echo
Cardiology continues to follow
Continue lasix IV 80 BID. Continue Diamox for today for superimposed metabolic alkalosis from diuresis.
ABG conducted on 06/17/2024 had a pH of 7.4 with a pCO2 of 83, pO2 of 95, and bicarb of 52.6�this suggests compensated metabolic alkalosis from chronic respiratory acidosis
Patient appeared to be lethargic in the early afternoon so a ABG was ordered. An ABG showed a pH of 7.33 comparatively to 7.41 from the day prior, pCO2 was 89 and slightly higher than the 83 from the day prior. Bicarbonate was 46.9 as compared to
52.6 the day prior. Had a curbside consultation with Dr. Pa in regards to these findings and she recommended that the patient be put at a 20 set rate for BiPAP and increase her duration of BiPAP time by 2 hours. We made these changes and will
reassess tomorrow with a subsequent ABG.
-Urinary Retention:
Patient complained of inability to void and bladder scan showed 500 mL
Patient was straight cathed and 400 mL was produced.
WBCs at 12
UA with reflex to culture obtained from urine sample. Culture pending
-Constipation:
glycerin suppository given
-Atrial fibrillation, new: Stable
Hemodynamically stable.
Asymptomatic, no chest pain, no palpitations
EKG shows A-fib, rate controlled
Patient initiated on Eliquis this admission.
Continue metoprolol
-Oral thrush-
Nystatin swish and swallow given
-IDDM
Continue insulin
Metformin held
-Right buttock pressure ulcer
Wound care consult
-HTN
Continue nifedipine and metoprolol
-Anemia, chronic
Stable
Continue ferrous sulfate
-Hyperlipidemia
Continue statin
DVT prophylaxis Lovenox
Full code
Anticipated Discharge: > 48 hours
Subjective/Interval History
-
Met with the patient at the bedside. She is pleasant in conversation and responds accordingly. Patient was hopeful to go home in the near future and wants to be discharged if medically stable.
Objective Data
-
Labs:
Laboratory Results
06/18/24
05:35
WBC 12.0 H
Hgb 12.0
Hct 40.4
Plt Count 279
Sodium 139
Potassium 3.8
Chloride 87 L
Carbon Dioxide 41 H
BUN 54 H
Creatinine 1.0
Glucose 149 H
Calcium 8.3 L
Total Bilirubin 0.6
AST 29
ALT 20
Alkaline Phosphatase 73
Vital Signs:
Vital Signs
Temp Pulse Resp BP Pulse Ox
97.8 F 76 12 106/52 96
06/18/24 03:00 06/18/24 06:00 06/18/24 06:00 06/18/24 04:00 06/18/24 06:00
I&O
06/17/24 06/18/24 06/19/24
06:59 06:59 06:59
Intake Total 1530 / 1530
Output Total 1720 / 1720 1150 / 1150
Balance -190 / -190 -1150 / -1150
Review of Systems
-
History Source: Patient
Constitutional: Reports Fatigue
EENT: Reports No Symptoms Reported
Respiratory: Reports No Symptoms
Cardiac: Reports No Symptoms
Abdomen/GI: Reports No Symptoms
Breast: Reports No Symptoms
Genitourinary: Reports Difficulty Voiding
Musculoskeletal: Reports No Symptoms
Skin: Reports No Symptoms
Neuro: Reports No Symptoms
Endocrine: Reports No Symptoms
Hematologic / Lymphatic: Reports No Symptoms
Physical Exam
-
General: Well Developed, Well Nourished, No Apparent Distress and Comfortable
HEENT: Normocephalic, Atraumatic and Moist Mucous Membranes
Respiratory: Clear to Auscultation
Cardiac: Regular Rhythm and Murmur
Breast: Deferred by me
GI: Soft, Nontender, Nondistended and Normal Bowel Sounds
Rectal: Deferred by Provider
Genito-urinary: Deferred by me
Musculoskeletal: No Clubbing and No Cyanosis
Skin: Warm and Dry
Psych: Calm
[2024-06-18 08:42] LABS: Magnesium 2.6 mg/dl (1.6-2.3)
[2024-06-18 09:12] LABS: Glucose - Point of Care 148 mg/dl (70-99)
[2024-06-18] MEDS: NOVOLOG FLEXPEN-LOW RESISTANCE SC (09:20)
[2024-06-18] MEDS: MYCOSTATIN ORAL SUSPENSION 5 ML PO ×4 (09:35→20:59)
[2024-06-18] MEDS: DIAMOX 250 MG PO (09:35)
[2024-06-18] MEDS: LASIX 80 MG PO (09:35)
[2024-06-18] MEDS: ALDACTONE 12.5 MG PO (09:36)
[2024-06-18] MEDS: FARXIGA 10 MG PO (09:36)
[2024-06-18] MEDS: LOPRESSOR 50 MG PO (09:37)
[2024-06-18] MEDS: ELIQUIS 5 MG PO ×2 (09:37→20:57)
[2024-06-18] MEDS: FEOSOL 650 MG PO (09:38)
[2024-06-18] MEDS: DESENEX/MITRAZOL/ZEASORB 1 APPLIC TOPICAL (09:38)
[2024-06-18] MEDS: NOVOLOG FLEXPEN 12 UNITS SC ×2 (09:39→12:48)
[2024-06-18] MEDS: NOVOLOG FLEXPEN-LOW RESISTANCE 3 UNITS SC (12:49)
[2024-06-18 12:53] LABS: Glucose - Point of Care 287 mg/dl (70-99)
--- NOTE | 2024-06-18 14:36 | CM ---
Addendum entered by Nanci Chopra 06/18/24 14:37:
family with concerns and additional testing ordered per physician
Original Note:
Patient and family seen at bedside this am. Patient wants to go home and referral in place for [facility]. IMM completed and signed form placed on chart. Patient family stated that they have home O2 and will take patient home via family car. CM will
continue to follow for discharge planning needs.
Plan; home with [facility] and has home O2
[2024-06-18 14:54] LABS: B.E. 17.1 mmol/L; O2 Saturation % 97.1 % (94-98); PO2 83 mmHg (83-108); pH 7.33 (7.35-7.45)
[2024-06-18 14:58] LABS: HCO3 46.9 mmol/L (21-28); PCO2 89 mmHg (32-35)
--- NOTE | 2024-06-18 15:05 | PTCARENOTE ---
Pt voided 500ml in pure wik but now is complaining of inability to void after 2 trials on the BSC. Bladder scan was 500ml. Notified . Orders obtained
--- NOTE | 2024-06-18 15:50 | PTCARENOTE ---
Pt Straight cath for 400ml. PT worked with pt but she was unable to step up onto one step.2 assist back to bed. very weak. Granddaughter reported pt seemed more lethargic and sleepy, concern for high CO2. ABG ordered. UA sent also as ordered.
[2024-06-18 15:55] LABS: Urine Albumin 1+ (Neg - Trace); Urine Bilirubin Negative (Negative); Urine Character Clear (Clear); Urine Color Yellow; Urine Glucose 4+ (Negative); Urine Ketone Negative (Negative); Urine Leukocyte 1+ (Negative); Urine Nitrite Negative (Negative); Urine Occult Blood 1+ (Negative); Urine Urobilinogen Negative (Neg - 1+); Urine pH 6.5 (5.0-9.0)
[2024-06-18] MEDS: LASIX PO (16:14)
[2024-06-18] MEDS: DIAMOX PO (16:14)
[2024-06-18 17:01] LABS: Urine Bacteria Few (Negative); Urine Red Blood Cell 0-2 /HPF (0-2); Urine Squamous Cell >30 /LPF (Few)
[2024-06-18] MEDS: NOVOLOG FLEXPEN 16 UNITS SC (18:13)
[2024-06-18] MEDS: NOVOLOG FLEXPEN-LOW RESISTANCE 2 UNITS SC (18:13)
[2024-06-18] MEDS: FEOSOL 325 MG PO (18:14)
[2024-06-18 18:17] LABS: Glucose - Point of Care 213 mg/dl (70-99)
[2024-06-18] MEDS: LIPITOR 20 MG PO (20:57)
[2024-06-18] MEDS: HUMULIN N KWIKPEN 20 UNITS SC (21:31)
[2024-06-18 21:32] LABS: Glucose - Point of Care 252 mg/dl (70-99)
[2024-06-18] MEDS: LOPRESSOR PO (22:17)
--- NOTE | 2024-06-18 23:19 | PTCARENOTE ---
assumed care of patient. pt is AAOx3, daughter and at bedside. daughter asking questions about UA that was sent. concerned about next bladder scan/straight cath. all questions answered to best of ability. notified covering [employer]ANCIAL RECRUITER of UA result.
awaiting orders. wound care to sacrum done. q2t. pt was straight cath'd x1 so far for nightshift. on 3L 95%, placed on bipap HS. daughter sleeping overnight. a-fib on the monitor. unable to give HS lopressor d/t soft BP's. family and patient in
agreement. care ongoing.
[2024-06-19] VITALS (13 sets, daily range): BP systolic 85–108; BP diastolic 44–58; PULSE 2–88; BMI 35.6
--- NOTE | 2024-06-19 07:18 | W.PN.HOSP.TC ---
Addendum entered and electronically signed by Pinky Anderson MD 06/19/24 17:23:
I saw and evaluated the patient independently. I reviewed the resident�s note and agree with findings and plan as documented by Dr. Tam.
GENERAL: well developed, well nourished, female in no apparent distress
HEENT: NC/AT--3L O2 at baseline
HEART: regular rate and rhythm, +S1, +S2
LUNGS : clear to auscultation bilaterally
ABDOM: soft, nontender, nondistended, + bowel sounds
EXT: no cyanosis, clubbing, or edema
NEUROLOGIC: grossly intact
Shortness of breath secondary to acute on chronic hypoxemic/hypercapnic respiratory failure with chronic CO2 retention c/w metabolic compensation from chronic hypercarbia--CHF likely exacerbation factor--back on 3 L--cont nebs/BiPAP--apprec
pulm--Chest x-ray conducted on 06/14/2024 showed a mild cardiomegaly with mild interstitial prominence that improved compared to prior chest x-ray conducted on 06/12/2024. There is partial obscuration of the left hemidiaphragm. No radiographic
evidence of free intraperitoneal air--completed ABX, troponin neg--COVID, flu negative-- Continue Diamox for today for superimposed metabolic alkalosis from diuresis--ABG conducted on 06/17/2024 had a pH of 7.4 with a pCO2 of 83, pO2 of 95, and
bicarb of 52.6�this suggests compensated metabolic alkalosis from chronic respiratory acidosis--pt was back on baseline 3 L
Constipation--glycerin suppository given
Atrial fibrillation, new--cont eliquis--apprec cards--Continue metoprolol
Oral thrush-Nystatin swish and swallow given
IDDM--Continue insulin--Metformin held
Right buttock pressure ulcer--Wound care consult
Essential HTN--Continue nifedipine and metoprolol
Anemia, chronic--cont iron supps
Hyperlipidemia--Continue statin
DVT proph-- Lovenox
code status--Full code
while preparing to d/c the patient on 06/18/24, daughter noticed pt was lethargic in the early afternoon so an ABG was ordered. An ABG showed a pH of 7.33 comparatively to 7.41 from the day prior, pCO2 was 89 and slightly higher than the 83 from the
day prior. Bicarbonate was 46.9 as compared to 52.6 the day prior. Despite pulm 'signing off', we did discuss with Dr. Pa these findings and she recommended that the patient be put at a 20 set rate for BiPAP and increase her duration of BiPAP
time by 2 hours. These changes were made and we will reassess-- Patient also difficulty urinating and with straight cath to produce around 400 mL. Bladder scan showed 500 mL. Urine analysis with reflex to culture from urine sample obtained.
Would hold off on ABX unless UA positive--review indicated not clean catch with > 30 squamous cells--urine culture with strep agalactiae 30K colonies and 5K of mixed reid--sending pt on Keflex TID x 5 days
pt having urinary retention--will send pt with sheth cath AND flomax with urology follow up--daughter in agreement
Original Note:
Today's Communication/Plan
-
The patient is at her baseline flow of oxygen at 3 L. She is a chronic CO2 retainer and adjustments to her set rate to 20 and her duration of time on BiPAP increasing 2 hours appears to be beneficial for her. Patient will be sent home with a 5-day
course of 500 mg of Keflex 3 times daily. Patient will also be sent home with Flomax 0.4 mg in the evening. It is also recommended the patient follow-up with pulmonology and urology in the outpatient setting 1 week following discharge.
Assessment / Plan
Assessment / Plan
Assessment/plan:
- Shortness of breath secondary to acute hypoxic and hypercapnic respiratory failure on chronic respiratory insufficiency
most likely primarily secondary to CHF.
Clinically improved. Not confused .feels weak mostly in the afternoons but better in the morning.
Improved oxygenation-back to her 3 L of oxygen which she uses at home
Continue DuoNebs and BiPAP
Pulmonology assessed the patient and believes the patient is at her baseline of 3 L at home and has signed off.
Chest x-ray conducted on 06/14/2024 showed a mild cardiomegaly with mild interstitial prominence that improved compared to prior chest x-ray conducted on 06/12/2024. There is partial obscuration of the left hemidiaphragm. No radiographic evidence of
free intraperitoneal air.
Finished 5 days of antibiotics
Troponin negative
VBG shows chronic CO2 retention
COVID, flu negative
No change from prior echo
Cardiology continues to follow
Continue lasix IV 80 BID. Continue Diamox for today for superimposed metabolic alkalosis from diuresis.
ABG conducted on 06/17/2024 had a pH of 7.4 with a pCO2 of 83, pO2 of 95, and bicarb of 52.6�this suggests compensated metabolic alkalosis from chronic respiratory acidosis
Patient appeared to be lethargic in the early afternoon so a ABG was ordered. An ABG showed a pH of 7.33 comparatively to 7.41 from the day prior, pCO2 was 89 and slightly higher than the 83 from the day prior. Bicarbonate was 46.9 as compared to
52.6 the day prior. Patient is at a 20 set rate for BiPAP and has increased her duration of BiPAP time by 2 hours.
-Urinary Retention:
Patient complained of inability to void and bladder scan showed 500 mL
Patient was straight cathed and 400 mL was produced.
WBCs at 12
UA with reflex to culture obtained from urine sample. Culture pending - Strep Agalactae found- Likely obtained from a non-clean catch/contaminated specimen due to >30 Squamous Epithelial Cells detected in sample. Given Rocephin prophylactically
and will be given Keflex for 500 mg for 5 days 3 times daily.
Patient will be sent home with Flomax 0.4 daily in the evening.
Patient will be sent home with a Sheth catheter placed due to urinary retention
-Constipation:
glycerin suppository given
Colace added for bowel regimen
-Atrial fibrillation, new: Stable
Hemodynamically stable.
Asymptomatic, no chest pain, no palpitations
EKG shows A-fib, rate controlled
Patient initiated on Eliquis this admission.
Continue metoprolol
-Oral thrush-
Nystatin swish and swallow given
-IDDM
Continue insulin
Metformin held
-Right buttock pressure ulcer
Wound care consult
-HTN
Continue nifedipine and metoprolol
-Anemia, chronic
Stable
Continue ferrous sulfate
-Hyperlipidemia
Continue statin
DVT prophylaxis Lovenox
Full code
Anticipated Discharge: Today
Subjective/Interval History
-
Met with patient at the bedside. She was sitting up in bed and spending time with her family. Her daughter who is an ICU nurse was at the bedside and her hospital course was discussed. The patient hopes to be discharged home even though PT OT
recommends a skilled rehab facility. Family believes that they will be better able to care for her at home.
Objective Data
-
Labs:
Labs
06/19/24 08:49
06/19/24 08:49
Vital Signs:
Vital Signs
Temp Pulse Resp BP Pulse Ox
97.3 F 76 19 94/58 95
06/19/24 04:47 06/19/24 06:00 06/19/24 06:00 06/19/24 06:00 06/19/24 06:00
I&O
06/18/24 06/19/24 06/20/24
06:59 06:59 06:59
Output Total 1150 / 1150 2375 / 2375
Balance -1150 / -1150 -2375 / -2375
Review of Systems
-
History Source: Patient
Constitutional: Reports No Symptoms
EENT: Reports No Symptoms Reported
Respiratory: Reports No Symptoms
Cardiac: Reports No Symptoms
Abdomen/GI: Reports No Symptoms
Breast: Reports No Symptoms
Genitourinary: Reports No Symptoms
Musculoskeletal: Reports Muscle Weakness
Skin: Reports No Symptoms
Neuro: Reports No Symptoms
Endocrine: Reports No Symptoms
Physical Exam
-
General: Well Developed, Well Nourished, No Apparent Distress and Comfortable
HEENT: Normocephalic, Atraumatic and Moist Mucous Membranes
Respiratory: Clear to Auscultation
Cardiac: Regular Rhythm and Murmur
Breast: Deferred by me
GI: Soft, Nontender, Nondistended and Normal Bowel Sounds
Rectal: Deferred by Provider
Genito-urinary: Deferred by me
Musculoskeletal: No Clubbing, No Cyanosis and No Edema
Skin: Warm and Dry
Neuro: Awake, Alert, Oriented and AO x 3
Psych: Calm
[2024-06-19 08:31] LABS: Glucose - Point of Care 169 mg/dl (70-99)
[2024-06-19 09:07] LABS: Hematocrit 34.8 % (37.0-47.0); Hemoglobin 10.5 g/dL (12.0-16.0); Mean Corp Hgb Conc. 30.2 g/dL (33.0-37.0); Mean Corpuscular Hgb 29.1 pg (27.0-31.0); Mean Corpuscular Volume 96.4 fL (81.0-99.0); Mean Platelet Volume 11.5 fL (7.4-10.4); Platelet Count 261 10^3/uL (130-400); Red Blood Cell Count 3.61 10^6/uL (4.20-5.40); Red Cell Dist. Width 14.6 % (11.5-14.5); White Blood Cell Count 11.1 10^3/uL (4.8-10.8)
[2024-06-19] MEDS: LASIX PO ×2 (09:14→09:58)
[2024-06-19] MEDS: FEOSOL 650 MG PO (09:14)
[2024-06-19] MEDS: ELIQUIS 5 MG PO (09:14)
[2024-06-19] MEDS: FARXIGA 10 MG PO (09:15)
[2024-06-19] MEDS: MYCOSTATIN ORAL SUSPENSION 5 ML PO ×2 (09:16→13:36)
[2024-06-19] MEDS: DESENEX/MITRAZOL/ZEASORB 1 APPLIC TOPICAL (09:16)
[2024-06-19] MEDS: ROCEPHIN 1000 MG IV (09:17)
[2024-06-19] MEDS: STERILE WATER FOR INJECTION 10 ML IV (09:18)
[2024-06-19 09:30] LABS: ALT (SGPT) 21 U/L (0-35); AST (SGOT) 24 U/L (14-36); Albumin 3.1 g/dl (3.5-5.0); Alkaline Phosphatase 85 U/L (38-126); Blood Urea Nitrogen 51 mg/dl (7-17); Chloride 83 mmol/L (98-107); Estimated Creatinine Clearance 49 ml/min; Glucose 162 mg/dl (70-99); Magnesium 2.8 mg/dl (1.6-2.3); Potassium 3.7 mmol/L (3.5-5.1); Sodium 137 mmol/L (135-145); Total Bilirubin 0.7 mg/dl (0.2-1.3); Total Protein 6.2 g/dl (6.3-8.2); eGFR 58.02
[2024-06-19] MEDS: LOPRESSOR PO (09:59)
--- NOTE | 2024-06-19 10:00 | CM ---
Patient spoke with CM via phone stated that daughter's stayed overnight to give him a break. Patient stated that he still plans to have patient come home when medically appropriate and daughters to help. CM will continue to follow
for discharge planning needs.
Plan; home with [facility]; family supports.
[2024-06-19] MEDS: NOVOLOG FLEXPEN 12 UNITS SC ×2 (10:19→13:36)
[2024-06-19] MEDS: NOVOLOG FLEXPEN-LOW RESISTANCE 1 UNITS SC (10:20)
[2024-06-19] MEDS: ALDACTONE PO (10:40)
[2024-06-19] MEDS: DIAMOX PO (10:41)
[2024-06-19 11:03] LABS: Carbon Dioxide 44 mmol/L (22-30)
--- NOTE | 2024-06-19 11:12 | W.PN.PUL3 ---
Today's Communication / Plan
-
Doing well today, remains on baseline 3L
Repeat labs/UA are negative, culture pending
ABG reviewed, can encourage PAP use during the day with naps (up to 2 hours), continue nightly
Will need FU with our office, we will arrange
SNF recommended, family has declined
Ok for d/c planning per team
Assessment
-
78-year-old female with complex medical history, on home oxygen chronically, chronic hypercapnia compensated on BiPAP first for severe sleep apnea, aortic stenosis, history of heart failure, history of recurrent right pleural effusion, resolved. We
are asked to comment on her pulmonary process 06/13/24
Acute hypoxic respiratory insufficiency, requiring 5 L
Baseline 3 L at home
Bilateral infiltrates
Pneumonitis versus heart failure
Left lower lobe atelectasis/pneumonitis
Valvular disease, per echo 06/13/24
Moderate mitral stenosis, moderate aortic stenosis, valve area 1.1 cm�
Normal biventricular function, right heart pressures not determined
Leukocytosis, improved
Acute on chronic hypercapnic respiratory failure
Baseline PCO2 90
Severe sleep apnea, total index 56, desaturation adamaris 51%
Compliant and adequate with auto BiPAP
Conditions present prior to admission
Diabetes
Hypertension/hyperlipidemia
Morbid obesity
Elevated IgE
Moderate to severe asthma, FEV1 33%
TLC 86%, DLCO 40% (2018)
History of recurrent heart failure
History of anemia
History of pleural effusions, stable since 2010
Plan/recommendations:
Clinically improved since admission, 95% on 3L NC
She is on baseline O2 use
Responded to diuresis.
-
Obesity hypoventilation/obstructive sleep apnea: Continue BiPAP therapy at the current settings.
She has severe baseline sleep apnea total index 56 with desaturation adamaris 51%-per [facility] reports compliance is excellent.
3 L of oxygen with BiPAP.
Repeat ABG showing slight increase in her CO2, encouraged to use 2 hr during the day additional to her nightly use
-
Mental status is baseline.
ABG with baseline pCO2 around 90.
Stop diamox
-
Heart failure exacerbation: Responding to diuresis.
Historically in the past hypoxemia has improved with diuresis.
Chest x-ray 06/14/2024: Moderate cardiomegaly. Mild increased interstitial markings. Improved compared to prior 06/12/2024
Lung exam improved
Negative fluid status noted
ABG -7.41/90/129 on BiPAP with 5 L(compensated)
Cardiology recommending transition to oral Lasix tomorrow. They have signed off.
History of obstructive lung disease:
This is likely more consistent with asthma than COPD, she has minimal smoking history
She has not tolerated inhaled therapy in the past.
-Continue for now. She is maintained on duo nebs and budesonide
no indication for systemic corticosteroids.
I suspect given her crackles, this is more fluid than airway inflammation
Agree with continued diuresis per cardiology, negative fluid status is encouraging
-
Anticoagulation started for atrial fibrillation.
-
Physical therapy/Occupational Therapy as able.
Family has declined SNF
Outpatient follow-up with Dr. Zapien after DC
Disposition efforts
Reviewed with primary service
Subjective Data
-
Date of Service:
Date of Service: June 19, 2024
Chief Complaint: Pulmonary Follow Up
Subjective:
Asked to re-eval for lethargy yesterday. noted by family
This AM, seems awake/alert, offers no new complaints
Remains on baseline O2 use
Objective Data
Data Reviewed
Vital Signs / I&O / Oxygen:
Vital Signs
Temp Pulse Resp BP Pulse Ox
97.3 F 76 19 94/58 98
06/19/24 04:47 06/19/24 06:00 06/19/24 06:00 06/19/24 06:00 06/19/24 08:51
Intake and Output
06/18/24 06/19/24 06/20/24
06:59 06:59 06:59
Output Total 1150 / 1150 2375 / 2375
Balance -1150 / -1150 -2375 / -2375
SaO2 98
Nasal Cannula flow liters per 3
minute
Physical Exam
General: Comfortable and Other (Large neck)
HEENT: Normocephalic and Anicteric
Cardiovascular: S1-S2, Regular Rhythm, Murmur (2/6 systolic murmur) and Peripheral Edema (Trace to 1+)
Respiratory: Clear (overall diminished sounds), Wheeze (n), Rhonchi (n) and Non-Labored Respirations
GI: Soft, Non Distended (Obese) and Non Tender
Neurology: Awake (n), Alert, Oriented and No Motor Deficits (Generally weak but can sit up with minimal assistance)
Skin: Good Color (n), Cyanosis (n) and Jaundice (n)
Labs/Micro/Reports
Lab Data
06/19/24 08:49
06/19/24 08:49
Laboratory Results
06/18/24 06/18/24
13:43 14:43
pH Cancelled 7.33 L
pCO2 Cancelled 89 H*
pO2 Cancelled 83
HCO3 Cancelled 46.9 H*
O2 Delivery Level Cancelled Not Reportable
[2024-06-19 12:56] LABS: Glucose - Point of Care 251 mg/dl (70-99)
[2024-06-19] MEDS: NOVOLOG FLEXPEN-LOW RESISTANCE 3 UNITS SC (13:35)
[2024-06-19] MEDS: COLACE 100 MG PO (13:36)
--- NOTE | 2024-06-19 14:29 | CM ---
Patient seen at bedside with patient, and daughter. Plan is home with sheth to [facility] for follow up and patient family has home O2, bipap and wheelchair. they will take patient home today. IMM completed and signed form placed on chart. CM will
continue to follow for discharge planning needs.
Plan; home with [facility]
--- NOTE | 2024-06-19 17:00 | PTCARENOTE ---
Pt for d/c home. Santana placed and d/c instructions completed by floor coordination nurse. D/c off unit via WC.
--- NOTE | 2024-06-19 18:23 | W.DCSUMMARY ---
Addendum entered and electronically signed by Pinky Anderson MD 06/20/24 07:09:
Read, reviewed, and agree. See same day progress note for additional details. Time spent coordinating care, DC planning, review of DC plan of care with resident, transition of care, review of records in EMR, med rec, consults, notes, d/w
consultants, nursing, family, and CM = 35 minutes
Original Note:
Discharge Summary
Discharge Data
Date of Admission: 06/10/24
Date of Discharge: 06/19/24
-
Pending Results: No
Hospital Course
The patient is a 78-year-old woman with a history of COPD on 3 L who presented to the emergency department with shortness of breath. The patient stated for the past 3 to 4 days prior to her presentation she had been having worsening symptoms of
shortness of breath with rhinorrhea. She did not feel as if she needed more oxygen than normal. The morning of her presentation she went to her primary care doctor given the constellation of symptoms and was going to go for an outpatient chest
x-ray when her symptoms significantly worsened and she decided to come in to the emergency department for further evaluation. The patient denied any chest pain, hemoptysis, or leg swelling. There was no nausea or vomiting or diarrhea. The patient
reported some mild pain between her shoulders on the way to the hospital which resolved by the time she arrived. The patient has a history of chronic left pleural effusion for which she follows up with Dr. Zapien in the outpatient setting. Chest
x-ray conducted in the emergency department showed a small right pleural effusion with a diffuse prominence of interstitial markings. Cardiomegaly was noted. An echo from December 2023 showed left ventricular function of 55 to 60% with moderate
mitral stenosis and moderate aortic stenosis. These were a progression of valve gradients both across the mitral and aortic valve compared to a year ago. The patient was admitted to [facility] for shortness of breath due to Acute on Chronic
Hypoxemic/Hypercapnic Respiratory Failure.
Upon admission she required 5 L of oxygen and was given DuoNebs and dexamethasone. Checks x-ray conducted showed a small right pleural effusion, diffuse interstitial markings with possible CHF, moderate cardiomegaly. There was suspicion for
possible pneumonia and she was treated with doxycycline. Metformin was held. She was also continued on her BiPAP with home settings. Troponins were negative and EKG was normal sinus rhythm with right bundle branch block. She was continued to be
diuresed for multiple days and her Lasix was increased to 80 twice a day. Cardiology was consulted for CHF management. Pulmonology was consulted as well. As she was diuresed her supplemental oxygen demand went back down to 3 L nasal cannula which
is her baseline. ABGs taken on the seventh showed an elevated pCO2 and bicarbonate suggesting compensated metabolic alkalosis from chronic respiratory acidosis. Diamox was started twice a day and given to address the metabolic alkalosis. The
patient was initiated on Eliquis 5 mg p.o. twice daily for her atrial fibrillation. Echocardiogram conducted on 06/13/2024 showed moderate mitral stenosis, moderate aortic stenosis, and a valve area of 1.1 cm�. She was given potassium due to
hypokalemia. Steroids were tapered downwards and discontinued. The patient was also found to have oral thrush and was given nystatin swish and swallow. Another ABG was conducted on 17 June which continue to follow the pattern of compensated
metabolic alkalosis from chronic respiratory acidosis. Due to concerns of increased lethargy her BiPAP usage was increased to at least 2 more hours daily than what was initially her baseline usage in order to help her reduce carbon dioxide
retention. She clinically improved after these adjustments to her BiPAP usage and had a 95% pulse ox on 3 L nasal cannula. Unfortunately, the patient began to have voiding difficulties and on bladder scan was found to have 500 mL. The patient was
straight cathed multiple times but unfortunately continued to have difficulty voiding on her own. Urine analysis was obtained and due to possible risk of UTI based on bacteria collected in the sample she was given Rocephin IV and then given a
prescription for Keflex 500 mg 3 times daily for 5 days. The patient was also given 0.4 mg of Flomax to help with urinary retention. The patient felt that she wanted to go home and would like to be discharged. With concerns of ongoing urinary
retention the patient and her family opted for Santana catheter insertion and that they would follow-up with urology in the outpatient setting. The patient will have [facility] visiting nurses help assist the patient at home for health needs.
PT OT recommended that the patient receive skilled rehab at a fpc facility but the patient and her family opted to not do that as they were uncertain as to the quality of care they would received at a fpc facility and believe
that she would be better served at home.
The patient has reached maximal benefit from this hospital stay and is appropriate for discharge at the present time. The patient should follow-up with pulmonology, urology, and cardiology in the outpatient setting within 1 week following
discharge. The patient should also follow-up with her primary care provider 1 week after discharge.
Discharge Plan
-
Patient Disposition: Home with Home Care
Discharge Diagnosis/Procedures: Acute on Chronic Hypoxemic/Hypercapnic Respiratory Failure with Chronic CO2 retention
Condition: Good
Diet: No restrictions
Activity: No restrictions
Driving Restrictions: As prior to admission
Activity Restrictions/Additional Instructions:
Wound Care Instructions
Right buttock - clean with mild soap and water, skin prep periwound, 1/2 ' Iodoform packing,dry dressing, change daily.
Continue air mattress and ROHO cushion at home.
Follow up at wound care center call for an appointment.
Referrals:
Tu Zapien MD [Active] - in one to two weeks (PFTs, with [employer])
Trina Ralph DO [Family Provider] - in less than 1 week
Tyrone Caballero MD [Active] - in less than 1 week
Cy Cantor DO [Active] - in one week
Prescriptions:
New
docusate sodium 100 mg Capsule
100 mg PO BIDPRN PRN (Reason: Constipation) 30 Days Qty: 30 0RF
tamsulosin [Flomax] 0.4 mg capsule
0.4 mg PO DAILY 30 Days Qty: 30 0RF
Rx Instructions:
Take one daily at night
cephalexin 500 mg capsule
500 mg PO TID 5 Days Qty: 15 0RF
Rx Instructions:
Take One pill in the morning, afternoon, and evening. 3 times daily.
Eliquis 5 mg tablet
5 mg PO BID 30 Days Qty: 60 0RF
Continued
albuterol sulfate 1 PUFF HFA aerosol inhaler
2 puff inhalation R Q4HPRN PRN (Reason: sob)
Humulin N NPH U-100 Insulin 100 UNIT/1 ML suspension
20 - 40 units SC HS
insulin lispro [Humalog U-100 Insulin] 100 UNIT/ML solution
12 unit SC BID@0730,1130
Rx Instructions:
14-16 units at dinner
metoprolol tartrate 25 MG tablet
25 mg PO BID
atorvastatin 20 MG tablet
20 mg PO HS
ipratropium-albuterol 3 ML solution for nebulization
3 ml inhalation R TID
metformin 1,000 MG tablet
1,000 mg PO BID@0800,1700
budesonide 0.5 MG/2 ML suspension for nebulization
0.5 mg inhalation R BID
multivitamin with folic acid [Tab-A-Vern] 1 TABLET tablet
1 tab PO DAILY
ferrous sulfate [FeroSul] 325 MG tablet
325 mg PO QPM
nifedipine 30 MG tablet extended release
30 mg PO DAILY Qty: 30 0RF
Jardiance 10 MG tablet
10 mg PO DAILY Qty: 30 0RF
miconazole nitrate [Desenex] 2 % Powder
1 applic TOPICAL DAILY
potassium chloride [Klor-Con M20] 20 mEq tablet,ER particles/crystals
20 meq PO BID@0800,1700
ferrous sulfate 325 mg (65 mg iron) Tablet
650 mg PO DAILY
insulin lispro [Humalog U-100 Insulin] 100 unit/mL solution
16 unit SC DAILY@1630
ammonium lactate 5 % Lotion
1 applic TOPICAL DAILYPRN PRN (Reason: feet rash)
furosemide 80 mg tablet
80 mg PO BID@0800,1600
Discharge Orders:
Discharge Patient (As Directed); Ordered 06/19/24
Ordered By: Bernabe Tam
Discharge Date and Time
Discharge Date/Time: 06/19/24 17:00
Print Language: AZERBAIJANI
== END 2024-06-19 17:00 | disposition home health service (06) | DRG 193 ==
LOC: IMU 16:36
PROVIDERS: Physician Assistant; Physician Assistant Medical; ADMITTING PHYSICIAN Internal Medicine; ATTENDING PHYSICIAN Internal Medicine; CONSULT PHYSICIAN Internal Medicine Critical Care Medicine; CONSULT PHYSICIAN Nuclear Medicine Nuclear Cardiology; EMERGENCY PHYSICIAN Student in an Organized Health Care Education/Training Program; FAMILY PHYSICIAN Family Medicine
PROC: 5A09357 Assistance with Respiratory Ventilation, Less than 24 Consecutive Hours, Continuous Positive Airway Pressure (ICD-10-PCS; 2024-06-10)
DX: J18.9 Pneumonia, unspecified organism (principal); I50.33 Acute on chronic diastolic (congestive) heart failure; J96.21 Acute and chronic respiratory failure with hypoxia; J96.22 Acute and chronic respiratory failure with hypercapnia; E87.29 Other acidosis; B37.0 Candidal stomatitis; E87.4 Mixed disorder of acid-base balance; J44.0 Chronic obstructive pulmonary disease with (acute) lower respiratory infection; I11.0 Hypertensive heart disease with heart failure; E78.00 Pure hypercholesterolemia, unspecified; E11.9 Type 2 diabetes mellitus without complications; G47.33 Obstructive sleep apnea (adult) (pediatric); F41.9 Anxiety disorder, unspecified; E87.6 Hypokalemia; K59.00 Constipation, unspecified; L89.319 Pressure ulcer of right buttock, unspecified stage; R33.8 Other retention of urine; I48.91 Unspecified atrial fibrillation; I08.0 Rheumatic disorders of both mitral and aortic valves; D50.9 Iron deficiency anemia, unspecified; J98.4 Other disorders of lung; I45.10 Unspecified right bundle-branch block; E66.01 Morbid (severe) obesity due to excess calories; Z99.81 Dependence on supplemental oxygen; Z68.36 Body mass index [BMI] 36.0-36.9, adult; Z11.52 Encounter for screening for COVID-19; Z79.51 Long term (current) use of inhaled steroids; Z87.891 Personal history of nicotine dependence; Z88.6 Allergy status to analgesic agent; Z79.899 Other long term (current) drug therapy; Z79.4 Long term (current) use of insulin; Z79.84 Long term (current) use of oral hypoglycemic drugs
CPT/HCPCS: 93308; 36600; 71045; 71046; 80048; 80053; 81003; 81015; 82805; 82962; 83036; 83735; 83880; 84484; 85025; 85027; 87070; 87077; 87086; 87147; 87502; 87811; 93005; 93321; 93325; 94640; 94660; 96374; 97116; 97163; 97166; 97530; 97535; 99285

== ENCOUNTER → 2024-07-08 10:47 | Outpatient (REF) | payer MEDICARE, BC, SELFPAY | LOC: WOUND 10:47 | PROVIDERS: ATTENDING PHYSICIAN Surgery; FAMILY PHYSICIAN Family Medicine | DX: L89.314 Pressure ulcer of right buttock, stage 4 (principal); E11.65 Type 2 diabetes mellitus with hyperglycemia; E66.01 Morbid (severe) obesity due to excess calories; I10 Essential (primary) hypertension; J44.9 Chronic obstructive pulmonary disease, unspecified; D64.9 Anemia, unspecified; I35.0 Nonrheumatic aortic (valve) stenosis | CPT/HCPCS: 99213 ==

== ENCOUNTER 2024-07-08 14:21 | Inpatient (IN) | payer MEDICARE, BC, SELFPAY ==
[2024-07-08] VITALS (16 sets, daily range): BP systolic 88–109; BP diastolic 44–66; BMI 36.1; BMI 36.4
--- NOTE | 2024-07-08 11:55 | EDRN ---
Nayeli CANO in room w/ pt.
[2024-07-08 12:25] LABS: Venous Blood Gas B.E. 7.6 mmol/L (-4 to +4); Venous Blood Gas HCO3 36.5 mmol/L (22-27); Venous Blood Gas O2 Sat % 95.8 %; Venous Blood Gas pH 7.29 (7.32-7.43); Venous Blood Gas pO2 74 mmHg (30-50)
[2024-07-08 12:26] LABS: Venous Blood Gas O2 Therapy ON 4L
[2024-07-08 12:27] LABS: Venous Blood Gas pCO2 76 mmHg (35-48)
--- NOTE | 2024-07-08 12:28 | EDRN ---
Portable CXR done at stretcher side at this time.
[2024-07-08 12:29] LABS: % Basophils 0.4 % (0-2); % Eosinophils 0.6 % (0-6); % Immature Granulocytes 1.2 % (0-0.5); % Lymphocytes 6.7 % (20.5-51.1); % Monocytes 6.7 % (1.7-9.3); % Neutrophils 84.4 % (42.2-75.2); Absolute Eosinophils 0.1 10^3/uL (0-0.7); Absolute Immature Granulocytes 0.1 10^3/uL (0-0.05); Absolute Lymphocytes 0.6 10^3/uL (1.2-3.4); Absolute Monocytes 0.6 10^3/uL (0.1-0.6); Absolute Neutrophils 7.9 10^3/uL (1.4-6.5); Hematocrit 38.3 % (37.0-47.0); Hemoglobin 10.7 g/dL (12.0-16.0); Mean Corp Hgb Conc. 27.9 g/dL (33.0-37.0); Mean Corpuscular Hgb 28.6 pg (27.0-31.0); Mean Corpuscular Volume 102.4 fL (81.0-99.0); Nucleated Red Blood Cells % 0.5 %; Platelet Count 400 10^3/uL (130-400); Red Blood Cell Count 3.74 10^6/uL (4.20-5.40); Red Cell Dist. Width 16.3 % (11.5-14.5); White Blood Cell Count 9.4 10^3/uL (4.8-10.8)
[2024-07-08 12:44] LABS: Blood Urea Nitrogen 86 mg/dl (7-17); Calcium 8.9 mg/dl (8.4-10.2); Carbon Dioxide 34 mmol/L (22-30); Chloride 97 mmol/L (98-107); Estimated Creatinine Clearance 54 ml/min; Glucose 198 mg/dl (70-99); Sodium 138 mmol/L (135-145); eGFR > 60.00
[2024-07-08 12:51] LABS: NT-proBNP 9300 pg/ml; Troponin I 0.018 ng/ml
--- NOTE | 2024-07-08 12:54 | ED.GENMED ---
History of Present Illness
General
Chief Complaint: Breathing Problem
Time Seen by Provider: 07/08/24 11:51
History of Present Illness
History of Present Illness:
78-year-old female with history of COPD, CHF, hypertension, hyperlipidemia, and insulin-dependent diabetes presents to the emergency department for evaluation of generalized weakness and low pulse ox. She is chronically on 3 L nasal cannula. Went
to wound care today where she was noted to be increasingly short of breath, checked her pulse oximetry wound care and noted to be in the 60s to 70s. On arrival the patient is in the low 90s on 4 L nasal cannula. Denies leg swelling or
chest pain at this time. No fevers or chills.
Past History
Past History
ED Past Medical History: COPD, HTN, IDDM and Other (Pneumonia, home O2, morbid obesity)
ED Past Surgical History: Appendectomy, , Gynecological and Orthopedic
Social History
Tobacco: Former smoker
Alcohol: None
Personal:
Living: with family
Review of Systems
Review of Systems
Allergies reviewed?: Yes
All Other Systems: ROS reviewed and negative except as documented in HPI and ROS
Phy Exam
Physical Exam
Physical Exam:
GEN: Well appearing, NAD, WDWN
Eyes: PERRLA, EOMs intact, no scleral icterus
HENT: NCAT, oral mucosa moist, no JVD, no cervical adenopathy.
Lungs: Tachypneic, grossly diminished breath sounds with faint crackles particularly in the right base, no wheezes
Cardiac: Tachycardic, regular, high-pitched holosystolic murmur
Abdomen: S, NT, ND, NABS, no masses or hepatosplenomegaly
Neuro: AO x 3
MSK: No gross deformity or ecchymosis. 2+ pitting edema bilateral lower extremities no digital clubbing
Skin: No rashes, petechiae. Normal color, no pallor or jaundice.
Psych: Calm, cooperative, proper hygiene
Scores
Heart Failure Risk
Heart Failure Risk Score: Yes
History of Stroke or TIA: No
History of intubation for respiratory distress: No
Heart rate on ED arrival >/= 110: No
SaO2 <90% on arrival on room air: Yes
HR >/=110 during 3min walk test (or too ill to perform test): Yes
ECG has acute ischemic changes: No
Urea >/=12mmol/L (BUN 33.6mg/dL): No
Serum CO2>/=35mmol/L: Yes
Troponin I or T elevated to LA Level (0.4mg/dL): No
NT-proBNP >/=5,000ng/L (5,000pg/ml): Yes
HF Risk Score: 6
Admission Status: VERY HIGH RISK 55.3% Consider admission to hospital
Course
Orders/Labs/Results
Orders:
Orders
07/08/24 Lunch
2 Gram Sodium [Sodium, 2 Gram]
At Your Request: Full Participation
07/08/24 11:58
Electrocardiogram (*1) Urgent
Reason for Study: Chest Pain
Cardiac Monitoring- Treatment ONCE
EKG- Treatment ONCE
IV Insert/Care/Rem.- Treatment PRN
CR Chest Portable - 1 View Urgent
Comment:
Reason For Exam: SOB
Reason Study Needs to be Portable: Other
07/08/24 12:16
Basic Metabolic Panel Urgent
Complete Blood Count/With Diff Urgent
Pro-BNP [NT-proBNP] Urgent
Reticulocyte Count Urgent
Comment: ADD ON
Troponin I Urgent
Venous Blood Gas Urgent
%Oxygen/Room Air: 90
Comment: on 4L
07/08/24 13:33
Bladder Scan- Treatment ONCE
07/08/24 14:03
Midodrine [ProAmatine] 5 mg PO NOW STA
07/08/24 14:07
Admit/Transfer Patient As Directed
Co-Sign Provider:
Level of Care: Inpatient admission
Assign to:: IMU- Intermediate Care
Physician / Group: Leana
Diagnosis: Acute CHF
Reason for Hospitalization: Diuresis, cardiology consult
Expected length of stay greater than two midnights?: Yes
ELOS- Estimated Length of Stay in days: 4
I certify the patient meets the requirements for IP care: Yes
PRN Pain Medication Management As Directed
May give lesser potent ordered pain med per pt: Yes
preference::
Protocol:: Medication orders for pain may be administered in a
manner that supports deferring to patient preference
when the pt is:
- Requesting an ordered lesser potent pain medication.
Least to most potent pain medications are defined
as: acetaminophen < NSAID < tramadol < opioids
(morphine, oxycodone, hydromorphone).
- Requesting a lesser dose of the same medication IF
ORDERED.
- Requesting a less intrusive route of administration
if both routes are prescribed by the provider (PO <
IV).
07/08/24 14:08
Code Status As Directed
Resuscitation Status: Full Code
07/08/24 15:00
Ipratropium/Albuterol Sulfate [Duoneb] 3 ml INH R ONCE ONE
07/08/24 16:46
Acetaminophen [Tylenol] 650 mg PO Q6HPRN PRN
Furosemide [Lasix] 80 mg IV BID AT 0800,1600
07/08/24 16:46
CARDIOLOGY CONSULT Routine
Consulting Provider: Nazario Navas
Was physician already notified: Yes
Activity As Directed
Activity Level: With Assistance
I&O [Intake/ Output] As Directed
Frequency: q12h
Orthostatic Vital Signs As Directed
Orthostatic VS Frequency: Now
Ot Eval And Treat Routine
Pt Eval And Treat Routine
Activity Level: With Assistance
07/08/24 18:00
Midodrine [ProAmatine] 5 mg PO TID@0800,1300,1800
07/08/24 20:00
Apixaban [Eliquis] 5 mg PO BID
07/08/24 22:00
Bipap [RESP] HS
Patient to use own unit?: No
Inspiratory Pressure (cm H2O): 15
Expiratory Pressure (cm H2O): 12
07/09/24 06:00
Basic Metabolic Panel IN AM
Complete Blood Count/With Diff IN AM
07/10/24 06:00
Basic Metabolic Panel IN AM
07/11/24 06:00
Basic Metabolic Panel IN AM
07/12/24 06:00
Basic Metabolic Panel IN AM
Abnormal Lab Results
07/08/24
12:16
RBC 3.74 L 10^6/uL
(4.20-5.40)
Hgb 10.7 L g/dL
(12.0-16.0)
MCV 102.4 H fL
(81.0-99.0)
MCHC 27.9 L g/dL
(33.0-37.0)
RDW 16.3 H %
(11.5-14.5)
MPV 11.0 H fL
(7.4-10.4)
Abs Immat Gran (auto) 0.1 H 10^3/uL
(0-0.05)
Absolute Neuts (auto) 7.9 H 10^3/uL
(1.4-6.5)
Absolute Lymphs (auto) 0.6 L 10^3/uL
(1.2-3.4)
Immature Gran % 1.2 H %
(0-0.5)
Neutrophils % 84.4 H %
(42.2-75.2)
Lymphocytes % 6.7 L %
(20.5-51.1)
VBG pH 7.29 L
(7.32-7.43)
VBG pCO2 76 H* mmHg
(35-48)
VBG pO2 74 H mmHg
(30-50)
VBG HCO3 36.5 H mmol/L
(22-27)
Chloride 97 L mmol/L
(98-107)
Carbon Dioxide 34 H mmol/L
(22-30)
BUN 86 H mg/dl
(7-17)
Glucose 198 H mg/dl
(70-99)
07/08/24 12:16
07/08/24 12:16
Vital Signs
Initial and Last Documented VS:
Initial Vital Signs
Temp Pulse Resp BP Pulse Ox
97.4 F 115 40 94/61 87
07/08/24 11:48 07/08/24 11:48 07/08/24 11:48 07/08/24 11:48 07/08/24 11:48
Last Documented Vital Signs
Temp Pulse Resp BP Pulse Ox
97.7 F 100 28 109/57 96
07/08/24 16:39 07/08/24 18:16 07/08/24 18:12 07/08/24 18:16 07/08/24 18:12
MDM/Problems Addressed
MDM/Problems Addressed:
Patient is mildly hypercapnic however I do not suspect that BiPAP will be of benefit at this point particularly given tenuous blood pressures. Suspect the ultimate cause of her symptoms is acute on chronic CHF. Will admit for further management
*Critical Care Note
Total Time (30-74mins, 75-104mins- exclusive of procedures): Not Applicable
ED Attending Note
-
Portions of this chart may have been created with voice recognition software.� Occasional wrong word or��sound alike� substitutions may have occurred due to the inherent limitations of voice recognition software.
Discharge Plan
Departure
Patient Disposition: Admit
Date of Disposition: 07/08/24
Time of Disposition: 13:39
Admit to: IMU
Presentation/result/management discussed w/ accepting MD/DO: Hospitalist
Discharge Problem:
Acute heart failure with preserved ejection fraction (HFpEF)
Interventions
Interventions:
*Risk Screen - Suicide Last Done: 07/08/24 12:01
*General Assessment Last Done: 07/08/24 12:01
*Neglect/Abuse Screening Last Done: 07/08/24 12:01
ED- Fall Risk Assessment Last Done: 07/08/24 12:02
*ED COVID-19 Vaccine History Last Done: 07/08/24 12:01
*Nursing Disposition Last Done: 07/08/24 16:25
ED- Cardiac Assessment Last Done: 07/08/24 12:15
ED- Pulmonary Assessment Last Done: 07/08/24 12:15
Discharge Date and Time
Discharge Date/Time: 07/08/24 16:25
--- NOTE | 2024-07-08 12:57 | WOUNDNOTE ---
WOUND/SKIN care note: Pt identified by name and .
Sacral wound Stage 4, is packed from wound care visit today
Packed Stage 4 sacral decubitus
[2024-07-08 13:23] LABS: Anisocytosis 1+; Macrocytosis Slight; Normal RBC Morphology No; Ovalocytes Slight; Polychromasia Slight
--- NOTE | 2024-07-08 13:50 | EDRN ---
Dr. Mcconnell in room w/ pt at this time.
--- NOTE | 2024-07-08 14:04 | EDRN ---
Nayeli CNAO said okay for pt to eat and boxed lunch given to daughter.
--- NOTE | 2024-07-08 14:07 | EDRN ---
Pharmacist Venecia in room doing med rec at this time.
--- NOTE | 2024-07-08 14:13 | HPS.HSE ---
Family Physician
-
Family Physician: Trina Ralph
Chief Complaint
-
Shortness of breath, weakness
History of Present Illness
78-year-old female with history of heart failure here with increasing shortness of breath and weakness over the past 24 hours. Has had a cough for the past few days as well.
She is a limited historian. Information gathered by speaking with her family.
Apparently she went to the wound clinic this morning and was noted to be hypoxic and short of breath and was referred back to the emergency room.
Baseline uses 3 L of oxygen continuously at home.
Took all her morning meds this morning. Denies medication noncompliance.
No recent changes in her body weight.
Medical History
Past Medical History
Past Medical History: Reports Other
Additional Past Medical History:
Chronic heart failure preserved EF
COPD
Atrial fibrillation
Essential hypertension
DM 2
Chronic anemia
MARK
Hyperlipidemia
Moderate aortic stenosis
Moderate mitral stenosis
Obesity
History of pulmonary nodules
Past Surgical History: Reports Appendectomy, Gynocological and Orthopedic
Social History
Tobacco: Former Smoker
Alcohol: None
Drug: None
Personal:
Living: With Family
Employment: Not Employed
Family History
Family History: Not pertinent
Allergies / Home Medications
Allergies reflects when Allergies were last updated in [facility].
Home Medications with original date entered in [facility]
Allergy/Medication List:
Allergies
Allergy/AdvReac Type Severity Reaction Status Date / Time
aspirin Allergy Anxiety Verified 07/08/24 11:54
Home Medications
albuterol sulfate 90 mcg/actuation aerosol inhaler 2 puff inhalation R Q4HPRN PRN sob 05/03/13
insulin NPH isoph U-100 human 100 unit/mL subcutaneous suspension (Humulin N NPH U-100 Insulin (isophane susp)) 10 - 25 units SC HS Diabetes 10/15/15
insulin lispro 100 unit/mL subcutaneous solution (Humalog U-100 Insulin) 12 unit SC BID@0730,1130 Diabetes 10/15/15
metoprolol tartrate 25 mg tablet 25 mg PO BID Blood pressure 10/15/15
atorvastatin 20 mg tablet 20 mg PO HS High cholesterol 09/23/21
budesonide 0.5 mg/2 mL suspension for nebulization 0.5 mg inhalation R BID Lung/breathing issues 09/23/21
ferrous sulfate 325 mg (65 mg iron) tablet (FeroSul) 325 mg PO QPM Supplement 09/23/21
ipratropium 0.5 mg-albuterol 3 mg (2.5 mg base)/3 mL nebulization soln 3 ml inhalation R TID Lung/breathing issues 09/23/21
metformin 1,000 mg tablet 1,000 mg PO BID@0800,1700 Diabetes 09/23/21
multivitamin with folic acid 400 mcg tablet (Tab-A-Vern) 1 tab PO DAILY Supplement 09/23/21
empagliflozin 10 mg tablet (Jardiance) 10 mg PO DAILY Heart Failure #30 tabs 09/28/21
miconazole nitrate 2 % topical powder (Desenex) 1 applic topical DAILY underbreasts, abd fold,flanks 03/25/22
ammonium lactate 5 % lotion 1 applic topical DAILYPRN PRN feet rash 06/10/24
ferrous sulfate 325 mg (65 mg iron) tablet 650 mg PO DAILY Supplement 06/10/24
furosemide 80 mg tablet 80 mg PO BID@0800,1600 Fluid Retention/Swelling 06/10/24
insulin lispro 100 unit/mL subcutaneous solution (Humalog U-100 Insulin) 16 unit SC DAILY@1630 Diabetes 06/10/24
potassium chloride 20 mEq tablet,extended release(part/cryst) (Klor-Con M) 20 meq PO BID@0800,1700 Supplement 06/10/24
apixaban 5 mg tablet (Eliquis) 5 mg PO BID 30 days #60 tabs 06/19/24
docusate sodium 100 mg capsule 100 mg PO BIDPRN PRN Constipation 30 days #30 caps 06/19/24
sennosides 8.6 mg tablet (senna) 8.6 mg PO BID PRN constipation 07/08/24
Review of Systems
-
History Source: Patient and Family
A 12 point ROS was completed and negative except as noted: Yes
Constitutional: Reports Fatigue
Respiratory: Reports Trouble Breathing
Physical Exam
Vital Signs
Vital Signs
Temp Pulse Resp BP Pulse Ox
97.4 F 89 30 93/63 94
07/08/24 11:48 07/08/24 14:00 07/08/24 14:00 07/08/24 14:00 07/08/24 14:00
Physical Exam
General: Well Developed, Well Nourished, No Apparent Distress, Comfortable and Obese
HEENT: NormoCephalic, Anicteric and Moist mucous membranes
Respiratory: Rales and Decreased Breath Sounds
Cardiac: S1/S2 and Regular Rhythm
Breast: Deferred by me
GI: Soft, Non Tender and Non Distended
Genito-urinary: Deferred by me
Musculoskeletal: No Clubbing, No Cyanosis, Edema, Left Lower Extremity and Edema, Right Lower Extremity
Skin: Warm and Dry
Neuro: Awake, Alert and Oriented
Hematologic/Lymphatic: No Lymphadenopathy
Psych: Calm
Laboratory Results
-
07/08/24 12:16
07/08/24 12:16
Laboratory Results
Total Bilirubin Cancelled 07/08/24 12:16
AST Cancelled 07/08/24 12:16
ALT Cancelled 07/08/24 12:16
Alkaline Phosphatase Cancelled 07/08/24 12:16
Troponin I 0.018 ng/ml 07/08/24 12:16
Impression/Plan
-
Acute on chronic hypoxic respiratory failure -suspect due to acute pulmonary edema due to acute on chronic heart failure exacerbation. Baseline uses 3 L of oxygen at home continuously. Currently requiring 5 L.
1 view chest x-ray shows cardiomegaly that is unchanged, prominent pulmonary interstitium, right basilar opacity and left hemidiaphragm obscured. Cannot rule out atelectasis versus pleural effusions. Clinically doubt pneumonia.
Admit to IVU.
Acute on chronic heart failure with preserved EF -weight is up compared to discharge weight. BNP is elevated, 9300. Start IV Lasix if blood pressure allows. Start midodrine for hypotension. Check orthostatics.
Consult cardiology. She was just discharged from our hospital June 19 with a diagnosis of acute heart failure exacerbation, acute COPD exacerbation.
Last echocardiogram was 06/13/24, normal LV size and function, LVEF 55 to 60%, no gross wall motion abnormalities. Mild concentric LVH. Normal RV size and function. Mild to moderate mitral stenosis. Moderate aortic stenosis. Estimated aortic
valve area 1.1 cm�.
COPD without exacerbation
MARK -resume nightly BiPAP.
Paroxysmal atrial fibrillation -Eliquis. Atrial fibrillation was just diagnosed June 2024.
Hyperlipidemia -atorvastatin.
DM 2 with hyperglycemia -hemoglobin A1c 6.8% in June. Glucose 198 today. At home she is on lispro insulin 12 units before breakfast and lunch, 16 units before dinner. NPH insulin 10 to 25 units at bedtime. Metformin 1000 mg twice daily.
Jardiance 10 mg daily.
Essential hypertension -currently hypotensive. Start midodrine to allow for diuresis. Nifedipine was discontinued prior to admission due to hypotension. Continue metoprolol if blood pressure allows.
Chronic anemia -macrocytic. Hemoglobin at baseline currently. Check anemia labs.
Obesity due to excess calories
Full code
Family updated at the bedside.
[2024-07-08] MEDS: ProAmatine 5 MG PO ×2 (14:42→18:16)
--- NOTE | 2024-07-08 15:14 | CON.CAR ---
Addendum entered and electronically signed by Nazario Navas MD 07/08/24 16:02:
I saw and examined the patient.
The LAY OUT TECHNICIAN or PA's note was reviewed and I agree with the note.
Comment: General: Well developed, well nourished in NAD.
Neck: Supple, no JVD, HJR, carotids +2 B/L, no bruits bilaterally.
Heart: Non displaced PMI, irregular, 2/6 basal systolic murmur, No S3, S4, no rubs.
Lungs: Scattered rhonchi at the bases
Extremities: No clubbing, cyanosis or edema bilaterally.
Neuro: Grossly nonfocal, awake, alert and oriented x3.
Luba has a history of chronic diastolic CHF, moderate aortic stenosis, obstructive sleep apnea on BiPAP, hypertension, diabetes, morbid obesity. She was admitted in June 2024 with CHF. She has been diligent with salt and weighing herself
and has not had any weight gain. She has had increased lower extremity edema. She was more short of breath with increasing oxygen demands and brought to the ER and is admitted with acute diastolic CHF. Of note blood pressure was low and midodrine
was added.
Will treat with IV Lasix and hopefully blood pressure tolerates with the addition of midodrine. Might need to consider adding metolazone as an inpatient or at home. Discussed with patient and family in detail at bedside.
Original Note:
Consultation
Consultation Request
Date/Time Consultation Requested: 07/08/24
Date/Time Consultation Performed: 07/08/24
Requesting Provider: Dr. Dueñas
Performing Provider: Dr. Navas
Reason for Consultation: Acute HF
Medical History
-
History of Present Illness:
Patient came to ER today with increased weakness and a lower than usual pulse ox reading at home, patient now admitted with acute HF and cardiology has been consulted. Patient was just admitted to from 06/10/2024 until 06/19/2024 with acute on
chronic hypoxic multifactorial respiratory failure and also a new diagnosis of paroxysmal Afib. During that admission patient was diuresed with Lasix 80 mg IV BID. In addition to BiPAP therapy. Unfortunately the recorded weights during that
admission were not accurate because they were using a bed scale. I and O readings were also inaccurate, but the patient reported some subjective improvement. Patient was seen in the office on 06/26/2024 and was dutifully taking her dose of Lasix 80
mg twice daily, but was noted to be hypotensive and so her usual dose of nifedipine was stopped. Patient was seen in the wound clinic today and was noted to be SOB above baseline and hypoxic so she was referred to ER. Patient was using her
usual 3 L nasal cannula of supplemental oxygen and had improved pulse ox by increasing to 5 L. proBNP is up to 9300 today and was only as high as 1590 during her last admission. Again the recorded weights are not accurate
PMH:
Chronic HFpEF
Mod peak/mean 46/28 mmHg and ZAY 1.1 cm sq by echo 06/13/24
Mild to mod MS with mean 6 mmHg by echo 06/13/24
MARK on BiPAP
HTN
HLD
DM2
Chronic iron deficiency anemia
Morbid obesity, BMI 36.4
h/o pulmonary nodules
Past Medical History
Past Medical History: Other (See HPI)
Past Surgical History: Appendectomy, and Other (Reconstruction of finger)
Social History
Tobacco: Former Smoker
Alcohol: None
Drug: None
Personal:
Living: With Family (Lives with granddaughter)
Family History
Family History: CAD (Father) and Hypertension (Mother)
Allergies / Home Medications
Allergy/AdvReac Type Severity Reaction Status Date / Time
aspirin Allergy Anxiety Verified 07/08/24 11:54
�Medication �Instructions �Recorded �Confirmed �Type
albuterol sulfate 90 mcg/actuation 2 puff inhalation R Q4HPRN PRN sob 05/03/13 07/08/24 History
aerosol inhaler
insulin NPH isoph U-100 human 100 10 - 25 units SC HS Diabetes 10/15/15 07/08/24 History
unit/mL subcutaneous suspension
(Humulin N NPH U-100 Insulin
(isophane susp))
insulin lispro 100 unit/mL 12 unit SC BID@0730,1130 Diabetes 10/15/15 07/08/24 History
subcutaneous solution (Humalog
U-100 Insulin)
metoprolol tartrate 25 mg tablet 25 mg PO BID Blood pressure 10/15/15 07/08/24 History
atorvastatin 20 mg tablet 20 mg PO HS High cholesterol 09/23/21 07/08/24 History
budesonide 0.5 mg/2 mL suspension 0.5 mg inhalation R BID 09/23/21 07/08/24 History
for nebulization Lung/breathing issues
ferrous sulfate 325 mg (65 mg 325 mg PO QPM Supplement 09/23/21 07/08/24 History
iron) tablet (FeroSul)
ipratropium 0.5 mg-albuterol 3 mg 3 ml inhalation R TID 09/23/21 07/08/24 History
(2.5 mg base)/3 mL nebulization Lung/breathing issues
soln
metformin 1,000 mg tablet 1,000 mg PO BID@0800,1700 Diabetes 09/23/21 07/08/24 History
multivitamin with folic acid 400 1 tab PO DAILY Supplement 09/23/21 07/08/24 History
mcg tablet (Tab-A-Vern)
empagliflozin 10 mg tablet 10 mg PO DAILY Heart Failure #30 09/28/21 07/08/24 Rx
(Jardiance) tabs
miconazole nitrate 2 % topical 1 applic topical DAILY 03/25/22 07/08/24 History
powder (Desenex) underbreasts, abd fold,flanks
ammonium lactate 5 % lotion 1 applic topical DAILYPRN PRN feet 06/10/24 07/08/24 History
rash
ferrous sulfate 325 mg (65 mg 650 mg PO DAILY Supplement 06/10/24 07/08/24 History
iron) tablet
furosemide 80 mg tablet 80 mg PO BID@0800,1600 Fluid 06/10/24 07/08/24 History
Retention/Swelling
insulin lispro 100 unit/mL 16 unit SC DAILY@1630 Diabetes 06/10/24 07/08/24 History
subcutaneous solution (Humalog
U-100 Insulin)
potassium chloride 20 mEq 20 meq PO BID@0800,1700 Supplement 06/10/24 07/08/24 History
tablet,extended
release(part/cryst) (Klor-Con M)
apixaban 5 mg tablet (Eliquis) 5 mg PO BID 30 days #60 tabs 06/19/24 07/08/24 Rx
docusate sodium 100 mg capsule 100 mg PO BIDPRN PRN Constipation 06/19/24 07/08/24 Rx
30 days #30 caps
sennosides 8.6 mg tablet (senna) 8.6 mg PO BID PRN constipation 07/08/24 07/08/24 History
Review of Systems
-
History Source: Patient and Family
All other systems: Negative unless noted
Physical Exam
Vital Signs
Temp Pulse Resp BP Pulse Ox
97.4 F 118 24 90/57 91
07/08/24 11:48 07/08/24 14:42 07/08/24 14:30 07/08/24 14:42 07/08/24 14:30
Gen: NAD, AAOx3, obese
HEENT: EOMI, MMM, wearing glasses
CV: SR. Reg
Lungs: 5 L NC. B/L rales
Abd: Distended abdomen with +BS and NT
Ext: Chronic skin changes, +1 non-pitting B/L LE edema
Skin: Warm, dry and pink. No rash
Neuro: Non-focal
Lab Results
07/08/24 12:16
07/08/24 12:16
Troponin I 0.018 ng/ml 07/08/24 12:16
Xfm-H-Vcdqrnanmoi Pept 9300 pg/ml 07/08/24 12:16
Impression / Plan
-
Family Physician:� Trina Ralph
Primary Water/Wastewater Engineer: Dr. Simmons
Impression:
Admitted with SOB and acute on hypoxic respiratory failure 06/10/24
AE COPD
Acute HFpEF
Mod peak/mean 48/27 mmHg and ZAY 1.0 cm sq by echo 12/21/23
Mod MS with peak/mean 17/7 mmHg by echo 12/21/23
MARK on BiPAP
HTN
HLD
DM2
Chronic iron deficiency anemia
Morbid obesity, BMI 36.4
h/o pulmonary nodules
ECHO 07/2019: EF 60-65%, mod cLVH, MAC, mild MR, mild to mod , peak/mean 26/16mmHg, ZAY 1.1cm2
ECHO 09/24/21: EF 65 to 70%, mild concentric LVH, mild , peak/mean gradients 31/19 mmHg, ZAY 1.1 cm�, trivial pericardial effusion, no significant change compared to prior
Echo 12/21/23: EF 55-60%, mild conc LVH, mod MS with peak/mean 17/7 mmHg, mod peak/mean 48/27 mmHg and ZAY 1.0 cm sq
Echo 06/13/24: EF 55 to 60%, no gross regional WMA, mild to moderate MS with mean gradient 6 mmHg at an HR of 76 bpm, mild MR, moderate peak/mean 46/28 mmHg and ZAY 1.1 cm SQ
Plan:
-Patient came to ER today with increased weakness and a lower than usual pulse ox reading at home, patient now admitted with acute HF and cardiology has been consulted. Patient was just admitted to from 06/10/2024 until 06/19/2024 with acute on
chronic hypoxic multifactorial respiratory failure and also a new diagnosis of paroxysmal Afib. During that admission patient was diuresed with Lasix 80 mg IV BID. In addition to BiPAP therapy. Unfortunately the recorded weights during that
admission were not accurate because they were using a bed scale. I and O readings were also inaccurate, but the patient reported some subjective improvement. Patient was seen in the office on 06/26/2024 and was dutifully taking her dose of Lasix 80
mg twice daily, but was noted to be hypotensive and so her usual dose of nifedipine was stopped. Patient was seen in the wound clinic today and was noted to be SOB above baseline and hypoxic so she was referred to ER. Patient was using her
usual 3 L nasal cannula of supplemental oxygen and had improved pulse ox by increasing to 5 L. proBNP is up to 9300 today and was only as high as 1590 during her last admission. Again the recorded weights are not accurate
-ECG reviewed by me looks like A-fib
-Patient with worsening hypoxia, increased oxygen demands and a proBNP higher than last admission. Agree with admission and attempts at IV diuresis
-Patient was taking Lasix 80 mg PO BID prior to admission and is now ordered Lasix 80 mg IV BID. It was hard to tell if there was any appreciable diuresis during the last admission due to bed scale weights being reported, but there was subjective
improvement. Will push harder for standing scale weights and consideration of metolazone to augment diuresis
-Cre stable at 0.9
-Potassium was hemolyzed, recheck BMP
-EF was 55-60% by echo 06/13/24
-Outpatient dose of Lopressor 25 mg BID should be changed to Toprol XL 25 mg BID due to CHF, orders changed by me
-Patient is not chronically on NAJMA/ARB/aldosterone antagonist and will not add at this time due to hypotension
-Outpatient dose of Jardiance 10 mg daily will transition to Farxiga 10 mg daily due to formulary changes while in , but patient should resume Jardiance upon discharge.
-Patient with mild to mod MS and mod by last echo. Not clear what type of intervention the patient would be a candidate for based on her chronic hypoxic respiratory failure and body habitus
-A-fib was a new diagnosis last admission and has been persistent. Changing Lopressor to Toprol-XL as noted above. Additionally her outpatient dose of Eliquis 5 mg BID (age 78, wt 197 lbs) should be continued. Plan at the time of her last OV on
06/26/2024 was that following 4 weeks of uninterrupted OAC we could try for CV, will follow rate and rhythm this admission and consider performing inpatient ELEUTERIO/CV if we think persistent A-fib precipitated this acute HF admission
[2024-07-08] MEDS: DUONEB 3 ML INH ×2 (15:20→19:36)
--- NOTE | 2024-07-08 16:06 | EDRN ---
Attempting to call report to IMU for bed [id number] at this time.
--- NOTE | 2024-07-08 16:56 | PTCARENOTE ---
Rec'd pt on admission from ED. Pt admitted with significant weakness requiring 4 people to get her out of the car to a wheelchair for ED assessment. Pt was hypoxic on home O2 dose of 3L. Now requiring 5L NC. Pt's weight obtained by bed scale that
has been balanced, verified by 2 RNs. Pt unable to sit up, stand up, or assist in turning due to extreme weakness. Pt hypotensive with BP in 90s. Sacral wound has been packed by yarn sorter at clinic today. Pt educated and family updated at
bedside. Pt able to participate in admission assessment questions.
[2024-07-08 17:09] LABS: Reticulocyte Count 2.3 % (0.4-2.8)
[2024-07-08 18:03] LABS: Glucose - Point of Care 213 mg/dl (70-99)
[2024-07-08 18:04] LABS: Iron 45 ug/dl (37-170)
[2024-07-08 18:13] LABS: Percent Saturation 15 % (20-50); Total Iron Binding Capacity 295 ug/dl (265-497)
[2024-07-08] MEDS: NOVOLOG FLEXPEN 16 UNITS SC (18:16)
[2024-07-08] MEDS: LASIX 80 MG IV (18:16)
[2024-07-08] MEDS: NOVOLOG FLEXPEN-LOW RESISTANCE 2 UNITS SC (18:17)
[2024-07-08] MEDS: KCL 20 MEQ PO (18:17)
[2024-07-08] MEDS: FEOSOL 325 MG PO (18:17)
[2024-07-08 18:46] LABS: Ferritin 61.8 ng/ml (11.1-264.0)
[2024-07-08 19:00] LABS: Vitamin B12 774 pg/ml (239-931)
[2024-07-08] MEDS: PULMICORT 0.5 MG INH (19:36)
[2024-07-08 20:15] LABS: Folate > 20.0 ng/ml (2.76-20)
[2024-07-08] MEDS: TOPROL XL 25 MG PO (21:08)
[2024-07-08] MEDS: ELIQUIS 5 MG PO (21:08)
[2024-07-08] MEDS: LIPITOR 20 MG PO (21:08)
[2024-07-08] MEDS: HUMULIN N KWIKPEN 10 UNITS SC (21:19)
[2024-07-08 21:30] LABS: Glucose - Point of Care 176 mg/dl (70-99)
--- NOTE | 2024-07-08 23:19 | PTCARENOTE ---
assumed care of patient from previous RN. Patient on bipap overnight. Pills in applesauce. patient is drowsy but arousable. granddaughter at bedside. Assessment and vital signs as documented. call schuster in reach.
[2024-07-09] VITALS (54 sets, daily range): BP systolic 64–158; BP diastolic 30–134; PULSE 77; BMI 36.4
--- NOTE | 2024-07-09 05:25 | W.PN.UPDATE ---
Update Note
Progress Note Update
Family concerned over patient's urine being cloudy, no recent UA noted. Will order Urine study. No other symptoms.
[2024-07-09 06:45] LABS: % Basophils 0.7 % (0-2); % Eosinophils 0.2 % (0-6); % Immature Granulocytes 1.6 % (0-0.5); % Lymphocytes 8.6 % (20.5-51.1); % Monocytes 7.9 % (1.7-9.3); Absolute Basophils 0.1 10^3/uL (0-0.2); Absolute Immature Granulocytes 0.2 10^3/uL (0-0.05); Absolute Lymphocytes 0.8 10^3/uL (1.2-3.4); Absolute Monocytes 0.7 10^3/uL (0.1-0.6); Absolute Neutrophils 7.4 10^3/uL (1.4-6.5); Hematocrit 38.5 % (37.0-47.0); Hemoglobin 10.8 g/dL (12.0-16.0); Mean Corp Hgb Conc. 28.1 g/dL (33.0-37.0); Mean Corpuscular Hgb 28.3 pg (27.0-31.0); Mean Corpuscular Volume 100.8 fL (81.0-99.0); Mean Platelet Volume 11.4 fL (7.4-10.4); Nucleated Red Blood Cells % 1.2 %; Platelet Count 355 10^3/uL (130-400); Red Blood Cell Count 3.82 10^6/uL (4.20-5.40); Red Cell Dist. Width 16.3 % (11.5-14.5); White Blood Cell Count 9.1 10^3/uL (4.8-10.8)
[2024-07-09 07:30] LABS: Blood Urea Nitrogen 95 mg/dl (7-17); Carbon Dioxide 32 mmol/L (22-30); Chloride 98 mmol/L (98-107); Estimated Creatinine Clearance 41 ml/min; Glucose 115 mg/dl (70-99); Sodium 139 mmol/L (135-145); eGFR 46.62
[2024-07-09] MEDS: DUONEB 3 ML INH ×3 (07:54→20:03)
[2024-07-09] MEDS: PULMICORT 0.5 MG INH ×2 (07:55→20:02)
--- NOTE | 2024-07-09 08:16 | W.PN.HOSP.TC ---
Today's Communication/Plan
-
Stop potassium
Lokelma
IV calcium, dextrose, insulin
Recheck BMP at 12:00
Assessment / Plan
Assessment / Plan
Gen-awake but not fully alert, NAD
HEENT-NC, AT, anicteric, clear oral mm
Neck-supple
CV-reg, no M, +S1/S2
Lungs-clear B/L
Abd-soft, NT, ND
Ext-no edema
Musculoskeletal-no cyanosis, clubbing
Skin-warm and dry
Neuro-grossly non-focal
Psych-calm, cooperative
Hyperkalemia -stop potassium. Give a dose of Lokelma. IV calcium, dextrose, insulin. EKG reviewed. Recheck BMP at 12:00.
Acute on chronic hypoxic respiratory failure -suspect due to acute pulmonary edema due to acute on chronic heart failure exacerbation. Baseline uses 3 L of oxygen at home continuously. Currently requiring 5 L.
1 view chest x-ray shows cardiomegaly that is unchanged, prominent pulmonary interstitium, right basilar opacity and left hemidiaphragm obscured. Cannot rule out atelectasis versus pleural effusions. Clinically doubt pneumonia.
Was on BiPAP last night, changed back to nasal cannula.
Acute on chronic heart failure with preserved EF -weight is up compared to discharge weight. BNP is elevated, 9300. Continue IV Lasix if blood pressure allows. Continue midodrine for hypotension. Check orthostatics.
Cardiology consulted. She was just discharged from our hospital June 19 with a diagnosis of acute heart failure exacerbation, acute COPD exacerbation.
Last echocardiogram was 06/13/24, normal LV size and function, LVEF 55 to 60%, no gross wall motion abnormalities. Mild concentric LVH. Normal RV size and function. Mild to moderate mitral stenosis. Moderate aortic stenosis. Estimated aortic
valve area 1.1 cm�.
COPD without exacerbation
MARK -resume nightly BiPAP.
Paroxysmal atrial fibrillation -Eliquis. Atrial fibrillation was just diagnosed June 2024.
Hyperlipidemia -atorvastatin.
DM 2 with hyperglycemia -hemoglobin A1c 6.8% in June. Glucose 115 this a.m. At home she is on lispro insulin 12 units before breakfast and lunch, 16 units before dinner. NPH insulin 10 to 25 units at bedtime. Metformin 1000 mg twice daily.
Jardiance 10 mg daily. Hold oral agents.
Essential hypertension -currently hypotensive. Start midodrine to allow for diuresis. Nifedipine was discontinued prior to admission due to hypotension. Continue metoprolol if blood pressure allows.
Chronic anemia -macrocytic. Hemoglobin at baseline currently. Check anemia labs.
Obesity due to excess calories
Full code
Updated daughter at the bedside.
Anticipated Discharge: > 48 hours
Subjective/Interval History
-
Date of Service: July 09, 2024
Patient seen and examined. Denies shortness of breath. Somewhat groggy this morning and slow to respond. Was sleeping when I walked in the room. Oriented to hospital.
Objective Data
-
Labs:
Laboratory Results
07/09/24 07/09/24
05:18 12:00
WBC 9.1
Hgb 10.8 L
Hct 38.5
Plt Count 355
Sodium 139 Pending
Potassium 8.0 H* Pending
Chloride 98 Pending
Carbon Dioxide 32 H Pending
BUN 95 H Pending
Creatinine 1.2 H Pending
Glucose 115 H Pending
Calcium 9.0 Pending
Vital Signs:
Vital Signs
Temp Pulse Resp BP Pulse Ox
97.6 F 90 32 100/59 96
07/09/24 07:26 07/09/24 04:00 07/09/24 04:00 07/09/24 04:00 07/09/24 04:00
I&O
07/08/24 07/09/24 07/10/24
06:59 06:59 06:59
Output Total 200 / 200
Balance -200 / -200
Review of Systems
-
History Source: Patient
All other systems: Reviewed and negative
--- NOTE | 2024-07-09 08:19 | W.PN.CARDCBS ---
Today's Communication / Plan
-
Cont IV lasix. wt coming down slowly. About 4 lbs from d/c wt Jun 2024.
Cr rising. Monitor cr, daily wts and Is and Os.
She was taking lasix 80 mg BID as outpt prior to admit.
May consider midodrine if needed
Recent echo reviewed with preserved EF, no need to repeat.
Cont Midodrine for bp support.
Cont GDMT, now on Toprol. Hold ACEI/aRB/aldactone with rising cr and hypotension.
Persistent afib, rate controlled, cont Eliquis. Afib is relatively new dx.
Could eventually consider potential cardioversion after at least 4 wks of anticoagulation
Hyperkalemia and change in mental status eval and tx as per primary service
Cont to monitor tele and EKG. EKG 07/09/2024 stable from prior
Impression / Plan
-
Family Physician:� Trina Ralph
Primary Estimate Clerk: Dr. Simmons
Impression:
Admitted with SOB and acute on hypoxic respiratory failure 06/10/24
AE COPD
Acute HFpEF
Hyperkalemia
Change in mental status
Mod peak/mean 48/27 mmHg and ZAY 1.0 cm sq by echo 12/21/23
Mod MS with peak/mean 17/7 mmHg by echo 12/21/23
MARK on BiPAP
HTN
HLD
DM2
Chronic iron deficiency anemia
Morbid obesity, BMI 36.4
h/o pulmonary nodules
ECHO 07/2019: EF 60-65%, mod cLVH, MAC, mild MR, mild to mod , peak/mean 26/16mmHg, ZAY 1.1cm2
ECHO 09/24/21: EF 65 to 70%, mild concentric LVH, mild , peak/mean gradients 31/19 mmHg, ZAY 1.1 cm�, trivial pericardial effusion, no significant change compared to prior
Echo 12/21/23: EF 55-60%, mild conc LVH, mod MS with peak/mean 17/7 mmHg, mod peak/mean 48/27 mmHg and ZAY 1.0 cm sq
Echo 06/13/24: EF 55 to 60%, no gross regional WMA, mild to moderate MS with mean gradient 6 mmHg at an HR of 76 bpm, mild MR, moderate peak/mean 46/28 mmHg and ZAY 1.1 cm SQ
Plan:
Cont IV lasix. wt coming down slowly. About 4 lbs from d/c wt Jun 2024.
Cr rising. Monitor cr, daily wts and Is and Os.
She was taking lasix 80 mg BID as outpt prior to admit.
May consider midodrine if needed
Recent echo reviewed with preserved EF, no need to repeat.
Cont Midodrine for bp support.
Cont GDMT, now on Toprol. Hold ACEI/aRB/aldactone with rising cr and hypotension.
Persistent afib, rate controlled, cont Eliquis. Afib is relatively new dx.
Could eventually consider potential cardioversion after at least 4 wks of anticoagulation
Hyperkalemia and change in mental status eval and tx as per primary service
Cont to monitor tele and EKG. EKG 07/09/2024 stable from prior
Discussed with family at bedside.
HPI: Patient came to ER today with increased weakness and a lower than usual pulse ox reading at home, patient now admitted with acute HF and cardiology has been consulted. Patient was just admitted to from 06/10/2024 until 06/19/2024 with acute
on chronic hypoxic multifactorial respiratory failure and also a new diagnosis of paroxysmal Afib. During that admission patient was diuresed with Lasix 80 mg IV BID. In addition to BiPAP therapy. Unfortunately the recorded weights during that
admission were not accurate because they were using a bed scale. I and O readings were also inaccurate, but the patient reported some subjective improvement. Patient was seen in the office on 06/26/2024 and was dutifully taking her dose of Lasix 80
mg twice daily, but was noted to be hypotensive and so her usual dose of nifedipine was stopped. Patient was seen in the wound clinic today and was noted to be SOB above baseline and hypoxic so she was referred to ER. Patient was using her
usual 3 L nasal cannula of supplemental oxygen and had improved pulse ox by increasing to 5 L. proBNP is up to 9300 today and was only as high as 1590 during her last admission. Again the recorded weights are not accurate
Progress Note - Estimate Clerk
Subjective
Date of Service: July 09, 2024
Pt seen and examined. No cp.
Objective
Labs:
07/09/24 05:18
Labs
Hgb 10.8 g/dL (12.0-16.0) L 07/09/24 05:18
Hct 38.5 % (37.0-47.0) 07/09/24 05:18
Plt Count 355 10^3/uL (130-400) 07/09/24 05:18
Sodium 139 mmol/L (135-145) 07/09/24 05:18
Potassium 8.0 mmol/L (3.5-5.1) H* 07/09/24 05:18
BUN 95 mg/dl (7-17) H 07/09/24 05:18
Creatinine 1.2 mg/dL (0.6-1.0) H 07/09/24 05:18
Glucose 115 mg/dl (70-99) H 07/09/24 05:18
Troponins
07/08/24
12:16
Troponin I 0.018
Vital Signs and I&O:
Vital Signs
Temp Pulse Resp BP Pulse Ox
97.6 F 90 32 100/59 96
07/09/24 07:26 07/09/24 04:00 07/09/24 04:00 07/09/24 04:00 07/09/24 04:00
Vital Signs
Temp Pulse Resp BP Pulse Ox
97.6 F 90 32 100/59 96
07/09/24 07:26 07/09/24 04:00 07/09/24 04:00 07/09/24 04:00 07/09/24 04:00
Intake & Output
07/07/24 07/08/24 07/09/24 07/10/24
06:59 06:59 06:59 06:59
Output Total 200 / 200
Balance -200 / -200
Physical Exam
Physical Exam
General: No acute distress,lethargic
Neck: Negative JVD
Heart: Irregularly irregular, Negative S3 positive S1/S2, Negative S4, No murmur
Lungs: CTA b/l, negative wheezes/rales/rhonchi
Abd: Positive BS, NT/ND, neg rebound/rigidity/guarding
Ext: Negative cyanosis/clubbing/edema
Neuro: nonfocal
--- NOTE | 2024-07-09 08:21 | VNURNOTE ---
Chart reviewed. Patient is current with [facility] nursing, PT, OT, GEOMATICS PROFESSOR. Will continue to follow hospital course and DC plans.
[2024-07-09 08:42] LABS: Glucose - Point of Care 121 mg/dl (70-99)
[2024-07-09] MEDS: NOVOLIN R 0.1 UNITS IV (08:58)
[2024-07-09] MEDS: DEXTROSE 50% SYRINGE 25 GRAMS IV ×2 (09:00→16:01)
[2024-07-09] MEDS: NOVOLOG FLEXPEN-LOW RESISTANCE SC ×2 (09:28→14:46)
[2024-07-09] MEDS: CALCIUM CHLORIDE 10% SYRINGE 500 MG IV (09:29)
[2024-07-09] MEDS: LASIX 80 MG IV ×2 (09:29→15:25)
[2024-07-09 10:31] LABS: B.E. 7.5 mmol/L; HCO3 37.7 mmol/L (21-28); PO2 220 mmHg (83-108); pH 7.23 (7.35-7.45)
[2024-07-09 10:35] LABS: PCO2 90 mmHg (32-35)
--- NOTE | 2024-07-09 12:23 | PTCARENOTE ---
Received this am, pt on own CPAP- removed by grand daughter placed on NC 5L. A/ A drowsy / lethargic - was able to tell me her name and ( breathless)- otherwise no communication. Poor shallow tachypneic respirations off cpap - grand daughter
put back on her. Lungs completely diminished throughout. Critical K relayed to Dr. Dueñas- IV Dextrose, insulin given also stat Ca Gluconate- unable to take am po meds - provider aware. ABG results relayed to provider and RT- placed on hospital
Bipap current sao2 99% RR18. IV Lasix given this am- no urine output noted yet ( has purewick on) Bladder scanned 118 ml by PCT.
[2024-07-09] MEDS: ELIQUIS PO (12:57)
[2024-07-09] MEDS: ProAmatine PO ×2 (12:58)
[2024-07-09] MEDS: TOPROL XL PO (12:59)
--- NOTE | 2024-07-09 13:38 | WOUNDNOTE ---
R INNER GROIN NEXT TO LABIA
--- NOTE | 2024-07-09 13:40 | WOUNDNOTE ---
WON RN note: Patient admitted with acute heart failure. Sent to ER from [facility].
See H&P for complete history. Patient lives with her . She is current with [facility].
PMH: COPD (on o2), CHF, stage 4 R sacral pressure injury, morbid obesity, IDDM, uses Bipap, former smoker.
Wound Location and type/assessment:Patient known to service, last seen 06/11/24 for same R buttock PI stage 4. Patient goes to [facility] monthly and at bedside states he does wound care at home. Reviewed last note from Dr. Murphy regarding
wound care. Confirmed with that she still has ROHO cushion for wheelchair and air mattress at home. Sacrum and heels are intact, pillows under calves. R inner groin with purple ecchymotic area. Granddaughter at bedside said she started using
a new brief that caused the bruising, not new.
Appetite: Good. Drinks boost as protein supplement.
Pressure redistribution devices in place: Air mattress. pillow under calves.
Plan: R proximal buttock dressing changed with 1/2 ' Iodoform packing, 2x2 gauze and silicone foam.
Confirmed orders with hospitalist and updated RN.
Updated care plan and will follow as needed. Patient to follow up with [facility] when discharged.
[2024-07-09] MEDS: DESENEX/MITRAZOL/ZEASORB 1 APPLIC TOPICAL ×2 (14:45→20:45)
[2024-07-09 14:47] LABS: Glucose - Point of Care 182 mg/dl (70-99)
--- NOTE | 2024-07-09 14:54 | RR ---
A Rapid Response was called on this patient, please see Rapid Response form.
Straight cathed 200ml - no urine output- BMP drawn then noted BP 77/44 repeat 68/49 maps 58 slightly opened eyes to deep simulation otherwise unresponsive - Rapid called Dr. Dueñas here - IVF bolus hung and IV Levophed initiated. Intubated at
bedside.
--- NOTE | 2024-07-09 14:54 | W.PN.ANESINT ---
Anesthesia Intubation Note
- Intubation Note
Intubation Note:
Diagnosis: respiratory failure
Blade: Glidescope 4
Tube Size: 8.0
Depth: 23 cm
Side Taped: right
Drugs Used: propofol 30 mg
Grade View: I
EtCO2 Present: +
Atraumatic: yes
Attempts: 1
Insertion Start and Stop Time:
SaO2 Pre: 97
SaO2 Post: 98
Glidescope Used: yes
Other Airway Adjustments:
Pre-Oxygenated: yes
Portable Chest X-Ray: to follow
RSI:
Suctioned:
Bilateral Breath Sounds Confirmed: equal B/L
Vent Settings:
Settings per _X__Attending Physician
--- NOTE | 2024-07-09 14:56 | W.PN.UPDATE ---
Update Note
Progress Note Update
Rapid response called for hypotension.
Patient remains relatively unresponsive. Does have a pulse.
Decision made to intubate for airway protection. Family in agreement. She remains a full code.
Anesthesia called and intubation performed. Transferred to ICU. Consult emt i/85. Discussed with both Dr. Pa and Dr. Meza.
Check chest x-ray postintubation.
Still waiting for repeat BMP to follow-up on hyperkalemia. Blood was drawn and sent to the lab earlier today.
--- NOTE | 2024-07-09 15:02 | CON.INTV ---
Consultation
Consultation Request
Date/Time Consultation Requested: 07/09/24
Date/Time Consultation Performed: 07/09/24
Performing Provider: Thierno
Reason for Consultation: SOB
Medical History
-
History of Present Illness:
Patient is a 78-year-old female with previous history of COPD, chronic hypercarbic respiratory failure on BiPAP, chronic heart failure with preserved EF, chronic hypoxemia presenting with increased shortness of breath and weakness over the past 24
hours. She was at wound clinic the day prior to admission and notably hypoxemic, was referred to the emergency room. On arrival ABG noted to be 7.. She was treated with BiPAP overnight. Repeat ABG 7.. She had increasing somnolence
throughout the day. A decision was made for intubation due to persistent mental status changes and unresponsiveness. She is now transferred to ICU. We are consulted for evaluation.
Past Medical History
Past Medical History: Other
Social History
Tobacco: Non-smoker
Alcohol: None
Drug: None
Family History
Family History: Reviewed & Not Pertinent
Allergies / Home Medications
Allergies
Allergy/AdvReac Type Severity Reaction Status Date / Time
aspirin AdvReac Anxiety Verified 07/08/24 16:52
Home Medications
�Medication �Instructions �Recorded �Confirmed �Last Taken �Type
albuterol sulfate 90 mcg/actuation 2 puff inhalation R Q4HPRN PRN sob 05/03/13 07/08/24 03/24/22 History
aerosol inhaler
insulin NPH isoph U-100 human 100 10 - 25 units SC HS Diabetes 10/15/15 07/08/24 04/13/22 History
unit/mL subcutaneous suspension
(Humulin N NPH U-100 Insulin
(isophane susp))
insulin lispro 100 unit/mL 12 unit SC BID@0730,1130 Diabetes 10/15/15 07/08/24 04/14/22 History
subcutaneous solution (Humalog
U-100 Insulin)
metoprolol tartrate 25 mg tablet 25 mg PO BID Blood pressure 10/15/15 07/08/24 04/14/22 History
atorvastatin 20 mg tablet 20 mg PO HS High cholesterol 09/23/21 07/08/24 04/13/22 History
budesonide 0.5 mg/2 mL suspension 0.5 mg inhalation R BID 09/23/21 07/08/24 04/14/22 History
for nebulization Lung/breathing issues
ferrous sulfate 325 mg (65 mg 325 mg PO QPM Supplement 09/23/21 07/08/24 04/13/22 History
iron) tablet (FeroSul)
ipratropium 0.5 mg-albuterol 3 mg 3 ml inhalation R TID 09/23/21 07/08/24 04/14/22 History
(2.5 mg base)/3 mL nebulization Lung/breathing issues
soln
metformin 1,000 mg tablet 1,000 mg PO BID@0800,1700 Diabetes 09/23/21 07/08/24 04/14/22 History
multivitamin with folic acid 400 1 tab PO DAILY Supplement 09/23/21 07/08/24 04/14/22 History
mcg tablet (Tab-A-Vern)
empagliflozin 10 mg tablet 10 mg PO DAILY Heart Failure #30 09/28/21 07/08/24 04/14/22 Rx
(Jardiance) tabs
miconazole nitrate 2 % topical 1 applic topical DAILY 03/25/22 07/08/24 03/25/22 History
powder (Desenex) underbreasts, abd fold,flanks
ammonium lactate 5 % lotion 1 applic topical DAILYPRN PRN feet 06/10/24 07/08/24 Unknown History
rash
ferrous sulfate 325 mg (65 mg 650 mg PO DAILY Supplement 06/10/24 07/08/24 Unknown History
iron) tablet
furosemide 80 mg tablet 80 mg PO BID@0800,1600 Fluid 06/10/24 07/08/24 Unknown History
Retention/Swelling
insulin lispro 100 unit/mL 16 unit SC DAILY@1630 Diabetes 06/10/24 07/08/24 Unknown History
subcutaneous solution (Humalog
U-100 Insulin)
potassium chloride 20 mEq 20 meq PO BID@0800,1700 Supplement 06/10/24 07/08/24 Unknown History
tablet,extended
release(part/cryst) (Klor-Con M)
apixaban 5 mg tablet (Eliquis) 5 mg PO BID 30 days #60 tabs 06/19/24 07/08/24 Unknown Rx
docusate sodium 100 mg capsule 100 mg PO BIDPRN PRN Constipation 06/19/24 07/08/24 Unknown Rx
30 days #30 caps
sennosides 8.6 mg tablet (senna) 8.6 mg PO BID PRN constipation 07/08/24 07/08/24 Unknown History
Review of Systems
-
Unable to Obtain full review of systems at this time due to: Patient Intubation
Vitals / Labs / Diagnostic Testing
Vital Signs
Temp Pulse Resp BP Pulse Ox
97.4 F 98 41 98/71 98
07/09/24 11:00 07/09/24 12:00 07/09/24 12:00 07/09/24 12:00 07/09/24 12:00
Lab Data
07/09/24 05:18
Laboratory Results
07/09/24
10:11
pH 7.23 L
pCO2 90 H*
pO2 220 H
HCO3 37.7 H
O2 Delivery Level
Diagnostic Testing:
Physical Exam
-
HEENT: Normocephalic, Anicteric, Moist Mucous Membranes and Other (alopecia noted)
Cardiovascular: S1/S2 and Regular Rhythm
Respiratory: Rales, Non-Labored Respirations and Other (sedated/intubated)
GI: Soft, Non Distended and Non Tender
Neurology: No Motor Deficits, Tremors and Other (somnolent)
Skin: Warm and Dry
General: Comfortable and Other (NAD, chronically ill appearing)
Assessment
-
Patient is a 78-year-old female with previous history of COPD, chronic hypercarbic respiratory failure on BiPAP, chronic heart failure with preserved EF, chronic hypoxemia presenting with increased shortness of breath and weakness over the past 24
hours. She was at wound clinic the day prior to admission and notably hypoxemic, was referred to the emergency room. On arrival ABG noted to be 7./. She was treated with BiPAP overnight. Repeat ABG 7.. She had increasing somnolence
throughout the day. A decision was made for intubation due to persistent mental status changes and unresponsiveness. She is now transferred to ICU. We are consulted for evaluation.
Acute hypoxic respiratory insufficiency, baseline 3 L at home
Acute on chronic hypercapnic respiratory failure s/p intubation 07/09/24
Baseline PCO2 90
Increasing lethargy/unresponsiveness
Recent admission for AECHF, d/c 06/19/24
Hyperkalemia
TANIKA, creatinine 1.6 (BL 0.9-1.0)
Possible EKG changes, r/o ACS
Possible UTI, r/o sepsis
Conditions present prior to admission
Diabetes
Hypertension
Hyperlipidemia
Morbid obesity
Elevated IgE
Severe sleep apnea, total index 56, desaturation adamaris 51%
Compliant and adequate with auto BiPAP
Severe COPD, spirometry 06/22/23- FVC 1.14 or 45%, FEV1 0.66 or 33, Ratio 57
Heart failure with preserved ejection fraction
History of anemia
History of pleural effusions, stable since 2010
Afib on Eliquis
Plan
Unresponsive s/p intubation due to CO2, possible TME from UTI also
Baseline MS reported as AAOx 3
Pain/sedation: fent PRN, prop gtt, can add fent gtt if needed
RASS goals: -2
Hemodynamically unstable, requiring pressors.
Requiring pressors: levophed low dose, given IVF resuscitation but limited due to CHF history
Cardiac history reviewed--CHF, Afib on Eliquis
EKG changes are noted, trop pending
Cards following, defer for further w/u
Prior ECHO reviewed indicating normal EF 55-60%, mild-moderate MS; mod
Agree with IV diuresis, proBNP 9300 (prior 1590)
Monitor on telemetry
Oxygen needs: intubated on MV 07/09/24
ABG(s) reviewed: -> (BL CO2 ~78-83)
Vent setting reviewed: AC 450/20/40/5, repeat ABG pending post intubation
Prior history of lung disease: severe COPD, severe MARK, chronic hypoxemia/hypercarbia
BIPAP compliance as OP 100%
Supplemental O2 as indicated to maintain sats > 89%
CXR(s) reviewed indicating interstitial pattern as noted on prior films (no significant changes)
Will obtain CT chest to evaluate further, last study 2018
NPO, resume diet when able, OGT placement
Can place TF orders if vent is prolonged
Residence Leasing Agent recommendations
Aspiration precautions, HOB > 30 degrees
Speech therapy eval can be considered if at elevated risk
GI prophylaxis if indicated for mechanical ventilation >48 hours, prior history of GERD, stress ulcer formation in the critically ill
TANIKA present in presence of high K, given lokelma/kayex/insulin/D50
Repeat BMP pending
Renal consult obtained
Void trials
Follow urine output, critical I/Os
Replete electrolytes as needed
Fever and increased WBC on presentation, suspect underlying UTI based on pus in [place]
Will start on empiric abx pending cultures
Cultures sent/pending
Sputum-sent
Urine/UA-sent
Follow fever trend, WBC count
CBC stable, no signs of bleeding or coagulopathy.
DVT prophylaxis as assessed based on risk, including mechanical SCDs
Can transfuse if indicated for Hb <7, plt < 10
INR WNL
No prior h/o thyroid disease, TSH 0.69 (2021)
H/o diabetes, can continue on home meds, SS for coverage
HbA1c 6.8 (06/11/24)
We will follow
Diagnostic Data
Chest X-Ray: 07/09/24 post intubation- 1. Endotracheal and nasogastric tubes are in satisfactory position.
2. Mild pulmonary edema, not significantly changed.
3. Obscuration of both hemidiaphragms, left greater than right, suggestive of small bilateral pleural effusions. Bibasilar airspace disease may also be present.
07/08/24- Cardiomegaly, unchanged. Pulmonary interstitial prominence again seen, cannot differentiate acute versus chronic. Some right basilar opacity and left hemidiaphragm again obscured. Cannot exclude bibasilar subsegmental atelectasis and/or
pneumonia and small bilateral pleural effusions.
Chest x-ray 06/14/2024: Moderate cardiomegaly. Mild increased interstitial markings. Improved compared to prior 06/12/2024
CT Scan: CTA 2017- No pulmonary embolism. Prominent distal pulmonary artery and right and left pulmonary arteries, suggesting an element of pulmonary hypertension. Mild stable chronic parenchymal findings, without evidence of acute pneumonia.
Long-term interval stability of 3 small pulmonary nodules, supporting a benign etiology.
CHEST 09/27/13- Stable left upper lobe pulmonary nodules since February 2011. There is extremely high probability that these are benign. Stable bibasilar scarring.
Findings suggesting pulmonary arterial hypertension. Mitral annulus calcification. Coronary artery disease. Essentially resolved right pleural effusion.
Echo: 06/13/24- Normal left ventricular chamber size. Normal left ventricular systolic function. Left ventricular ejection fraction is 55-60% by visual assessment. No gross regional wall motion abnormalities. Mild concentric left ventricular
hypertrophy. Normal right ventricular size and function. Mild to moderate mitral stenosis. Moderate aortic stenosis. Peak/mean gradients across the aortic valve are 46/28 mmHg and estimated aortic valve area is 1.1 cm2. Compared to prior study
dated 12/31/2023, there is no significant change, prior aortic valve peak/mean gradients were 48/27 mmHg, respectively.
PFT's: spirometry 06/22/23- FVC 1.14 or 45%, FEV1 0.66 or 33, Ratio 57 (severe obstruction)
Reports and relevant images were personally reviewed.
Critical Care time 81 mins -- The patient is admitted for acute critical illness for the treatment of vital organ failure and/or prevention of further life-threatening conditions. Total care includes time spent in review of history, physical exam,
medications, hemodynamic/ventilator parameters, laboratory data, imaging and discussion with house staff, pharmacy, respiratory therapy, assembly room supervisor, and nursing.
[2024-07-09] MEDS: SUBLIMAZE 50 MCG IV (15:14)
[2024-07-09] MEDS: 0.45%NACL 1000 IV (15:25)
[2024-07-09 15:29] LABS: Blood Urea Nitrogen 99 mg/dl (7-17); Calcium 9.3 mg/dl (8.4-10.2); Carbon Dioxide 38 mmol/L (22-30); Chloride 96 mmol/L (98-107); Estimated Creatinine Clearance 31 ml/min; Glucose 167 mg/dl (70-99); Sodium 139 mmol/L (135-145); eGFR 33.01
[2024-07-09] MEDS: LEVOPHED 250 IV ×2 (15:29→20:46)
[2024-07-09 15:41] LABS: PT 18.4 Sec (11.4-14.6)
[2024-07-09 15:42] LABS: APTT 34.3 Sec (23.4-35.0)
[2024-07-09 15:43] LABS: ALT (SGPT) 55 U/L (0-35); AST (SGOT) 39 U/L (14-36); Albumin 3.3 g/dl (3.5-5.0); Alkaline Phosphatase 131 U/L (38-126); Direct Bilirubin 0.3 mg/dl (0.0-0.4); Total Bilirubin 0.5 mg/dl (0.2-1.3); Total Protein 6.7 g/dl (6.3-8.2)
[2024-07-09] MEDS: DIPRIVAN 100 IV (15:45)
[2024-07-09 15:54] LABS: Troponin I 0.019 ng/ml
--- NOTE | 2024-07-09 15:54 | PTCARENOTE ---
Addendum entered by Willa Richey RN 07/09/24 17:12:
pt in afib with bbb
Original Note:
pt received post rapid response- pt minimally responsive, intubated by anesthesia. Dr. Pa at bedside. ngt inserted per order, cxr completed to confirm ett and ngt placement. see vent settings as charted. Dr. Pa aware of pts labs- see MAR. iv
team placed right upper arm midline. pt restrained for attempting to remove tube, post intubation pt restless, not following commands. pt on propofol and levophed. sheth inserted per order and draining purulent- culture sent. cardiology at bedside.
all safety precautions in place.
[2024-07-09] MEDS: NOVOLIN R 10 UNITS IV (16:00)
[2024-07-09] MEDS: CALCIUM GLUCONATE 1000 MG IV (16:00)
[2024-07-09] MEDS: KAYEXALATE SUSPENSION 15 GRAMS TUBE (16:00)
--- NOTE | 2024-07-09 16:00 | PTCARENOTE ---
pt received post rapid response- pt minimally responsive, intubated by anesthesia. Dr. Pa at bedside. ngt inserted per order, cxr completed to confirm ett and ngt placement. see vent settings as charted. Dr. Pa aware of pts labs- see JUL. "Peg"Thierno also aware of pts fasiculations. iv team placed right upper arm midline. pt restrained for attempting to remove tube, post intubation pt restless, not following commands. pt on propofol and levophed. sheth inserted per order and draining
purulent- culture sent. cardiology at bedside.pt in afib with bbb. all safety precautions in place. family at bedside and updated.
--- NOTE | 2024-07-09 16:28 | CM ---
Addendum entered by Grecia Ocasio RN 07/09/24 16:57:
Patient's only has home phone.
Additional family contact: Daf[place], grand-daughter, Lamberto Duque, cell [phone].
Daughter Yessenia prefers [place] as additional contact as she lives further away in [place].
Original Note:
Patient with Dx Acute hypoxic respiratory failure -suspect pulmonary edema, heart failure exacerbation. Rapid response called for decreased responsiveness, hypotension. Patient intubated. Transferred from IMU to ICU today.
Met with patient, Elfego, daughter Yessenia and grand-daughter Dafne earlier today;
the patient appeared sleeping using BiPAP and did not participate.
The patient resides with her in a split level home with 0 step to enter and chair lift to 2nd floor.
The patient has been assisted with ADLs by her .
She is ambulatory using her RW.
Elfego does sacral wound care daily and [facility]
DME - hospital bed, air mattress, air chair cushion, RW, w/c, O2 3L and BiPAP through [employer].
VN - Current with VN
SNF - none
PCP - Trina Ralph
Pharmacy - [facility]
CM continuing to follow for d/c needs.
Plan TBD.
--- NOTE | 2024-07-09 16:30 | PTCARENOTE ---
Dr. Cantor at bedside- awrae of trop and ekg
--- NOTE | 2024-07-09 16:32 | W.PN.UPDATE ---
Update Note
Progress Note Update
Pt s/p rapid response, pt intubated for acute on chronic hypercapnic respiratory failure.
Continues with hyperkalemia with K=8. Tx for hyperkalemia as per primary service and nephrology.
Urgent bedside echo limited follow up study, EF is preserved and unchanged
Cont to follow EKG, unchanged from this morning. HR stable. Bp currently stable but has been on the lower side
Remains aFib, continue anticoagulation
Discussed with nursing.
General: intubated
Neck: Negative JVD
Heart: Irregularly irregular, Negative S3 positive S1/S2, Negative S4, No murmur
Lungs: CTA b/l, negative wheezes/rales/rhonchi
Abd: Positive BS, NT/ND, neg rebound/rigidity/guarding
Ext: Negative cyanosis/clubbing/edema
Neuro: nonfocal
[2024-07-09 16:58] LABS: Urine Albumin 3+ (Neg - Trace); Urine Bilirubin Negative (Negative); Urine Character Slightly Cloudy (Clear); Urine Color Yellow; Urine Glucose Negative (Negative); Urine Ketone Negative (Negative); Urine Leukocyte 3+ (Negative); Urine Nitrite Negative (Negative); Urine Occult Blood 4+ (Negative); Urine Urobilinogen Negative (Neg - 1+)
--- NOTE | 2024-07-09 17:13 | W.CON.NEPH ---
Consultation
-
Date/Time Consultation Requested: 07/09/24 1546
Date/Time Consultation Performed: 07/09/24 1715
Requesting Provider: Geronimo Campbell
Performing Provider: Kina Lizama
Reason for Consultation: Hyperkalemia, TANIKA
Medical History
-
Chief Complaint: sob
History of Present Illness:
78-year-old female with previous history of COPD, chronic hypercarbic respiratory failure on BiPAP, chronic heart failure with preserved EF on lasix, mod , DM on metformin and insulin, Jardiance, HLD on statin,P Afib on BB and AC with Eliquis
recent d/c on 06/19 from after treating for CHF flare, new Afib presented with increased shortness of breath and weakness over the past 24 hours on 07/08. She was at wound clinic the day prior to admission and notably hypoxemic, was referred to
the emergency room. She remained on BiPAP but she became progressively less responsive and unresponsive this afternoon with worsening hypotension hence got intubated and transferred to ICU. She also started on Levophed for hypotension. Labs noted k
at 8 this am, her kcl tabs were stopped. She received oral Lokelma, Kayexalate and calcium, lasix but repeat still was at 8. ABG was 7.23/90 pre VDRF. Nephrology asked to evaluate her persistent hyperkalemia. Her cr also increased now upto 1.6.
Sheth was placed with 300cc cloudy urine. Further history is limited since she is intubated, Fio2 is at 100%.
Past Medical History
Chronic HFpEF
Mod peak/mean 46/28 mmHg and ZAY 1.1 cm sq by echo 06/13/24
Mild to mod MS with mean 6 mmHg by echo 06/13/24
MARK on BiPAP
HTN
HLD
DM2
Chronic iron deficiency anemia
Morbid obesity, BMI 36.4
h/o pulmonary nodules
Social History
Tobacco: Former Smoker
Alcohol: None
Drug: None
Personal:
Living: With Family
Family History
HTN mother
Family History: Not Pertinent
Allergies / Home Medications
Allergy/AdvReac Type Severity Reaction Status Date / Time
aspirin AdvReac Anxiety Verified 07/08/24 16:52
�Medication �Instructions �Recorded �Confirmed �Type
albuterol sulfate 90 mcg/actuation 2 puff inhalation R Q4HPRN PRN sob 05/03/13 07/08/24 History
aerosol inhaler
insulin NPH isoph U-100 human 100 10 - 25 units SC HS Diabetes 10/15/15 07/08/24 History
unit/mL subcutaneous suspension
(Humulin N NPH U-100 Insulin
(isophane susp))
insulin lispro 100 unit/mL 12 unit SC BID@0730,1130 Diabetes 10/15/15 07/08/24 History
subcutaneous solution (Humalog
U-100 Insulin)
metoprolol tartrate 25 mg tablet 25 mg PO BID Blood pressure 10/15/15 07/08/24 History
atorvastatin 20 mg tablet 20 mg PO HS High cholesterol 09/23/21 07/08/24 History
budesonide 0.5 mg/2 mL suspension 0.5 mg inhalation R BID 09/23/21 07/08/24 History
for nebulization Lung/breathing issues
ferrous sulfate 325 mg (65 mg 325 mg PO QPM Supplement 09/23/21 07/08/24 History
iron) tablet (FeroSul)
ipratropium 0.5 mg-albuterol 3 mg 3 ml inhalation R TID 09/23/21 07/08/24 History
(2.5 mg base)/3 mL nebulization Lung/breathing issues
soln
metformin 1,000 mg tablet 1,000 mg PO BID@0800,1700 Diabetes 09/23/21 07/08/24 History
multivitamin with folic acid 400 1 tab PO DAILY Supplement 09/23/21 07/08/24 History
mcg tablet (Tab-A-Vern)
empagliflozin 10 mg tablet 10 mg PO DAILY Heart Failure #30 09/28/21 07/08/24 Rx
(Jardiance) tabs
miconazole nitrate 2 % topical 1 applic topical DAILY 03/25/22 07/08/24 History
powder (Desenex) underbreasts, abd fold,flanks
ammonium lactate 5 % lotion 1 applic topical DAILYPRN PRN feet 06/10/24 07/08/24 History
rash
ferrous sulfate 325 mg (65 mg 650 mg PO DAILY Supplement 06/10/24 07/08/24 History
iron) tablet
furosemide 80 mg tablet 80 mg PO BID@0800,1600 Fluid 06/10/24 07/08/24 History
Retention/Swelling
insulin lispro 100 unit/mL 16 unit SC DAILY@1630 Diabetes 06/10/24 07/08/24 History
subcutaneous solution (Humalog
U-100 Insulin)
potassium chloride 20 mEq 20 meq PO BID@0800,1700 Supplement 06/10/24 07/08/24 History
tablet,extended
release(part/cryst) (Klor-Con M)
apixaban 5 mg tablet (Eliquis) 5 mg PO BID 30 days #60 tabs 06/19/24 07/08/24 Rx
docusate sodium 100 mg capsule 100 mg PO BIDPRN PRN Constipation 06/19/24 07/08/24 Rx
30 days #30 caps
sennosides 8.6 mg tablet (senna) 8.6 mg PO BID PRN constipation 07/08/24 07/08/24 History
Review of Systems
-
Unable to obtain full review of systems at this time due to: Patient Intubation
Physical Exam
Vital Signs
Vital Signs
Temp Pulse Resp BP Pulse Ox
97.4 F 106 28 158/134 100
07/09/24 11:00 07/09/24 15:30 07/09/24 15:30 07/09/24 15:30 07/09/24 16:00
Lab Results
WBC 9.1 10^3/uL (4.8-10.8) 07/09/24 05:18
RBC 3.82 10^6/uL (4.20-5.40) L 07/09/24 05:18
Hgb 10.8 g/dL (12.0-16.0) L 07/09/24 05:18
Hct 38.5 % (37.0-47.0) 07/09/24 05:18
Plt Count 355 10^3/uL (130-400) 07/09/24 05:18
eGFR 33.01 07/09/24 14:24
Ipq-U-Cmoacowsfyj Pept 9300 pg/ml 07/08/24 12:16
Albumin 3.3 g/dl (3.5-5.0) L 07/09/24 14:24
Abnormal Lab Results
07/08/24 07/08/24 07/08/24
17:37 17:52 21:19
RBC
Hgb
MCV
MCHC
RDW
MPV
Abs Immat Gran (auto)
Absolute Neuts (auto)
Absolute Lymphs (auto)
Absolute Monos (auto)
Immature Gran %
Neutrophils %
Lymphocytes %
PT
pH
pCO2
pO2
HCO3
ABG O2 Sat (Measured)
Potassium
Chloride
Carbon Dioxide
BUN
Creatinine
Glucose
% Saturation 15 L
AST
ALT
Alkaline Phosphatase
Albumin
Folate > 20.0 H
Ur Occult Blood Reflex
Leukocyte Esterase Rfl
Urine RBC
Urine WBC (Reflex)
Urine Bacteria (Reflex)
Urine Albumin (Reflex)
POC Glucose 213 H 176 H
07/09/24 07/09/24 07/09/24
05:18 08:30 10:11
RBC 3.82 L
Hgb 10.8 L
MCV 100.8 H
MCHC 28.1 L
RDW 16.3 H
MPV 11.4 H
Abs Immat Gran (auto) 0.2 H
Absolute Neuts (auto) 7.4 H
Absolute Lymphs (auto) 0.8 L
Absolute Monos (auto) 0.7 H
Immature Gran % 1.6 H
Neutrophils % 81.0 H
Lymphocytes % 8.6 L
PT
pH 7.23 L
pCO2 90 H*
pO2 220 H
HCO3 37.7 H
ABG O2 Sat (Measured) 100.0 H
Potassium 8.0 H*
Chloride
Carbon Dioxide 32 H
BUN 95 H
Creatinine 1.2 H
Glucose 115 H
% Saturation
AST
ALT
Alkaline Phosphatase
Albumin
Folate
Ur Occult Blood Reflex
Leukocyte Esterase Rfl
Urine RBC
Urine WBC (Reflex)
Urine Bacteria (Reflex)
Urine Albumin (Reflex)
POC Glucose 121 H
04/25 0325 03
14:24 14:36 15:19
RBC
Hgb
MCV
MCHC
RDW
MPV
Abs Immat Gran (auto)
Absolute Neuts (auto)
Absolute Lymphs (auto)
Absolute Monos (auto)
Immature Gran %
Neutrophils %
Lymphocytes %
PT 18.4 H
pH
pCO2
pO2
HCO3
ABG O2 Sat (Measured)
Potassium 8.0 H*
Chloride 96 L
Carbon Dioxide 38 H
BUN 99 H
Creatinine 1.6 H
Glucose 167 H
% Saturation
AST 39 H
ALT 55 H
Alkaline Phosphatase 131 H
Albumin 3.3 L
Folate
Ur Occult Blood Reflex
Leukocyte Esterase Rfl
Urine RBC
Urine WBC (Reflex)
Urine Bacteria (Reflex)
Urine Albumin (Reflex)
POC Glucose 182 H
07/09/24 07/09/24 07/09/24
15:59 17:04 17:26
RBC
Hgb
MCV
MCHC
RDW
MPV
Abs Immat Gran (auto)
Absolute Neuts (auto)
Absolute Lymphs (auto)
Absolute Monos (auto)
Immature Gran %
Neutrophils %
Lymphocytes %
PT
pH
pCO2 48 H
pO2 366 H
HCO3 31.9 H
ABG O2 Sat (Measured) 99.5 H
Potassium
Chloride
Carbon Dioxide
BUN
Creatinine
Glucose
% Saturation
AST
ALT
Alkaline Phosphatase
Albumin
Folate
Ur Occult Blood Reflex 4+ A
Leukocyte Esterase Rfl 3+ A
Urine RBC 11-15 A
Urine WBC (Reflex) >100 A
Urine Bacteria (Reflex) Many A
Urine Albumin (Reflex) 3+ A
POC Glucose 238 H
Physical Exam
General: Other (intubated, sedated)
HEENT: Facial Symmetry and Trachea Midline
Respiratory: Other (decreased BS)
Cardiac: S1/S2, Regular Rate/Rhythm and Murmur
Breast: Deferred by me
Abdomen: Soft, Nontender and Nondistended
Musculoskeletal: No Cyanosis and Edema
Skin: No Rash and Warm
Neuro: Other (unable to assesss)
Psych: Other (unable to assess)
Data Reviewed
-
Labs: Labs Reviewed by me, Discussed with Nurse and Discussed with Family
Assessment/Plan
-
IMP:
Acute hypoxic respiratory insufficiency, baseline 3 L at home
Acute on chronic hypercapnic respiratory failure s/p intubation 07/09/24
TME
Recent admission for AECHF, d/c 06/19/24
Hyperkalemia
TANIKA, creatinine 1.6 (BL 0.9-1.0)
Azotemia
Possible UTI, r/o sepsis
COPD without exacerbation
MARK
Paroxysmal atrial fibrillation
Hyperlipidemia
DM 2 with hyperglycemia -hemoglobin A1c 6.8% in June.
Essential hypertension -currently hypotensive.
Chronic anemia
PLan:
A/w CHF flare, recent d/c for same
life threatening hyperkalemia-off kcl tabs, s/p temporzation
not clear if any EKG changes
had Lokelma and Kayaxalate PT
would dose additional kayaxalate LA
given underlying CHF-would use lasix
avoid aggressive IVF, BNP higher than last admit and CXR with mild pulm edema
if no improvement of k may need dialysis
TANIKA- possible prerenal from hypotension
Azotemia likely cardiorenal , check Fena
pending UA, r/o UTI
monitor UOP , keep sheth
abx per primary
pressors to maintain MAP>65
monitor LFTs
avoid nephrotoxins and metformin
hold jardiance as pt may have UTI
d/w family at bedside in detail, they agree with dialysis if needed
CC time spent 40min
d/w nursing
[2024-07-09 17:15] LABS: Glucose - Point of Care 238 mg/dl (70-99)
[2024-07-09] MEDS: NOVOLOG FLEXPEN-LOW RESISTANCE 2 UNITS SC (17:20)
--- NOTE | 2024-07-09 17:29 | CARDSERVDEF ---
Echocardiogram with Definity completed after protocol screening completed. Allergies verified.
Patent IV site: __LH___
IV site flushed with 0.9% NaCl pre and post administration.
Diluted bolus method utilized to enhance visualization of ventricular kearney.
Total volume given: _2.5___ mL
Patient tolerated all procedures well without complications.
[2024-07-09 17:34] LABS: B.E. 6.6 mmol/L; HCO3 31.9 mmol/L (21-28); O2 Saturation % 99.5 % (94-98); PCO2 48 mmHg (32-35); PO2 366 mmHg (83-108); pH 7.43 (7.35-7.45)
[2024-07-09 17:41] LABS: Urine Bacteria Many (Negative); Urine White Cell >100 /HPF (0-5)
[2024-07-09 17:42] LABS: Urine Amorphous Seen
[2024-07-09] MEDS: LOKELMA 10 GRAM TUBE (18:02)
--- NOTE | 2024-07-09 18:08 | PTCARENOTE ---
pt with large bm- Dr. Howard aware- repeat bmp sent, per Dr. Howard await results and notify md before enema.
[2024-07-09 18:24] LABS: Triglycerides 421 mg/dl (10-149)
[2024-07-09 18:28] LABS: Blood Urea Nitrogen 101 mg/dl (7-17); Calcium 9.1 mg/dl (8.4-10.2); Carbon Dioxide 34 mmol/L (22-30); Chloride 95 mmol/L (98-107); Estimated Creatinine Clearance 35 ml/min; Glucose 235 mg/dl (70-99); Sodium 137 mmol/L (135-145); eGFR 38.75
--- NOTE | 2024-07-09 18:32 | PTCARENOTE ---
per Dr. Howard hold enema at this time due to bmp results, repeat labs 1999.
[2024-07-09 18:55] LABS: Urine Sodium 71 mmol/L (30-90)
[2024-07-09 19:12] LABS: Glucose - Point of Care 214 mg/dl (70-99)
--- NOTE | 2024-07-09 20:00 | PTCARENOTE ---
Rec'd pt in bed . wrists restraints on for safety, debra 2mm, sluggish, moving all extremities, diprivan gtt at 15mic, fent 100mic iv given at 2010 per order followed by fent gtt at 25mic, family updated on plan of care, afib, levophed gtt at 10
anna- to titrate keeping sbp > 90- see flow sheet for titrations, weak distal pulses, + LE edema, skin warm/dry, #8 oral [id number] repos at left lip, ac 20, tv 450, 5 peep, 50%, sat 100, lungs decr in bases, hypo bowel sounds, rectal trumpet leaking,
fecal mgmt sys inserted -draining liquid stool, left nares [place] to low inter suction draining clear liquid, irrigated w/ 30 tap h20 q4hr, thermister sheth draining cloudy yellow urine w/ sediment
Dr Howard notified of chemistry result, orders rec'd
g;ycemic protocal started per order
[2024-07-09] MEDS: ROCEPHIN 1000 MG IV (20:02)
[2024-07-09] MEDS: STERILE WATER FOR INJECTION 10 ML IV (20:02)
[2024-07-09] MEDS: SUBLIMAZE 100 MCG IV (20:07)
[2024-07-09] MEDS: SUBLIMAZE 100 IV (20:09)
[2024-07-09 20:26] LABS: Blood Urea Nitrogen 101 mg/dl (7-17); Carbon Dioxide 33 mmol/L (22-30); Chloride 94 mmol/L (98-107); Estimated Creatinine Clearance 38 ml/min; Glucose 203 mg/dl (70-99); Phosphorus 3.5 mg/dl (2.5-4.5); Potassium 5.5 mmol/L (3.5-5.1); Sodium 136 mmol/L (135-145); eGFR 42.35
[2024-07-09 20:29] LABS: Troponin I 0.025 ng/ml
[2024-07-09] MEDS: NOVOLIN R 4 UNITS IV (20:35)
[2024-07-09] MEDS: NOVOLIN R INSULIN INFUSION 100 IV (20:36)
[2024-07-09 21:42] LABS: Glucose - Point of Care 192 mg/dl (70-99)
[2024-07-09 22:47] LABS: Glucose - Point of Care 172 mg/dl (70-99)
[2024-07-09] MEDS: TYLENOL ORAL SOLUTION 650 MG PO (23:38)
[2024-07-09 23:46] LABS: Glucose - Point of Care 124 mg/dl (70-99)
[2024-07-10] VITALS (61 sets, daily range): BP systolic 82–127; BP diastolic 43–69; PULSE 150; BMI 36.2
[2024-07-10] MEDS: DIPRIVAN 100 IV ×3 (00:13→20:49)
--- NOTE | 2024-07-10 00:20 | PTCARENOTE ---
sys reviewed, changes noted, lungs w/ few exp wheezes, decr in bases, CHG bath done, linens changed, tylenol 650mg via tube given at 2340 for temp, sputum cult sent
--- NOTE | 2024-07-10 00:42 | PTCARENOTE ---
fio2 decr to 40% by resp therapist
[2024-07-10 00:43] LABS: Glucose - Point of Care 145 mg/dl (70-99)
[2024-07-10 01:41] LABS: Glucose - Point of Care 110 mg/dl (70-99)
--- NOTE | 2024-07-10 02:54 | VATNOTE ---
PICC ORDER NOTED. SPOKE WITH PCN. NO CURRENT NEED. WILL EVALUATE NEED TO EXCHANGE ML FOR PICC IN AM. VAT TO FOLLOW.
[2024-07-10 03:19] LABS: Blood Urea Nitrogen 97 mg/dl (7-17); Calcium 8.7 mg/dl (8.4-10.2); Carbon Dioxide 39 mmol/L (22-30); Chloride 98 mmol/L (98-107); Estimated Creatinine Clearance 37 ml/min; Glucose 94 mg/dl (70-99); Magnesium 1.9 mg/dl (1.6-2.3); Phosphorus 2.7 mg/dl (2.5-4.5); Potassium 4.6 mmol/L (3.5-5.1); Sodium 140 mmol/L (135-145); eGFR 42.09
[2024-07-10] MEDS: TYLENOL ORAL SOLUTION 650 MG PO ×2 (03:34→09:27)
[2024-07-10] MEDS: LEVOPHED 250 IV ×2 (03:34→12:28)
--- NOTE | 2024-07-10 03:35 | PTCARENOTE ---
sys reviewed,changes noted, Ett repos on R side at 23 cm, tylenol 650mg via tube given for temp, K EVER Roberts aware of trop
[2024-07-10 03:40] LABS: Troponin I 0.046 ng/ml
[2024-07-10 03:43] LABS: % Basophils 0.2 % (0-2); % Eosinophils 0.2 % (0-6); % Immature Granulocytes 0.8 % (0-0.5); % Lymphocytes 10.1 % (20.5-51.1); % Monocytes 8.9 % (1.7-9.3); % Neutrophils 79.8 % (42.2-75.2); Absolute Immature Granulocytes 0.1 10^3/uL (0-0.05); Absolute Lymphocytes 1.3 10^3/uL (1.2-3.4); Absolute Monocytes 1.1 10^3/uL (0.1-0.6); Hematocrit 32.1 % (37.0-47.0); Hemoglobin 9.3 g/dL (12.0-16.0); Mean Corpuscular Volume 96.7 fL (81.0-99.0); Mean Platelet Volume 10.7 fL (7.4-10.4); Nucleated Red Blood Cells % 1.7 %; Platelet Count 436 10^3/uL (130-400); Red Blood Cell Count 3.32 10^6/uL (4.20-5.40); Red Cell Dist. Width 16.3 % (11.5-14.5); White Blood Cell Count 12.5 10^3/uL (4.8-10.8)
[2024-07-10 03:53] LABS: Glucose - Point of Care 104 mg/dl (70-99)
[2024-07-10 04:40] LABS: B.E. 18.2 mmol/L; HCO3 39.2 mmol/L (21-28); O2 Saturation % 99.6 % (94-98); PCO2 31 mmHg (32-35); PO2 108 mmHg (83-108)
[2024-07-10 04:50] LABS: O2 Therapy VENT; pH 7.71 (7.35-7.45)
--- NOTE | 2024-07-10 04:54 | PTCARENOTE ---
Yaerlis Roberts NP notified of critical ph, orders rec'd, resp notified of changes
--- NOTE | 2024-07-10 05:10 | PTCARENOTE ---
AC decr to 14, TV decr to 350 by resp therapist
[2024-07-10] MEDS: LOKELMA 10 GRAM TUBE (05:23)
[2024-07-10 05:42] LABS: Glucose - Point of Care 107 mg/dl (70-99)
[2024-07-10] MEDS: DUONEB 3 ML INH ×3 (07:36→20:12)
[2024-07-10] MEDS: PULMICORT 0.5 MG INH ×2 (07:36→20:12)
--- NOTE | 2024-07-10 07:37 | W.PN.HOSP.TC ---
Addendum entered and electronically signed by Geronimo Dueñas DO 07/10/24 13:26:
Stage 4 sacral pressure injury, POA
Original Note:
Today's Communication/Plan
-
Wean pressors as able
SBT per eyeglass lens cutter
IV heparin if okay with cardiology
Trend troponins
Continue antibiotics
Follow-up cultures
Assessment / Plan
Assessment / Plan
Gen-intubated, sedated
HEENT-NC, AT, anicteric, clear oral mm
Neck-supple
CV-reg, no M, +S1/S2
Lungs-clear B/L
Abd-soft, NT, ND
Ext-bilateral lower extremity edema improving
Musculoskeletal-no cyanosis, clubbing
Skin-warm and dry, bruising lower extremities, right pretibial wound with blood saturated dressing
Shock -likely due to sepsis. Unclear if present on admission. Fever started last night. Leukocytosis started today. Presentation July 08 with weakness and shortness of breath, hypoxia. Subsequently became hemodynamically unstable July 09 with
acute TME, required intubation and transferred to ICU.
Currently on Levophed 8 mcg, wean down as able. Hemodynamically improved.
Being worked up for sepsis due to UTI. Cultures pending. Continue IV ceftriaxone.
Noted to have urinary retention during last hospitalization. She was discharged with Santana catheter and Flomax with recommendation for outpatient urology follow-up. Discharged on a course of Keflex for possible UTI. Unclear if patient followed up
with urology.
Acute on chronic hypoxic respiratory failure -suspect due to acute pulmonary edema due to acute on chronic heart failure exacerbation. Sepsis, shock contributing to respiratory failure possibly.
Intubated July 09. Stable in ICU. Wholesale Account Manager following.
CT chest ordered for today.
Portable chest x-ray done this morning reviewed, I see no significant change. Awaiting formal read.
Acute TME -suspect multifactorial etiology including hypoxia, hypercapnia, heart failure, sepsis, etc.
TANIKA -suspect related to septic shock, ATN. Creatinine trending down, 1.3 today. Nephrology following.
Acute on chronic heart failure with preserved EF -weight unchanged compared to admission weight. BNP is elevated, 9300. Continue IV Lasix if blood pressure allows. Limited bedside echocardiogram done July 09 shows preserved EF and unchanged.
Cardiology consulted. She was just discharged from our hospital June 19 with a diagnosis of acute heart failure exacerbation, acute COPD exacerbation.
Last echocardiogram was 06/13/24, normal LV size and function, LVEF 55 to 60%, no gross wall motion abnormalities. Mild concentric LVH. Normal RV size and function. Mild to moderate mitral stenosis. Moderate aortic stenosis. Estimated aortic
valve area 1.1 cm�.
Troponin elevation -noted this morning, 0.046. Repeat pending. Differential diagnosis includes acute nonischemic myocardial injury versus type II PR due to rapid atrial fibrillation versus other. Cardiology following.
Severe hyperkalemia -treated and resolved.
COPD without exacerbation
MARK -resume nightly BiPAP.
Paroxysmal atrial fibrillation -on Eliquis at home. Atrial fibrillation was just diagnosed June 2024. Will discuss with cardiology starting IV heparin for now given n.p.o. status, intubation.
Hyperlipidemia -atorvastatin.
DM 2 with hyperglycemia -hemoglobin A1c 6.8% in June. Glucose 107 this a.m. At home she is on lispro insulin 12 units before breakfast and lunch, 16 units before dinner. NPH insulin 10 to 25 units at bedtime. Metformin 1000 mg twice daily.
Jardiance 10 mg daily. Hold oral agents.
Currently on IV regular insulin infusion at 1 unit/h. Glucoses controlled.
Essential hypertension -blood pressure improved, currently on Levophed. Hold oral agents.
Chronic anemia -macrocytic. Hemoglobin down to 9.3, monitor for now. Baseline hemoglobin appears to be 10-11.
B12, folic acid normal. Cannot rule out component of iron deficiency.
Obesity due to excess calories
Full code
Anticipated Discharge: > 48 hours
Subjective/Interval History
-
Date of Service: July 10, 2024
Patient seen and examined. Intubated, sedated in ICU. Looks comfortable.
Objective Data
-
Labs:
Laboratory Results
07/09/24 07/10/24 07/10/24
19:58 02:54 04:11
WBC 12.5 H
Hgb 9.3 L
Hct 32.1 L
Plt Count 436 H D
HCO3 39.2 H
Sodium 136 140
Potassium 5.5 H 4.6
Chloride 94 L 98
Carbon Dioxide 33 H 39 H
BUN 101 H* 97 H
Creatinine 1.3 H 1.3 H
Glucose 203 H 94
Calcium 9.0 8.7
Vital Signs:
Vital Signs
Temp Pulse Resp BP Pulse Ox
100.8 F H 105 14 114/69 98
07/10/24 03:52 07/10/24 06:30 07/10/24 06:30 07/10/24 06:30 07/10/24 06:30
I&O
07/09/24 07/10/24 07/11/24
06:59 06:59 06:59
Intake Total 931.8 / 931.8
Output Total 200 / 200 2325 / 2325
Balance -200 / -200 -1393.2 / -1393.2
Review of Systems
-
Unable to obtain full review of systems at this time due to: Acuity and Patient Intubation
--- NOTE | 2024-07-10 08:01 | W.PN.INTV ---
Addendum entered and electronically signed by Jona Meza MD 07/10/24 16:37:
- Reevaluation during afternoon, 4 L plus urine output noted over last 24 hours
-Levophed requirement rising, add vasopressin
-Increase PEEP to 8
-Follow-up ABG and lactate around 8 PM
-In view of significant diuresis, hold additional Lasix for tonight
Original Note:
Today's Communication / Plan
Recommendations
- Central line and arterial line placement
-Check ABG, serial lactate and follow-up troponin
-Start tube feeding
-Change mechanical ventilation settings to 350/14 in view of respiratory alkalosis, follow-up arterial blood gas
-Change ceftriaxone to Zosyn
-Lasix 80 mg IV twice a day
-Start heparin drip
-Chest x-ray in a.m.
Assessment
-
Patient is a 78-year-old female with previous history of COPD, chronic hypercarbic respiratory failure on BiPAP, chronic heart failure with preserved EF, chronic hypoxemia presenting with increased shortness of breath and weakness over the past 24
hours. She was at wound clinic the day prior to admission and notably hypoxemic, was referred to the emergency room. On arrival ABG noted to be 7.29/76. She was treated with BiPAP overnight. Repeat ABG 7.23/90. She had increasing somnolence
throughout the day. A decision was made for intubation due to persistent mental status changes and unresponsiveness.
07/09, patient was intubated due to worsening mental status and hypercapnia and subsequently transferred to ICU. Also noted to be severely hyperkalemic which was urgently temporized and intensive care consultation was requested for further
management
07/10, patient overnight stayed hypotensive and required pressor support. She did have fever and in view of shock broad-spectrum antibiotics were continued in addition to diuretics.
#1. Acute on chronic hypoxic and hypercapnic respiratory failure s/p intubation 07/09/24. Respiratory failure is due to heart failure exacerbation, suspected right lower lobe pneumonia/aspiration as well as underlying COPD with morbid obesity and
history of sleep apnea with possibly obesity hypoventilation syndrome.
-This morning patient is alkalotic with pH of 7.71 and pCO2 31, patient's baseline pCO2 is around 80-90
-Patient at baseline on oxygen and also has chronic hypercapnia with baseline PCO2 90
-Continue mechanical ventilation, tidal volume lowered from 400 to 350 and respiratory rate also dropped from 20 to 14, PEEP of 5 and FiO2 40%. Currently sedated with propofol at 20 and fentanyl at 50 mcg per hour.
-Repeat arterial blood gas to ensure improvement in pH
#2. shock, likely mixed septic shock and cardiogenic shock
-Continue pressor support
-Place central line and arterial line
-Avoid midodrine/dobutamine
-Monitor ins and outs closely, follow-up ABG and lactate
-Switch antibiotics from ceftriaxone to Zosyn
#2. Acute on chronic congestive heart failure exacerbation, preserved ejection fraction. Recent hospitalization in June for heart failure exacerbation.
-Continue Lasix 80 mg IV twice a day
-Strict monitoring of ins and out as well as creatinine
-Cardiology service on case.
-Bilateral pleural effusions noted, likely related to underlying volume overload, continue to monitor closely
#3. Right lower lobe pneumonia, suspect aspiration.
-Considering patient is in shock and recent hospitalization about a month ago, we will proceed with Zosyn pending sputum culture sensitivity
-MRSA screen negative, follow-up on blood cultures
-Start chest PT in view of right lower lobe mucous plugging
#4. Increasing lethargy, unresponsiveness. This is related to worsening hypercapnia and metabolic encephalopathy. (prior to requiring intubation)
-Currently patient is intubated and sedated
#5. Acute kidney injury with hyperkalemia.
-Acidosis and hypercapnia also exacerbated hypercapnia, status post emergency temporization with improved potassium
-Continue diuresis with close monitoring of creatinine and potassium
-Avoid NAJMA inhibitor, ARB's as well as constipation
-Nephrology service on case
#6. A-fib with RVR atrial fibrillation with RVR, new onset. Suspect in the setting of acute critical illness
-Cardiology service on case
-start heparin infusion for stroke prophylaxis
-Low-dose as needed Lopressor ordered per cardiology service
-Continue telemetry monitoring
-Minimally elevated troponin noted will trend troponin
#7. DM with hyperglycemia:
_insulin infusion
-Check labs q 12 hrs
Other:
-Start tube feeding
-DVT prophylaxis with heparin infusion
-GI prophylaxis with PPI
Conditions present prior to admission
Diabetes
Hypertension
Hyperlipidemia
Morbid obesity
Elevated IgE
Severe sleep apnea, total index 56, desaturation adamaris 51%
Compliant and adequate with auto BiPAP
Severe COPD, spirometry 06/22/23- FVC 1.14 or 45%, FEV1 0.66 or 33, Ratio 57
Heart failure with preserved ejection fraction
History of anemia
History of pleural effusions, stable since 2010
Afib on Eliquis
Diagnostic Data
Chest X-Ray: 07/09/24 post intubation- 1. Endotracheal and nasogastric tubes are in satisfactory position.
2. Mild pulmonary edema, not significantly changed.
3. Obscuration of both hemidiaphragms, left greater than right, suggestive of small bilateral pleural effusions. Bibasilar airspace disease may also be present.
07/08/24- Cardiomegaly, unchanged. Pulmonary interstitial prominence again seen, cannot differentiate acute versus chronic. Some right basilar opacity and left hemidiaphragm again obscured. Cannot exclude bibasilar subsegmental atelectasis and/or
pneumonia and small bilateral pleural effusions.
Chest x-ray 06/14/2024: Moderate cardiomegaly. Mild increased interstitial markings. Improved compared to prior 06/12/2024
CT Scan: CTA 2018- No pulmonary embolism. Prominent distal pulmonary artery and right and left pulmonary arteries, suggesting an element of pulmonary hypertension. Mild stable chronic parenchymal findings, without evidence of acute pneumonia.
Long-term interval stability of 3 small pulmonary nodules, supporting a benign etiology.
CHEST 09/27/13- Stable left upper lobe pulmonary nodules since February 2011. There is extremely high probability that these are benign. Stable bibasilar scarring.
Findings suggesting pulmonary arterial hypertension. Mitral annulus calcification. Coronary artery disease. Essentially resolved right pleural effusion.
Echo: 06/13/24- Normal left ventricular chamber size. Normal left ventricular systolic function. Left ventricular ejection fraction is 55-60% by visual assessment. No gross regional wall motion abnormalities. Mild concentric left ventricular
hypertrophy. Normal right ventricular size and function. Mild to moderate mitral stenosis. Moderate aortic stenosis. Peak/mean gradients across the aortic valve are 46/28 mmHg and estimated aortic valve area is 1.1 cm2. Compared to prior study
dated 12/31/2023, there is no significant change, prior aortic valve peak/mean gradients were 48/27 mmHg, respectively.
PFT's: spirometry 06/22/23- FVC 1.14 or 45%, FEV1 0.66 or 33, Ratio 57 (severe obstruction)
Reports and relevant images were personally reviewed.
Critical Care time 90 mins -- The patient is admitted for acute critical illness for the treatment of vital organ failure and/or prevention of further life-threatening conditions. Total care includes time spent in review of history, physical exam,
medications, hemodynamic/ventilator parameters, laboratory data, imaging and discussion with house staff, pharmacy, respiratory therapy, commodity director, and nursing. Time also included performing right subclavian central line placement as well as right
radial arterial line placement.
Subjective Dataa
Subjective Data
Date of Service:
Date of Service: July 10, 2024
Subjective:
Patient intubated and currently mechanically ventilated, sedated.
Review of Systems
General: Unobtainable - Sedation
Objective Data
Data Reviewed
Vital Signs / I&O / Oxygen:
Vital Signs
Temp Pulse Resp BP Pulse Ox
99.1 F 106 16 114/69 98
07/10/24 07:46 07/10/24 07:45 07/10/24 07:45 07/10/24 06:30 07/10/24 07:45
Intake and Output
07/09/24 07/10/24 07/11/24
06:59 06:59 06:59
Intake Total 931.8 / 931.8
Output Total 200 / 200 2325 / 2325
Balance -200 / -200 -1393.2 / -1393.2
SaO2 [A/C] 97
SaO2 98
Nasal Cannula flow liters per 5
minute
Physical Exam
General: Comfortable
Cardiovascular: S1-S2
Respiratory: Crackles and Rhonchi (Rhonchi, right greater than left.)
GI: Soft and Non Distended
Neurology: Other (Currently sedated)
Skin: Warm
Labs/Micro/Reports
Lab Data
07/10/24 02:54
07/10/24 02:54
Laboratory Results
07/09/24 07/09/24 07/09/24
10:11 15:19 17:26
PT 18.4 H
INR 1.50
APTT 34.3
pH 7.23 L 7.43
pCO2 90 H* 48 H
pO2 220 H 366 H
HCO3 37.7 H 31.9 H
O2 Delivery Level
07/10/24
04:11
PT
INR
APTT
pH 7.71 H*
pCO2 31 L
pO2 108
HCO3 39.2 H
O2 Delivery Level Vent
[2024-07-10] MEDS: NOVOLOG FLEXPEN SC ×3 (08:06→15:44)
--- NOTE | 2024-07-10 08:14 | W.PN.NEPH.PH ---
Today's Communication / Plan
-
Maintain pressor support to keep MAP of 65 or greater
Ventilatory rate decreased given respiratory alkalemia
Potassium correct
Creatinine improving to 1.3, maintain Sheth cath
Okay for Lasix administration as hemodynamically top
Assessment/Plan
-
IMP:
Acute hypoxic respiratory insufficiency, baseline 3 L at home
Acute on chronic hypercapnic respiratory failure s/p intubation 07/09/24
TME
Recent admission for AECHF, d/c 06/19/24
Hyperkalemia
TANIKA, creatinine 1.6 (BL 0.9-1.0)
Azotemia
Possible UTI, r/o sepsis
COPD without exacerbation
MARK
Paroxysmal atrial fibrillation
Hyperlipidemia
DM 2 with hyperglycemia -hemoglobin A1c 6.8% in June.
Essential hypertension -currently hypotensive.
Chronic anemia
PLan:
A/w CHF flare, remains intubated on Vent
life threatening hyperkalemia-off kcl tabs, s/p temporzation
K now corrected to 4.6
ABG reviewed serum pH now 7.7, respiratory rate on vent decrease
Okay to reinitiate Lasix
Creatinine down to 1.3 with uop > 2liters
TANIKA- possible prerenal from hypotension , although disproportionate BUN of 97 to creatinine of 1.3 could indicate underlying cardiorenal causality
monitor UOP , keep sheth
pressors to maintain MAP>65
monitor LFTs
avoid nephrotoxins and metformin
hold jardiance as pt may have UTI
Patient critically ill on pressor support and remains intubated
CC time spent 31 min
d/w nursing
-
-
Date of Service: July 10, 2024
CC / HPI / ROS
-
Chief Complaint:
TANIKA
Hyperkalemia
History of Present Illness:
Creatinine improved to 1.3 but BUN remains elevated at 97
Hemodynamically labile on pressor support
Remains intubated with FiO2 of 40%
Potassium improved to 4.6
Review of Systems:
Nonoliguric via Sheth
Remains intubated FiO2 40%
Febrile
Labs
-
Labs:
Sodium 140 mmol/L (135-145) 07/10/24 02:54
Potassium 4.6 mmol/L (3.5-5.1) 07/10/24 02:54
Chloride 98 mmol/L (98-107) 07/10/24 02:54
Carbon Dioxide 39 mmol/L (22-30) H 07/10/24 02:54
BUN 97 mg/dl (7-17) H 07/10/24 02:54
Creatinine 1.3 mg/dL (0.6-1.0) H 07/10/24 02:54
eGFR 42.09 07/10/24 02:54
Glucose 94 mg/dl (70-99) 07/10/24 02:54
Calcium 8.7 mg/dl (8.4-10.2) 07/10/24 02:54
Phosphorus 2.7 mg/dl (2.5-4.5) 07/10/24 02:54
Xue-Z-Ylmwrhqmomb Pept 9300 pg/ml 07/08/24 12:16
Albumin 3.3 g/dl (3.5-5.0) L 07/09/24 14:24
Physical Exam
-
Vital Signs:
Vital Signs
Temp Pulse Resp BP Pulse Ox
99.1 F 106 16 114/69 98
07/10/24 07:46 07/10/24 07:45 07/10/24 07:45 07/10/24 06:30 07/10/24 07:45
Cardiovascular:: Regular rate and rhythm
Respiratory:: Bilateral: Coarse
Lung Excursion:: Normal
Abdomen:: Nontender and Soft
Bowel Sounds:: Decreased
Extremity Edema:: +1: Bilateral:
Sheth Catheter: Yes
Other Findings::
General intubated sedated ET tube down oropharyngeal airway
[2024-07-10 08:28] LABS: Glucose - Point of Care 118 mg/dl (70-99)
--- NOTE | 2024-07-10 08:51 | PTOTSP ---
Reviewed chart and noted pt had rapid response yesterday and was intubated/transferred to ICU. PT evaluation remains on hold. Will need new orders for PT when able to actively participate.
[2024-07-10 08:55] LABS: Hematocrit 32.4 % (37.0-47.0); Hemoglobin 9.6 g/dL (12.0-16.0); Mean Corp Hgb Conc. 29.6 g/dL (33.0-37.0); Mean Corpuscular Hgb 28.5 pg (27.0-31.0); Mean Corpuscular Volume 96.1 fL (81.0-99.0); Mean Platelet Volume 10.8 fL (7.4-10.4); Platelet Count 429 10^3/uL (130-400); Red Blood Cell Count 3.37 10^6/uL (4.20-5.40); Red Cell Dist. Width 16.2 % (11.5-14.5); White Blood Cell Count 12.5 10^3/uL (4.8-10.8)
[2024-07-10 09:17] LABS: Lactic Acid 1.2 mmol/L (0.7-2.0)
[2024-07-10 09:25] LABS: Troponin I 0.059 ng/ml
[2024-07-10] MEDS: MIRALAX 17 GRAMS TUBE (09:28)
[2024-07-10 09:29] LABS: APTT 33.2 Sec (23.4-35.0)
[2024-07-10] MEDS: HEPARIN 25000 UNITS/250 ML IV (09:45)
[2024-07-10] MEDS: LASIX 80 MG IV ×2 (09:50→15:43)
[2024-07-10] MEDS: DESENEX/MITRAZOL/ZEASORB 1 APPLIC TOPICAL ×2 (09:50→20:49)
--- NOTE | 2024-07-10 09:58 | W.PN.CARDCBS ---
Today's Communication / Plan
-
Pressor support wean as tolerates
Continue current dose of IV diuretic Lasix 80 IV twice daily.
Given volume overload will give 1 extra dose of 40 mg IV Lasix and follow
Oral anticoagulation switched to heparin given she is intubated and sedated
Heart rates are elevated and I have started very low-dose as needed metoprolol 2.5 mg every 6 hours for heart rate greater than 110 bpm
Impression / Plan
-
Family Physician:� Trina Ralph
Primary Waiter/Waitress Buffet: Dr. Simmons
Impression:
Sepsis with hypotension requiring pressor support
Vent dependent respiratory failure
Admitted with SOB and acute on hypoxic respiratory failure 06/10/24
New persistent atrial fibrillation with rapid ventricular response
AE COPD
Acute HFpEF
Hyperkalemia
Change in mental status
Mod peak/mean 48/27 mmHg and ZAY 1.0 cm sq by echo 12/21/23
Mod MS with peak/mean 17/7 mmHg by echo 12/21/23
MARK on BiPAP
HTN
HLD
DM2
Chronic iron deficiency anemia
Morbid obesity, BMI 36.4
h/o pulmonary nodules
ECHO 07/2019: EF 60-65%, mod cLVH, MAC, mild MR, mild to mod , peak/mean 26/16mmHg, ZAY 1.1cm2
ECHO 09/24/21: EF 65 to 70%, mild concentric LVH, mild , peak/mean gradients 31/19 mmHg, ZAY 1.1 cm�, trivial pericardial effusion, no significant change compared to prior
Echo 12/21/23: EF 55-60%, mild conc LVH, mod MS with peak/mean 17/7 mmHg, mod peak/mean 48/27 mmHg and ZAY 1.0 cm sq
Echo 06/13/24: EF 55 to 60%, no gross regional WMA, mild to moderate MS with mean gradient 6 mmHg at an HR of 76 bpm, mild MR, moderate peak/mean 46/28 mmHg and ZAY 1.1 cm SQ
Plan:
She has been dependent respiratory failure and was intubated 07/09/2024. She is requiring pressors.
Continue antibiotics and treatment per primary service and foreign exchange clerk.
Pressor support wean as tolerates
She is volume overloaded and weight has gone from 180s to 197.
Continue current dose of IV diuretic Lasix 80 IV twice daily
Given volume overload will give 1 extra dose of 40 mg IV Lasix and follow
Creatinine stable but elevated continue to follow. 1.3 on 07/10/2024. BUN elevated. Nephrology also following.
Recent echo reviewed with preserved EF, no need to repeat.
Persistent atrial fibrillation which is a relatively new diagnosis.
Oral anticoagulation switched to heparin given she is intubated and sedated
Heart rates are elevated and I have started very low-dose as needed metoprolol 2.5 mg every 6 hours for heart rate greater than 110 bpm
eventually consider cardioversion pending course
Change in mental status eval and tx as per primary service
Discussed with family at bedside. Discussed with nursing
30 minutes critical care time
HPI: Patient came to ER today with increased weakness and a lower than usual pulse ox reading at home, patient now admitted with acute HF and cardiology has been consulted. Patient was just admitted to from 06/10/2024 until 06/19/2024 with acute
on chronic hypoxic multifactorial respiratory failure and also a new diagnosis of paroxysmal Afib. During that admission patient was diuresed with Lasix 80 mg IV BID. In addition to BiPAP therapy. Unfortunately the recorded weights during that
admission were not accurate because they were using a bed scale. I and O readings were also inaccurate, but the patient reported some subjective improvement. Patient was seen in the office on 06/26/2024 and was dutifully taking her dose of Lasix 80
mg twice daily, but was noted to be hypotensive and so her usual dose of nifedipine was stopped. Patient was seen in the wound clinic today and was noted to be SOB above baseline and hypoxic so she was referred to ER. Patient was using her
usual 3 L nasal cannula of supplemental oxygen and had improved pulse ox by increasing to 5 L. proBNP is up to 9300 today and was only as high as 1590 during her last admission. Again the recorded weights are not accurate
Progress Note - Waiter/Waitress Buffet
Subjective
Date of Service: July 10, 2024
Intubated and sedated on ventilator
Objective
Labs:
07/10/24 08:30
07/10/24 02:54
Labs
Hgb 9.6 g/dL (12.0-16.0) L 07/10/24 08:30
Hct 32.4 % (37.0-47.0) L 07/10/24 08:30
Plt Count 429 10^3/uL (130-400) H 07/10/24 08:30
PT 18.4 Sec (11.4-14.6) H 07/09/24 15:19
INR 1.50 07/09/24 15:19
APTT 33.2 Sec (23.4-35.0) 07/10/24 08:30
Sodium 140 mmol/L (135-145) 07/10/24 02:54
Potassium 4.6 mmol/L (3.5-5.1) 07/10/24 02:54
BUN 97 mg/dl (7-17) H 07/10/24 02:54
Creatinine 1.3 mg/dL (0.6-1.0) H 07/10/24 02:54
Glucose 94 mg/dl (70-99) 07/10/24 02:54
Troponins
07/08/24 07/09/24 07/09/24
12:16 15:19 19:58
Troponin I 0.018 0.019 0.025 D
07/10/24 07/10/24
02:54 08:30
Troponin I 0.046 H* D 0.059 H* D
Vital Signs and I&O:
Vital Signs
Temp Pulse Resp BP Pulse Ox
99.1 F 122 16 122/51 98
07/10/24 07:46 07/10/24 09:50 07/10/24 07:45 07/10/24 09:50 07/10/24 07:45
Vital Signs
Temp Pulse Resp BP Pulse Ox
99.1 F 122 16 122/51 98
07/10/24 07:46 07/10/24 09:50 07/10/24 07:45 07/10/24 09:50 07/10/24 07:45
Intake & Output
07/08/24 07/09/24 07/10/24 07/11/24
06:59 06:59 06:59 06:59
Intake Total 931.8 / 931.8
Output Total 200 / 200 2325 / 2325
Balance -200 / -200 -1393.2 / -1393.2
Physical Exam
Physical Exam
General: Critically ill intubated
Heart: Distant heart sounds tacky and irregular
Lungs: Intubated and coarse breath sounds
Extremities: No clubbing, cyanosis trace to +1 edema bilaterally.
Neuro: Sedated
[2024-07-10 11:24] LABS: Glucose - Point of Care 118 mg/dl (70-99)
--- NOTE | 2024-07-10 11:37 | PN.CDI ---
CDI
- -
CDI:
Physician Documentation Request
Admit Date: 07/08/24 14:21
Dear Doctor Leana,
Patient admitted with acute on chronic heart failure with preserved EF.
3/3 Nursing skin assessment, 'Stage 4 sacral pressure injury, POA.'
Physician documentation of the type and location of wounds is required for compliant documentation. Based on the above clinical findings and your assessment, please provide the following in your progress note:
Type (etiology) of ulcer/wound:
- Pressure (decubitus) ulcer
- Other
- Unable to determine
For a pressure ulcer, please also include the stage* of the ulcer:
- Stage 1 - Skin intact, non-blanchable redness
- Stage 2 - Partial thickness loss of dermis, includes intact or open blister
- Stage 3 - Full thickness tissue not including bone, tendon or muscle
- Stage 4 - Full thickness tissue loss, including exposed bone, tendon or muscle
- Unstageable - Full thickness loss in which the base of the ulcer is covered by slough (yellow, enriquez, muniz, green or brown) and/or eschar (enriquez, brown or black) in the wound bed.
- Unable to determine
Use of terms such as suspected, likely, concern for, or probable (associated with a specific diagnosis that is being evaluated, monitored, or treated as if it exists) are acceptable and can be coded in the inpatient setting, when documented at the
time of discharge.
Thank you,
Estella ARANA,RN,CCDS
CDI Specialist
Available via [place] text
Please use your independent medical judgment in providing your response.
*Source: National Pressure Ulcer Advisory Panel (NPUAP)
[2024-07-10] MEDS: ZOSYN 50 IV ×3 (12:20→23:03)
[2024-07-10] MEDS: LOPRESSOR 2.5 MG IV ×2 (12:21→21:14)
[2024-07-10] MEDS: SUBLIMAZE 50 MCG IV (12:21)
--- NOTE | 2024-07-10 12:36 | W.IMMPOSTOP ---
Surgical Immed Post Op Note
-
Right subclavian central venous catheter placement
Informed consent was obtained from patient's spouse at bedside. Patient in septic shock on pressor therapy and needs central line access.
Bedside ultrasound was used to confirm patency of right subclavian vein. Under sterile condition area was subsequently cleaned and a full body drape was placed. 3 mL of lidocaine was injected locally for local anesthesia. Under sterile condition
and with an ultrasound probe in place, real-time long axis visualization and cannulation of subclavian vein was performed until blood was aspirated. Syringe was then detached and guidewire was advanced without any resistance. With guidewire in
place, needle was withdrawn. Ultrasound was used again to confirm positioning of guidewire inside the vein lumen. A small malcom was placed at the skin level and a dilator was placed to about 50% of its length. Dilator was removed and a central
line catheter was threaded over the guidewire. Once catheter inserted guidewire was removed. Caps were placed on all 3 ports of central line. Sterile flushes were used to confirm withdrawal of blood and easy flushing of all 3 ports. Central
catheter was then sutured to skin and dressing was placed.
Complications: None
Blood loss: None
Chest x-ray: without any evidence of pneumothorax, central line in appropriate location.
Patient tolerated procedure well.
Performed by: Jona Meza MD
Date of service: 07/10/2024
--- NOTE | 2024-07-10 12:42 | W.IMMPOSTOP ---
Surgical Immed Post Op Note
-
Right Radial Arterial catheter placement
Informed consent was obtained from patient's spouse at bedside. Patient in septic shock on pressor therapy and needs invasive blood pressure monitoring.
Bedside ultrasound was used to confirm patency of right radial artery. Under sterile condition area was subsequently cleaned and a drape was placed. 1 mL of lidocaine was injected locally for local anesthesia. Under direct ultrasound
visualization,, radial artery was cannulated. Once blood was noted in the chamber guidewire was advanced. Arterial catheter was subsequently advanced over the guidewire, and then guidewire was removed. Pressure tubing was subsequently attached to
the catheter and arterial waveform was noted on the monitor. Subsequently a dressing was placed.
Complications: None
Blood loss: None
Chest x-ray: without any evidence of pneumothorax, central line in appropriate location.
Patient tolerated procedure well.
Performed by: Jona Meza MD
Date of service: 07/10/2024
[2024-07-10 13:25] LABS: B.E. 15.8 mmol/L; O2 Saturation % 99.1 % (94-98); PCO2 54 mmHg (32-35); PO2 117 mmHg (83-108); pH 7.49 (7.35-7.45)
[2024-07-10 13:31] LABS: HCO3 41.2 mmol/L (21-28)
[2024-07-10 13:39] LABS: Lactic Acid 1.1 mmol/L (0.7-2.0)
[2024-07-10 13:52] LABS: Troponin I 0.061 ng/ml
--- NOTE | 2024-07-10 14:13 | PN.DE.MGMTRT ---
Insulin Management
- -
07/10/2024 Diabetes Management Consult
Patient admitted 07/08 with breathing problem, sepsis, acute on chronic respiratory failure due to acute pulmonary edema on chronic heart failure, with NEW a fib. PMH COPD, on 3L O2 at home chronically, HTN, HLD, diabetes, morbid obesity. Prior to
admission chart reflects patient was taking 10 - 25 units on N @ HS, Humalog 12 units with breakfast and lunch, Jardiance 10 mg daily and metformin 1000 mg BID.
Patient is critically ill, currently intubated, sedated all information obtained from chart and patients nurse.
Patient is currently on glycemic protocol insulin infusion receiving 1 to 2 units of insulin per hour. Will continue glycemic protocol overnight and reassess in AM for readiness to transition to subcutaneous insulin.
Discussed with nurse.
Diabetes History
- -
Type of Diabetes: 2 requiring insulin
Pre-Admission Diabetes Regimen
07/09/24 07/09/24 07/09/24
14:24 17:57 19:58
Creatinine 1.6 H 1.4 H 1.3 H
07/10/24
02:54
Creatinine 1.3 H
Insulin Pump Settings
IP Diabetes Regimen
07/09/24 07/09/24 07/09/24
14:24 14:36 17:04
Glucose 167 H
POC Glucose 182 H 238 H
07/09/24 07/09/24 07/09/24
17:57 19:01 19:58
Glucose 235 H 203 H
POC Glucose 214 H
07/09/24 07/09/24 07/09/24
21:31 22:35 23:35
Glucose
POC Glucose 192 H 172 H 124 H
07/10/24 07/10/24 07/10/24
00:32 01:30 02:54
Glucose 94
POC Glucose 145 H 110 H
07/10/24 07/10/24 07/10/24
03:42 05:31 08:17
Glucose
POC Glucose 104 H 107 H 118 H
07/10/24
11:12
Glucose
POC Glucose 118 H
Meal type: Lunch
Meal type: Breakfast
Meal type: Breakfast
Patient Education
--- NOTE | 2024-07-10 14:31 | CM ---
CM following re: discharge planning.
Discussed in rounds, reviewed pt's chart,
Per Rounds meeting, pt intubated yesterday due to worsening mental status and hypercapnia , remains intubated, continue supportive care.
D/C plan: uncertain at this time and will depend on pt's progress.
CM will follow with discharge plan updates as hospitalization progresses
[2024-07-10 15:01] LABS: Glucose - Point of Care 144 mg/dl (70-99)
[2024-07-10 15:16] LABS: ALT (SGPT) 31 U/L (0-35); AST (SGOT) 27 U/L (14-36); Albumin 2.5 g/dl (3.5-5.0); Alkaline Phosphatase 102 U/L (38-126); Blood Urea Nitrogen 87 mg/dl (7-17); Calcium 8.2 mg/dl (8.4-10.2); Carbon Dioxide 37 mmol/L (22-30); Chloride 96 mmol/L (98-107); Estimated Creatinine Clearance 44 ml/min; Glucose 135 mg/dl (70-99); Magnesium 1.8 mg/dl (1.6-2.3); Potassium 3.6 mmol/L (3.5-5.1); Sodium 140 mmol/L (135-145); Total Bilirubin 0.5 mg/dl (0.2-1.3); Total Protein 5.3 g/dl (6.3-8.2); eGFR 51.43
[2024-07-10 15:30] LABS: Troponin I 0.058 ng/ml
[2024-07-10] MEDS: LEVOPHED 258 MG IV (15:57)
[2024-07-10] MEDS: MAGNESIUM SULFATE 50 IV (16:11)
[2024-07-10 17:16] LABS: Glucose - Point of Care 108 mg/dl (70-99)
--- NOTE | 2024-07-10 19:22 | PTCARENOTE ---
Updated assessment, vital signs ongoing as per unit based protocols. Continue with drip trends, titration and protocol. Follow up thru day with hospitalist team, cardiology and nephrology. All in to se and update family at bedside. Hydroelectric Machinery Mechanic Helper team
in and out thru day. Central line, arterial line and several pulmonary adjustments thru day. Continue teaching, supportive cares and emotional support thru day for patient and family. Skin cares, oral cares and wound cares as per unit baSED
PROTOCOLS.
[2024-07-10 19:42] LABS: Glucose - Point of Care 90 mg/dl (70-99)
[2024-07-10 20:38] LABS: B.E. 16.4 mmol/L; O2 Saturation % 99.5 % (94-98); PCO2 55 mmHg (32-35); PO2 146 mmHg (83-108); pH 7.49 (7.35-7.45)
[2024-07-10 20:43] LABS: Glucose - Point of Care 116 mg/dl (70-99)
[2024-07-10 20:58] LABS: HCO3 41.9 mmol/L (21-28)
[2024-07-10 21:04] LABS: ALT (SGPT) 31 U/L (0-35); AST (SGOT) 28 U/L (14-36); Albumin 2.8 g/dl (3.5-5.0); Alkaline Phosphatase 124 U/L (38-126); Blood Urea Nitrogen 81 mg/dl (7-17); Calcium 8.3 mg/dl (8.4-10.2); Chloride 93 mmol/L (98-107); Estimated Creatinine Clearance 40 ml/min; Glucose 113 mg/dl (70-99); Potassium 3.2 mmol/L (3.5-5.1); Sodium 140 mmol/L (135-145); Total Bilirubin 0.8 mg/dl (0.2-1.3); Total Protein 5.9 g/dl (6.3-8.2); eGFR 46.33
[2024-07-10 21:16] LABS: Carbon Dioxide 34 mmol/L (22-30)
[2024-07-10] MEDS: SUBLIMAZE 100 IV (21:22)
--- NOTE | 2024-07-10 21:30 | PTCARENOTE ---
HR elevated to 130s. PRN dose of lopressor administered by this RN.
[2024-07-10 21:45] LABS: Glucose - Point of Care 170 mg/dl (70-99)
[2024-07-10 22:40] LABS: Glucose - Point of Care 159 mg/dl (70-99)
[2024-07-10] MEDS: KCL ELIXIR 40 MEQ TUBE (23:03)
[2024-07-10] MEDS: PITRESSIN 100 IV (23:24)
[2024-07-10 23:42] LABS: Glucose - Point of Care 177 mg/dl (70-99)
[2024-07-11] VITALS (8 sets, daily range): BP systolic 100–118; BP diastolic 53–62; BMI 36.0
[2024-07-11] MEDS: FLEXBUMIN 100 IV (00:19)
[2024-07-11] MEDS: LEVOPHED 258 MG IV (01:04)
[2024-07-11 01:44] LABS: Glucose - Point of Care 191 mg/dl (70-99)
--- NOTE | 2024-07-11 02:20 | PTCARENOTE ---
HR elevated to 140s. Vaso gtt added and levo gtt tapered down to 10 mcg/min. IV albumin also administered by this RN per order.
[2024-07-11 02:44] LABS: Glucose - Point of Care 248 mg/dl (70-99)
--- NOTE | 2024-07-11 03:30 | PTCARENOTE ---
Upon reassessment pt's HR now in the low 100s.
[2024-07-11] MEDS: TYLENOL ORAL SOLUTION 650 MG PO ×2 (03:36→11:40)
[2024-07-11 03:45] LABS: Glucose - Point of Care 197 mg/dl (70-99)
[2024-07-11 04:46] LABS: Glucose - Point of Care 154 mg/dl (70-99)
[2024-07-11 05:07] LABS: B.E. 16.8 mmol/L; O2 Saturation % 99.3 % (94-98); PCO2 62 mmHg (32-35); PO2 195 mmHg (83-108); pH 7.45 (7.35-7.45)
[2024-07-11 05:14] LABS: HCO3 43.1 mmol/L (21-28); O2 Therapy VENT
[2024-07-11 05:18] LABS: % Basophils 0.4 % (0-2); % Eosinophils 0.5 % (0-6); % Immature Granulocytes 0.5 % (0-0.5); % Lymphocytes 7.4 % (20.5-51.1); % Monocytes 7.6 % (1.7-9.3); % Neutrophils 83.6 % (42.2-75.2); Absolute Basophils 0.1 10^3/uL (0-0.2); Absolute Eosinophils 0.1 10^3/uL (0-0.7); Absolute Immature Granulocytes 0.1 10^3/uL (0-0.05); Absolute Neutrophils 11.4 10^3/uL (1.4-6.5); Hematocrit 30.2 % (37.0-47.0); Hemoglobin 9.2 g/dL (12.0-16.0); Mean Corp Hgb Conc. 30.5 g/dL (33.0-37.0); Mean Corpuscular Hgb 28.9 pg (27.0-31.0); Mean Platelet Volume 10.5 fL (7.4-10.4); Nucleated Red Blood Cells % 0.1 %; Platelet Count 391 10^3/uL (130-400); Red Blood Cell Count 3.18 10^6/uL (4.20-5.40); Red Cell Dist. Width 16.7 % (11.5-14.5); White Blood Cell Count 13.7 10^3/uL (4.8-10.8)
[2024-07-11] MEDS: ZOSYN 50 IV ×2 (05:21→11:14)
[2024-07-11] MEDS: DIPRIVAN 100 IV ×2 (05:25→15:00)
[2024-07-11 05:30] LABS: APTT 75.3 Sec (23.4-35.0)
[2024-07-11 06:43] LABS: Glucose - Point of Care 159 mg/dl (70-99)
[2024-07-11 06:47] LABS: Albumin 2.8 g/dl (3.5-5.0); Blood Urea Nitrogen 76 mg/dl (7-17); Calcium 8.2 mg/dl (8.4-10.2); Carbon Dioxide 40 mmol/L (22-30); Chloride 97 mmol/L (98-107); Estimated Creatinine Clearance 44 ml/min; Glucose 144 mg/dl (70-99); Potassium 3.3 mmol/L (3.5-5.1); Sodium 144 mmol/L (135-145); Triglycerides 114 mg/dl (10-149); eGFR 51.43
[2024-07-11] MEDS: HEPARIN 25000 UNITS/250 ML IV (07:12)
--- NOTE | 2024-07-11 07:25 | W.PN.INTV ---
Today's Communication / Plan
Recommendations
-Start Anders-Synephrine and try to wean Levophed, continue vasopressin
-Start tube feeding
-Start p.o. amiodarone
-Continue current ventilator settings, ABG in a.m.
-SAT SBT in the morning if pressor need continues to go down
-Check magnesium, potassium and creatinine level later today
Assessment
-
Patient is a 78-year-old female with previous history of COPD, chronic hypercarbic respiratory failure on BiPAP, chronic heart failure with preserved EF, chronic hypoxemia presenting with increased shortness of breath and weakness over the past 24
hours. She was at wound clinic the day prior to admission and notably hypoxemic, was referred to the emergency room. On arrival ABG noted to be 7.29/76. She was treated with BiPAP overnight. Repeat ABG 7.23/. She had increasing somnolence
throughout the day. A decision was made for intubation due to persistent mental status changes and unresponsiveness.
07/09, patient was intubated due to worsening mental status and hypercapnia and subsequently transferred to ICU. Also noted to be severely hyperkalemic which was urgently temporized and intensive care consultation was requested for further
management
07/10, patient overnight stayed hypotensive and required pressor support. She did have fever and in view of shock broad-spectrum antibiotics were continued in addition to diuretics.
#1. Acute on chronic hypoxic and hypercapnic respiratory failure s/p intubation 07/09/24. Respiratory failure is due to heart failure exacerbation, suspected right lower lobe pneumonia/aspiration as well as underlying COPD with morbid obesity and
history of sleep apnea with possibly obesity hypoventilation syndrome.
-ABG reviewed, 7.45, pCO2 62, pO2 195, bicarb 43.1, currently on volume control 350, 14, 40%, 8
-Patient at baseline on oxygen and also has chronic hypercapnia with baseline PCO2 90
-Continue mechanical ventilation, tidal volume lowered from 400 to 350 and respiratory rate also dropped from 20 to 14, PEEP of 8 and FiO2 40%. Currently sedated with propofol at 20 and fentanyl at 50 mcg per hour.
-Repeat arterial blood gas in AM
#2. shock, likely mixed septic shock and cardiogenic shock
-Continue pressor support
-Avoid midodrine/dobutamine
-Monitor ins and outs closely, follow-up ABG and lactate
-ID service on case, antibiotic changed to meropenem
-Urine showing gram-negative rods and lactobacilli
-Continue vasopressin. Phenylephrine started in view of A-fib with RVR with the goal to wean Levophed down
#2. Acute on chronic HFpEF, moderate aortic stenosis. Recent hospitalization in June for heart failure exacerbation.
-Patient auto diuresing, Lasix held on 07/10 in view of significant diuresis and escalating pressor need
-Hypervolemia seems to be improving x-ray still shows mild congestion
-Strict monitoring of ins and out as well as creatinine
-Cardiology service on case.
-Bilateral pleural effusions noted, likely related to underlying volume overload, continue to monitor closely
#3. Right lower lobe pneumonia, suspect aspiration.
-Considering patient is in shock and recent hospitalization about a month ago, continue antibiotic
-MRSA screen negative, follow-up on blood cultures
-Start chest PT in view of right lower lobe mucous plugging
#4. Increasing lethargy, unresponsiveness. This is related to worsening hypercapnia and metabolic encephalopathy. (prior to requiring intubation)
-Currently patient is intubated and sedated
#5. Acute kidney injury with hyperkalemia.
-Acidosis and hypercapnia also exacerbated hyperkalemia, status post emergency temporization with improved potassium
-With holding Lasix for now, monitor in and out
-Avoid NAJMA inhibitor, ARB's as well as constipation
-Nephrology service on case
-Creatinine somewhat improved, consistent with cardiorenal syndrome
-Monitor labs later today and then again in the morning replete electrolytes as needed
#6. A-fib with RVR atrial fibrillation with RVR, new onset. Suspect in the setting of acute critical illness
-Cardiology service on case
-Continue heparin infusion for stroke prophylaxis
-Start Anders-Synephrine, continue vasopressin and try to wean Levophed
-Amiodarone p.o. started
-Continue telemetry monitoring
-Minimally elevated troponin, downtrending
#7. DM with hyperglycemia:
_insulin infusion
-Check labs q 12 hrs
Other:
-Start tube feeding
-DVT prophylaxis with heparin infusion
-GI prophylaxis with PPI
Conditions present prior to admission
Diabetes
Hypertension
Hyperlipidemia
Morbid obesity
Elevated IgE
Severe sleep apnea, total index 56, desaturation adamaris 51%
Compliant and adequate with auto BiPAP
Severe COPD, spirometry 06/22/23- FVC 1.14 or 45%, FEV1 0.66 or 33, Ratio 57
Heart failure with preserved ejection fraction
History of anemia
History of pleural effusions, stable since 2010
Afib on Eliquis
Diagnostic Data
Chest X-Ray: 07/09/24 post intubation- 1. Endotracheal and nasogastric tubes are in satisfactory position.
2. Mild pulmonary edema, not significantly changed.
3. Obscuration of both hemidiaphragms, left greater than right, suggestive of small bilateral pleural effusions. Bibasilar airspace disease may also be present.
07/08/24- Cardiomegaly, unchanged. Pulmonary interstitial prominence again seen, cannot differentiate acute versus chronic. Some right basilar opacity and left hemidiaphragm again obscured. Cannot exclude bibasilar subsegmental atelectasis and/or
pneumonia and small bilateral pleural effusions.
Chest x-ray 06/14/2024: Moderate cardiomegaly. Mild increased interstitial markings. Improved compared to prior 06/12/2024
CT Scan: CTA 2018- No pulmonary embolism. Prominent distal pulmonary artery and right and left pulmonary arteries, suggesting an element of pulmonary hypertension. Mild stable chronic parenchymal findings, without evidence of acute pneumonia.
Long-term interval stability of 3 small pulmonary nodules, supporting a benign etiology.
CHEST 09/27/13- Stable left upper lobe pulmonary nodules since February 2011. There is extremely high probability that these are benign. Stable bibasilar scarring.
Findings suggesting pulmonary arterial hypertension. Mitral annulus calcification. Coronary artery disease. Essentially resolved right pleural effusion.
Echo: 06/13/24- Normal left ventricular chamber size. Normal left ventricular systolic function. Left ventricular ejection fraction is 55-60% by visual assessment. No gross regional wall motion abnormalities. Mild concentric left ventricular
hypertrophy. Normal right ventricular size and function. Mild to moderate mitral stenosis. Moderate aortic stenosis. Peak/mean gradients across the aortic valve are 46/28 mmHg and estimated aortic valve area is 1.1 cm2. Compared to prior study
dated 12/31/2023, there is no significant change, prior aortic valve peak/mean gradients were 48/27 mmHg, respectively.
PFT's: spirometry 06/22/23- FVC 1.14 or 45%, FEV1 0.66 or 33, Ratio 57 (severe obstruction)
Reports and relevant images were personally reviewed.
Critical Care time 90 mins -- The patient is admitted for acute critical illness for the treatment of vital organ failure and/or prevention of further life-threatening conditions. Total care includes time spent in review of history, physical exam,
medications, hemodynamic/ventilator parameters, laboratory data, imaging and discussion with house staff, pharmacy, respiratory therapy, acrobatic dancer, and nursing. Time also included performing right subclavian central line placement as well as right
radial arterial line placement.
Subjective Dataa
Subjective Data
Date of Service:
Date of Service: July 11, 2024
Subjective:
Patient currently intubated on mechanical ventilation.
Review of Systems
General: Unobtainable - Sedation
Objective Data
Data Reviewed
Vital Signs / I&O / Oxygen:
Vital Signs
Temp Pulse Resp BP Pulse Ox
100.5 F H 101 17 101/57 99
07/11/24 05:15 07/11/24 06:00 07/11/24 06:00 07/11/24 06:00 07/11/24 06:00
Intake and Output
07/10/24 07/11/24 07/12/24
06:59 06:59 06:59
Intake Total 931.8 / 998.7 1683.9 / 1683.9
Output Total 2325 / 2450 4407.0 / 4407.0
Balance -1393.2 / -1451.3 -2723.1 / -2723.1
SaO2 [A/C] 98
SaO2 99
Nasal Cannula flow liters per 5
minute
Physical Exam
General: Comfortable
Cardiovascular: S1-S2
Respiratory: Crackles and Rhonchi (Rhonchi, right greater than left.)
GI: Soft and Non Distended
Neurology: Other (Currently sedated)
Skin: Warm
Labs/Micro/Reports
Lab Data
07/11/24 04:40
Laboratory Results
07/10/24 07/10/24 07/10/24
08:30 13:13 15:49
APTT 33.2 54.0 H
pH 7.49 H
pCO2 54 H
pO2 117 H
HCO3 41.2 H*
O2 Delivery Level
07/10/24 07/10/24 07/11/24
20:28 22:23 04:40
APTT 76.0 H 75.3 H
pH 7.49 H 7.45
pCO2 55 H 62 H
pO2 146 H 195 H
HCO3 41.9 H* 43.1 H*
O2 Delivery Level Vent
Microbiology
07/09/24 18:20 Blood/Venous Blood Culture - Preliminary
No Growth in 24 hours- Final report to follow
07/09/24 18:20 Blood/Venous Blood Culture - Preliminary
No Growth in 24 hours- Final report to follow
07/10/24 00:11 Sputum Gram Stain - Preliminary
07/09/24 15:59 Urine Urine Culture - Preliminary
07/08/24 17:37 Nose MRSA Screen - Final
No Methicillin Resistant Staphylococcus aureus isolated.
ECHO 07/10: Normal left ventricular chamber size with mild concentric left ventricular
hypertrophy. Normal left ventricular systolic function. Left ventricular
ejection fraction is 65-70%.
Mild to moderate mitral stenosis with mean gradient of 7 mmHg.
Moderate aortic stenosis with peak/mean gradients across the aortic valve of
56/35 mmHg.
Compared to a full study from Jun 13 2024, findings are similar.
[2024-07-11] MEDS: DUONEB 3 ML INH ×3 (07:40→21:23)
[2024-07-11] MEDS: PULMICORT 0.5 MG INH (07:41)
--- NOTE | 2024-07-11 08:00 | PTCARENOTE ---
pt received from previous rn- ett to vent- see settings as charted. pt in afib with rbbb. right radial santos zeroed and functioning- levo and vaso continue to maintain systolic>90. heparin, insulin, prop and fent all continue as per order- see
flowsheets. sedation vacation provided- pt open eyes to name, squeeze hands. pt became tachycardiac and tachypneic- sedation restarted. wound care and am care provided. turned and repositioned, oral care provided-thick secretions noted. labs sent
and ekg completed per order. all safety precautions in place, family at bedside and updated.
--- NOTE | 2024-07-11 08:10 | W.PN.HOSP.TC ---
Today's Communication/Plan
-
Replete potassium
Check magnesium
Check stool studies
ID consult
Assessment / Plan
Assessment / Plan
Gen-intubated, sedated
HEENT-NC, AT, anicteric, clear oral mm
Neck-supple
CV-reg, no M, +S1/S2
Lungs-clear B/L
Abd-soft, NT, ND
Ext-bilateral lower extremity edema improving
Musculoskeletal-no cyanosis, clubbing
Skin-warm and dry, bruising lower extremities, right pretibial wound with blood saturated dressing
Shock -likely due to sepsis. Unclear if present on admission. Ongoing fevers and leukocytosis noted. Presentation July 08 with weakness and shortness of breath, hypoxia. Subsequently became hemodynamically unstable July 09 with acute TME,
required intubation and transferred to ICU.
Still on vasopressors. Wean down as able.
Being worked up for sepsis due to UTI. Blood cultures negative so far, urine culture pending. Currently on IV Zosyn. Consult ID. Check stool studies given loose stools. Has fecal management system.
Noted to have urinary retention during last hospitalization. She was discharged with Santana catheter and Flomax with recommendation for outpatient urology follow-up. Discharged on a course of Keflex for possible UTI. Unclear if patient followed up
with urology.
Acute on chronic hypoxic respiratory failure -suspect due to acute pulmonary edema due to acute on chronic heart failure exacerbation. Sepsis, shock contributing to respiratory failure possibly.
Intubated July 09. Stable in ICU. Ski Guide following.
CT chest ordered for today.
Portable chest x-ray done this morning reviewed, I see no significant change. Awaiting formal read.
Acute TME -suspect multifactorial etiology including hypoxia, hypercapnia, heart failure, sepsis, etc.
TANIKA -suspect related to septic shock, ATN. Creatinine trending down, 1.1 today. Nephrology following.
Acute on chronic heart failure with preserved EF -weight unchanged compared to admission weight. I's and O's are -2.6 L. BNP is elevated, 9300. Limited bedside echocardiogram done July 09 shows preserved EF and unchanged.
Cardiology consulted. She was just discharged from our hospital June 19 with a diagnosis of acute heart failure exacerbation, acute COPD exacerbation.
Last echocardiogram was 06/13/24, normal LV size and function, LVEF 55 to 60%, no gross wall motion abnormalities. Mild concentric LVH. Normal RV size and function. Mild to moderate mitral stenosis. Moderate aortic stenosis. Estimated aortic
valve area 1.1 cm�.
Lasix discontinued by intensive care team due to significant urine output.
Troponin elevation -troponin trending down. Differential diagnosis includes acute nonischemic myocardial injury versus type II NM due to rapid atrial fibrillation versus other. Cardiology following.
Severe hyperkalemia -treated and resolved.
Hypokalemia -will replete. Check magnesium.
COPD without exacerbation
MARK -uses BiPAP at home.
Paroxysmal atrial fibrillation -on Eliquis at home. Atrial fibrillation was just diagnosed June 2024. Currently on IV heparin.
Hyperlipidemia -atorvastatin.
DM 2 with hyperglycemia -hemoglobin A1c 6.8% in June. Glucose 144 this a.m. At home she is on lispro insulin 12 units before breakfast and lunch, 16 units before dinner. NPH insulin 10 to 25 units at bedtime. Metformin 1000 mg twice daily.
Jardiance 10 mg daily. Hold oral agents.
Currently on IV regular insulin infusion at 1 unit/h. Glucoses controlled. Diabetes FULL TIME PARAMEDIC following.
Essential hypertension -blood pressure improved, currently on Levophed. Hold oral agents.
Chronic anemia -macrocytic. Hemoglobin down to 9.2, monitor for now. Baseline hemoglobin appears to be 10-11.
B12, folic acid normal. Cannot rule out component of iron deficiency.
Obesity due to excess calories
Full code
Updated family at the bedside.
Anticipated Discharge: > 48 hours
Subjective/Interval History
-
Date of Service: July 11, 2024
Patient seen and examined. Remains intubated, sedated.
Objective Data
-
Labs:
Laboratory Results
03/05/25 03/05/25 03/06/25
20:28 22:23 04:40
WBC 13.7 H
Hgb 9.2 L
Hct 30.2 L
Plt Count 391
APTT 76.0 H 75.3 H
HCO3 41.9 H* 43.1 H*
Sodium 140 144
Potassium 3.2 L 3.3 L
Chloride 93 L 97 L
Carbon Dioxide 34 H 40 H
BUN 81 H 76 H
Creatinine 1.2 H 1.1 H
Glucose 113 H 144 H
Calcium 8.3 L 8.2 L
Total Bilirubin 0.8
AST 28
ALT 31
Alkaline Phosphatase 124
07/11/24
16:00
WBC
Hgb
Hct
Plt Count
APTT
HCO3
Sodium Pending
Potassium Pending
Chloride Pending
Carbon Dioxide Pending
BUN Pending
Creatinine Pending
Glucose Pending
Calcium Pending
Total Bilirubin Pending
AST Pending
ALT Pending
Alkaline Phosphatase Pending
Vital Signs:
Vital Signs
Temp Pulse Resp BP Pulse Ox
100.5 F H 115 14 101/57 96
07/11/24 05:15 07/11/24 07:59 07/11/24 07:59 07/11/24 06:00 07/11/24 07:59
I&O
07/10/24 07/11/24 07/12/24
06:59 06:59 06:59
Intake Total 931.8 / 998.7 1683.9 / 1683.9
Output Total 2325 / 2450 4407.0 / 4407.0
Balance -1393.2 / -1451.3 -2723.1 / -2723.1
Review of Systems
-
Unable to obtain full review of systems at this time due to: Acuity and Patient Intubation
[2024-07-11] MEDS: MIRALAX TUBE (08:12)
[2024-07-11] MEDS: DESENEX/MITRAZOL/ZEASORB 1 APPLIC TOPICAL ×2 (08:12→20:01)
[2024-07-11] MEDS: PROTONIX IV 40 MG IV (08:12)
[2024-07-11] MEDS: NSS (PRESERVATIVE FREE) 10 ML IV (08:12)
--- NOTE | 2024-07-11 08:17 | W.PN.NEPH.PH ---
Today's Communication / Plan
-
sign off
Assessment/Plan
-
IMP:
Acute hypoxic respiratory insufficiency, baseline 3 L at home
Acute on chronic hypercapnic respiratory failure s/p intubation 07/09/24
TME
Recent admission for AECHF, d/c 06/19/24
Hyperkalemia
TANIKA, creatinine 1.6 (BL 0.9-1.0)
Azotemia
Possible UTI, r/o sepsis
COPD without exacerbation
MARK
Paroxysmal atrial fibrillation
Hyperlipidemia
DM 2 with hyperglycemia -hemoglobin A1c 6.8% in June.
Essential hypertension -currently hypotensive.
Chronic anemia
PLan:
A/w CHF flare, remains intubated on Vent
life threatening hyperkalemia-off kcl tabs, s/p temporzation
K now corrected to 3.3
Defer diuretics to cardiology
Creatinine down to 1.1 with uop > 4liters
TANIKA- possible prerenal from hypotension , although disproportionate BUN of 97 to creatinine of 1.3 could indicate underlying cardiorenal causality: now resolved
we will sign off
-
-
Date of Service: July 11, 2024
CC / HPI / ROS
-
Chief Complaint:
TANIKA
Hyperkalemia
History of Present Illness:
Creatinine improved to 1.1 but BUN remains elevated at 76
Hemodynamically labile on pressor support
Remains intubated with FiO2 of 40%
Potassium improved to 3.3
Review of Systems:
Nonoliguric via Santana
Remains intubated FiO2 40%
Febrile
Labs
-
Labs:
WBC 13.7 10^3/uL (4.8-10.8) H 07/11/24 04:40
RBC 3.18 10^6/uL (4.20-5.40) L 07/11/24 04:40
Hgb 9.2 g/dL (12.0-16.0) L 07/11/24 04:40
Hct 30.2 % (37.0-47.0) L 07/11/24 04:40
Plt Count 391 10^3/uL (130-400) 07/11/24 04:40
eGFR 51.43 07/11/24 04:40
Phosphorus 2.7 mg/dl (2.5-4.5) 07/10/24 02:54
Rag-R-[id number] Pept 9300 pg/ml 07/08/24 12:16
Physical Exam
-
Vital Signs:
Vital Signs
Temp Pulse Resp BP Pulse Ox
100.3 F 115 14 101/57 96
07/11/24 08:11 07/11/24 07:59 07/11/24 07:59 07/11/24 06:00 07/11/24 07:59
Cardiovascular:: Regular rate and rhythm
Respiratory:: Bilateral: Coarse
Lung Excursion:: Normal
Abdomen:: Nontender and Soft
Bowel Sounds:: Decreased
Extremity Edema:: +1: Bilateral:
Santana Catheter: Yes
Other Findings::
General intubated sedated ET tube down oropharyngeal airway
--- NOTE | 2024-07-11 08:32 | W.PN.CARDCBS ---
Today's Communication / Plan
-
Add amiodarone for rate control
Continue norepinephrine, switch to Anders-Synephrine and consider de-escalation of norepinephrine
Consider additional Lasix, okay to hold for now pending pressor changes
Eventual cardioversion
Impression / Plan
-
Family Physician:� Trina Ralph
Primary Orthotic Technician: Dr. Simmons
Impression:
Sepsis with hypotension requiring pressor support
Vent dependent respiratory failure
Admitted with SOB and acute on hypoxic respiratory failure 06/10/24
New persistent atrial fibrillation with rapid ventricular response
AE COPD
Acute HFpEF
Hyperkalemia
Change in mental status
Mod peak/mean 48/27 mmHg and ZAY 1.0 cm sq by echo 12/21/23
Mod MS with peak/mean 17/7 mmHg by echo 12/21/23
MARK on BiPAP
HTN
HLD
DM2
Chronic iron deficiency anemia
Morbid obesity, BMI 36.4
h/o pulmonary nodules
ECHO 07/2019: EF 60-65%, mod cLVH, MAC, mild MR, mild to mod , peak/mean 26/16mmHg, ZAY 1.1cm2
ECHO 09/24/21: EF 65 to 70%, mild concentric LVH, mild , peak/mean gradients 31/19 mmHg, ZAY 1.1 cm�, trivial pericardial effusion, no significant change compared to prior
Echo 12/21/23: EF 55-60%, mild conc LVH, mod MS with peak/mean 17/7 mmHg, mod peak/mean 48/27 mmHg and ZAY 1.0 cm sq
Echo 06/13/24: EF 55 to 60%, no gross regional WMA, mild to moderate MS with mean gradient 6 mmHg at an HR of 76 bpm, mild MR, moderate peak/mean 46/28 mmHg and ZAY 1.1 cm SQ
Plan:
She appears relatively comfortable, but is on propofol and fentanyl. Still requires 2 pressors, Pitressin and Levophed. Heart rate is relatively rapid and blood pressure is marginal.
Will add amiodarone for rate control, which may be useful in the event that we can eventually proceed with cardioversion.
For her pressors, will stop vasopressin and start phenylephrine which may give us slightly better rate control as well. We could consider weaning norepinephrine which would also improve rate control.
She was still probably benefit from additional diuresis will continue to follow and dose furosemide as needed. Defer to hospitalist/critical care for diuretic at this time, would like to see how she does with amiodarone and switch to
Anders-Synephrine. Nephrology has signed off. Renal function is stable/slowly improving at 1.1, was 1.6 at admission.
Would not object to transition back to [facility] once it is clear she does not need additional invasive procedures. Continue heparin for now.
Discussed with granddaughter who is an ER nurse at [employer] and
Critical care time 40 minutes.
HPI: Patient came to ER today with increased weakness and a lower than usual pulse ox reading at home, patient now admitted with acute HF and cardiology has been consulted. Patient was just admitted to from 06/10/2024 until 06/19/2024 with acute
on chronic hypoxic multifactorial respiratory failure and also a new diagnosis of paroxysmal Afib. During that admission patient was diuresed with Lasix 80 mg IV BID. In addition to BiPAP therapy. Unfortunately the recorded weights during that
admission were not accurate because they were using a bed scale. I and O readings were also inaccurate, but the patient reported some subjective improvement. Patient was seen in the office on 06/26/2024 and was dutifully taking her dose of Lasix 80
mg twice daily, but was noted to be hypotensive and so her usual dose of nifedipine was stopped. Patient was seen in the wound clinic today and was noted to be SOB above baseline and hypoxic so she was referred to ER. Patient was using her
usual 3 L nasal cannula of supplemental oxygen and had improved pulse ox by increasing to 5 L. proBNP is up to 9300 today and was only as high as 1590 during her last admission. Again the recorded weights are not accurate
Progress Note - Orthotic Technician
Subjective
Date of Service: July 11, 2024:Current medications albuterol, Pulmicort, DuoNebs, Levophed, IV fentanyl, insulin, IV heparin, Zosyn, pantoprazole, Pitressin, propofol
101/57, pulse 115, resp rate 14, temp is 37.9, sats are 96%, opens eyes but does not respond, appears comfortable, exam is limited, aortic stenosis murmur, lungs are relatively clear abdomen benign, not much edema, JVD okay
Urine culture in progress, other cultures pending, has gram-negative rods in urine
Echo: EF 65-70%, mild to moderate mitral stenosis, mean gradient 7, moderate aortic stenosis, peak/mean gradients 56/35 mmHg, normal atria, normal RV
White count 13.7, hemoglobin 9.2, platelets 391, ABG today 7.45, pCO2 62, pO2 195 bicarb 43, base excess 16
Potassium 3.3, sodium 144, white carb 40, chloride 97, BUN and creatinine 76 and 1.1, proBNP was 9300 on admission, was 1590 at discharge June 10
Objective
Labs:
07/11/24 04:40
Labs
Hgb 9.2 g/dL (12.0-16.0) L 07/11/24 04:40
Hct 30.2 % (37.0-47.0) L 07/11/24 04:40
Plt Count 391 10^3/uL (130-400) 07/11/24 04:40
PT 18.4 Sec (11.4-14.6) H 07/09/24 15:19
INR 1.50 07/09/24 15:19
APTT 75.3 Sec (23.4-35.0) H 07/11/24 04:40
Sodium 144 mmol/L (135-145) 07/11/24 04:40
Potassium 3.3 mmol/L (3.5-5.1) L 07/11/24 04:40
BUN 76 mg/dl (7-17) H 07/11/24 04:40
Creatinine 1.1 mg/dL (0.6-1.0) H 07/11/24 04:40
Glucose 144 mg/dl (70-99) H 07/11/24 04:40
Troponins
07/08/24 07/09/24 07/09/24
12:16 15:19 19:58
Troponin I 0.018 0.019 0.025 D
07/10/24 07/10/24 07/10/24
02:54 08:30 13:13
Troponin I 0.046 H* D 0.059 H* D 0.061 H*
07/10/24
14:50
Troponin I 0.058 H*
Vital Signs and I&O:
Vital Signs
Temp Pulse Resp BP Pulse Ox
37.9 C 115 14 101/57 96
07/11/24 08:11 07/11/24 07:59 07/11/24 07:59 07/11/24 06:00 07/11/24 07:59
Vital Signs
Temp Pulse Resp BP Pulse Ox
37.9 C 115 14 101/57 96
07/11/24 08:11 07/11/24 07:59 07/11/24 07:59 07/11/24 06:00 07/11/24 07:59
Intake & Output
07/09/24 07/10/24 07/11/24 07/12/24
07:59 07:59 07:59 07:59
Intake Total 998.7 / 1058.4 1617.0 / 1617.0
Output Total 200 / 200 2450 / 2550 4282.0 / 4282.0
Balance -200 / -200 -1451.3 / -1491.6 -2665.0 / -2665.0
Physical Exam
Physical Exam
See above
--- NOTE | 2024-07-11 08:36 | PN.DE.MGMTRT ---
Insulin Management
- -
07/11/2024 Diabetes Management Consult Follow up
Patient admitted 07/08 with breathing problem, sepsis, acute on chronic respiratory failure due to acute pulmonary edema on chronic heart failure, with NEW a fib. PMH COPD, on 3L O2 at home chronically, HTN, HLD, diabetes, morbid obesity. Prior to
admission chart reflects patient was taking 10 - 25 units on N @ HS, Humalog 12 units with breakfast and lunch, Jardiance 10 mg daily and metformin 1000 mg BID. A1C 06/11/2024 was 6.8%.
Patient is critically ill, currently intubated, sedated all information obtained from chart and patients nurse.
Patient is currently on glycemic protocol insulin infusion, stopped @ 1900 for glucose 90. Resumed glycemic @ 0100 for glucose 191 receiving 3 to 1.7 units of insulin per hour. Will continue glycemic protocol today and reassess in AM for readiness
to transition to subcutaneous insulin.
Discussed with nurse, she will update me if patient condition changes requiring transition from insulin infusion.
Will follow
Diabetes History
- -
Pre-Admission Diabetes Regimen
07/10/24 07/10/24 07/11/24
14:50 20:28 04:40
Creatinine 1.1 H 1.2 H 1.1 H
Insulin Pump Settings
IP Diabetes Regimen
07/10/24 07/10/24 07/10/24
11:12 14:48 14:50
Glucose 135 H
POC Glucose 118 H 144 H
07/10/24 07/10/24 07/10/24
17:04 19:30 20:28
Glucose 113 H
POC Glucose 108 H 90
07/10/24 07/10/24 07/10/24
20:31 21:34 22:29
Glucose
POC Glucose 116 H 170 H 159 H
07/10/24 07/11/24 07/11/24
23:31 01:33 02:32
Glucose
POC Glucose 177 H 191 H 248 H
07/11/24 07/11/24 07/11/24
03:34 04:34 04:40
Glucose 144 H
POC Glucose 197 H 154 H
07/11/24
06:31
Glucose
POC Glucose 159 H
Meal type: Dinner
Meal type: Lunch
Meal type: Breakfast
Patient Education
--- NOTE | 2024-07-11 08:45 | PTOTSP ---
Reviewed chart and noted pt remains intubated/sedated in ICU and not appropriate for PT at this time. Will need new orders for PT and OT when able to actively participate in therapy activity.
[2024-07-11 08:46] LABS: COVID-19 Antigen Negative (Negative)
[2024-07-11] MEDS: PITRESSIN 100 IV ×2 (08:47→17:48)
[2024-07-11] MEDS: KCL ELIXIR 40 MEQ TUBE ×2 (08:47→17:41)
[2024-07-11] MEDS: NOVOLOG FLEXPEN SC ×3 (08:59→16:28)
[2024-07-11 09:30] LABS: Magnesium 2.2 mg/dl (1.6-2.3)
[2024-07-11 10:07] LABS: Glucose - Point of Care 103 mg/dl (70-99)
[2024-07-11 10:40] LABS: Glucose - Point of Care 123 mg/dl (70-99)
--- NOTE | 2024-07-11 10:53 | CON.ID ---
Consultation
-
Date/Time Consultation Requested: 07/11/2024 0808
Date/Time Consultation Performed: 07/11/2024 1040
Requesting Provider: Dr. Dueñas
Performing Provider: Dr. Heller
Reason for Consultation: Fever, leukocytosis
Chief Complaint / Past History
History of Present Illness
Luba Rivera is a 79-year-old female with a significant past medical history of COPD (3L home O2), DM and CHF being evaluated at the request of Dr. Dueñas in regards to leukocytosis and fever. History is obtained from chart review, along
with interview over the patient's and granddaughter who are at the bedside. Currently the patient is intubated and cannot provide any history to me directly.
The patient recently was an inpatient at [facility] in early June, during which time she was treated for acute CHF. Ultimately she was discharged to home, and was in her usual state of health until 07/08 when she developed significant
weakness during [facility]. Following evaluation there, she was placed back into the car and found to have a pulse ox in the mid 60s. She was taken to the emergency room and evaluated. Review of records indicate
that she had had a cough for several days, although the did not note this when I interviewed him. Hospital course thus far has been significant for the development of respiratory failure requiring intubation. Additionally, she has had
hypotension, now requiring the use of dual pressor support.
Prior to admission, no fevers or chills were reported. She did not admit to any pain. No history of nausea, vomiting or diarrhea, although her granddaughter does note that she had some slight stress incontinence over the past month.
Past History
Additional Past Medical History:
COPD
HTN
Dyslipidemia
Diabetes mellitus
Obesity
Additional Past Surgical History:
Appendectomy
Allergy History:
aspirin Allergy (Verified 07/10/24 22:44)
Anxiety
Medications Reviewed: Yes
Current Antibiotics:
Zosyn 3.375 g IV every 6 hours
Social History
Tobacco: Former Smoker
Alcohol: None
Drug: None
Personal:
Living: With Family
Employment: Retired
Family History
Family History: Not Pertinent
Review of Systems
Vital Signs
Temp Pulse Resp BP Pulse Ox
100.3 F 106 22 113/60 100
07/11/24 08:11 07/11/24 09:00 07/11/24 09:00 07/11/24 08:00 07/11/24 09:00
Physical Exam
Physical Exam
Constitutional: No Acute Distress, Comfortable, Acutely Ill, Chronically Ill, Non-toxic and Obese
Head: Other (ET tube in place.)
Eyes: No Conjunctival Hemorrhage and Sclera Anicteric
Cardiovascular: Regular Rate and S1/S2; Negative S3/S4
Pulmonary: Coarse; Negative Wheezes or Rales
Gastrointestinal: Soft, Non Tender, Non Distended, Normal Bowel Sounds, No Rebound, No Guarding and Other (FMS in place with liquid stool.)
Genito-Urinary: Santana and Clear Urine
Extremities: Negative Edema, Cyanosis or Erythema
Skin: Negative Rash or Jaundice
Neurological: Other (Sedated)
Lines: PICC
Lab / Diagnostic Study Results
07/11/24 04:40
Abs Immat Gran (auto) 0.1 10^3/uL (0-0.05) H 07/11/24 04:40
Absolute Neuts (auto) 11.4 10^3/uL (1.4-6.5) H 07/11/24 04:40
Absolute Lymphs (auto) 1.0 10^3/uL (1.2-3.4) L 07/11/24 04:40
Absolute Monos (auto) 1.0 10^3/uL (0.1-0.6) H 07/11/24 04:40
Absolute Basos (auto) 0.1 10^3/uL (0-0.2) 07/11/24 04:40
Immature Gran % 0.5 % (0-0.5) 07/11/24 04:40
Neutrophils % 83.6 % (42.2-75.2) H 07/11/24 04:40
Lymphocytes % 7.4 % (20.5-51.1) L 07/11/24 04:40
Monocytes % 7.6 % (1.7-9.3) 07/11/24 04:40
Eosinophils % 0.5 % (0-6) 07/11/24 04:40
Basophils % 0.4 % (0-2) 07/11/24 04:40
PT 18.4 Sec (11.4-14.6) H 07/09/24 15:19
INR 1.50 07/09/24 15:19
Lactic Acid 1.0 mmol/L (0.7-2.0) 07/10/24 20:28
Ur Squamous Epith Cells 3-5 /LPF (Few) 07/09/24 15:59
Microbiology Results
Micro:
07/11/24 08:05 Influenza Types A & B ([place]) - Final
Nasal Swab Negative for Influenza A & B, NAAT
Negative results must be combined with clinical observations
and patient history.
Nucleic Acid Amplification test (NAAT)performed on the
[employer] platform.
07/10/24 00:11 Respiratory Culture - Preliminary
Sputum Usual Respiratory Blanca
Gram Stain - Preliminary
07/09/24 15:59 Urine Culture - Preliminary
Urine Gram negative bacilli
Lactobacillus species
07/09/24 18:20 Blood Culture - Preliminary
Blood/Venous No Growth in 24 hours- Final report to follow
07/09/24 18:20 Blood Culture - Preliminary
Blood/Venous No Growth in 24 hours- Final report to follow
07/08/24 17:37 MRSA Screen - Final
Nose No Methicillin Resistant Staphylococcus aureus isolated.
Imaging:
07/11/2024 CXR (portable): ET tube projects over the trachea. Nasogastric tube not visualized, although lies below left hemidiaphragm. Heart is mildly enlarged. Minimal bibasilar airspace consolidation, with associated haziness of each
hemidiaphragm. Mild cephalization of the pulmonary vasculature. Please see full dictation for additional detail. Film personally viewed.
Assessment / Plan
Chronic hypoxemic respiratory insufficiency (3 L O2 at home)
Acute hypoxemic respiratory failure; on vent (07/09/2024)
Leukocytosis; rising
- Not clear if reactive, or secondary to infection.
Fevers
Bacteriuria
COPD
HTN
Dyslipidemia
Diabetes mellitus
Obesity
P A-fib
MARK
Recommendations:
Unclear etiology of rising white count; may be reactive, or may be due to infection.
Will broaden antibiotics to meropenem empirically. Will hold on initiation of vancomycin at this point, though unless blood cultures become positive.
Await further culture data to guide antimicrobial selection and potential de-escalation thereafter.
Trend white count and temperature curve.
Continue with supportive measures. Wean pressors as possible.
Patient currently critically ill in intensive care unit requiring ventilator support, along with dual pressor support.
Care Review
Plan reviewed with: Physician (Nephrology)
[2024-07-11] MEDS: PACERONE 200 MG TUBE ×3 (11:14→21:42)
[2024-07-11] MEDS: NEO-SYNEPHRINE 250 IV ×2 (11:14→17:49)
--- NOTE | 2024-07-11 12:10 | PTCARENOTE ---
plan of care discussed with Dr. Meza in rounds- tabby started in order to wean levophed. vaso continues. assessment unchanged further, pt turned and repositioned, oral care provided.
[2024-07-11 12:34] LABS: Glucose - Point of Care 119 mg/dl (70-99)
[2024-07-11] MEDS: MERREM 500 MG IV ×2 (15:00→20:01)
[2024-07-11] MEDS: STERILE WATER FOR INJECTION 10 ML IV ×2 (15:00→20:02)
[2024-07-11] MEDS: OMNIPAQUE 50 ML PO (15:20)
[2024-07-11 15:30] LABS: Glucose - Point of Care 90 mg/dl (70-99)
[2024-07-11 15:38] LABS: Glucose - Point of Care 84 mg/dl (70-99)
--- NOTE | 2024-07-11 15:46 | CM ---
CM following re: discharge planning.
Discussed in rounds, reviewed pt's chart. Daughter presents at Rounds meeting.
Per Rounds meeting, pt remains intubated, continue supportive care.
D/C plan: uncertain at this time and will depend on pt's progress.
CM will follow with discharge plan updates as hospitalization progresses
[2024-07-11 16:30] LABS: Glucose - Point of Care 107 mg/dl (70-99)
--- NOTE | 2024-07-11 16:38 | PTCARENOTE ---
assessment unchanged. discussed with Dr. Dueñas about titrating pressors- per Dr. Dueñas ok for ct this evening. pt tolerating contrast via ngt. family at bedside and updated. levo off, tabby and vaso continue.
[2024-07-11 16:55] LABS: Lactic Acid 0.9 mmol/L (0.7-2.0)
[2024-07-11 17:01] LABS: ALT (SGPT) 25 U/L (0-35); AST (SGOT) 38 U/L (14-36); Albumin 2.8 g/dl (3.5-5.0); Alkaline Phosphatase 100 U/L (38-126); Blood Urea Nitrogen 64 mg/dl (7-17); Carbon Dioxide 39 mmol/L (22-30); Chloride 97 mmol/L (98-107); Estimated Creatinine Clearance 40 ml/min; Glucose 109 mg/dl (70-99); Magnesium 2.3 mg/dl (1.6-2.3); Potassium 3.5 mmol/L (3.5-5.1); Sodium 142 mmol/L (135-145); Total Bilirubin 0.9 mg/dl (0.2-1.3); Total Protein 5.5 g/dl (6.3-8.2); eGFR 46.33
[2024-07-11] MEDS: SUBLIMAZE 100 IV (17:41)
[2024-07-11 17:46] LABS: Glucose - Point of Care 132 mg/dl (70-99)
[2024-07-11 18:34] LABS: Glucose - Point of Care 138 mg/dl (70-99)
--- NOTE | 2024-07-11 19:30 | PTCARENOTE ---
Pt tolerating vent settings satting at 99% pulse ox. Pt arouses to verbal and tactile stimuli. A-line in place. Pt on vaso and tabby gtts.
[2024-07-11 19:42] LABS: Glucose - Point of Care 145 mg/dl (70-99)
--- NOTE | 2024-07-11 20:00 | PTCARENOTE ---
Anders gtt tapered to 80mcg/min per protocol.
[2024-07-11] MEDS: FLOVENT 110 MCG INHALER 4 PUFF INH (21:23)
[2024-07-11 21:45] LABS: Glucose - Point of Care 149 mg/dl (70-99)
[2024-07-11 23:49] LABS: Glucose - Point of Care 188 mg/dl (70-99)
[2024-07-12] MEDS: DIPRIVAN 100 IV (00:01)
[2024-07-12 00:44] LABS: Glucose - Point of Care 186 mg/dl (70-99)
[2024-07-12 01:42] LABS: Glucose - Point of Care 155 mg/dl (70-99)
[2024-07-12] MEDS: MERREM 500 MG IV ×4 (01:45→19:55)
[2024-07-12] MEDS: STERILE WATER FOR INJECTION 10 ML IV ×4 (01:45→19:55)
[2024-07-12] MEDS: HEPARIN 25000 UNITS/250 ML IV (03:20)
[2024-07-12] MEDS: NEO-SYNEPHRINE 250 IV ×4 (03:20→21:02)
[2024-07-12 03:40] LABS: Glucose - Point of Care 131 mg/dl (70-99)
[2024-07-12] MEDS: PITRESSIN 100 IV ×2 (04:17→14:31)
[2024-07-12 04:46] LABS: B.E. 11.9 mmol/L; HCO3 37.8 mmol/L (21-28); PCO2 57 mmHg (32-35); PO2 154 mmHg (83-108); pH 7.43 (7.35-7.45)
[2024-07-12 04:55] LABS: Hematocrit 29.8 % (37.0-47.0); Hemoglobin 9.1 g/dL (12.0-16.0); Mean Corp Hgb Conc. 30.5 g/dL (33.0-37.0); Mean Corpuscular Volume 94.9 fL (81.0-99.0); Mean Platelet Volume 10.6 fL (7.4-10.4); Platelet Count 344 10^3/uL (130-400); Red Blood Cell Count 3.14 10^6/uL (4.20-5.40); Red Cell Dist. Width 17.1 % (11.5-14.5)
[2024-07-12 05:00] LABS: O2 Therapy VENT
[2024-07-12 05:02] LABS: APTT 114.9 Sec (23.4-35.0)
[2024-07-12 05:09] LABS: Blood Urea Nitrogen 53 mg/dl (7-17); Calcium 7.9 mg/dl (8.4-10.2); Carbon Dioxide 39 mmol/L (22-30); Chloride 101 mmol/L (98-107); Estimated Creatinine Clearance 48 ml/min; Glucose 161 mg/dl (70-99); Potassium 3.6 mmol/L (3.5-5.1); Sodium 144 mmol/L (135-145); Triglycerides 109 mg/dl (10-149); eGFR 57.66
[2024-07-12 05:43] LABS: Glucose - Point of Care 152 mg/dl (70-99)
[2024-07-12 06:00] VITALS: BMI 35.9
[2024-07-12] MEDS: NOVOLOG FLEXPEN SC (07:26)
[2024-07-12 07:35] LABS: Glucose - Point of Care 141 mg/dl (70-99)
[2024-07-12] MEDS: DUONEB 3 ML INH ×2 (07:49→13:29)
[2024-07-12] MEDS: FLOVENT 110 MCG INHALER 4 PUFF INH ×2 (07:50→20:56)
[2024-07-12] MEDS: TYLENOL ORAL SOLUTION 650 MG PO ×3 (08:11→21:26)
[2024-07-12] MEDS: PACERONE 200 MG TUBE (08:11)
[2024-07-12] MEDS: DESENEX/MITRAZOL/ZEASORB 1 APPLIC TOPICAL ×2 (08:11→20:22)
[2024-07-12] MEDS: NSS (PRESERVATIVE FREE) 10 ML IV (08:11)
[2024-07-12] MEDS: PROTONIX IV 40 MG IV (08:12)
[2024-07-12] MEDS: MIRALAX TUBE (08:12)
--- NOTE | 2024-07-12 08:13 | W.PN.CARDCBS ---
Today's Communication / Plan
-
Furosemide 40 mg IV x 1
Continue pressor support
Increase amiodarone to 400 every 8
Transition to Eliquis if no invasive procedures are planned
Impression / Plan
-
Family Physician:� Trina Ralph
Primary Guest Relations Executive: Dr. Simmons
Impression:
Sepsis with hypotension requiring pressor support
Vent dependent respiratory failure
Admitted with SOB and acute on hypoxic respiratory failure 06/10/24
New persistent atrial fibrillation with rapid ventricular response
AE COPD
Acute HFpEF
Hyperkalemia
Change in mental status
Mod peak/mean 48/27 mmHg and ZAY 1.0 cm sq by echo 12/21/23
Mod MS with peak/mean 17/7 mmHg by echo 12/21/23
MARK on BiPAP
HTN
HLD
DM2
Chronic iron deficiency anemia
Morbid obesity, BMI 36.4
h/o pulmonary nodules
ECHO 07/2019: EF 60-65%, mod cLVH, MAC, mild MR, mild to mod , peak/mean 26/16mmHg, ZAY 1.1cm2
ECHO 09/24/21: EF 65 to 70%, mild concentric LVH, mild , peak/mean gradients 31/19 mmHg, ZAY 1.1 cm�, trivial pericardial effusion, no significant change compared to prior
Echo 12/21/23: EF 55-60%, mild conc LVH, mod MS with peak/mean 17/7 mmHg, mod peak/mean 48/27 mmHg and ZAY 1.0 cm sq
Echo 06/13/24: EF 55 to 60%, no gross regional WMA, mild to moderate MS with mean gradient 6 mmHg at an HR of 76 bpm, mild MR, moderate peak/mean 46/28 mmHg and ZAY 1.1 cm SQ
Echo 07/09/24: EF 65-70%, mild to moderate mitral stenosis, mean gradient 7, moderate aortic stenosis, 56/35 mmHg, no comment on AI, mild to moderate mitral stenosis, mean gradient 7 no comment on mitral regurgitation, normal atria, normal RV, could
not determine pulmonary artery systolic pressure
Plan:
She seems relatively stable, and when sedated her heart rate is now better controlled with addition of Anders-Synephrine and (mostly) amiodarone. However when awake her heart rate goes up. Still in atrial fibrillation. Will increase amiodarone to
400 mg every 8 hours.
Volume status is difficult to ascertain but proBNP was elevated. Outpatient furosemide was 80 mg twice daily. Renal function is improving, so will give furosemide 40 mg IV x 1 and consider uptitrating if needed.
Patient now off Levophed which may also be helping heart rate, now on Pitressin and Anders-Synephrine. Attempt to wean Pitressin as possible.
She has been anticoagulated for weeks. We could consider cardioversion if she remains difficult to get off the ventilator. For now we will continue to observe.
If invasive procedures are not plan, would restart Eliquis and stop heparin.
Discussed with and daughter, who is an ICU nurse at [facility].
HPI: Patient came to ER today with increased weakness and a lower than usual pulse ox reading at home, patient now admitted with acute HF and cardiology has been consulted. Patient was just admitted to from 06/10/2024 until 06/19/2024 with acute
on chronic hypoxic multifactorial respiratory failure and also a new diagnosis of paroxysmal Afib. During that admission patient was diuresed with Lasix 80 mg IV BID. In addition to BiPAP therapy. Unfortunately the recorded weights during that
admission were not accurate because they were using a bed scale. I and O readings were also inaccurate, but the patient reported some subjective improvement. Patient was seen in the office on 06/26/2024 and was dutifully taking her dose of Lasix 80
mg twice daily, but was noted to be hypotensive and so her usual dose of nifedipine was stopped. Patient was seen in the wound clinic today and was noted to be SOB above baseline and hypoxic so she was referred to ER. Patient was using her
usual 3 L nasal cannula of supplemental oxygen and had improved pulse ox by increasing to 5 L. proBNP is up to 9300 today and was only as high as 1590 during her last admission. Again the recorded weights are not accurate
Progress Note - Guest Relations Executive
Subjective
Date of Service: July 12, 2024:
Heart rate well-controlled overnight, when awake, heart rate above 110 or higher. and daughter at bedside. Daughter is ICU nurse at [employer].
Medications: Albuterol, insulin infusion, IV fentanyl, IV heparin, IV pantoprazole, IV Pitressin, phenylephrine, propofol, amiodarone 200 3 times daily, meropenem, fluticasone, as needed metoprolol
101/43, pulse 81, temp is 38.3, respirate is 32, sats are 99%, intake and output +1 L, weight is 89 kg, stable, opens eyes, lungs relatively clear, and his murmur, tachycardic, irregular, 1+ edema JVD probably somewhat elevated
Chest x-ray today vague reticular pattern in the lungs diffuse bilaterally, more prominent in bases
White count 13.0, hemoglobin 9.1, platelets 344, ABG 7.43, pCO2 57, pO2 154, bicarb 38, BUN and creatinine 53 and 1.0, creatinine had been 1.2, was 1.6 earlier in hospital stay, peak troponin was 0.061, proBNP on admission was 9300, previously 1590
Objective
Labs:
07/12/24 04:30
Labs
Hgb 9.1 g/dL (12.0-16.0) L 07/12/24 04:30
Hct 29.8 % (37.0-47.0) L 07/12/24 04:30
Plt Count 344 10^3/uL (130-400) 07/12/24 04:30
PT 18.4 Sec (11.4-14.6) H 07/09/24 15:19
INR 1.50 07/09/24 15:19
APTT 114.9 Sec (23.4-35.0) H 07/12/24 04:30
Sodium 144 mmol/L (135-145) 07/12/24 04:30
Potassium 3.6 mmol/L (3.5-5.1) 07/12/24 04:30
BUN 53 mg/dl (7-17) H 07/12/24 04:30
Creatinine 1.0 mg/dL (0.6-1.0) 07/12/24 04:30
Glucose 161 mg/dl (70-99) H 07/12/24 04:30
Troponins
07/09/24 07/09/24 07/10/24
15:19 19:58 02:54
Troponin I 0.019 0.025 D 0.046 H* D
07/10/24 07/10/24 07/10/24
08:30 13:13 14:50
Troponin I 0.059 H* D 0.061 H* 0.058 H*
Vital Signs and I&O:
Vital Signs
Temp Pulse Resp BP Pulse Ox
38.3 C H 81 32 101/43 99
07/12/24 07:54 07/12/24 06:00 07/12/24 06:00 07/12/24 08:11 07/12/24 08:00
Vital Signs
Temp Pulse Resp BP Pulse Ox
38.3 C H 81 32 101/43 99
07/12/24 07:54 07/12/24 06:00 07/12/24 06:00 07/12/24 08:11 07/12/24 08:00
Intake & Output
07/10/24 07/11/24 07/12/24 07/13/24
07:59 07:59 07:59 07:59
Intake Total 998.7 / 1058.4 1662.7 / 1758.4 2537.3 / 2537.3
Output Total 2450 / 2550 4322.0 / 4362.0 1452 / 1452
Balance -1451.3 / -1491.6 -2659.3 / -2603.6 1085.3 / 1085.3
Physical Exam
Physical Exam
See above
--- NOTE | 2024-07-12 08:14 | PTOTSP ---
Reviewed chart and noted pt remains intubated, on pressors, not weaning from vent. PT order was from 07/08, when pt was in IMU. Will sign off at this time as pt not appropriate to participate in PT yet. Re-order PT and OT at a later date when she is
stable to actively participate in therapy activities.
--- NOTE | 2024-07-12 08:17 | PN.DE.MGMTRT ---
Insulin Management
- -
07/12/2024 Diabetes Management Consult Follow up
Patient admitted 07/08 with breathing problem, sepsis, acute on chronic respiratory failure due to acute pulmonary edema on chronic heart failure, with NEW a fib. PMH COPD, on 3L O2 at home chronically, HTN, HLD, diabetes, morbid obesity. Prior to
admission chart reflects patient was taking 10 - 25 units on N @ HS, Humalog 12 units with breakfast and lunch, Jardiance 10 mg daily and metformin 1000 mg BID. A1C 06/11/2024 was 6.8%, Cr 1.0, eGFR 57.66
Patient is critically ill, intubated and sedated, unable to discuss diabetes care plan. at bedside, support provided.
Patient remains on glycemic protocol insulin infusion, stopped @ 14:41 for glucose 90. Resumed infusion @ 23:38 for glucose 188.
Current glucose range 131 to 192, requiring 1.5 to 3 units of insulin per hour.
Will continue glycemic protocol today and reassess later today for readiness to transition to subcutaneous insulin.
Discussed with nurse, she will update me if patient condition changes requiring transition from insulin infusion.
Will cont to follow
Diabetes History
- -
Type of Diabetes: 2 requiring insulin
Pre-Admission Diabetes Regimen
07/11/24 07/12/24
16:19 04:30
Creatinine 1.2 H 1.0
Insulin Pump Settings
IP Diabetes Regimen
07/11/24 07/11/24 07/11/24
08:45 10:29 12:23
Glucose
POC Glucose 103 H 123 H 119 H
07/11/24 07/11/24 07/11/24
14:39 15:27 16:18
Glucose
POC Glucose 90 84 107 H
07/11/24 07/11/24 07/11/24
16:19 17:35 18:22
Glucose 109 H
POC Glucose 132 H 138 H
07/11/24 07/11/24 07/11/24
19:31 21:30 23:37
Glucose
POC Glucose 145 H 149 H 188 H
07/12/24 07/12/24 07/12/24
00:32 01:31 03:27
Glucose
POC Glucose 186 H 155 H 131 H
07/12/24 07/12/24 07/12/24
04:30 05:32 07:22
Glucose 161 H
POC Glucose 152 H 141 H
Patient Education
--- NOTE | 2024-07-12 08:42 | W.PN.HOSP.TC ---
Today's Communication/Plan
-
Continue antibiotics
Wean pressors as able
Assessment / Plan
Assessment / Plan
Gen-intubated, sedated
HEENT-NC, AT, anicteric, clear oral mm
Neck-supple
CV-reg, no M, +S1/S2
Lungs-clear B/L
Abd-soft, NT, ND
Ext-bilateral lower extremity edema improving
Musculoskeletal-no cyanosis, clubbing
Skin-warm and dry, bruising lower extremities, right pretibial wound with blood saturated dressing
Shock -likely multifactorial including cardiogenic and septic. Still requiring 2 vasopressors. Presentation July 08 with weakness and shortness of breath, hypoxia. Subsequently became hemodynamically unstable July 09 with acute TME, required
intubation and transferred to ICU.
Being worked up for sepsis due to UTI. Blood cultures negative so far, urine culture gram-negative bacilli, lactobacillus species. IV meropenem per infectious disease.
CT abdomen/pelvis without significant pathology. 1.4 cm cystic mass arising in the distal tail of the pancreas, will need outpatient follow-up.
CT chest with small bilateral pleural effusions, left greater than right, adjacent bilateral lower lobe parenchymal opacities possibly representing pneumonia. Large amount of mucous plug in the right lower lobe bronchi.
Right buttock stage IV pressure injury present on admission. Does not look infected based on images from the wound clinic this week. Stool negative for C. difficile colitis. Stool culture pending.
Noted to have urinary retention during last hospitalization. She was discharged with Santana catheter and Flomax with recommendation for outpatient urology follow-up. Discharged on a course of Keflex for possible UTI. Required a Santana catheter for
3 days as per family.
Acute on chronic hypoxic/hypercapnic respiratory failure -suspect due to acute pulmonary edema due to acute on chronic heart failure exacerbation. Possible contribution of underlying COPD and MARK to respiratory failure given significant
hypercapnia. Obesity hypoventilation syndrome possible contribution as well.
Intubated July 09. Stable in ICU. Head Waiter/Waitress following.
Portable chest x-ray done this morning shows bibasilar opacification, right greater than left, possibly representing subsegmental atelectasis and/or pneumonia with possible tiny right pleural effusion.
Receiving tube feeding for nutritional support.
Acute TME -suspect multifactorial etiology including hypoxia, hypercapnia, heart failure, possible sepsis, etc.
TANIKA -suspect related to septic shock, ATN. Creatinine trending down, 1.0 today. Nephrology following.
Acute on chronic heart failure with preserved EF -weight unchanged compared to admission weight. I's and O's are +1 L. BNP is elevated, 9300. Limited bedside echocardiogram done July 09 shows preserved EF and unchanged.
Cardiology consulted. She was just discharged from our hospital June 19 with a diagnosis of acute heart failure exacerbation, acute COPD exacerbation.
Last echocardiogram was 06/13/24, normal LV size and function, LVEF 55 to 60%, no gross wall motion abnormalities. Mild concentric LVH. Normal RV size and function. Mild to moderate mitral stenosis. Moderate aortic stenosis. Estimated aortic
valve area 1.1 cm�.
Lasix discontinued by intensive care team due to significant urine output.
Troponin elevation -troponin trending down. Differential diagnosis includes acute nonischemic myocardial injury versus type II RI due to rapid atrial fibrillation versus other. Cardiology following.
Severe hyperkalemia -treated and resolved.
Hypokalemia -will replete. Check magnesium.
COPD without exacerbation
MARK -uses BiPAP at home.
Paroxysmal atrial fibrillation -on Eliquis at home. Atrial fibrillation was just diagnosed June 2024. Currently on IV heparin.
Hyperlipidemia -atorvastatin.
DM 2 with hyperglycemia -hemoglobin A1c 6.8% in June. Glucose 144 this a.m. At home she is on lispro insulin 12 units before breakfast and lunch, 16 units before dinner. NPH insulin 10 to 25 units at bedtime. Metformin 1000 mg twice daily.
Jardiance 10 mg daily. Hold oral agents.
Currently on IV regular insulin infusion at 1 unit/h. Glucoses controlled. Diabetes CARPENTER MATE following.
Essential hypertension -blood pressure improved, currently on Levophed. Hold oral agents.
Chronic anemia -macrocytic. Hemoglobin down to 9.1, monitor for now. Baseline hemoglobin appears to be 10-11.
B12, folic acid normal. Cannot rule out component of iron deficiency.
Obesity due to excess calories
Full code
Updated family at the bedside.
Anticipated Discharge: > 48 hours
Subjective/Interval History
-
Date of Service: July 12, 2024
Patient seen and examined. Remains intubated, sedated.
Objective Data
-
Labs:
Laboratory Results
07/12/24 07/12/24 07/12/24
04:30 11:30 16:00
WBC 13.0 H
Hgb 9.1 L
Hct 29.8 L
Plt Count 344
APTT 114.9 H Pending
HCO3 37.8 H
Sodium 144 Pending
Potassium 3.6 Pending
Chloride 101 Pending
Carbon Dioxide 39 H Pending
BUN 53 H Pending
Creatinine 1.0 Pending
Glucose 161 H Pending
Calcium 7.9 L Pending
Total Bilirubin Pending
AST Pending
ALT Pending
Alkaline Phosphatase Pending
Vital Signs:
Vital Signs
Temp Pulse Resp BP Pulse Ox
100.9 F H 81 32 101/43 98
07/12/24 07:54 07/12/24 06:00 07/12/24 06:00 07/12/24 08:11 07/12/24 08:00
I&O
07/11/24 07/12/24 07/13/24
06:59 06:59 06:59
Intake Total 1683.9 / 1729.6 2583.0 / 2706.9 244.4 / 244.4
Output Total 4407.0 / 4447.0 1492 / 1592 250 / 250
Balance -2723.1 / -2717.4 1091.0 / 1114.9 -5.6 / -5.6
Review of Systems
-
History Source: Patient
All other systems: Reviewed and negative
--- NOTE | 2024-07-12 08:52 | W.PN.INTV ---
Today's Communication / Plan
Recommendations
- In view of persistent fever, repeat blood cultures, continue current antimicrobials
-Continue phenylephrine and vasopressin, continue to stay off Levophed in view of tachycardia
-Lasix 40 mg IV x 1
-Decrease PEEP to 6
-Replace potassium
Assessment
-
Patient is a 78-year-old female with previous history of COPD, chronic hypercarbic respiratory failure on BiPAP, chronic heart failure with preserved EF, chronic hypoxemia presenting with increased shortness of breath and weakness over the past 24
hours. She was at wound clinic the day prior to admission and notably hypoxemic, was referred to the emergency room. On arrival ABG noted to be 7.. She was treated with BiPAP overnight. Repeat ABG 7.. She had increasing somnolence
throughout the day. A decision was made for intubation due to persistent mental status changes and unresponsiveness.
07/09, patient was intubated due to worsening mental status and hypercapnia and subsequently transferred to ICU. Also noted to be severely hyperkalemic which was urgently temporized and intensive care consultation was requested for further
management
07/10, patient overnight stayed hypotensive and required pressor support. She did have fever and in view of shock broad-spectrum antibiotics were continued in addition to diuretics.
#1. Acute on chronic hypoxic and hypercapnic respiratory failure s/p intubation 07/09/24. Respiratory failure is due to heart failure exacerbation, suspected right lower lobe pneumonia/aspiration as well as underlying COPD with morbid obesity and
history of sleep apnea with possibly obesity hypoventilation syndrome.
-ABG reviewed, 7.43, 57, 154, currently on volume control 350, 14, 40%, 8. PEEP decreased to 6. X-ray appears unchanged
-Patient at baseline on oxygen and also has chronic hypercapnia with baseline PCO2 90
-Chest x-ray and ABG in a.m.
#2. Shock, likely mixed septic shock and cardiogenic shock
-Continue pressor support
-Avoid midodrine/dobutamine
-Monitor ins and outs closely, follow-up ABG and lactate
-ID service on case, antibiotic changed to meropenem
-In view of persistent fever, repeat blood cultures
-Urine showing Klebsiella and lactobacilli
-Continue vasopressin. Phenylephrine started in view of A-fib with RVR and stopped Levophed
#2. Acute on chronic HFpEF, moderate aortic stenosis. Recent hospitalization in June for heart failure exacerbation.
-High-dose Lasix on hold due to good diuresis, give additional 40 mg today
-Cardiology service on case.
-Chest x-ray today does not appear to be floridly volume overloaded
#3. Right lower lobe pneumonia, suspect aspiration.
-Considering patient is in shock and recent hospitalization about a month ago, continue antibiotic
-MRSA screen negative, follow-up on blood cultures
-Chest PT in view of right lower lobe mucous plugging
#4. Increasing lethargy, unresponsiveness. This is related to worsening hypercapnia and metabolic encephalopathy. (prior to requiring intubation)
-Currently patient is intubated and sedated
#5. Acute kidney injury with hyperkalemia.
-Acidosis and hypercapnia also exacerbated hyperkalemia, status post emergency temporization with improved potassium
-Cardiorenal syndrome, creatinine improved with diuresis
-Avoid NAJMA inhibitor, ARB's as well as constipation
-Nephrology service on case
#6. A-fib with RVR atrial fibrillation with RVR, new onset. Suspect in the setting of acute critical illness
-Cardiology service on case
-Continue heparin infusion for stroke prophylaxis
-Continue phenylephrine and vasopressin, avoiding Levophed
-Amiodarone p.o. started, dose managed by cardiology
-Continue telemetry monitoring
-Minimally elevated troponin, downtrending
#7. DM with hyperglycemia:
_insulin infusion
Other:
-Continue tube feeding
-DVT prophylaxis with heparin infusion
-GI prophylaxis with PPI
Conditions present prior to admission
Diabetes
Hypertension
Hyperlipidemia
Morbid obesity
Elevated IgE
Severe sleep apnea, total index 56, desaturation adamaris 51%
Compliant and adequate with auto BiPAP
Severe COPD, spirometry 06/22/23- FVC 1.14 or 45%, FEV1 0.66 or 33, Ratio 57
Heart failure with preserved ejection fraction
History of anemia
History of pleural effusions, stable since 2010
Afib on Eliquis
Diagnostic Data
Chest X-Ray: 07/09/24 post intubation- 1. Endotracheal and nasogastric tubes are in satisfactory position.
2. Mild pulmonary edema, not significantly changed.
3. Obscuration of both hemidiaphragms, left greater than right, suggestive of small bilateral pleural effusions. Bibasilar airspace disease may also be present.
07/08/24- Cardiomegaly, unchanged. Pulmonary interstitial prominence again seen, cannot differentiate acute versus chronic. Some right basilar opacity and left hemidiaphragm again obscured. Cannot exclude bibasilar subsegmental atelectasis and/or
pneumonia and small bilateral pleural effusions.
Chest x-ray 06/14/2024: Moderate cardiomegaly. Mild increased interstitial markings. Improved compared to prior 06/12/2024
CT Scan: CTA 2017- No pulmonary embolism. Prominent distal pulmonary artery and right and left pulmonary arteries, suggesting an element of pulmonary hypertension. Mild stable chronic parenchymal findings, without evidence of acute pneumonia.
Long-term interval stability of 3 small pulmonary nodules, supporting a benign etiology.
CHEST 09/27/13- Stable left upper lobe pulmonary nodules since February 2011. There is extremely high probability that these are benign. Stable bibasilar scarring.
Findings suggesting pulmonary arterial hypertension. Mitral annulus calcification. Coronary artery disease. Essentially resolved right pleural effusion.
Echo: 06/13/24- Normal left ventricular chamber size. Normal left ventricular systolic function. Left ventricular ejection fraction is 55-60% by visual assessment. No gross regional wall motion abnormalities. Mild concentric left ventricular
hypertrophy. Normal right ventricular size and function. Mild to moderate mitral stenosis. Moderate aortic stenosis. Peak/mean gradients across the aortic valve are 46/28 mmHg and estimated aortic valve area is 1.1 cm2. Compared to prior study
dated 12/31/2023, there is no significant change, prior aortic valve peak/mean gradients were 48/27 mmHg, respectively.
PFT's: spirometry 06/22/23- FVC 1.14 or 45%, FEV1 0.66 or 33, Ratio 57 (severe obstruction)
Reports and relevant images were personally reviewed.
Critical Care time 45 mins -- The patient is admitted for acute critical illness for the treatment of vital organ failure and/or prevention of further life-threatening conditions. Total care includes time spent in review of history, physical exam,
medications, hemodynamic/ventilator parameters, laboratory data, imaging and discussion with house staff, pharmacy, respiratory therapy, physician general internal medicine, and nursing. Time also included performing right subclavian central line placement as well as right
radial arterial line placement.
Subjective Dataa
Subjective Data
Date of Service:
Date of Service: July 12, 2024
Subjective:
Patient intubated, mechanically ventilated and sedated
Review of Systems
General: Unobtainable - Sedation
Objective Data
Data Reviewed
Vital Signs / I&O / Oxygen:
Vital Signs
Temp Pulse Resp BP Pulse Ox
100.9 F H 86 27 101/43 98
07/12/24 07:54 07/12/24 08:00 07/12/24 08:00 07/12/24 08:11 07/12/24 08:00
Intake and Output
07/11/24 07/12/24 07/13/24
06:59 06:59 06:59
Intake Total 1683.9 / 1729.6 2583.0 / 2706.9 244.4 / 244.4
Output Total 4407.0 / 4447.0 1492 / 1592 250 / 250
Balance -2723.1 / -2717.4 1091.0 / 1114.9 -5.6 / -5.6
SaO2 [A/C] 98
SaO2 98
Nasal Cannula flow liters per 5
minute
Physical Exam
General: Comfortable
Cardiovascular: S1-S2
Respiratory: Crackles and Rhonchi (Rhonchi, right greater than left.)
GI: Soft and Non Distended
Neurology: Other (Currently sedated)
Skin: Warm
Labs/Micro/Reports
Lab Data
07/12/24 04:30
Laboratory Results
07/12/24
04:30
APTT 114.9 H
pH 7.43
pCO2 57 H
pO2 154 H
HCO3 37.8 H
O2 Delivery Level Vent
Microbiology
07/09/24 15:59 Urine Urine Culture - Preliminary
Gram negative bacilli
Lactobacillus species
07/09/24 18:20 Blood/Venous Blood Culture - Preliminary
No Growth in 48 hours- Final report to follow
07/09/24 18:20 Blood/Venous Blood Culture - Preliminary
No Growth in 48 hours- Final report to follow
07/11/24 13:28 Feces/Stool Stool Leukocytes - Final
07/11/24 13:28 Feces/Stool C. difficile GDH Antigen & Toxins - Final
Negative for toxigenic C.difficile
07/11/24 08:05 Nasal Swab Influenza Types A & B ([place]) - Final
Negative for Influenza A & B, NAAT
Negative results must be combined with clinical observations
and patient history.
Nucleic Acid Amplification test (NAAT)performed on the
[employer] platform.
07/10/24 00:11 Sputum Respiratory Culture - Preliminary
Usual Respiratory Blanca
07/10/24 00:11 Sputum Gram Stain - Preliminary
07/08/24 17:37 Nose MRSA Screen - Final
No Methicillin Resistant Staphylococcus aureus isolated.
--- NOTE | 2024-07-12 08:54 | PTCARENOTE ---
pt opens eyes to touch briefly. diprivan turned off for sedation trial. ac mode on vent no cough or gag noted with oral care. suctions for thin white. ngt placement checked tube feeding running increased to goal rate. fms in place draining
liquid stool. santos in place zeroed. insulin tabby vaso fent heparin gtt running as ordered. oral sheth care done. family at bedside reviewed plan of care.
--- NOTE | 2024-07-12 09:33 | PTCARENOTE ---
sacral dressing changed as ordered. left buttock with dark purple red area. pt repositioned.
[2024-07-12 09:42] LABS: Glucose - Point of Care 192 mg/dl (70-99)
--- NOTE | 2024-07-12 09:59 | PTCARENOTE ---
as per discussion with dr lillie agustin will begin to titrate down vasopressin and use tabby for bp support
[2024-07-12 10:46] LABS: Glucose - Point of Care 202 mg/dl (70-99)
[2024-07-12] MEDS: NOVOLOG FLEXPEN 4 UNITS SC (11:37)
[2024-07-12 11:52] LABS: Glucose - Point of Care 187 mg/dl (70-99)
--- NOTE | 2024-07-12 12:13 | W.PN.ID1 ---
Date of Service
Date of Service: July 12, 2024
Today's Communication
See below
Assessment / Plan
Chronic hypoxemic respiratory insufficiency (3 L O2 at home)
Acute hypoxemic respiratory failure; on vent (07/09/2024)
Leukocytosis; r
- Not clear if reactive, or secondary to infection.
Fevers persists
Bacteriuria
Shock - on 2 pressors
COPD
HTN
Dyslipidemia
Diabetes mellitus
Obesity
P A-fib
MARK
Recommendations:
Unclear etiology of rising white count; may be reactive, or may be due to infection.
Bcx x 2 neg to date.
Sputum usual respiratory blanca.
Urine cx with Klebsiella x 2 strains , both susceptible to meropenem.
Still febrile on meropenem, thus unlikely urine source
-Repeat COVID and Influenza tests.
-CXR with bibasilar opacities - atelectasis vs PNA. Add empiric doxycycline.
Continue meropenem for now.
Trend white count and temperature curve.
Continue with supportive measures. Wean pressors as possible.
Patient currently critically ill in intensive care unit requiring ventilator support, along with dual pressor support.
Subjective / Review of Systems
Remains on vent. at bedside.
Vital Signs / Physical Exam
Vital Signs
Vital Signs
Temp Pulse Resp BP Pulse Ox
101.3 F H 105 14 101/43 99
07/12/24 12:07 07/12/24 10:00 07/12/24 10:00 07/12/24 08:11 07/12/24 11:03
Physical Exam
Constitutional: Acutely Ill
Eyes: No Conjunctival Hemorrhage and Sclera Anicteric
Cardiovascular: Regular Rate, Irregular Rate and Other (tachycardic)
Pulmonary: Clear (anteriorly)
Gastrointestinal: Soft, Non Tender, Non Distended and Normal Bowel Sounds
Genito-Urinary: Clear Urine
Extremities: Edema
Objective Data
Lab Data
Lab Results
07/12/24 04:30
PT 18.4 Sec (11.4-14.6) H 07/09/24 15:19
INR 1.50 07/09/24 15:19
APTT 114.9 Sec (23.4-35.0) H 07/12/24 04:30
Estimated Creat Clear 48 ml/min 07/12/24 04:30
Lactic Acid 0.9 mmol/L (0.7-2.0) 07/11/24 16:19
Total Bilirubin 0.9 mg/dl (0.2-1.3) 07/11/24 16:19
AST 38 U/L (14-36) H 07/11/24 16:19
ALT 25 U/L (0-35) 07/11/24 16:19
Alkaline Phosphatase 100 U/L (38-126) 07/11/24 16:19
Most recent labs reviewed.
Micro Results:
07/11/24 13:28 Salmonella/Shigella Culture - Preliminary
Feces/Stool Culture in Progress
Campylobacter Culture - Preliminary
Culture in Progress
Shiga Toxin Test - Pending
Stool Leukocytes - Final
07/12/24 11:34 Blood Culture - Pending
Blood/Venous
07/09/24 15:59 Urine Culture - Final
Urine Klebsiella aerogenes
Klebsiella aerogenes#2
Lactobacillus species
07/09/24 18:20 Blood Culture - Preliminary
Blood/Venous No Growth in 48 hours- Final report to follow
07/09/24 18:20 Blood Culture - Preliminary
Blood/Venous No Growth in 48 hours- Final report to follow
07/11/24 13:28 C. difficile GDH Antigen & Toxins - Final
Feces/Stool Negative for toxigenic C.difficile
07/11/24 08:05 Influenza Types A & B ([place]) - Final
Nasal Swab Negative for Influenza A & B, NAAT
Negative results must be combined with clinical observations
and patient history.
Nucleic Acid Amplification test (NAAT)performed on the
[employer] platform.
07/10/24 00:11 Respiratory Culture - Preliminary
Sputum Usual Respiratory Blanca
Gram Stain - Preliminary
07/08/24 17:37 MRSA Screen - Final
Nose No Methicillin Resistant Staphylococcus aureus isolated.
Imaging:
07/11/2024 CXR (portable): ET tube projects over the trachea. Nasogastric tube not visualized, although lies below left hemidiaphragm. Heart is mildly enlarged. Minimal bibasilar airspace consolidation, with associated haziness of each
hemidiaphragm. Mild cephalization of the pulmonary vasculature. Please see full dictation for additional detail. Film personally viewed.
07/12/2024 CXR: Bibasilar opacification, right greater than left which could represent subsegmental atelectasis and/or pneumonia and possible tiny right pleural effusion.
[2024-07-12 12:24] LABS: APTT 61.6 Sec (23.4-35.0)
[2024-07-12] MEDS: NOVOLIN R INSULIN INFUSION 100 IV (12:26)
--- NOTE | 2024-07-12 12:37 | PTCARENOTE ---
sbt attempted pt hr increased into the 140 almost immediately RT recommended to place back on ac mode.
[2024-07-12] MEDS: LASIX 40 MG IV (12:47)
[2024-07-12] MEDS: KCL 100 IV (12:48)
[2024-07-12 12:50] LABS: Glucose - Point of Care 148 mg/dl (70-99)
[2024-07-12 13:06] LABS: COVID-19 Antigen Negative (Negative)
[2024-07-12 14:40] VITALS: BP 106/66
[2024-07-12 14:46] LABS: Glucose - Point of Care 134 mg/dl (70-99)
[2024-07-12 15:57] LABS: Glucose - Point of Care 108 mg/dl (70-99)
[2024-07-12 16:00] VITALS: BP 112/64
[2024-07-12] MEDS: PACERONE 400 MG TUBE ×2 (16:02→21:56)
[2024-07-12] MEDS: VIBRAMYCIN 100 MG TUBE (16:02)
[2024-07-12 16:16] LABS: Glucose - Point of Care 180 mg/dl (70-99)
[2024-07-12] MEDS: NOVOLOG FLEXPEN 2 UNITS SC (17:08)
[2024-07-12 17:11] LABS: ALT (SGPT) 24 U/L (0-35); AST (SGOT) 38 U/L (14-36); Albumin 2.7 g/dl (3.5-5.0); Alkaline Phosphatase 99 U/L (38-126); Blood Urea Nitrogen 49 mg/dl (7-17); Calcium 7.9 mg/dl (8.4-10.2); Carbon Dioxide 39 mmol/L (22-30); Chloride 102 mmol/L (98-107); Estimated Creatinine Clearance 48 ml/min; Glucose 201 mg/dl (70-99); Magnesium 2.3 mg/dl (1.6-2.3); Potassium 4.2 mmol/L (3.5-5.1); Sodium 144 mmol/L (135-145); Total Bilirubin 0.4 mg/dl (0.2-1.3); Total Protein 5.6 g/dl (6.3-8.2); eGFR 57.66
[2024-07-12 17:17] LABS: Glucose - Point of Care 193 mg/dl (70-99)
[2024-07-12 18:20] LABS: Glucose - Point of Care 163 mg/dl (70-99)
[2024-07-12 18:42] LABS: APTT 96.3 Sec (23.4-35.0)
[2024-07-12] MEDS: SUBLIMAZE 100 IV (19:14)
[2024-07-12 20:00] VITALS: BP 138/118
[2024-07-12 20:28] LABS: Glucose - Point of Care 103 mg/dl (70-99)
--- NOTE | 2024-07-12 21:36 | PTCARENOTE ---
Handoff report received from off going RN. Patient received in bed on mechanical ventilation. Pt's on heparin gtt at 1300 units/hr, Fentanyl gtt at 2.5 mcg/hr, vasopressin at 0.03 units/min, and Phenylephrine at 200 mcg/min. Pt's drowsy but opens
her eyes to verbal commands. Follows simple commands and nods 'yes' or 'no' to questions. Pt denies pain at this time. Plan of care for the shift reviewed with the patient and her family. Sinus rhythm on the monitor. Pt's febrile at 101.2 F. cool
bath cloths, and ice packs placed. Tylenol administered. DIESEL SERVICE TECHNICIAN made aware for a cooling blanket. Right radial arterial line zeroed and calibrated. Waveform normal. Coarse breath sounds. Pt suctioned for a small amount of enriquez sputum. weak ga reflex.
Pt's with #8 ETT and 23 at the lip. ETT tie changed and ETT moved to the right with RT. Pt tolerated well. +BS. FMS is in place and draining brownish green liquid stool. Jevity 1.2 at 45 ml/hr with 25 ml h2o flush. via left nare ngt. Patient turned
and dumped 350 cc of yellow urine. Temp sensing sheth catheter is in place. PAtient repositioned. Bilateral wrist restraints are in place. Family remains at the bedside.
[2024-07-12 22:00] VITALS: BP 117/60
[2024-07-12 23:17] LABS: Glucose - Point of Care 175 mg/dl (70-99)
[2024-07-13] VITALS (13 sets, daily range): BP systolic 92–135; BP diastolic 53–64; BMI 36.4
[2024-07-13 01:14] LABS: Glucose - Point of Care 179 mg/dl (70-99)
--- NOTE | 2024-07-13 01:21 | PTCARENOTE ---
Patient reassessed, NSR with PVCs. Continues to follow commands. Anders titrated and Vaso gtt placed on hold. MAP 70-84. Mouth care provided. Pt's on cooling blankets. Turns and repositioning continued. Family remains at the bedside.
[2024-07-13 01:37] LABS: APTT 92.7 Sec (23.4-35.0)
[2024-07-13] MEDS: MERREM 500 MG IV ×4 (01:58→20:10)
[2024-07-13] MEDS: STERILE WATER FOR INJECTION 10 ML IV ×4 (01:58→20:10)
[2024-07-13] MEDS: VIBRAMYCIN 100 MG TUBE ×2 (01:59→14:47)
[2024-07-13] MEDS: NEO-SYNEPHRINE 250 IV ×3 (02:46→17:31)
[2024-07-13 03:16] LABS: Glucose - Point of Care 171 mg/dl (70-99)
[2024-07-13 04:05] LABS: B.E. 8.6 mmol/L; HCO3 35.9 mmol/L (21-28); O2 Saturation % 99.1 % (94-98); PCO2 65 mmHg (32-35); PO2 104 mmHg (83-108); pH 7.35 (7.35-7.45)
[2024-07-13 04:07] LABS: O2 Therapy VENT
[2024-07-13 04:18] LABS: % Basophils 0.3 % (0-2); % Eosinophils 1.9 % (0-6); % Immature Granulocytes 0.5 % (0-0.5); % Lymphocytes 5.9 % (20.5-51.1); % Monocytes 8.4 % (1.7-9.3); Absolute Basophils 0.1 10^3/uL (0-0.2); Absolute Eosinophils 0.3 10^3/uL (0-0.7); Absolute Immature Granulocytes 0.1 10^3/uL (0-0.05); Absolute Lymphocytes 0.9 10^3/uL (1.2-3.4); Absolute Monocytes 1.2 10^3/uL (0.1-0.6); Absolute Neutrophils 12.1 10^3/uL (1.4-6.5); Hematocrit 33.6 % (37.0-47.0); Hemoglobin 9.5 g/dL (12.0-16.0); Mean Corp Hgb Conc. 28.3 g/dL (33.0-37.0); Mean Corpuscular Hgb 27.8 pg (27.0-31.0); Mean Corpuscular Volume 98.2 fL (81.0-99.0); Mean Platelet Volume 10.4 fL (7.4-10.4); Nucleated Red Blood Cells % 0.1 %; Platelet Count 337 10^3/uL (130-400); Red Blood Cell Count 3.42 10^6/uL (4.20-5.40); Red Cell Dist. Width 17.2 % (11.5-14.5); White Blood Cell Count 14.6 10^3/uL (4.8-10.8)
--- NOTE | 2024-07-13 04:30 | PTCARENOTE ---
Patient reassessed. Cooling blanket turned off. Temp 97.7. Patient cleaned with CHG cloth wipes and linens changed. Anders synephrine is at 160 mcg/min. Patient turned and repositioned. FMS is intact
[2024-07-13 04:50] LABS: Blood Urea Nitrogen 46 mg/dl (7-17); Calcium 8.1 mg/dl (8.4-10.2); Carbon Dioxide 36 mmol/L (22-30); Chloride 106 mmol/L (98-107); Estimated Creatinine Clearance 54 ml/min; Glucose 154 mg/dl (70-99); Magnesium 2.2 mg/dl (1.6-2.3); Potassium 3.4 mmol/L (3.5-5.1); Sodium 146 mmol/L (135-145); eGFR > 60.00
[2024-07-13 05:43] LABS: Glucose - Point of Care 147 mg/dl (70-99)
[2024-07-13] MEDS: KCL 100 IV (06:11)
[2024-07-13 07:11] LABS: Glucose - Point of Care 189 mg/dl (70-99)
--- NOTE | 2024-07-13 07:20 | W.PN.HOSP.TC ---
Today's Communication/Plan
-
Increase free water flushes via tube feeds
Replete potassium
Assessment / Plan
Assessment / Plan
Gen-intubated, sedated
HEENT-NC, AT, anicteric, clear oral mm
Neck-supple
CV-reg, no M, +S1/S2
Lungs-clear B/L
Abd-soft, NT, ND
Ext-bilateral lower extremity edema improving
Musculoskeletal-no cyanosis, clubbing, no signs of joint inflammation
Skin-warm and dry, bruising lower extremities, right pretibial wound with blood saturated dressing
Shock -likely multifactorial including cardiogenic and possibly septic. Still requiring 2 vasopressors. Presentation July 08 with weakness and shortness of breath, hypoxia. Subsequently became hemodynamically unstable July 09 with acute TME,
required intubation and transferred to ICU.
Blood cultures negative so far, urine culture shows 2 species of Klebsiella, lactobacillus. IV meropenem per infectious disease. Doxycycline added.
CT abdomen/pelvis without significant pathology. 1.4 cm cystic mass arising in the distal tail of the pancreas, will need outpatient follow-up.
CT chest with small bilateral pleural effusions, left greater than right, adjacent bilateral lower lobe parenchymal opacities possibly representing pneumonia. Large amount of mucous plug in the right lower lobe bronchi.
FUO -has had persistent fevers over the past few days. Right buttock stage IV pressure injury present on admission. Does not look infected based on images from the wound clinic this week. Stool negative for C. difficile colitis. Stool culture
pending. Stool WBCs negative.
Fevers so far appear to have responded to doxycycline. Monitor closely. Unclear if ongoing fevers are due to infection versus noninfectious cause. No signs or symptoms of joint inflammation or vasculitis. Doubt VTE in the setting of ongoing
anticoagulation.
Noted to have urinary retention during last hospitalization. She was discharged with Santana catheter and Flomax with recommendation for outpatient urology follow-up. Discharged on a course of Keflex for possible UTI. Required a Santana catheter for
3 days as per family.
Acute on chronic hypoxic/hypercapnic respiratory failure -suspect due to acute pulmonary edema due to acute on chronic heart failure exacerbation. Possible contribution of underlying COPD and MARK to respiratory failure given significant
hypercapnia. Obesity hypoventilation syndrome possible contribution as well.
Intubated July 09. Stable in ICU. Pickling Machine Operator following.
Chest x-ray today shows increased right-sided pleural effusion, now moderate with compressive atelectasis. Trace left pleural effusion. Mild interstitial pulmonary edema. Ideally would pursue diagnostic thoracentesis but will be very difficult on
a ventilator.
Receiving tube feeding for nutritional support.
Acute TME -suspect multifactorial etiology including hypoxia, hypercapnia, heart failure, possible sepsis, etc.
TANIKA -suspect related to septic shock, ATN. TANIKA resolved.
Hypernatremia -146. Monitor closely on diuresis. Will increase free water flushes via tube feeds.
Hypokalemia -getting repleted. Magnesium normal.
Acute on chronic heart failure with preserved EF -weight unchanged compared to admission weight. I's and O's are +1 L. BNP is elevated, 9300. Limited bedside echocardiogram done July 09 shows preserved EF and unchanged.
Cardiology consulted. She was just discharged from our hospital June 19 with a diagnosis of acute heart failure exacerbation, acute COPD exacerbation.
Last echocardiogram was 06/13/24, normal LV size and function, LVEF 55 to 60%, no gross wall motion abnormalities. Mild concentric LVH. Normal RV size and function. Mild to moderate mitral stenosis. Moderate aortic stenosis. Estimated aortic
valve area 1.1 cm�.
Lasix to be dosed on a as needed basis.
Troponin elevation -troponin trending down. Differential diagnosis includes acute nonischemic myocardial injury versus type II PR due to rapid atrial fibrillation versus other. Cardiology following.
Severe hyperkalemia -treated and resolved.
Hypokalemia -will replete. Check magnesium.
COPD without exacerbation
MARK -uses BiPAP at home.
Paroxysmal atrial fibrillation -on Eliquis at home. Atrial fibrillation was just diagnosed June 2024. Currently on IV heparin.
Hyperlipidemia -atorvastatin.
DM 2 with hyperglycemia -hemoglobin A1c 6.8% in June. Glucoses are less than 200. At home she is on lispro insulin 12 units before breakfast and lunch, 16 units before dinner. NPH insulin 10 to 25 units at bedtime. Metformin 1000 mg twice
daily. Jardiance 10 mg daily. Hold oral agents.
Currently on IV regular insulin infusion at 1 unit/h. Glucoses controlled. Diabetes INFORMATICIST following.
Essential hypertension -blood pressure improved, currently on Levophed. Hold oral agents.
Chronic anemia -macrocytic. Hemoglobin stable at 9.5, monitor for now. Baseline hemoglobin appears to be 10-11.
B12, folic acid normal. Cannot rule out component of iron deficiency.
Obesity due to excess calories
Full code
Updated family at the bedside.
Anticipated Discharge: > 48 hours
Subjective/Interval History
-
Date of Service: July 13, 2024
Patient seen and examined. Remains intubated, mildly sedated
Objective Data
-
Labs:
Laboratory Results
07/13/24 07/13/24 07/13/24
01:17 04:00 16:00
WBC 14.6 H
Hgb 9.5 L
Hct 33.6 L
Plt Count 337
APTT 92.7 H
HCO3 35.9 H
Sodium 146 H Pending
Potassium 3.4 L Pending
Chloride 106 Pending
Carbon Dioxide 36 H Pending
BUN 46 H Pending
Creatinine 0.9 Pending
Glucose 154 H Pending
Calcium 8.1 L Pending
Total Bilirubin Pending
AST Pending
ALT Pending
Alkaline Phosphatase Pending
Vital Signs:
Vital Signs
Temp Pulse Resp BP Pulse Ox
97 F 79 14 102/56 98
07/13/24 04:00 07/13/24 06:15 07/13/24 06:15 07/13/24 06:00 07/13/24 06:15
I&O
07/12/24 07/13/24 07/14/24
06:59 06:59 07:59
Intake Total 2583.0 / 2706.9 2709.8 / 2709.8
Output Total 1492 / 1592 1248 / 1248
Balance 1091.0 / 1114.9 1461.8 / 1461.8
Review of Systems
-
Unable to obtain full review of systems at this time due to: Acuity and Patient Intubation
[2024-07-13] MEDS: FLOVENT 110 MCG INHALER 4 PUFF INH ×2 (07:24→21:02)
[2024-07-13] MEDS: PACERONE 400 MG TUBE ×2 (08:02→20:09)
[2024-07-13] MEDS: DESENEX/MITRAZOL/ZEASORB 1 APPLIC TOPICAL ×2 (08:05→20:10)
[2024-07-13] MEDS: MIRALAX 17 GRAMS TUBE (08:05)
[2024-07-13] MEDS: NSS (PRESERVATIVE FREE) 10 ML IV (08:07)
[2024-07-13] MEDS: PROTONIX IV 40 MG IV (08:07)
[2024-07-13 08:10] LABS: Glucose - Point of Care 154 mg/dl (70-99)
[2024-07-13] MEDS: NOVOLOG FLEXPEN SC ×3 (08:25→18:41)
[2024-07-13] MEDS: LOPRESSOR 2.5 MG IV ×2 (08:37→16:02)
--- NOTE | 2024-07-13 09:00 | PTCARENOTE ---
Pt received in bed @ 0700. Pt intubated. Fentanyl gtt weaned to off. RASS -1. Pt following commands. Nodding head appropriately to questions. Restraints in place. SaO2 93%. Attempting wean. 40% FiO2 and PEEP of 6+. Tidal volumes 175ml - 275ml. SaO2
90-97%. Atrial Fibrilation on monitor tech. HR 90s - 100s at rest. Can increase to 120 after suctioning or turns. PRN Lopressor 2.5mg IV administered. Vasopressin off last night. Continuning to wean Neosynephrine gtt; currently infusing @ 100
mcg/min. MAP remains > 65. (R) radial arterial line transduced, zeroed, and flushed. Heparin gtt infusing @ 1300 units/hr; PTT therapeutic. Jevity 1.5 infusing @ 45 ml/hr. Water flush increased to 35ml/hr. Santana catheter draining cloudy yellow
urine.
[2024-07-13 09:38] LABS: B.E. 8.6 mmol/L; HCO3 38.2 mmol/L (21-28); O2 Saturation % 93.5 % (94-98); PO2 71 mmHg (83-108); pH 7.25 (7.35-7.45)
[2024-07-13 09:39] LABS: PCO2 87 mmHg (32-35)
[2024-07-13 10:10] LABS: Glucose - Point of Care 149 mg/dl (70-99)
--- NOTE | 2024-07-13 10:43 | W.PN.ID1 ---
Date of Service
Date of Service: July 13, 2024
Today's Communication
Continue doxycycline and meropenem.
Assessment / Plan
Acute on chronic hypoxemic respiratory failure; on vent (07/09/2024)
Leukocytosis;
- Not clear if reactive, or secondary to infection.
Fevers trending down
Bacteriuria
Shock - weaning down pressor
COPD
Chronic hypoxemic respiratory insufficiency (3 L O2 at home)
HTN
Dyslipidemia
Diabetes mellitus
Obesity
P A-fib
MARK
Recommendations:
Unclear etiology of rising white count; may be reactive, or may be due to infection.
Bcx x 2 neg to date.
Sputum usual respiratory blanca.
Urine cx with Klebsiella x 2 strains , both susceptible to meropenem.
Was febrile on meropenem, thus unlikely urine source
Repeat COVID and Influenza tests negative
CXR with bibasilar opacities - atelectasis vs PNA.
Continue empiric doxycycline via tube (d2)
Continue meropenem (d3)for now.
Trend white count and temperature curve.
Continue with supportive measures.
Patient currently critically ill in intensive care unit requiring ventilator support, along with pressor support.
Chief Complaint
-: Fever and Clinical Sepsis
Subjective / Review of Systems
Family at bedside. Pt more alert.
Vital Signs / Physical Exam
Vital Signs
Vital Signs
Temp Pulse Resp BP Pulse Ox
97.7 F 109 18 106/58 91
07/13/24 07:00 07/13/24 09:30 07/13/24 09:30 07/13/24 08:00 07/13/24 09:30
Physical Exam
Constitutional: Acutely Ill
Eyes: Sclera Anicteric
Cardiovascular: Irregular Rate and Other (tachycardic)
Pulmonary: Clear (anteriorly)
Gastrointestinal: Soft, Non Tender, Non Distended, Normal Bowel Sounds and Other (FMS minimal stool in bag.)
Genito-Urinary: Clear Urine
Extremities: Edema
Objective Data
Lab Data
Lab Results
07/13/24 04:00
PT 18.4 Sec (11.4-14.6) H 07/09/24 15:19
INR 1.50 07/09/24 15:19
APTT 92.7 Sec (23.4-35.0) H 07/13/24 01:17
Estimated Creat Clear 54 ml/min 07/13/24 04:00
Lactic Acid 0.9 mmol/L (0.7-2.0) 07/11/24 16:19
Total Bilirubin 0.4 mg/dl (0.2-1.3) 07/12/24 16:32
AST 38 U/L (14-36) H 07/12/24 16:32
ALT 24 U/L (0-35) 07/12/24 16:32
Alkaline Phosphatase 99 U/L (38-126) 07/12/24 16:32
Most recent labs reviewed.
Micro Results:
07/09/24 18:20 Blood Culture - Preliminary
Blood/Venous No Growth in 72 hours- Final report to follow
07/09/24 18:20 Blood Culture - Preliminary
Blood/Venous No Growth in 72 hours- Final report to follow
07/12/24 12:45 Influenza Types A & B ([place]) - Final
Nasal Swab Negative for Influenza A & B, NAAT
Negative results must be combined with clinical observations
and patient history.
Nucleic Acid Amplification test (NAAT)performed on the
[employer] platform.
07/10/24 00:11 Respiratory Culture - Final
Sputum Usual Respiratory Blanca
Gram Stain - Final
07/11/24 13:28 Salmonella/Shigella Culture - Preliminary
Feces/Stool Culture in Progress
Campylobacter Culture - Preliminary
Culture in Progress
Shiga Toxin Test - Pending
Stool Leukocytes - Final
07/12/24 11:34 Blood Culture - Pending
Blood/Venous
07/09/24 15:59 Urine Culture - Final
Urine Klebsiella aerogenes
Klebsiella aerogenes#2
Lactobacillus species
07/11/24 13:28 C. difficile GDH Antigen & Toxins - Final
Feces/Stool Negative for toxigenic C.difficile
07/11/24 08:05 Influenza Types A & B ([place]) - Final
Nasal Swab Negative for Influenza A & B, NAAT
Negative results must be combined with clinical observations
and patient history.
Nucleic Acid Amplification test (NAAT)performed on the
[employer] platform.
07/08/24 17:37 MRSA Screen - Final
Nose No Methicillin Resistant Staphylococcus aureus isolated.
Imaging:
07/11/2024 CXR (portable): ET tube projects over the trachea. Nasogastric tube not visualized, although lies below left hemidiaphragm. Heart is mildly enlarged. Minimal bibasilar airspace consolidation, with associated haziness of each
hemidiaphragm. Mild cephalization of the pulmonary vasculature. Please see full dictation for additional detail. Film personally viewed.
07/12/2024 CXR: Bibasilar opacification, right greater than left which could represent subsegmental atelectasis and/or pneumonia and possible tiny right pleural effusion.
Care Review
Plan reviewed with: Physician (Dr. Dueñas)
--- NOTE | 2024-07-13 11:22 | W.PN.INTV ---
Today's Communication / Plan
Recommendations
-Lasix 80 mg IV x 1
-Replace potassium both IV and p.o.
-Will proceed with POCUS right lung to evaluate for pleural effusion, if loculated will consider thoracentesis
-Repeat SAT and SBT in the morning as patient failed on 07/13
-Follow-up on cultures
-
Assessment
-
Patient is a 78-year-old female with previous history of COPD, chronic hypercarbic respiratory failure on BiPAP, chronic heart failure with preserved EF, chronic hypoxemia presenting with increased shortness of breath and weakness over the past 24
hours. She was at wound clinic the day prior to admission and notably hypoxemic, was referred to the emergency room. On arrival ABG noted to be 7.29/76. She was treated with BiPAP overnight. Repeat ABG 7./. She had increasing somnolence
throughout the day. A decision was made for intubation due to persistent mental status changes and unresponsiveness.
07/09, patient was intubated due to worsening mental status and hypercapnia and subsequently transferred to ICU. Also noted to be severely hyperkalemic which was urgently temporized and intensive care consultation was requested for further
management
07/10, patient overnight stayed hypotensive and required pressor support. She did have fever and in view of shock broad-spectrum antibiotics were continued in addition to diuretics.
Last 24 hours:
-Patient failed SAT and SBT on 07/13, suboptimal tidal volume and tachycardia, changed back to volume assist-control
-Fluid balance +1.4 L
-Hemoglobin stable 9.5, white count 14.6, platelet 337
-ABG 7.35, 65, 104 on ventilator and changed to 7.25, 87 and 71 during a spontaneous breathing trial on pressure support
-Potassium low at 3.4 creatinine normal, magnesium 2.2
-Blood sugars in the 140s to 150s chest x-ray shows mild congestion and increased right-sided pleural effusion
-Current drips, phenylephrine, vasopressin. Heparin drip and insulin infusion. Propofol and fentanyl.
#1. Acute on chronic hypoxic and hypercapnic respiratory failure s/p intubation 07/09/24. Respiratory failure is due to heart failure exacerbation, suspected right lower lobe pneumonia/aspiration as well as underlying -COPD with morbid obesity and
history of sleep apnea with possibly obesity hypoventilation syndrome.
-ABG reviewed, became more acidotic on spontaneous trial, not ready for extubation
-Patient at baseline on oxygen and also has chronic hypercapnia with baseline PCO2 90
-Chest x-ray and ABG in a.m.
#2. Shock, likely mixed septic shock and cardiogenic shock
-Continue pressor support
-Avoid midodrine/dobutamine
-Monitor ins and outs closely, follow-up ABG and lactate
-ID service on case, antibiotic changed to meropenem and doxycycline
-In view of persistent fever, repeated blood cultures
-Urine showing Klebsiella and lactobacilli
-Continue vasopressin. Phenylephrine started in view of A-fib with RVR and stopped Levophed
#2. Acute on chronic HFpEF, moderate aortic stenosis. Recent hospitalization in June for heart failure exacerbation.
-Patient back in positive fluid balance, give Lasix 80 mg IV x 1 along with additional potassium.
-Cardiology service on case.
-Chest X ray showing somewhat increased congestion with increased size of right sided pleural effusion
#3. Right lower lobe pneumonia, suspect aspiration, enlarging effusion
-Considering patient is in shock and recent hospitalization about a month ago, continue antibiotic
-MRSA screen negative, follow-up on blood cultures
-Chest PT in view of right lower lobe mucous plugging
-Will proceed with the bedside POCUS and if effusion looks loculated, will proceed with a diagnostic/therapeutic paracentesis
#4. Increasing lethargy, unresponsiveness. This is related to worsening hypercapnia and metabolic encephalopathy. (prior to requiring intubation)
-Currently patient is intubated and sedated
#5. Acute kidney injury with hyperkalemia.
-Acidosis and hypercapnia also exacerbated hyperkalemia, status post emergency temporization with improved potassium
-Cardiorenal syndrome, creatinine improved with diuresis
-Avoid NAJMA inhibitor, ARB's as well as constipation
-Nephrology service on case
#6. A-fib with RVR atrial fibrillation with RVR, new onset. Suspect in the setting of acute critical illness
-Cardiology service on case
-Continue heparin infusion for stroke prophylaxis
-Continue phenylephrine and vasopressin, avoiding Levophed
-Amiodarone p.o. started, dose managed by cardiology
-Continue telemetry monitoring
-Minimally elevated troponin, downtrending
#7. DM with hyperglycemia:
_insulin infusion
Other:
-Continue tube feeding
-DVT prophylaxis with heparin infusion
-GI prophylaxis with PPI
Conditions present prior to admission
Diabetes
Hypertension
Hyperlipidemia
Morbid obesity
Elevated IgE
Severe sleep apnea, total index 56, desaturation adamaris 51%
Compliant and adequate with auto BiPAP
Severe COPD, spirometry 06/22/23- FVC 1.14 or 45%, FEV1 0.66 or 33, Ratio 57
Heart failure with preserved ejection fraction
History of anemia
History of pleural effusions, stable since 2010
Afib on Eliquis
Diagnostic Data
Chest X-Ray: 07/09/24 post intubation- 1. Endotracheal and nasogastric tubes are in satisfactory position.
2. Mild pulmonary edema, not significantly changed.
3. Obscuration of both hemidiaphragms, left greater than right, suggestive of small bilateral pleural effusions. Bibasilar airspace disease may also be present.
07/08/24- Cardiomegaly, unchanged. Pulmonary interstitial prominence again seen, cannot differentiate acute versus chronic. Some right basilar opacity and left hemidiaphragm again obscured. Cannot exclude bibasilar subsegmental atelectasis and/or
pneumonia and small bilateral pleural effusions.
Chest x-ray 06/14/2024: Moderate cardiomegaly. Mild increased interstitial markings. Improved compared to prior 06/12/2024
CT Scan: CTA 2018- No pulmonary embolism. Prominent distal pulmonary artery and right and left pulmonary arteries, suggesting an element of pulmonary hypertension. Mild stable chronic parenchymal findings, without evidence of acute pneumonia.
Long-term interval stability of 3 small pulmonary nodules, supporting a benign etiology.
CHEST 09/27/13- Stable left upper lobe pulmonary nodules since February 2011. There is extremely high probability that these are benign. Stable bibasilar scarring.
Findings suggesting pulmonary arterial hypertension. Mitral annulus calcification. Coronary artery disease. Essentially resolved right pleural effusion.
Echo: 06/13/24- Normal left ventricular chamber size. Normal left ventricular systolic function. Left ventricular ejection fraction is 55-60% by visual assessment. No gross regional wall motion abnormalities. Mild concentric left ventricular
hypertrophy. Normal right ventricular size and function. Mild to moderate mitral stenosis. Moderate aortic stenosis. Peak/mean gradients across the aortic valve are 46/28 mmHg and estimated aortic valve area is 1.1 cm2. Compared to prior study
dated 12/31/2023, there is no significant change, prior aortic valve peak/mean gradients were 48/27 mmHg, respectively.
PFT's: spirometry 06/22/23- FVC 1.14 or 45%, FEV1 0.66 or 33, Ratio 57 (severe obstruction)
Reports and relevant images were personally reviewed.
Critical Care time 45 mins -- The patient is admitted for acute critical illness for the treatment of vital organ failure and/or prevention of further life-threatening conditions. Total care includes time spent in review of history, physical exam,
medications, hemodynamic/ventilator parameters, laboratory data, imaging and discussion with house staff, pharmacy, respiratory therapy, new home sales consultant, and nursing. Time also included performing right subclavian central line placement as well as right
radial arterial line placement.
Subjective Dataa
Subjective Data
Date of Service:
Date of Service: July 13, 2024
Objective Data
Data Reviewed
Vital Signs / I&O / Oxygen:
Vital Signs
Temp Pulse Resp BP Pulse Ox
97.7 F 109 18 106/58 91
07/13/24 07:00 07/13/24 09:30 07/13/24 09:30 07/13/24 08:00 07/13/24 09:30
Intake and Output
07/12/24 07/13/24 07/14/24
06:59 06:59 07:59
Intake Total 2583.0 / 2706.9 2709.8 / 2814.0 290.9 / 290.9
Output Total 1492 / 1592 1248 / 1298 170 / 170
Balance 1091.0 / 1114.9 1461.8 / 1516.0 120.9 / 120.9
SaO2 [A/C] 100
SaO2 91
Nasal Cannula flow liters per 5
minute
Physical Exam
General: Comfortable
Cardiovascular: S1-S2
Respiratory: Crackles and Rhonchi (Rhonchi, right greater than left.)
GI: Soft and Non Distended
Neurology: Other (Currently sedated)
Skin: Warm
Labs/Micro/Reports
Lab Data
07/13/24 04:00
Laboratory Results
07/12/24 07/12/24 07/13/24
11:34 18:21 01:17
APTT 61.6 H 96.3 H 92.7 H
pH
pCO2
pO2
HCO3
O2 Delivery Level
07/13/24 07/13/24
04:00 09:27
APTT
pH 7.35 7.25 L
pCO2 65 H 87 H*
pO2 104 71 L
HCO3 35.9 H 38.2 H
O2 Delivery Level Vent
Microbiology
07/09/24 18:20 Blood/Venous Blood Culture - Preliminary
No Growth in 72 hours- Final report to follow
07/09/24 18:20 Blood/Venous Blood Culture - Preliminary
No Growth in 72 hours- Final report to follow
07/12/24 12:45 Nasal Swab Influenza Types A & B ([place]) - Final
Negative for Influenza A & B, NAAT
Negative results must be combined with clinical observations
and patient history.
Nucleic Acid Amplification test (NAAT)performed on the
[email or web address] platform.
07/10/24 00:11 Sputum Respiratory Culture - Final
Usual Respiratory Blanca
07/10/24 00:11 Sputum Gram Stain - Final
07/11/24 13:28 Feces/Stool Salmonella/Shigella Culture - Preliminary
Culture in Progress
07/11/24 13:28 Feces/Stool Campylobacter Culture - Preliminary
Culture in Progress
07/11/24 13:28 Feces/Stool Stool Leukocytes - Final
07/09/24 15:59 Urine Urine Culture - Final
Klebsiella aerogenes
Klebsiella aerogenes#2
Lactobacillus species
07/11/24 13:28 Feces/Stool C. difficile GDH Antigen & Toxins - Final
Negative for toxigenic C.difficile
07/11/24 08:05 Nasal Swab Influenza Types A & B ([place]) - Final
Negative for Influenza A & B, NAAT
Negative results must be combined with clinical observations
and patient history.
Nucleic Acid Amplification test (NAAT)performed on the
[employer] platform.
07/08/24 17:37 Nose MRSA Screen - Final
No Methicillin Resistant Staphylococcus aureus isolated.
--- NOTE | 2024-07-13 12:07 | PTCARENOTE ---
Pt reassessed. SBP from 8:10 to 9:50. ABG obtained and resulted. Pt returned to AC (14/350/40%/6). MAP remains > 65. Weaning Neosynephrine gtt. Insulin gtt continues per Glycemic protocol.
[2024-07-13 12:12] LABS: Glucose - Point of Care 172 mg/dl (70-99)
--- NOTE | 2024-07-13 13:53 | W.PN.CARDCBS ---
Today's Communication / Plan
-
Rate control atrial fibrillation
Continue IV heparin with eventual transition to NOAC
Follow telemetry/EKG for QT
IV Lasix today
Impression / Plan
-
Family Physician:� Trina Ralph
Primary Sterile Supply Technician: Dr. Simmons
Impression:
Sepsis with hypotension requiring pressor support
Vent dependent respiratory failure
Admitted with SOB and acute on hypoxic respiratory failure 06/10/24
New persistent atrial fibrillation with rapid ventricular response
AE COPD
Acute HFpEF
Hyperkalemia
Change in mental status
Mod peak/mean 48/27 mmHg and ZAY 1.0 cm sq by echo 12/21/23
Mod MS with peak/mean 17/7 mmHg by echo 12/21/23
MARK on BiPAP
HTN
HLD
DM2
Chronic iron deficiency anemia
Morbid obesity, BMI 36.4
h/o pulmonary nodules
ECHO 07/2019: EF 60-65%, mod cLVH, MAC, mild MR, mild to mod , peak/mean 26/16mmHg, ZAY 1.1cm2
ECHO 09/24/21: EF 65 to 70%, mild concentric LVH, mild , peak/mean gradients 31/19 mmHg, ZAY 1.1 cm�, trivial pericardial effusion, no significant change compared to prior
Echo 12/21/23: EF 55-60%, mild conc LVH, mod MS with peak/mean 17/7 mmHg, mod peak/mean 48/27 mmHg and ZAY 1.0 cm sq
Echo 06/13/24: EF 55 to 60%, no gross regional WMA, mild to moderate MS with mean gradient 6 mmHg at an HR of 76 bpm, mild MR, moderate peak/mean 46/28 mmHg and ZAY 1.1 cm SQ
Echo 07/09/24: EF 65-70%, mild to moderate mitral stenosis, mean gradient 7, moderate aortic stenosis, 56/35 mmHg, no comment on AI, mild to moderate mitral stenosis, mean gradient 7 no comment on mitral regurgitation, normal atria, normal RV, could
not determine pulmonary artery systolic pressure
Plan:
Atrial fibrillation with rapid ventricular response, new diagnosis
-Heart rates relatively controlled while she is sedated however increased during attempt at weaning earlier today
-Will continue oral amiodarone but decrease dose to 400 mg twice daily for prolonged QT
-Repeat EKG in the morning
-Monitor electrolytes. Keep K greater than 4, mag greater than 2.
-She is still requiring pressor support; eventual addition of beta-rae once blood pressures improve
-Continue anticoagulation; restart Eliquis if no procedures are planned, for now continue IV heparin
-Could consider cardioversion next week if difficult to get off ventilator for now we will continue to observe
Acute on chronic hypoxic/hypercapnic respiratory failure s/p intubation 07/09/2024 remains difficult to wean
-Lower lobe pneumonia, suspect aspiration
-Chest x-ray today with increased right-sided pleural effusion�possibly may need thoracentesis
-ID following
-Management per pulmonary/auto hiker
Acute on chronic heart failure with preserved ejection fraction; Moderate /moderate
-Volume status challenging but appears volume overloaded
-Will give Lasix IV 40 mg daily
-Monitor I's and O's, daily weights
HPI: Patient came to ER today with increased weakness and a lower than usual pulse ox reading at home, patient now admitted with acute HF and cardiology has been consulted. Patient was just admitted to from 06/10/2024 until 06/19/2024 with acute
on chronic hypoxic multifactorial respiratory failure and also a new diagnosis of paroxysmal Afib. During that admission patient was diuresed with Lasix 80 mg IV BID. In addition to BiPAP therapy. Unfortunately the recorded weights during that
admission were not accurate because they were using a bed scale. I and O readings were also inaccurate, but the patient reported some subjective improvement. Patient was seen in the office on 06/26/2024 and was dutifully taking her dose of Lasix 80
mg twice daily, but was noted to be hypotensive and so her usual dose of nifedipine was stopped. Patient was seen in the wound clinic today and was noted to be SOB above baseline and hypoxic so she was referred to ER. Patient was using her
usual 3 L nasal cannula of supplemental oxygen and had improved pulse ox by increasing to 5 L. proBNP is up to 9300 today and was only as high as 1590 during her last admission. Again the recorded weights are not accurate
Progress Note - Sterile Supply Technician
Subjective
Date of Service: July 13, 2024
Seen and examined with multiple family members at bedside. Patient is intubated but awake, opens eyes to conversation. Squeezes hands on command.
Objective
Labs:
07/13/24 04:00
Labs
Hgb 9.5 g/dL (12.0-16.0) L 07/13/24 04:00
Hct 33.6 % (37.0-47.0) L 07/13/24 04:00
Plt Count 337 10^3/uL (130-400) 07/13/24 04:00
PT 18.4 Sec (11.4-14.6) H 07/09/24 15:19
INR 1.50 07/09/24 15:19
APTT 92.7 Sec (23.4-35.0) H 07/13/24 01:17
Sodium 146 mmol/L (135-145) H 07/13/24 04:00
Potassium 3.4 mmol/L (3.5-5.1) L 07/13/24 04:00
BUN 46 mg/dl (7-17) H 07/13/24 04:00
Creatinine 0.9 mg/dL (0.6-1.0) 07/13/24 04:00
Glucose 154 mg/dl (70-99) H 07/13/24 04:00
Troponins
07/10/24
14:50
Troponin I 0.058 H*
Vital Signs and I&O:
Vital Signs
Temp Pulse Resp BP Pulse Ox
99.2 F 109 18 106/58 96
07/13/24 11:23 07/13/24 09:30 07/13/24 09:30 07/13/24 08:00 07/13/24 12:00
Vital Signs
Temp Pulse Resp BP Pulse Ox
99.2 F 109 18 106/58 96
07/13/24 11:23 07/13/24 09:30 07/13/24 09:30 07/13/24 08:00 07/13/24 12:00
Intake & Output
07/11/24 07/12/24 07/13/24 07/14/24
06:59 06:59 06:59 07:59
Intake Total 1683.9 / 1729.6 2583.0 / 2706.9 2709.8 / 2884.0 763.0 / 763.0
Output Total 4407.0 / 4447.0 1492 / 1592 1248 / 1298 245 / 245
Balance -2723.1 / -2717.4 1091.0 / 1114.9 1461.8 / 1586.0 518.0 / 518.0
Physical Exam
Physical Exam
General: Awake, intubated and sedated
Heart: Irregular irregular. Positive S1-S2. 2 out of 6 systolic murmur
Lungs: Bronchovesicular breath sounds decreased bilaterally particularly right base. Coarse rhonchi
Abd: Positive BS, NT/ND, neg rebound/rigidity/guarding
Ext: No edema
[2024-07-13 14:23] LABS: Glucose - Point of Care 171 mg/dl (70-99)
[2024-07-13] MEDS: TYLENOL ORAL SOLUTION 650 MG PO ×2 (16:07→20:44)
[2024-07-13 16:23] LABS: ALT (SGPT) 21 U/L (0-35); AST (SGOT) 33 U/L (14-36); Albumin 2.5 g/dl (3.5-5.0); Alkaline Phosphatase 88 U/L (38-126); Blood Urea Nitrogen 46 mg/dl (7-17); Carbon Dioxide 38 mmol/L (22-30); Chloride 106 mmol/L (98-107); Estimated Creatinine Clearance 61 ml/min; Glucose 192 mg/dl (70-99); Magnesium 2.3 mg/dl (1.6-2.3); Potassium 4.3 mmol/L (3.5-5.1); Sodium 145 mmol/L (135-145); Total Bilirubin 0.3 mg/dl (0.2-1.3); Total Protein 5.3 g/dl (6.3-8.2); eGFR > 60.00
[2024-07-13 16:25] LABS: Glucose - Point of Care 171 mg/dl (70-99)
[2024-07-13] MEDS: HEPARIN 25000 UNITS/250 ML IV (17:30)
--- NOTE | 2024-07-13 18:15 | PTCARENOTE ---
Pt reassessed. 2nd wean in afternoon. Pt tolerated SBP with 40% FiO2 and PEEP of 8 from 15:45 to 18:10. Returned to AC (14/350/40%/6+). Attempted to wean Neosynephrine gtt; weaned to 80 mcg/min but returned to 100 mcg/min to maintain MAP > 65.
Glycemic protocol continues.
[2024-07-13 18:23] LABS: Glucose - Point of Care 165 mg/dl (70-99)
[2024-07-13 20:12] LABS: Glucose - Point of Care 174 mg/dl (70-99)
--- NOTE | 2024-07-13 21:52 | PTCARENOTE ---
Handoff report received from off going RN. Patient received on Anders gtt at 100 mcg/min , heparin gtt at 1300 units/hr, and insulin gtt. Drowsy but arousable to verbal commands. Follows simple commands ,and nods yes or no to questions. Plan of care
for the shift reviewed with the patient and family. Afib on the monitor. Temp 100.7. Anders gtt titrated to 120 mcg/min to keep MAP >65 mmHg. Palpable pulse. + 1 b/l LE edema. Pt's on mechanical ventilation with #8 ETT and 25 at the lip. AC
40%/6/350/14. SpO2 at 98%. Pt suctioned for small amount of thick enriquez sputum. +BS. FMS is draining dark green stool. Sheth catheter is patent and draining small amount of urine. Mouth and sheth care completed. Tylenol administered. Turns and
reposioning continued. Family remains at the bedside.
[2024-07-13 22:20] LABS: Glucose - Point of Care 172 mg/dl (70-99)
[2024-07-14] VITALS (32 sets, daily range): BP systolic 73–127; BP diastolic 41–95; PULSE 2–111; BMI 37.3
[2024-07-14 00:29] LABS: Glucose - Point of Care 164 mg/dl (70-99)
--- NOTE | 2024-07-14 00:29 | PTCARENOTE ---
Patient reassessed. Awake and following commands. Mouth care provided. ETT moved to the center. Turns and repositioning continued. Safety measures maintained.
[2024-07-14] MEDS: NEO-SYNEPHRINE 250 IV ×2 (00:46→10:49)
[2024-07-14 03:15] LABS: Glucose - Point of Care 178 mg/dl (70-99)
[2024-07-14] MEDS: SUBLIMAZE 50 MCG IV ×4 (03:21→19:48)
[2024-07-14] MEDS: MERREM 500 MG IV ×4 (03:29→19:38)
[2024-07-14] MEDS: STERILE WATER FOR INJECTION 10 ML IV ×4 (03:29→19:39)
[2024-07-14] MEDS: VIBRAMYCIN 100 MG TUBE ×2 (03:30→15:07)
[2024-07-14 04:52] LABS: B.E. 7.3 mmol/L; O2 Saturation % 96.9 % (94-98); PCO2 68 mmHg (32-35); PO2 80 mmHg (83-108); pH 7.32 (7.35-7.45)
[2024-07-14 05:00] LABS: % Basophils 0.3 % (0-2); % Eosinophils 3.5 % (0-6); % Immature Granulocytes 0.7 % (0-0.5); % Lymphocytes 7.5 % (20.5-51.1); % Monocytes 8.7 % (1.7-9.3); % Neutrophils 79.3 % (42.2-75.2); Absolute Basophils 0.1 10^3/uL (0-0.2); Absolute Eosinophils 0.5 10^3/uL (0-0.7); Absolute Immature Granulocytes 0.1 10^3/uL (0-0.05); Absolute Lymphocytes 1.1 10^3/uL (1.2-3.4); Absolute Monocytes 1.3 10^3/uL (0.1-0.6); Absolute Neutrophils 11.5 10^3/uL (1.4-6.5); Hematocrit 33.9 % (37.0-47.0); Hemoglobin 9.7 g/dL (12.0-16.0); Mean Corp Hgb Conc. 28.6 g/dL (33.0-37.0); Mean Corpuscular Hgb 28.4 pg (27.0-31.0); Mean Corpuscular Volume 99.1 fL (81.0-99.0); Mean Platelet Volume 10.9 fL (7.4-10.4); Nucleated Red Blood Cells % 0.1 %; Platelet Count 322 10^3/uL (130-400); Red Blood Cell Count 3.42 10^6/uL (4.20-5.40); Red Cell Dist. Width 17.5 % (11.5-14.5); White Blood Cell Count 14.6 10^3/uL (4.8-10.8)
[2024-07-14 05:01] LABS: O2 Therapy VENT
[2024-07-14 05:13] LABS: APTT 95.1 Sec (23.4-35.0)
[2024-07-14 05:19] LABS: Glucose - Point of Care 140 mg/dl (70-99)
[2024-07-14 05:29] LABS: ALT (SGPT) 21 U/L (0-35); AST (SGOT) 31 U/L (14-36); Albumin 2.5 g/dl (3.5-5.0); Alkaline Phosphatase 88 U/L (38-126); Blood Urea Nitrogen 45 mg/dl (7-17); Calcium 8.1 mg/dl (8.4-10.2); Carbon Dioxide 38 mmol/L (22-30); Chloride 106 mmol/L (98-107); Estimated Creatinine Clearance 69 ml/min; Glucose 158 mg/dl (70-99); Sodium 145 mmol/L (135-145); Total Bilirubin 0.7 mg/dl (0.2-1.3); Total Protein 5.5 g/dl (6.3-8.2); Triglycerides 120 mg/dl (10-149); eGFR > 60.00
--- NOTE | 2024-07-14 05:47 | PTCARENOTE ---
Patient reassessed. Awake and restless. Sinus tachy with HR 105, rr 22. Patient suctioned. Prn pain medication administered. Patient cleaned and linens changed. labs drawn and sent. PRN fentanyl administered . Safety measures remain in use.
[2024-07-14 07:21] LABS: Glucose - Point of Care 135 mg/dl (70-99)
[2024-07-14] MEDS: NOVOLOG FLEXPEN SC ×3 (07:22→17:34)
[2024-07-14] MEDS: DESENEX/MITRAZOL/ZEASORB 1 APPLIC TOPICAL ×2 (07:22→19:39)
[2024-07-14] MEDS: LASIX 40 MG IV (07:23)
[2024-07-14] MEDS: MIRALAX 17 GRAMS TUBE (07:27)
[2024-07-14] MEDS: PACERONE 400 MG TUBE ×2 (07:27→19:39)
[2024-07-14] MEDS: NSS (PRESERVATIVE FREE) 10 ML IV (07:28)
[2024-07-14] MEDS: PROTONIX IV 40 MG IV (07:28)
--- NOTE | 2024-07-14 07:34 | W.PN.HOSP.TC ---
Today's Communication/Plan
-
Abdominal x-ray
Assessment / Plan
Assessment / Plan
Gen-intubated
HEENT-NC, AT, anicteric, NG tube
Neck-supple
CV-reg, no M, +S1/S2
Lungs-clear B/L
Abd-soft, nontender, mildly distended
Ext-bilateral lower extremity edema improving
Musculoskeletal-no cyanosis, clubbing, no signs of joint inflammation
Skin-warm and dry, bruising lower extremities, right pretibial wound with blood saturated dressing
Shock -likely multifactorial including cardiogenic and possibly septic. Down to 1 vasopressor, phenylephrine. Wean as able. Presentation July 08 with weakness and shortness of breath, hypoxia. Subsequently became hemodynamically unstable July 09
with acute TME, required intubation and transferred to ICU.
Blood cultures negative so far, urine culture shows 2 species of Klebsiella, lactobacillus. Meropenem, doxycycline per ID.
CT abdomen/pelvis 07/11 without significant pathology. 1.4 cm cystic mass arising in the distal tail of the pancreas, will need outpatient follow-up.
CT chest 07/10 with small bilateral pleural effusions, left greater than right, adjacent bilateral lower lobe parenchymal opacities possibly representing pneumonia. Large amount of mucous plug in the right lower lobe bronchi.
FUO -has had persistent fevers over the past few days. Right buttock stage IV pressure injury present on admission. Does not look infected based on images from the wound clinic this week. Stool negative for C. difficile colitis. Stool culture
negative. Stool WBCs negative. At this point UTI is not the explanation for the fevers.
Unclear if ongoing fevers are due to infection versus noninfectious cause. No signs or symptoms of joint inflammation or vasculitis. Doubt VTE in the setting of ongoing anticoagulation.
Right pleural effusion on most recent chest x-ray noted and if feasible on a ventilator will need thoracentesis for diagnostic purposes. Will defer to casing builder.
Noted to have urinary retention during last hospitalization. She was discharged with Santana catheter and Flomax with recommendation for outpatient urology follow-up. Discharged on a course of Keflex for possible UTI. Required a Santana catheter for
3 days as per family.
Acute on chronic hypoxic/hypercapnic respiratory failure -suspect due to acute pulmonary edema due to acute on chronic heart failure exacerbation. Possible contribution of underlying COPD and MARK to respiratory failure given significant
hypercapnia. Obesity hypoventilation syndrome possible contribution as well.
Intubated July 09. Stable in ICU. Senior Merchandiser following.
Chest x-ray 07/13 shows increased right-sided pleural effusion, now moderate with compressive atelectasis. Trace left pleural effusion. Mild interstitial pulmonary edema. Ideally would pursue diagnostic thoracentesis but will be very difficult on a
ventilator.
Receiving tube feeding for nutritional support. Abdomen somewhat more distended today, tympanitic. Check abdominal x-ray, evaluate for gas or ileus. Discussed with nursing. However, she is putting out stool.
Acute TME -suspect multifactorial etiology including hypoxia, hypercapnia, heart failure, possible sepsis, etc.
Unable to assess mental status on the ventilator.
TANIKA -suspect related to septic shock, ATN. TANIKA resolved.
Hypernatremia - sodium 145, free water flushes increased.
Hypokalemia -resolved.
Acute on chronic heart failure with preserved EF -weight up 2 kg overnight. Continue IV Lasix. I's and O's are +1 L. BNP is elevated, 9300. Limited bedside echocardiogram done July 09 shows preserved EF and unchanged.
Cardiology consulted. She was just discharged from our hospital June 19 with a diagnosis of acute heart failure exacerbation, acute COPD exacerbation.
Last echocardiogram was 06/13/24, normal LV size and function, LVEF 55 to 60%, no gross wall motion abnormalities. Mild concentric LVH. Normal RV size and function. Mild to moderate mitral stenosis. Moderate aortic stenosis. Estimated aortic
valve area 1.1 cm�.
Troponin elevation -troponin trending down. Differential diagnosis includes acute nonischemic myocardial injury versus type II FL due to rapid atrial fibrillation versus other. Cardiology following.
COPD without exacerbation
MARK -uses BiPAP at home.
Paroxysmal atrial fibrillation -on Eliquis at home. Atrial fibrillation was just diagnosed June 2024. Currently on IV heparin.
Hyperlipidemia -atorvastatin.
DM 2 with hyperglycemia -hemoglobin A1c 6.8% in June. Glucoses are less than 200. At home she is on lispro insulin 12 units before breakfast and lunch, 16 units before dinner. NPH insulin 10 to 25 units at bedtime. Metformin 1000 mg twice
daily. Jardiance 10 mg daily. Hold oral agents.
Currently on IV regular insulin infusion at 1 unit/h. Glucoses controlled. Diabetes STORAGE MANAGER following.
Essential hypertension -hold antihypertensives while on vasopressors.
Chronic anemia -macrocytic. Hemoglobin stable at 9.7, monitor for now. Baseline hemoglobin appears to be 10-11.
B12, folic acid normal. Cannot rule out component of iron deficiency.
Obesity due to excess calories
Full code
Anticipated Discharge: > 48 hours
Subjective/Interval History
-
Date of Service: July 14, 2024
Patient seen and examined. Looks comfortable on the ventilator, awake.
Objective Data
-
Labs:
Laboratory Results
07/14/24
04:39
WBC 14.6 H
Hgb 9.7 L
Hct 33.9 L
Plt Count 322
APTT 95.1 H
HCO3 35.0 H
Sodium 145
Potassium 4.0
Chloride 106
Carbon Dioxide 38 H
BUN 45 H
Creatinine 0.7
Glucose 158 H
Calcium 8.1 L
Total Bilirubin 0.7
AST 31
ALT 21
Alkaline Phosphatase 88
Vital Signs:
Vital Signs
Temp Pulse Resp BP Pulse Ox
97.9 F 81 14 116/71 95
07/14/24 07:00 07/14/24 06:30 07/14/24 06:30 07/14/24 06:00 07/14/24 05:00
I&O
07/13/24 07/14/24 07/15/24
05:59 06:59 06:59
Intake Total
Output Total
Balance
Review of Systems
-
Unable to obtain full review of systems at this time due to: Acuity and Patient Intubation
[2024-07-14] MEDS: FLOVENT 110 MCG INHALER 4 PUFF INH ×2 (07:38→20:49)
--- NOTE | 2024-07-14 07:39 | W.PN.INTV ---
Addendum entered and electronically signed by Jona Meza MD 07/14/24 15:49:
- Midday, patient was again placed on spontaneous breathing trial which she tolerated well . She was extubated without difficulty.
-Postextubation she was started on BiPAP. She is reportedly at a high EPAP setting at home but I do not have access to her AVAPS settings.
-She started to develop hypercapnia on 04/14, so it IPAP/EPAP was titrated up with improving pCO2.
-Will continue to follow ABG and maintain BiPAP at 26/04, patient's baseline pCO2 is around 90
-High risk of requiring reintubation, family updated at bedside.
Original Note:
Today's Communication / Plan
Recommendations
-Lasix 40 mg IV daily
-POCUS only shows a small simple looking pleural effusion on right side, hold off thoracentesis
-Reattempt SAT SBT again later today to see if patient can be extubated
-Follow-up on cultures
Assessment
-
Patient is a 78-year-old female with previous history of COPD, chronic hypercarbic respiratory failure on BiPAP, chronic heart failure with preserved EF, chronic hypoxemia presenting with increased shortness of breath and weakness over the past 24
hours. She was at wound clinic the day prior to admission and notably hypoxemic, was referred to the emergency room. On arrival ABG noted to be 7.29/76. She was treated with BiPAP overnight. Repeat ABG 7.23/90. She had increasing somnolence
throughout the day. A decision was made for intubation due to persistent mental status changes and unresponsiveness.
07/09, patient was intubated due to worsening mental status and hypercapnia and subsequently transferred to ICU. Also noted to be severely hyperkalemic which was urgently temporized and intensive care consultation was requested for further
management
07/10, patient overnight stayed hypotensive and required pressor support. She did have fever and in view of shock broad-spectrum antibiotics were continued in addition to diuretics.
Last 24 hours:
-Patient failed SAT and SBT on 07/13, suboptimal tidal volume and tachycardia, changed back to volume assist-control. Failed SAT SBT again on , on , suboptimal tidal volume.
-Fluid balance, +1.2 L
Hemoglobin stable at 9.7, white count stable at 14.6, normal platelets
Potassium and magnesium normal, creatinine normal at 0.7
Current drips, phenylephrine at 80, off vasopressin and Levophed now. Insulin drip for hyperglycemia, heparin drip for A-fib, sedation maintained with propofol and fentanyl
ABG 7.32, pCO2 68, pO2 of 80 at 40% FiO2, volume control, 350, 14, 40% with a PEEP of 6
#1. Acute on chronic hypoxic and hypercapnic respiratory failure s/p intubation 07/09/24. Respiratory failure is due to heart failure exacerbation, suspected right lower lobe pneumonia/aspiration as well as underlying -COPD with morbid obesity and
history of sleep apnea with possibly obesity hypoventilation syndrome.
-Patient at baseline on oxygen and also has chronic hypercapnia with baseline PCO2 90
-Chest x-ray and ABG in a.m
-Daily SAT SBT, will try again later today to see if patient can be extubated
#2. Shock, likely mixed septic shock and cardiogenic shock
-Continue pressor support
-Avoid midodrine/dobutamine
-Monitor ins and outs closely
-ID service on case, antibiotic changed to meropenem and doxycycline
-In view of persistent fever, repeated blood cultures
-Urine showing Klebsiella and lactobacilli
-Continue phenylephrine. Levophed and vasopressin were stopped because of A-fib RVR.
#2. Acute on chronic HFpEF, moderate aortic stenosis. Recent hospitalization in June for heart failure exacerbation.
-Lasix 40 mg IV daily
-Cardiology service on case.
-Chest X ray showing somewhat increased congestion with increased size of right sided pleural effusion
ECHO 07/2024: Normal left ventricular chamber size with mild concentric left ventricular
hypertrophy. Normal left ventricular systolic function. Left ventricular
ejection fraction is 65-70%.
Mild to moderate mitral stenosis with mean gradient of 7 mmHg.
Moderate aortic stenosis with peak/mean gradients across the aortic valve of
56/35 mmHg.
#3. Right lower lobe pneumonia, suspect aspiration, enlarging effusion
-Considering patient is in shock and recent hospitalization about a month ago, continue antibiotic
-MRSA screen negative, follow-up on blood cultures
-Chest PT in view of right lower lobe mucous plugging
-Bedside POCUS performed, 07/14, only a small volume pleural effusion noted which appears simple without loculation hold off on thoracentesis.
#4. Increasing lethargy, unresponsiveness. This is related to worsening hypercapnia and metabolic encephalopathy. (prior to requiring intubation)
-Currently patient is intubated and sedated
#5. Acute kidney injury with hyperkalemia.
-Acidosis and hypercapnia also exacerbated hyperkalemia, status post emergency temporization with improved potassium
-Cardiorenal syndrome, creatinine improved with diuresis
-Avoid NAJMA inhibitor, ARB's as well as constipation
-Nephrology service on case
-Continue Lasix IV
#6. A-fib with RVR atrial fibrillation with RVR, new onset. Suspect in the setting of acute critical illness
-Cardiology service on case
-Continue heparin infusion for stroke prophylaxis
-Continue phenylephrine, avoiding Levophed
-Amiodarone p.o. started, dose managed by cardiology
-Continue telemetry monitoring
-Minimally elevated troponin, downtrending
#7. DM with hyperglycemia:
_insulin infusion
Other:
-Continue tube feeding
-DVT prophylaxis with heparin infusion
-GI prophylaxis with PPI
Conditions present prior to admission
Diabetes
Hypertension
Hyperlipidemia
Morbid obesity
Elevated IgE
Severe sleep apnea, total index 56, desaturation adamaris 51%
Compliant and adequate with auto BiPAP
Severe COPD, spirometry 06/22/23- FVC 1.14 or 45%, FEV1 0.66 or 33, Ratio 57
Heart failure with preserved ejection fraction
History of anemia
History of pleural effusions, stable since 2010
Afib on Eliquis
DVT prophylaxis: Heparin
GI Prophylaxis: PPI
Diagnostic Data
Chest X-Ray: 07/09/24 post intubation- 1. Endotracheal and nasogastric tubes are in satisfactory position.
2. Mild pulmonary edema, not significantly changed.
3. Obscuration of both hemidiaphragms, left greater than right, suggestive of small bilateral pleural effusions. Bibasilar airspace disease may also be present.
07/08/24- Cardiomegaly, unchanged. Pulmonary interstitial prominence again seen, cannot differentiate acute versus chronic. Some right basilar opacity and left hemidiaphragm again obscured. Cannot exclude bibasilar subsegmental atelectasis and/or
pneumonia and small bilateral pleural effusions.
Chest x-ray 06/14/2024: Moderate cardiomegaly. Mild increased interstitial markings. Improved compared to prior 06/12/2024
CT Scan: CTA 2017- No pulmonary embolism. Prominent distal pulmonary artery and right and left pulmonary arteries, suggesting an element of pulmonary hypertension. Mild stable chronic parenchymal findings, without evidence of acute pneumonia.
Long-term interval stability of 3 small pulmonary nodules, supporting a benign etiology.
CHEST 09/27/13- Stable left upper lobe pulmonary nodules since February 2011. There is extremely high probability that these are benign. Stable bibasilar scarring.
Findings suggesting pulmonary arterial hypertension. Mitral annulus calcification. Coronary artery disease. Essentially resolved right pleural effusion.
Echo: 06/13/24- Normal left ventricular chamber size. Normal left ventricular systolic function. Left ventricular ejection fraction is 55-60% by visual assessment. No gross regional wall motion abnormalities. Mild concentric left ventricular
hypertrophy. Normal right ventricular size and function. Mild to moderate mitral stenosis. Moderate aortic stenosis. Peak/mean gradients across the aortic valve are 46/28 mmHg and estimated aortic valve area is 1.1 cm2. Compared to prior study
dated 12/31/2023, there is no significant change, prior aortic valve peak/mean gradients were 48/27 mmHg, respectively.
PFT's: spirometry 06/22/23- FVC 1.14 or 45%, FEV1 0.66 or 33, Ratio 57 (severe obstruction)
Reports and relevant images were personally reviewed.
Critical Care time 45 mins -- The patient is admitted for acute critical illness for the treatment of vital organ failure and/or prevention of further life-threatening conditions. Total care includes time spent in review of history, physical exam,
medications, hemodynamic/ventilator parameters, laboratory data, imaging and discussion with house staff, pharmacy, respiratory therapy, commercial development manager, and nursing. Time also included performing right subclavian central line placement as well as right
radial arterial line placement.
Subjective Dataa
Subjective Data
Date of Service:
Date of Service: July 14, 2024
Subjective:
Patient more awake, alert, tolerating SAT well, more interactive
Review of Systems
Genitourinary: Other (Patient intubated hence unable to complete full review of system however it appears comfortable and not in any distress.)
Objective Data
Data Reviewed
Vital Signs / I&O / Oxygen:
Vital Signs
Temp Pulse Resp BP Pulse Ox
97.9 F 81 14 116/71 95
07/14/24 07:00 07/14/24 06:30 07/14/24 06:30 07/14/24 06:00 07/14/24 05:00
Intake and Output
07/13/24 07/14/24 07/15/24
05:59 06:59 06:59
Intake Total
Output Total
Balance
SaO2 [CPAP] 93
SaO2 [A/C] 97
SaO2 95
Nasal Cannula flow liters per 5
minute
Physical Exam
General: Comfortable
Cardiovascular: S1-S2
Respiratory: Crackles and Rhonchi (Rhonchi, right greater than left.)
GI: Soft and Non Distended
Neurology: Other (Currently sedated)
Skin: Warm
Labs/Micro/Reports
Lab Data
07/14/24 04:39
07/14/24 04:39
Laboratory Results
07/13/24 07/14/24
04:39
APTT 95.1 H
pH 7.25 L 7.32 L
pCO2 87 H* 68 H
pO2 71 L 80 L
HCO3 38.2 H 35.0 H
O2 Delivery Level Vent
Microbiology
07/09/24 18:20 Blood/Venous Blood Culture - Preliminary
No Growth in 4 days- Final report to follow
07/09/24 18:20 Blood/Venous Blood Culture - Preliminary
No Growth in 4 days- Final report to follow
07/11/24 13:28 Feces/Stool Salmonella/Shigella Culture - Final
No Salmonella, Shigella, Aeromonas or Plesiomonas species
isolated.
07/11/24 13:28 Feces/Stool Campylobacter Culture - Final
No Campylobacter species isolated.
07/11/24 13:28 Feces/Stool Stool Leukocytes - Final
07/12/24 11:34 Blood/Venous Blood Culture - Preliminary
No Growth in 24 hours- Final report to follow
07/12/24 12:45 Nasal Swab Influenza Types A & B ([place]) - Final
Negative for Influenza A & B, NAAT
Negative results must be combined with clinical observations
and patient history.
Nucleic Acid Amplification test (NAAT)performed on the
[employer] platform.
07/10/24 00:11 Sputum Respiratory Culture - Final
Usual Respiratory Blanca
07/10/24 00:11 Sputum Gram Stain - Final
07/09/24 15:59 Urine Urine Culture - Final
Klebsiella aerogenes
Klebsiella aerogenes#2
Lactobacillus species
07/11/24 13:28 Feces/Stool C. difficile GDH Antigen & Toxins - Final
Negative for toxigenic C.difficile
07/11/24 08:05 Nasal Swab Influenza Types A & B ([place]) - Final
Negative for Influenza A & B, NAAT
Negative results must be combined with clinical observations
and patient history.
Nucleic Acid Amplification test (NAAT)performed on the
[employer] NOW platform.
--- NOTE | 2024-07-14 08:23 | PTCARENOTE ---
Pt received in bed @ 0700. Pt intubated. Arouses to verbal stimuli. Able to follow simple commands. Nods and shakes head appropriately to questions. Soft limb restraints in place. SaO2 95%. ETT #$8 @ 25cm to right lip. AC (14/350/40%/6+).
Suctioned for thick enriquez sputum. Atrial Fibrillation on ekg monitor. HR 70s - 90s at rest; 90s - 110s with stimuli or activity. Neosynephrine received @ 100 mcg/min; will attempt to wean. MAP remains > 65. (R) radial arterial line transduced,
zeroed, and flushed. Heparin gtt infusing @ 1300 units/hr; PTT therapeutic. Jevity 1.5 infusing @ 45 ml/hr. Water flush 35ml/hr. Santana catheter draining cloudy yellow urine.
[2024-07-14] MEDS: VENTOLIN NEBULES 2.5 MG INH ×2 (08:50→20:49)
[2024-07-14] MEDS: SODIUM CHLORIDE 3% FOR INHALATION 1 VIAL INH ×2 (08:51→20:49)
[2024-07-14 09:21] LABS: Glucose - Point of Care 144 mg/dl (70-99)
[2024-07-14] MEDS: LOPRESSOR 2.5 MG IV (10:46)
[2024-07-14 11:17] LABS: Glucose - Point of Care 164 mg/dl (70-99)
--- NOTE | 2024-07-14 11:21 | W.PN.ID1 ---
Date of Service
Date of Service: July 14, 2024
Today's Communication
Continue current abx's for now.
Assessment / Plan
Acute on chronic hypoxemic respiratory failure; on vent (07/09/2024)
Leukocytosis;
- Not clear if reactive, or secondary to infection.
Fevers trending down
Bacteriuria
Shock - weaning down 1pressor
COPD
Chronic hypoxemic respiratory insufficiency (3 L O2 at home)
HTN
Dyslipidemia
Diabetes mellitus
Obesity
P A-fib
MARK
Recommendations:
Unclear etiology of rising white count, fevers
Bcx x 2 neg to date.
Sputum usual respiratory blanca.
Urine cx with Klebsiella x 2 strains , both susceptible to meropenem.
Was febrile on meropenem, thus unlikely urine source
Repeat COVID and Influenza tests negative
CXR with bibasilar opacities - atelectasis vs PNA.
Continue empiric doxycycline via tube (d3)
Continue meropenem (d4)for now.
Follow repeat sputum cx.
Trend white count and temperature curve.
Continue with supportive measures.
Patient currently critically ill in intensive care unit requiring ventilator support, along with pressor support.
Chief Complaint
-: Fever and Clinical Sepsis
Subjective / Review of Systems
Awake.
Vital Signs / Physical Exam
Vital Signs
Vital Signs
Temp Pulse Resp BP Pulse Ox
97.9 F 117 24 116/71 95
07/14/24 07:00 07/14/24 10:39 07/14/24 10:39 07/14/24 06:00 07/14/24 10:39
Selected Entries
07/13/24
23:23
Temp 100.9 F H
Physical Exam
Constitutional: Acutely Ill
Eyes: Sclera Anicteric
Cardiovascular: Irregular Rate and Other (tachycardic)
Pulmonary: Clear (anteriorly) and Other (on vent)
Gastrointestinal: Soft, Non Tender, Non Distended and Normal Bowel Sounds
Genito-Urinary: Santana and Clear Urine
Extremities: Edema
Neurological: Awake
Objective Data
Lab Data
Lab Results
07/14/24 04:39
07/14/24 04:39
PT 18.4 Sec (11.4-14.6) H 07/09/24 15:19
INR 1.50 07/09/24 15:19
APTT 95.1 Sec (23.4-35.0) H 07/14/24 04:39
Estimated Creat Clear 69 ml/min 07/14/24 04:39
Lactic Acid 0.9 mmol/L (0.7-2.0) 07/11/24 16:19
Total Bilirubin 0.7 mg/dl (0.2-1.3) 07/14/24 04:39
AST 31 U/L (14-36) 07/14/24 04:39
ALT 21 U/L (0-35) 07/14/24 04:39
Alkaline Phosphatase 88 U/L (38-126) 07/14/24 04:39
Most recent labs reviewed.
Micro Results:
07/14/24 10:07 Respiratory Culture - Pending
Tracheal Aspirate Gram Stain - Pending
07/09/24 18:20 Blood Culture - Preliminary
Blood/Venous No Growth in 4 days- Final report to follow
07/09/24 18:20 Blood Culture - Preliminary
Blood/Venous No Growth in 4 days- Final report to follow
07/11/24 13:28 Salmonella/Shigella Culture - Final
Feces/Stool No Salmonella, Shigella, Aeromonas or Plesiomonas species
isolated.
Campylobacter Culture - Final
No Campylobacter species isolated.
Shiga Toxin Test - Pending
Stool Leukocytes - Final
07/12/24 11:34 Blood Culture - Preliminary
Blood/Venous No Growth in 24 hours- Final report to follow
07/12/24 12:45 Influenza Types A & B ([place]) - Final
Nasal Swab Negative for Influenza A & B, NAAT
Negative results must be combined with clinical observations
and patient history.
Nucleic Acid Amplification test (NAAT)performed on the
[employer] NOW platform.
07/10/24 00:11 Respiratory Culture - Final
Sputum Usual Respiratory Blanca
Gram Stain - Final
07/09/24 15:59 Urine Culture - Final
Urine Klebsiella aerogenes
Klebsiella aerogenes#2
Lactobacillus species
07/11/24 13:28 C. difficile GDH Antigen & Toxins - Final
Feces/Stool Negative for toxigenic C.difficile
07/11/24 08:05 Influenza Types A & B ([place]) - Final
Nasal Swab Negative for Influenza A & B, NAAT
Negative results must be combined with clinical observations
and patient history.
Nucleic Acid Amplification test (NAAT)performed on the
[employer] NOW platform.
07/08/24 17:37 MRSA Screen - Final
Nose No Methicillin Resistant Staphylococcus aureus isolated.
Imaging:
07/11/2024 CXR (portable): ET tube projects over the trachea. Nasogastric tube not visualized, although lies below left hemidiaphragm. Heart is mildly enlarged. Minimal bibasilar airspace consolidation, with associated haziness of each
hemidiaphragm. Mild cephalization of the pulmonary vasculature. Please see full dictation for additional detail. Film personally viewed.
07/12/2024 CXR: Bibasilar opacification, right greater than left which could represent subsegmental atelectasis and/or pneumonia and possible tiny right pleural effusion.
[2024-07-14 11:23] LABS: B.E. 9.1 mmol/L; HCO3 36.7 mmol/L (21-28); O2 Saturation % 99.6 % (94-98); PCO2 68 mmHg (32-35); PO2 128 mmHg (83-108); pH 7.34 (7.35-7.45)
[2024-07-14 11:24] LABS: O2 Therapy 40 SBT
--- NOTE | 2024-07-14 11:29 | W.PN.CARDCBS ---
Today's Communication / Plan
-
Weaning trials per service representative
Continue to support hemodynamics
Continue rate control strategy for atrial fibrillation
Continue IV Lasix
Continue IV heparin
Impression / Plan
-
Family Physician:� Trina Ralph
Primary Cutter V Groove: Dr. Simmons
Impression:
Sepsis with hypotension requiring pressor support
Vent dependent respiratory failure
Admitted with SOB and acute on hypoxic respiratory failure 06/10/24
New persistent atrial fibrillation with rapid ventricular response
AE COPD
Acute HFpEF
Hyperkalemia
Change in mental status
Mod peak/mean 48/27 mmHg and ZAY 1.0 cm sq by echo 12/21/23
Mod MS with peak/mean 17/7 mmHg by echo 12/21/23
MARK on BiPAP
HTN
HLD
DM2
Chronic iron deficiency anemia
Morbid obesity, BMI 36.4
h/o pulmonary nodules
ECHO 07/2019: EF 60-65%, mod cLVH, MAC, mild MR, mild to mod , peak/mean 26/16mmHg, ZAY 1.1cm2
ECHO 09/24/21: EF 65 to 70%, mild concentric LVH, mild , peak/mean gradients 31/19 mmHg, ZAY 1.1 cm�, trivial pericardial effusion, no significant change compared to prior
Echo 12/21/23: EF 55-60%, mild conc LVH, mod MS with peak/mean 17/7 mmHg, mod peak/mean 48/27 mmHg and ZAY 1.0 cm sq
Echo 06/13/24: EF 55 to 60%, no gross regional WMA, mild to moderate MS with mean gradient 6 mmHg at an HR of 76 bpm, mild MR, moderate peak/mean 46/28 mmHg and ZAY 1.1 cm SQ
Echo 07/09/24: EF 65-70%, mild to moderate mitral stenosis, mean gradient 7, moderate aortic stenosis, 56/35 mmHg, no comment on AI, mild to moderate mitral stenosis, mean gradient 7 no comment on mitral regurgitation, normal atria, normal RV, could
not determine pulmonary artery systolic pressure
Plan:
Atrial fibrillation with rapid ventricular response, new diagnosis
-Heart rates relatively controlled with rates in the low 100s during weaning trial
-Continue current dose of amiodarone 400 mg twice daily. EKG with improved QT interval
-Monitor electrolytes. Keep K greater than 4, mag greater than 2.
-She is still requiring pressor support; eventual addition of beta-rae once blood pressures improve
-Continue anticoagulation; restart Eliquis if no procedures are planned, for now continue IV heparin
-Could consider cardioversion next week if difficult to get off ventilator for now we will continue to observe
Acute on chronic hypoxic/hypercapnic respiratory failure s/p intubation 07/09/2024 remains difficult to wean
-Lower lobe pneumonia, suspect aspiration
-Chest x-ray today with increased right-sided pleural effusion�possibly may need thoracentesis
-ID following
-Management per pulmonary/service representative
Acute on chronic heart failure with preserved ejection fraction; Moderate /moderate
-Volume status challenging but appears volume overloaded
-Will give Lasix IV 40 mg daily
-Monitor I's and O's, daily weights
Spoke with patient's and daughter at bedside. Updated nursing.
HPI: Patient came to ER today with increased weakness and a lower than usual pulse ox reading at home, patient now admitted with acute HF and cardiology has been consulted. Patient was just admitted to from 06/10/2024 until 06/19/2024 with acute
on chronic hypoxic multifactorial respiratory failure and also a new diagnosis of paroxysmal Afib. During that admission patient was diuresed with Lasix 80 mg IV BID. In addition to BiPAP therapy. Unfortunately the recorded weights during that
admission were not accurate because they were using a bed scale. I and O readings were also inaccurate, but the patient reported some subjective improvement. Patient was seen in the office on 06/26/2024 and was dutifully taking her dose of Lasix 80
mg twice daily, but was noted to be hypotensive and so her usual dose of nifedipine was stopped. Patient was seen in the wound clinic today and was noted to be SOB above baseline and hypoxic so she was referred to ER. Patient was using her
usual 3 L nasal cannula of supplemental oxygen and had improved pulse ox by increasing to 5 L. proBNP is up to 9300 today and was only as high as 1590 during her last admission. Again the recorded weights are not accurate
Progress Note - Cutter V Groove
Subjective
Date of Service: July 14, 2024
Patient was seen and examined during wean. She is overall more alert and looks better on weaning trial today than yesterday.
Objective
Labs:
07/14/24 04:39
07/14/24 04:39
Labs
Hgb 9.7 g/dL (12.0-16.0) L 07/14/24 04:39
Hct 33.9 % (37.0-47.0) L 07/14/24 04:39
Plt Count 322 10^3/uL (130-400) 07/14/24 04:39
PT 18.4 Sec (11.4-14.6) H 07/09/24 15:19
INR 1.50 07/09/24 15:19
APTT 95.1 Sec (23.4-35.0) H 07/14/24 04:39
Sodium 145 mmol/L (135-145) 07/14/24 04:39
Potassium 4.0 mmol/L (3.5-5.1) 07/14/24 04:39
BUN 45 mg/dl (7-17) H 07/14/24 04:39
Creatinine 0.7 mg/dL (0.6-1.0) 07/14/24 04:39
Glucose 158 mg/dl (70-99) H 07/14/24 04:39
Vital Signs and I&O:
Vital Signs
Temp Pulse Resp BP Pulse Ox
97.9 F 117 24 116/71 95
07/14/24 07:00 07/14/24 10:39 07/14/24 10:39 07/14/24 06:00 07/14/24 10:39
Vital Signs
Temp Pulse Resp BP Pulse Ox
97.9 F 117 24 116/71 95
07/14/24 07:00 07/14/24 10:39 07/14/24 10:39 07/14/24 06:00 07/14/24 10:39
Intake & Output
07/12/24 07/13/24 07/14/24 07/15/24
05:59 05:59 06:59 06:59
Intake Total 599.5 / 599.5
Output Total 510 / 510
Balance 89.5 / 89.5
Physical Exam
Physical Exam
General: Awake, intubated. More alert today
Heart: Irregular irregular. Positive S1-S2. 2/6 systolic murmur
Lungs: Bronchovesicular breath sounds decreased bilaterally particularly right base. Coarse rhonchi
Abd: Positive BS, NT/ND, neg rebound/rigidity/guarding
Ext: No edema
--- NOTE | 2024-07-14 12:17 | PTCARENOTE ---
Pt reassessed. Weaning Neosynephrine; currently 20mcg/min while maintaining goal MAP > 65. Pt successful with wean. ABG drawn and sent. Orders to extubate. Pt extubated to BiPAP 18/10; 8L. SaO2 93%. New order for ABG at 13:30.
[2024-07-14] MEDS: HEPARIN 25000 UNITS/250 ML IV (13:03)
[2024-07-14] MEDS: NOVOLIN R INSULIN INFUSION 100 IV (13:05)
[2024-07-14 13:17] LABS: Glucose - Point of Care 162 mg/dl (70-99)
[2024-07-14 13:51] LABS: B.E. 9.4 mmol/L; O2 Saturation % 96.8 % (94-98); PO2 84 mmHg (83-108)
[2024-07-14 13:55] LABS: HCO3 40.3 mmol/L (21-28); PCO2 103 mmHg (32-35)
[2024-07-14 15:11] LABS: Glucose - Point of Care 136 mg/dl (70-99)
[2024-07-14 15:26] LABS: B.E. 8.7 mmol/L; HCO3 38.1 mmol/L (21-28); O2 Saturation % 97.3 % (94-98); PO2 104 mmHg (83-108); pH 7.27 (7.35-7.45)
[2024-07-14 15:28] LABS: PCO2 83 mmHg (32-35)
[2024-07-14 17:02] LABS: Glucose - Point of Care 148 mg/dl (70-99)
[2024-07-14 17:16] LABS: B.E. 7.9 mmol/L; HCO3 38.4 mmol/L (21-28); O2 Saturation % 96.3 % (94-98); PO2 77 mmHg (83-108); pH 7.21 (7.35-7.45)
[2024-07-14 17:18] LABS: PCO2 96 mmHg (32-35)
--- NOTE | 2024-07-14 18:37 | W.PN.UPDATE ---
Update Note
Progress Note Update
Code status update:
Patient was extubated earlier today and was maintained on BiPAP.
Throughout the day we had difficulty ventilating patient and patient's continue to develop acidosis and hypercapnia. BiPAP settings were titrated all the way up to 20 x 12 and patient still started to develop worsening hypercapnia and acidosis
I met with family at bedside and updated them about patient's condition we discussed the possibility of having to reintubate the patient we also discussed the option of DNR DNI and even pursuing comfort focused care. Of family decided to meet in
the conference room and then they decided to proceed with reintubation however would not want additional CPR or resuscitation performed if patient was to have a cardiac arrest
CODE STATUS changed to Limited DNR. Okay to intubate No CPR.
--- NOTE | 2024-07-14 18:39 | OR.RPT ---
Operative Report
Operative Report
Rapid sequence intubation
Indication: worsening hypercapnic respiratory failure, patient on BiPAP
In view of worsening respiratory status, hypercapnia, discussion was held with the family and decision was made to reintubate the patient. Family consented to proceed with intubation however not to perform CPR if patient were to develop cardiac
arrest
Oxygen saturation prior to intubation 100%.
Preoxygenation: Was achieved with BiPAP at setting 20 x 12 with 100% FiO2
Premedication: Fentanyl 50 mcg IV push was given
Induction: Since patient was requiring phenylephrine to maintain blood pressure, etomidate 30 mg was used as induction agent
Paralytics: Not used
Preoxygenation was achieved with BiPAP and patient was saturating 100%. Once patient was premedicated and induced with fentanyl and etomidate, glide scope blade size 3 was used to visualize cords. Grade 1 view of the cords was achieved and under
direct vision 8.0 ET tube was advanced. Stylet was removed and ET tube was advanced to 23 cm depth. Color change was confirmed. Stethoscope was used to hear bilateral symmetric breath sounds. ET tube was secured in place and attached to
ventilator.
Number of attempts: 1
Complications: None
Time spent: 25 min
--- NOTE | 2024-07-14 18:49 | PTCARENOTE ---
Pt reassessed. ABG resulted. Dr. Meza in with family to discuss results of ABG. Decision made to re-intubate. Family decided to make Limited DNR- ok to intubate but no CPR. ETT #8 @ 24cm to center lip placed to AC (14/350/40%/6+). Neosynephrine
gtt to 40 mcg/min to maintain MAP > 65.
[2024-07-14 19:08] LABS: Glucose - Point of Care 148 mg/dl (70-99)
[2024-07-14] MEDS: SUBLIMAZE 100 IV (19:49)
--- NOTE | 2024-07-14 20:00 | PTCARENOTE ---
rec'd pt with wrists resstrained, nods head appropriately to questions asked, fent 50mic bolus given followed by fent gtt at 25mic, ambriz to command weakly, Afib w/ occas pvc, R rad santos tubing & dsg changed, very difficult to obtain blood via santos,
wave form dampens freq, arm board applied, to keep MAP > 65, using cuff bp due to poor wave form, tabby gtt at 40 anna- see flow sheet for titrations, weak distal pulses, + edema, skin warm/dry, #8 oral ett- 24 cm in center, ac 14, tv 350, 6 peep, 60%
fio2- to wean keeping sat > 92- see flow sheet, lungs w/ rhonchi, decr in bases, thick enriquez secretions,+ bowel sounds, fecal mgmt sys to str drainage bag draining brown liquid, irrigated, sm amt leakage, left nares [place]- rec jevity 1.5 at 45ml/hr
&35ml/hr flush, no vomiting, sheth draining yellow cloudy urine w/ sediment, remains on glycemic protocal- see flow sheet for titraions
[2024-07-14 21:03] LABS: Glucose - Point of Care 176 mg/dl (70-99)
[2024-07-14 21:09] LABS: B.E. 7.4 mmol/L; O2 Saturation % 99.6 % (94-98); PCO2 52 mmHg (32-35); PO2 193 mmHg (83-108); pH 7.41 (7.35-7.45)
--- NOTE | 2024-07-14 22:08 | PTCARENOTE ---
vs filed from previous shift by this RN- unable to verify validity
[2024-07-14 23:01] LABS: Glucose - Point of Care 132 mg/dl (70-99)
[2024-07-15] VITALS (57 sets, daily range): BP systolic 85–131; BP diastolic 43–86; BMI 37.2
--- NOTE | 2024-07-15 | PTCARENOTE ---
sys reviewed, lungs unch, CHG bath done, linens changed
[2024-07-15] MEDS: NEO-SYNEPHRINE 250 IV ×4 (01:06→19:41)
[2024-07-15 01:10] LABS: Glucose - Point of Care 164 mg/dl (70-99)
[2024-07-15] MEDS: VIBRAMYCIN 100 MG TUBE ×2 (02:02→14:30)
[2024-07-15] MEDS: STERILE WATER FOR INJECTION 10 ML IV ×4 (02:02→19:26)
[2024-07-15] MEDS: MERREM 500 MG IV ×4 (02:02→19:26)
[2024-07-15 03:09] LABS: Glucose - Point of Care 159 mg/dl (70-99)
[2024-07-15 03:24] LABS: B.E. 10.5 mmol/L; HCO3 36.9 mmol/L (21-28); O2 Saturation % 99.6 % (94-98); PCO2 61 mmHg (32-35); PO2 118 mmHg (83-108); pH 7.39 (7.35-7.45)
[2024-07-15 03:30] LABS: APTT 79.6 Sec (23.4-35.0)
[2024-07-15 03:39] LABS: ALT (SGPT) 20 U/L (0-35); AST (SGOT) 25 U/L (14-36); Albumin 2.4 g/dl (3.5-5.0); Alkaline Phosphatase 82 U/L (38-126); Blood Urea Nitrogen 47 mg/dl (7-17); Calcium 8.4 mg/dl (8.4-10.2); Chloride 104 mmol/L (98-107); Estimated Creatinine Clearance 61 ml/min; Glucose 158 mg/dl (70-99); Potassium 4.4 mmol/L (3.5-5.1); Sodium 145 mmol/L (135-145); Total Bilirubin 0.6 mg/dl (0.2-1.3); Total Protein 5.4 g/dl (6.3-8.2); Triglycerides 109 mg/dl (10-149); eGFR > 60.00
[2024-07-15 03:43] LABS: % Basophils 0.4 % (0-2); % Eosinophils 2.6 % (0-6); % Immature Granulocytes 0.9 % (0-0.5); % Lymphocytes 8.3 % (20.5-51.1); % Monocytes 9.6 % (1.7-9.3); % Neutrophils 78.2 % (42.2-75.2); Absolute Basophils 0.1 10^3/uL (0-0.2); Absolute Eosinophils 0.4 10^3/uL (0-0.7); Absolute Immature Granulocytes 0.1 10^3/uL (0-0.05); Absolute Lymphocytes 1.2 10^3/uL (1.2-3.4); Absolute Monocytes 1.4 10^3/uL (0.1-0.6); Absolute Neutrophils 11.1 10^3/uL (1.4-6.5); Hemoglobin 9.1 g/dL (12.0-16.0); Mean Corp Hgb Conc. 28.4 g/dL (33.0-37.0); Mean Corpuscular Hgb 28.7 pg (27.0-31.0); Mean Corpuscular Volume 100.9 fL (81.0-99.0); Mean Platelet Volume 11.2 fL (7.4-10.4); Nucleated Red Blood Cells % 0.3 %; Platelet Count 336 10^3/uL (130-400); Red Blood Cell Count 3.17 10^6/uL (4.20-5.40); Red Cell Dist. Width 17.2 % (11.5-14.5); White Blood Cell Count 14.1 10^3/uL (4.8-10.8)
[2024-07-15 03:49] LABS: Carbon Dioxide 32 mmol/L (22-30)
--- NOTE | 2024-07-15 04:04 | PTCARENOTE ---
sys reviewed, ett repos on left side at 24 cm, sm amt bloody secretions via ett
[2024-07-15 05:05] LABS: Glucose - Point of Care 146 mg/dl (70-99)
[2024-07-15] MEDS: PITRESSIN 100 IV ×2 (05:15→15:42)
[2024-07-15] MEDS: HEPARIN 25000 UNITS/250 ML IV ×2 (05:35→22:31)
[2024-07-15 07:19] LABS: Glucose - Point of Care 120 mg/dl (70-99)
[2024-07-15] MEDS: NOVOLOG FLEXPEN SC ×2 (07:47→12:11)
[2024-07-15] MEDS: DESENEX/MITRAZOL/ZEASORB 1 APPLIC TOPICAL ×2 (07:48→19:27)
[2024-07-15 07:51] LABS: Glucose - Point of Care 196 mg/dl (70-99)
[2024-07-15] MEDS: LASIX 40 MG IV ×2 (07:52→15:37)
[2024-07-15] MEDS: PROTONIX IV 40 MG IV (07:54)
[2024-07-15] MEDS: PACERONE 400 MG TUBE ×2 (07:54→19:27)
[2024-07-15] MEDS: MIRALAX 17 GRAMS TUBE (07:54)
[2024-07-15] MEDS: NSS (PRESERVATIVE FREE) 10 ML IV (07:55)
--- NOTE | 2024-07-15 08:00 | PTCARENOTE ---
Assumed care of patient. Pt rec'd intubated and sedated on ventilator. Responds to verbal and tactile stimuli. Bilateral wrist restraints on. Able to open eyes and nod head. S1 S2 irregular w/ +murmur....afib on monitor. Weak pulses. +1
generalized edema. Elevated weights...cardiology aware. #8 ETT 24cm left lip...current vent settings: 14/350/+8/40%...sats 98%. Lungs clear anteriorly...posteriorly diminished w/ coarse crackles 1/2 up. Suctioned orally for small amts of
enriquez/blood tinged secretions. Abdomen obese...hypo BS. Left nare [place] w/ Jevity 1.5 @ 45ml/hr and 35ml/hr water flushes. Prosource provided. FMS flushed...draining liquid brown stool. Temp sensing sheth draining cloudy yellow urine w/ sediment.
Skin pale in color. Right buttock dressing changed per orders. Sacral optifoam intact. Left hurtado optifoam intact. 22P LW capped. Right midline and RSC TLC noted....tabby, heparin, insulin, fentanyl, and vasopressin infusing...see interventions.
Right radial santos...flushed and zeroed...positional. VS documented. Safe environment confirmed. Will continue to monitor closely.
[2024-07-15] MEDS: SODIUM CHLORIDE 3% FOR INHALATION 1 VIAL INH ×2 (08:02→20:30)
[2024-07-15] MEDS: FLOVENT 110 MCG INHALER 4 PUFF INH ×2 (08:03→20:30)
[2024-07-15] MEDS: VENTOLIN NEBULES 2.5 MG INH (08:03)
--- NOTE | 2024-07-15 08:17 | W.PN.INTV ---
Today's Communication / Plan
Recommendations
Mechanical ventilation
If pt does not get extubated in next 48 hrs with no signs of impending vent liberation, then would consult hospice for home hospice, which is what the daughter would want if it comes to that
Once patient is ready for extubation, will extubate to NIV
Continue aggressive diuresis
Trend BNP
Wean off insulin gtt
Start hydrocortisone
Change nebulized albuterol to xopenex, and start atrovent
Abx per ID
Guarded prognosis
Assessment
-
Patient is a 78-year-old female with previous history of COPD, chronic hypercarbic respiratory failure on BiPAP, chronic heart failure with preserved EF, chronic hypoxemia presenting with increased shortness of breath and weakness over the past 24
hours. She was at wound clinic the day prior to admission and notably hypoxemic, was referred to the emergency room. On arrival ABG noted to be 7.29/76. She was treated with BiPAP overnight. Repeat ABG 7.. She had increasing somnolence
throughout the day. A decision was made for intubation due to persistent mental status changes and unresponsiveness.
#1. Acute on chronic hypoxic and hypercapnic respiratory failure s/p intubation 07/09/24. Respiratory failure is due to heart failure exacerbation, suspected right lower lobe pneumonia/aspiration as well as underlying COPD with morbid obesity and
history of sleep apnea with possibly obesity hypoventilation syndrome.
-Patient at baseline on oxygen and also has chronic hypercapnia with baseline PCO2 60
-Continue mechanical ventilation with daily SAT/SBT if clinically appropriate
-Titrate FiO2 + PEEP to maintain SpO2 88-95%
-Vent adjustments based on blood gas daily
-Once ready for extubation, will extubate to NIV
-Continue with Flovent, change nebulized albuterol to Xopenex, start Atrovent and start hydrocortisone given concern for COPD exacerbation as well as shock state
#2. Shock, likely mixed septic shock and cardiogenic shock
-Continue pressor support with Anders-Synephrine + vasopressin; levophed was stopped because of A-fib RVR.
-Start stress dose hydrocortisone
-Avoid midodrine/dobutamine in the setting of sepsis
-Monitor I/O
-ID service on board --> patient currently on meropenem + doxycycline
-Checking RV panel today as per ID
-Urine culture from 07/09/2024 has grown Klebsiella aerogenes + lactobacillus
#2. Acute on chronic HFpEF, moderate aortic stenosis. Recent hospitalization in June for heart failure exacerbation.
-Continue aggressive diuresis, now currently on 40 mg IV Lasix BID
-Maintain net negative fluid balance
-Replete K>4, Mg>2 while being diuresed
-Cardiology service on case.
-Chest X ray shows pulmonary vascular congestion with suspected small bilateral pleural effusions, although difficult to assess fluid status due to body habitus
-Echo rechecked today showing hyperdynamic LV systolic function with EF 70-75%, with no significant change compared to prior echo on July 09, 2024; prior TTE on 07/30 showed mild�moderate MS with moderate aortic stenosis with peak/mean gradients of
56/35 mmHg
#3. Right lower lobe pneumonia, suspect aspiration, enlarging effusion
-Considering patient is in shock and recent hospitalization about a month ago, continue antibiotic
-MRSA screen negative, follow-up on blood cultures (NGTD)
-Chest PT in view of right lower lobe mucous plugging
-Bedside POCUS performed, 07/14, only a small volume pleural effusion noted which appears simple without loculation - hence thoracentesis not recommended at that time
#4. Increasing lethargy, unresponsiveness. This is related to worsening hypercapnia and metabolic encephalopathy. (prior to requiring intubation)
-Currently patient is intubated and sedated
-Maintain goal RASs 0 to -2
#5. Acute kidney injury with hyperkalemia - now resolved
-Cardiorenal syndrome, creatinine now normal with diuresis
-Renally dose all meds; avoid nephrotoxic agents
-Nephrology service signed off on 07/11/2024
-Continue IV Lasix as above
#6. A-fib with RVR atrial fibrillation with RVR, new onset since hospitalization in June 2024
-Cardiology service on case
-Continue heparin infusion for stroke prophylaxis
-Continue phenylephrine, avoiding Levophed
-Amiodarone p.o. started, dose managed by cardiology
-Continue telemetry monitoring
-Troponin peaked at 0.061 on 07/10/2024 � no longer need to continue trending at this time
#7. DM with hyperglycemia:
-insulin infusion --> will wean off today and then start basal-bolus SQ insulin dosing
-A1c: 6.8 on 06/11/2024
-Goal BG 140-180, especially while stress dose steroids starting today (07/15/2024)
Other:
-Continue tube feeding
-DVT prophylaxis with heparin infusion
-GI prophylaxis with PPI
Conditions present prior to admission
Diabetes
Hypertension
Hyperlipidemia
Morbid obesity
Elevated IgE
Severe sleep apnea, total index 56, desaturation adamaris 51%
Compliant and adequate with auto BiPAP
Severe COPD, spirometry 06/22/23- FVC 1.14 or 45%, FEV1 0.66 or 33, Ratio 57
Heart failure with preserved ejection fraction
History of anemia
History of pleural effusions, stable since 2010
Afib on Eliquis
Diagnostic Data
Chest X-Ray: 07/09/24 post intubation- 1. Endotracheal and nasogastric tubes are in satisfactory position.
2. Mild pulmonary edema, not significantly changed.
3. Obscuration of both hemidiaphragms, left greater than right, suggestive of small bilateral pleural effusions. Bibasilar airspace disease may also be present.
07/08/24- Cardiomegaly, unchanged. Pulmonary interstitial prominence again seen, cannot differentiate acute versus chronic. Some right basilar opacity and left hemidiaphragm again obscured. Cannot exclude bibasilar subsegmental atelectasis and/or
pneumonia and small bilateral pleural effusions.
Chest x-ray 06/14/2024: Moderate cardiomegaly. Mild increased interstitial markings. Improved compared to prior 06/12/2024
CT Scan: CTA 2017- No pulmonary embolism. Prominent distal pulmonary artery and right and left pulmonary arteries, suggesting an element of pulmonary hypertension. Mild stable chronic parenchymal findings, without evidence of acute pneumonia.
Long-term interval stability of 3 small pulmonary nodules, supporting a benign etiology.
CHEST 09/27/13- Stable left upper lobe pulmonary nodules since February 2011. There is extremely high probability that these are benign. Stable bibasilar scarring.
Findings suggesting pulmonary arterial hypertension. Mitral annulus calcification. Coronary artery disease. Essentially resolved right pleural effusion.
Echo: 06/13/24- Normal left ventricular chamber size. Normal left ventricular systolic function. Left ventricular ejection fraction is 55-60% by visual assessment. No gross regional wall motion abnormalities. Mild concentric left ventricular
hypertrophy. Normal right ventricular size and function. Mild to moderate mitral stenosis. Moderate aortic stenosis. Peak/mean gradients across the aortic valve are 46/28 mmHg and estimated aortic valve area is 1.1 cm2. Compared to prior study
dated 12/31/2023, there is no significant change, prior aortic valve peak/mean gradients were 48/27 mmHg, respectively.
PFT's: spirometry 06/22/23- FVC 1.14 or 45%, FEV1 0.66 or 33, Ratio 57 (severe obstruction)
Reports and relevant images were personally reviewed.
Critical care statement: A total of 42 minutes of critical care time was provided for this patient today. This includes management of unstable vital signs, evaluation of the patient at bedside, reviewing the patient's pertinent medical records
including radiographs, microbiology, laboratory evaluations, and discussion with primary team, consultants, pharmacy, nutrition, physical therapy, case management, charge nurse, critical care nursing, and respiratory therapy.
Subjective Dataa
Subjective Data
Date of Service:
Date of Service: July 15, 2024
Chief Complaint: [place] Follow Up
Subjective:
Patient seen and evaluated this morning. Intubated last night due to worsening acute on chronic hypercapnia. Spoke this AM with Allie, daughter, who is an COORDINATE MEASURING EQUIPMENT OPERATOR at [employer]. Pt's VS show: HR 86, BP 121/71, SpO2 100%. Remains intubated. Been off
propofol for few days now. On fent gtt at 25mcg/hr. On anders at 140mcg/hr + vaso.
Review of Systems
General: Unobtainable - Sedation (Intubated)
Objective Data
Data Reviewed
Vital Signs / I&O / Oxygen:
Vital Signs
Temp Pulse Resp BP Pulse Ox
99.8 F 80 16 110/53 96
07/15/24 07:39 07/15/24 08:08 07/15/24 08:08 07/15/24 07:54 07/15/24 08:08
Intake and Output
07/14/24 07/15/24 07/16/24
06:59 06:59 06:59
Intake Total 2958.9 / 2958.9
Output Total 1665 / 1665
Balance 1293.9 / 1293.9
SaO2 [CPAP] 93
SaO2 [A/C] 98
SaO2 96
Nasal Cannula flow liters per 5
minute
Physical Exam
General: Respiratory Distress (negative), Comfortable, Chills (negative) and Sweats (negative)
HEENT: Normocephalic, Anicteric and Other (ETT in place)
Cardiovascular: Irregular Rhythm (Irregularly irregular), Murmur (FINA heard loudest at RUSB) and Peripheral Edema (+1 lower extremity edema bilaterally)
Respiratory: Wheeze (negative), Crackles (Bilateral), Rhonchi (negative), Non-Labored Respirations and ET Tube (Mechanical breath sounds heard bilaterally)
GI: Soft, Distended (Abdominal obesity), Non Tender and Normal Bowel Sounds
Neurology: Awake, Tremors (negative) and Other (Sedated but easily arousable to voice and following all commands)
Skin: Warm, Dry, Cyanosis (negative) and Jaundice (negative)
Labs/Micro/Reports
Lab Data
07/15/24 03:05
07/15/24 03:04
Laboratory Results
07/14/24 07/14/24 07/14/24
11:14 13:44 15:20
APTT
pH 7.34 L 7.20 L 7.27 L
pCO2 68 H 103 H* 83 H*
pO2 128 H 84 104
HCO3 36.7 H 40.3 H* 38.1 H
O2 Delivery Level 40 sbt Bipap, 6l
07/14/24 07/14/24 07/15/24
17:10 21:04 03:04
APTT 79.6 H
pH 7.21 L 7.41 7.39
pCO2 96 H* 52 H 61 H
pO2 77 L 193 H 118 H
HCO3 38.4 H 33.0 H 36.9 H
O2 Delivery Level
Microbiology
07/09/24 18:20 Blood/Venous Blood Culture - Final
No Growth - Final Report
07/09/24 18:20 Blood/Venous Blood Culture - Final
No Growth - Final Report
07/14/24 10:07 Tracheal Aspirate Gram Stain - Preliminary
07/12/24 11:34 Blood/Venous Blood Culture - Preliminary
No Growth in 48 hours- Final report to follow
07/11/24 13:28 Feces/Stool Salmonella/Shigella Culture - Final
No Salmonella, Shigella, Aeromonas or Plesiomonas species
isolated.
07/11/24 13:28 Feces/Stool Campylobacter Culture - Final
No Campylobacter species isolated.
07/11/24 13:28 Feces/Stool Stool Leukocytes - Final
07/12/24 12:45 Nasal Swab Influenza Types A & B ([place]) - Final
Negative for Influenza A & B, NAAT
Negative results must be combined with clinical observations
and patient history.
Nucleic Acid Amplification test (NAAT)performed on the
[employer] NOW platform.
07/10/24 00:11 Sputum Respiratory Culture - Final
Usual Respiratory Blanca
07/10/24 00:11 Sputum Gram Stain - Final
07/09/24 15:59 Urine Urine Culture - Final
Klebsiella aerogenes
Klebsiella aerogenes#2
Lactobacillus species
--- NOTE | 2024-07-15 08:17 | PN.DE.MGMTRT ---
Insulin Management
- -
07/15/2024; Diabetes Management Follow up
Patient admitted 07/08 with breathing problem, sepsis, acute on chronic respiratory failure due to acute pulmonary edema on chronic heart failure, with NEW a fib. PMH COPD, on 3L O2 at home chronically, HTN, HLD, diabetes, morbid obesity. Prior to
admission chart reflects patient was taking 10 - 25 units on N @ HS, Humalog 12 units with breakfast and lunch, Jardiance 10 mg daily and metformin 1000 mg BID. A1C 06/11/2024 was 6.8%, Cr 1.0, eGFR 57.66
Pt is critically ill, was re-intubated 07/14, currently sedated, unable to discuss diabetes care plan. Family- Dtr and Grand-dtr at bedside, all questions answered.
Patient remains on glycemic protocol insulin infusion, Current glucose range 120 to 164, requiring 1.2 to 2 units of insulin per hour.
Will continue glycemic protocol today and reassess tomorrow for readiness to transition to subcutaneous insulin.
Discussed with nurse, she will update me if patient condition changes requiring transition from insulin infusion.
Will cont to follow
Diabetes History
- -
Type of Diabetes: 2 requiring insulin
Pre-Admission Diabetes Regimen
07/15/24
03:04
Creatinine 0.8
Insulin Pump Settings
IP Diabetes Regimen
07/12/24 07/14/24 07/14/24
22:05 09:08 11:05
Glucose
POC Glucose 196 H 144 H 164 H
07/14/24 07/14/24 07/14/24
13:03 15:00 16:51
Glucose
POC Glucose 162 H 136 H 148 H
07/14/24 07/14/24 07/14/24
18:57 20:53 22:50
Glucose
POC Glucose 148 H 176 H 132 H
07/15/24 07/15/24 07/15/24
00:58 02:58 03:04
Glucose 158 H
POC Glucose 164 H 159 H
07/15/24 07/15/24
04:53 07:08
Glucose
POC Glucose 146 H 120 H
Patient Education
--- NOTE | 2024-07-15 08:41 | W.PN.CARDCBS ---
Today's Communication / Plan
-
-Stable HR
-Currently on amiodarone 400 mg BID
-Cont IV heparin with eventual transition to Eliquis.
-Reitubated after extubation same day, July 14
-Remains volume overloaded. Wt is up 5+lbs since admit
-Increase Lasix to 40 mg IV BID (was on lasix 80 mg BID as outpt)
-If wt does not come down and bp can tolerate supported by pressors, low threshold to increase to 60 mg IV BID
Impression / Plan
-
.
Family Physician:� Trina Ralph
Primary Bakery Helper: Dr. Simmons
Impression:
Sepsis with hypotension requiring pressor support
Vent dependent respiratory failure extubated and then later re-intubated 07/14/2024
Admitted with SOB and acute on hypoxic respiratory failure 06/10/24
New persistent atrial fibrillation with rapid ventricular response
AE COPD
Acute HFpEF
Hyperkalemia
Change in mental status
Mod peak/mean 48/27 mmHg and ZAY 1.0 cm sq by echo 12/21/23
Mod MS with peak/mean 17/7 mmHg by echo 12/21/23
MARK on BiPAP
HTN
HLD
DM2
Chronic iron deficiency anemia
Morbid obesity, BMI 36.4
h/o pulmonary nodules
Code status: Limited DNR, ok to intubate, no CPR
ECHO 07/2019: EF 60-65%, mod cLVH, MAC, mild MR, mild to mod , peak/mean 26/16mmHg, ZAY 1.1cm2
ECHO 09/24/21: EF 65 to 70%, mild concentric LVH, mild , peak/mean gradients 31/19 mmHg, ZAY 1.1 cm�, trivial pericardial effusion, no significant change compared to prior
Echo 12/21/23: EF 55-60%, mild conc LVH, mod MS with peak/mean 17/7 mmHg, mod peak/mean 48/27 mmHg and ZAY 1.0 cm sq
Echo 06/13/24: EF 55 to 60%, no gross regional WMA, mild to moderate MS with mean gradient 6 mmHg at an HR of 76 bpm, mild MR, moderate peak/mean 46/28 mmHg and ZAY 1.1 cm SQ
Echo 07/09/24: EF 65-70%, mild to moderate mitral stenosis, mean gradient 7, moderate aortic stenosis, 56/35 mmHg, no comment on AI, mild to moderate mitral stenosis, mean gradient 7 no comment on mitral regurgitation, normal atria, normal RV, could
not determine pulmonary artery systolic pressure
Plan:
>Atrial fibrillation with rapid ventricular response, new diagnosis
-Stable HR
-Currently on amiodarone 400 mg BID
-Cont IV heparin with eventual transition to Eliquis.
>Acute on chronic hypoxic/hypercapnic respiratory failure s/p intubation 07/09/2024 remains difficult to wean
-Cont pulm toilet, vent management as per chief supply chain officer.
-Reitubated after extubation same day, July 14
-small b/l pleural effusions
>Sepsis with leukocytosis
-ID following
-Cont abx as per ID
-BC neg,
-UC with Klebsiella X2 strains both susceptible to meropenem
-Repeat COVID and flu negative.
-opactities on chest xray PNA vs atelectasis
>Acute on chronic heart failure with preserved ejection fraction; Moderate /moderate
-Remains volume overloaded. Wt is up 5+lbs since admit
-Increase Lasix to 40 mg IV BID (was on lasix 80 mg BID as outpt)
-If wt does not come down and bp can tolerate supported by pressors, low threshold to increase to 60 mg IV BID
-Monitor I's and O's, daily weights and cr
-cr stable.
Discussed with nursing
CCT: 35 min
HPI: Patient came to ER today with increased weakness and a lower than usual pulse ox reading at home, patient now admitted with acute HF and cardiology has been consulted. Patient was just admitted to from 06/10/2024 until 06/19/2024 with acute
on chronic hypoxic multifactorial respiratory failure and also a new diagnosis of paroxysmal Afib. During that admission patient was diuresed with Lasix 80 mg IV BID. In addition to BiPAP therapy. Unfortunately the recorded weights during that
admission were not accurate because they were using a bed scale. I and O readings were also inaccurate, but the patient reported some subjective improvement. Patient was seen in the office on 06/26/2024 and was dutifully taking her dose of Lasix 80
mg twice daily, but was noted to be hypotensive and so her usual dose of nifedipine was stopped. Patient was seen in the wound clinic today and was noted to be SOB above baseline and hypoxic so she was referred to ER. Patient was using her
usual 3 L nasal cannula of supplemental oxygen and had improved pulse ox by increasing to 5 L. proBNP is up to 9300 today and was only as high as 1590 during her last admission. Again the recorded weights are not accurate
Progress Note - Bakery Helper
Subjective
Date of Service: July 15, 2024
Pt seen and examined. sedated on vent
Objective
Labs:
07/15/24 03:05
07/15/24 03:04
Labs
Hgb 9.1 g/dL (12.0-16.0) L 07/15/24 03:05
Hct 32.0 % (37.0-47.0) L 07/15/24 03:05
Plt Count 336 10^3/uL (130-400) 07/15/24 03:05
PT 18.4 Sec (11.4-14.6) H 07/09/24 15:19
INR 1.50 07/09/24 15:19
APTT 79.6 Sec (23.4-35.0) H 07/15/24 03:04
Sodium 145 mmol/L (135-145) 07/15/24 03:04
Potassium 4.4 mmol/L (3.5-5.1) 07/15/24 03:04
BUN 47 mg/dl (7-17) H 07/15/24 03:04
Creatinine 0.8 mg/dL (0.6-1.0) 07/15/24 03:04
Glucose 158 mg/dl (70-99) H 07/15/24 03:04
Vital Signs and I&O:
Vital Signs
Temp Pulse Resp BP Pulse Ox
99.8 F 80 16 110/53 96
07/15/24 07:39 07/15/24 08:08 07/15/24 08:08 07/15/24 07:54 07/15/24 08:08
Vital Signs
Temp Pulse Resp BP Pulse Ox
99.8 F 80 16 110/53 96
07/15/24 07:39 07/15/24 08:08 07/15/24 08:08 07/15/24 07:54 07/15/24 08:08
Intake & Output
07/13/24 07/14/24 07/15/24 07/16/24
05:59 06:59 06:59 06:59
Intake Total 2958.9 / 2958.9
Output Total 1665 / 1665
Balance 1293.9 / 1293.9
Physical Exam
Physical Exam
General: sedated on vent
Neck: Negative JVD
Heart: Irregularly irregular, Negative S3 positive S1/S2, Negative S4, No murmur
Lungs: Negative wheezes/rales.
Abd: Positive BS, NT/ND, neg rebound/rigidity/guarding
Ext: Negative cyanosis/clubbing/edema
Neuro: nonfocal
[2024-07-15 09:08] LABS: Glucose - Point of Care 122 mg/dl (70-99)
--- NOTE | 2024-07-15 10:50 | W.PN.HOSP.TC ---
Today's Communication/Plan
-
wean vent/sedation/pressors
continue IV Heparin
continue IV Lasix
continue Abx
Assessment / Plan
Assessment / Plan
Assessment:
Acute on chronic hypoxic respiratory failure
Acute hypercapnic respiratory failure
- related to acute CHF. hx of MARK/COPD contributing
- intubated 07/09, extubated 07/14 with rapid re-intubation 07/14 for hypercapnia and respiratory distress
- Hash Slinger following
- vent/sedation management per ICU
Acute on chronic heart failure with preserved EF
- continue IV Lasix - requires intensive monitoring of I/Os, weights, lytes
- Limited bedside echocardiogram done July 09 shows preserved EF and unchanged.
- repeat Echo today
- Cardiology following
Shock, multifactorial from sepsis and possibly cardiogenic
- wean pressors as able
TME in setting of hypoxia, hypercapnia, heart failure, possible sepsis, etc
- reassess mentation when off sedation and acute illness recovers
Fevers of unknown origin
- CT chest 07/10 with small bilateral pleural effusions, left greater than right, adjacent bilateral lower lobe parenchymal opacities possibly representing pneumonia. Large amount of mucous plug in the right lower lobe bronchi.
- Has a UTI with urine cultures growing Klebsiella and Lactobacillus
- continue Merrem/Doxy per ID empirically; per ID UTI not source of fevers. Noted to have urinary retention during last hospitalization. She was discharged with Santana catheter and Flomax with recommendation for outpatient urology follow-up.
Discharged on a course of Keflex for possible UTI. Required a Santana catheter for 3 days as per family.
- Stool studies negative, no apparent noninfectious cause such as vasculitis/VTE
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
- continue wound care
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
Nutritional support
- tube feeds
- 07/14 AXR with normal gas pattern
TANIKA - suspect related to septic shock, ATN. TANIKA resolved.
Hypernatremia - sodium 145, free water flushes continue
Hypokalemia - resolved.
persistent atrial fibrillation with rapid ventricular response
- continue Amiodarone
- continue IV heparin - requires intensive monitoring of PTTs
- on Eliquis at home
small b/l pleural effusions
Troponin elevation
- likely acute nonischemic myocardial injury vs type II NJ in setting of Rapid AFib
- peaked at .06
- Cardiology following
COPD without exacerbation
MARK - uses BiPAP at home.
Hyperlipidemia - atorvastatin.
Type 2 diabetes (IDDM)
- A1c 6.8%
- home regimen (Metformin, Jardiance, basal/bolus insulin) held
- continue regular insulin drip per hyperglycemic protocol
- COUNTER CHECKER following
Essential hypertension - hold antihypertensives while on vasopressors.
Chronic anemia - macrocytic. Hemoglobin stable at 9.1, monitor for now. Baseline hemoglobin appears to be 10-11.
B12, folic acid normal. Cannot rule out component of iron deficiency.
Obesity due to excess calories
DVT ppx: IV Heparin
Code: Full
Total Critical Care Time 42 minutes. I was immediately available to the patient and staff. I personally examined, reviewed labs, diagnostic images/reports, interpretations, treatment plans, discussed patient care with other providers and family or
caregivers (if patient is unable to make decisions), entered orders as appropriate and documented the medical record.
Anticipated Discharge: > 48 hours
Subjective/Interval History
-
Date of Service: July 15, 2024
remains intubated/sedated
on pressors
Objective Data
-
Labs:
Laboratory Results
07/15/24 07/15/24
03:04 03:05
WBC 14.1 H
Hgb 9.1 L
Hct 32.0 L
Plt Count 336
APTT 79.6 H
HCO3 36.9 H
Sodium 145
Potassium 4.4
Chloride 104
Carbon Dioxide 32 H
BUN 47 H
Creatinine 0.8
Glucose 158 H
Calcium 8.4
Total Bilirubin 0.6
AST 25
ALT 20
Alkaline Phosphatase 82
Vital Signs:
Vital Signs
Temp Pulse Resp BP Pulse Ox
99.8 F 85 15 114/66 96
07/15/24 07:39 07/15/24 10:45 07/15/24 10:45 07/15/24 10:30 07/15/24 10:45
I&O
07/14/24 07/15/24 07/16/24
06:59 06:59 06:59
Intake Total 2958.9 / 3112.6 579.8 / 579.8
Output Total 1665 / 1715 900 / 900
Balance 1293.9 / 1397.6 -320.2 / -320.2
Physical Exam
-
General: No Apparent Distress and Intubated
HEENT: Normocephalic and Atraumatic
Respiratory: Rhonchi and Crackles
Cardiac: Irregular Rhythm
Genito-urinary: No Costovertebral Tender
Neuro: AO x 3 and Sedated
Psych: Calm
Data Reviewed
-
Critical Care Time (in minutes): 42
Labs: Labs Reviewed by me
--- NOTE | 2024-07-15 11:03 | W.PN.ID1 ---
Date of Service
Date of Service: July 15, 2024
Today's Communication
Continue current antibiotics.
Assessment / Plan
Acute on chronic hypoxemic respiratory failure; on vent (07/09/2024)
Leukocytosis;
- Not clear if reactive, or secondary to infection.
Fevers trending down
Bacteriuria
Hypotension
� Remains on 2 pressors.
COPD
Chronic hypoxemic respiratory insufficiency (3 L O2 at home)
HTN
Dyslipidemia
Diabetes mellitus
Obesity
P A-fib
MARK
Recommendations:
Unclear etiology of rising white count, fevers
Bcx x 2 neg to date. Sputum Cx : usual respiratory reid.
Urine cx with Klebsiella x 2 strains , both susceptible to meropenem.
Was febrile on meropenem, thus unlikely urine source
Repeat COVID and Influenza tests negative
CXR with bibasilar opacities - atelectasis vs PNA.
Continue empiric doxycycline via tube (d#4)
Continue meropenem (d#5)for now.
Repeat sputum culture (07/14/2024) also unrevealing.
Trend white count and temperature curve.
Continue with supportive measures.
Given ongoing leukocytosis and intermittent fevers, will check a viral respiratory panel.
Patient remains critically ill, in intensive care unit, requiring ventilator support, along with pressor support.
Chief Complaint
-: Fever and Clinical Sepsis
Subjective / Review of Systems
Patient seen and examined. Chart reviewed. Events noted. Patient now reintubated.
Vital Signs / Physical Exam
Vital Signs
Vital Signs
Temp Pulse Resp BP Pulse Ox
99.8 F 85 15 114/66 96
07/15/24 07:39 07/15/24 10:45 07/15/24 10:45 07/15/24 10:30 07/15/24 10:45
Physical Exam
Constitutional: Comfortable, Acutely Ill and Non-toxic
Head: Normocephalic and Other (ET tube in place. NG tube in place.)
Eyes: Sclera Anicteric
Cardiovascular: Irregular Rate, S1/S2, Murmur and Other (tachycardic); Negative S3/S4
Pulmonary: Coarse and Other (on vent)
Gastrointestinal: Soft, Non Tender, Non Distended, Normal Bowel Sounds and Other (FMS in place.)
Genito-Urinary: Santana and Clear Urine
Extremities: Edema
Skin: Negative Rash or Jaundice
Neurological: Awake
Psychological: Calm
Objective Data
Lab Data
Lab Results
07/15/24 03:05
07/15/24 03:04
PT 18.4 Sec (11.4-14.6) H 07/09/24 15:19
INR 1.50 07/09/24 15:19
APTT 79.6 Sec (23.4-35.0) H 07/15/24 03:04
Estimated Creat Clear 61 ml/min 07/15/24 03:04
Lactic Acid 0.9 mmol/L (0.7-2.0) 07/11/24 16:19
Total Bilirubin 0.6 mg/dl (0.2-1.3) 07/15/24 03:04
AST 25 U/L (14-36) 07/15/24 03:04
ALT 20 U/L (0-35) 07/15/24 03:04
Alkaline Phosphatase 82 U/L (38-126) 07/15/24 03:04
Most recent labs reviewed.
Micro Results:
07/11/24 13:28 Salmonella/Shigella Culture - Final
Feces/Stool No Salmonella, Shigella, Aeromonas or Plesiomonas species
isolated.
Campylobacter Culture - Final
No Campylobacter species isolated.
Shiga Toxin Test - Final
No E. coli Shiga Toxin 1 or 2 detected.
Stool Leukocytes - Final
07/14/24 10:07 Respiratory Culture - Preliminary
Tracheal Aspirate Usual Respiratory Reid
Gram Stain - Preliminary
07/09/24 18:20 Blood Culture - Final
Blood/Venous No Growth - Final Report
07/09/24 18:20 Blood Culture - Final
Blood/Venous No Growth - Final Report
07/12/24 11:34 Blood Culture - Preliminary
Blood/Venous No Growth in 48 hours- Final report to follow
07/12/24 12:45 Influenza Types A & B ([place]) - Final
Nasal Swab Negative for Influenza A & B, NAAT
Negative results must be combined with clinical observations
and patient history.
Nucleic Acid Amplification test (NAAT)performed on the
[employer] NOW platform.
07/10/24 00:11 Respiratory Culture - Final
Sputum Usual Respiratory Reid
Gram Stain - Final
07/09/24 15:59 Urine Culture - Final
Urine Klebsiella aerogenes
Klebsiella aerogenes#2
Lactobacillus species
07/11/24 13:28 C. difficile GDH Antigen & Toxins - Final
Feces/Stool Negative for toxigenic C.difficile
07/11/24 08:05 Influenza Types A & B ([place]) - Final
Nasal Swab Negative for Influenza A & B, NAAT
Negative results must be combined with clinical observations
and patient history.
Nucleic Acid Amplification test (NAAT)performed on the
[employer] NOW platform.
07/08/24 17:37 MRSA Screen - Final
Nose No Methicillin Resistant Staphylococcus aureus isolated.
Imaging:
07/11/2024 CXR (portable): ET tube projects over the trachea. Nasogastric tube not visualized, although lies below left hemidiaphragm. Heart is mildly enlarged. Minimal bibasilar airspace consolidation, with associated haziness of each
hemidiaphragm. Mild cephalization of the pulmonary vasculature. Please see full dictation for additional detail. Film personally viewed.
07/12/2024 CXR: Bibasilar opacification, right greater than left which could represent subsegmental atelectasis and/or pneumonia and possible tiny right pleural effusion.
Care Review
Plan reviewed with: Nurse
--- NOTE | 2024-07-15 11:08 | CARDSERVLU ---
Echocardiogram with Lumason completed after protocol screening completed. Allergies verified.
Patent IV site: __Left hand metacarpal 22 G PC___
IV site flushed with 0.9% NaCl pre and post administration.
Diluted bolus method utilized to enhance visualization of ventricular kearney.
Total volume given: _2___ mL
Patient tolerated all procedures well without complications.
[2024-07-15 12:03] LABS: Glucose - Point of Care 218 mg/dl (70-99)
[2024-07-15] MEDS: LANTUS 0.15 UNITS SC (12:11)
[2024-07-15 12:13] LABS: Glucose - Point of Care 203 mg/dl (70-99)
--- NOTE | 2024-07-15 12:15 | PTCARENOTE ---
No major changes since initial am assessment. Repeat echo done @ 1100. Fentanyl gtt stopped per for tentative SBT. Family at bedside...fully updated. Will continue to monitor closely.
[2024-07-15 13:11] LABS: Glucose - Point of Care 201 mg/dl (70-99)
[2024-07-15] MEDS: TYLENOL ORAL SOLUTION 650 MG PO ×2 (14:06→19:25)
[2024-07-15 14:14] LABS: Glucose - Point of Care 148 mg/dl (70-99)
--- NOTE | 2024-07-15 14:51 | PTCARENOTE ---
Pt weaned (CPAP 6/PSV8) for over a hour. HR increased to 110-130 and TV was 180-205. Placed back on previous AC settings by RPT.
--- NOTE | 2024-07-15 15:36 | CM ---
CM following re: discharge planning.
Discussed in rounds, reviewed pt's chart. Family presents at Rounds meeting.
Per Rounds meeting, pt intubated 07/09, extubated 07/14 with rapid re-intubation 07/14 for hypercapnia and respiratory distress, remains intubated, continue supportive care.
D/C plan: uncertain at this time and will depend on pt's progress.
CM will follow with discharge plan updates as hospitalization progresses
--- NOTE | 2024-07-15 16:00 | PTCARENOTE ---
Pt remains intubated on ventilator. Off insulin and fentanyl gtts. Remains on tabby, vaso, and heparin gtts. Pt reassessed...no major changes. Call schuster within reach...family at bedside.
[2024-07-15] MEDS: SOLU-CORTEF 50 MG IV ×2 (17:35→23:39)
[2024-07-15] MEDS: NOVOLOG FLEXPEN-MODERATE RESISTANCE 5 UNITS SC ×2 (17:40→23:38)
[2024-07-15 17:51] LABS: Glucose - Point of Care 269 mg/dl (70-99)
--- NOTE | 2024-07-15 19:30 | PTCARENOTE ---
Addendum entered by Hoda Arana RN 07/15/24 20:16:
tylenol 650mg given via [place] for temp
Original Note:
Rec'd pt awake, alert, denies pain, follows commands, KERNS weakly, DELMY at 2mm, sluggish, Afib w/ occas PVC, R rad santos w/ wave form that dampens freq, zeroed & flushed, Goal MAP > 65- see flow sheet for tabby titrations- presently at 120 anna,
vasopressin at 0.03 units, hep gtt at 1300 units, weka distal pulses, + anasarca, #8 oral ett- moved to left at 24cm, ac 14, tv 350, 6 peep, 40%, sat 95, lungs coarse rhonchi, decr in bases,, scant blood tinged secretions, + bowel sounds, abd obese,
soft, fecal mgmt sys to str drainage bag draining brown liquid stool, irrigated per protocal, left nares [place]- 65 cm- receiving jevity 1.5 at 45ml/hr & 35ml/hr h20 flush- no n/v, sheth draining cloudy yellow urine w/ sediment
--- NOTE | 2024-07-15 19:48 | W.PN.UPDATE ---
Update Note
Progress Note Update
Notified by patient's (POA) and patient, that they want to change her code status back to full code.
[2024-07-15] MEDS: XOPENEX 1.25 MG INHALANT SOLUTION INH (20:30)
[2024-07-15] MEDS: ATROVENT NEBULES 0.5 MG INH (20:30)
[2024-07-15] MEDS: LANTUS 0.2 UNITS SC (21:08)
[2024-07-15] MEDS: NOVOLOG FLEXPEN 10 UNITS SC (21:14)
[2024-07-15 21:15] LABS: Glucose - Point of Care 302 mg/dl (70-99)
--- NOTE | 2024-07-15 21:18 | PTCARENOTE ---
B EVER Anders aware of accu 302, 10 units Novolog insulin sq given in addition to lantus that was ordered
[2024-07-15] MEDS: NOVOLOG FLEXPEN 2 UNITS SC (23:42)
[2024-07-15 23:48] LABS: Glucose - Point of Care 251 mg/dl (70-99)
[2024-07-16] VITALS (52 sets, daily range): BP systolic 91–136; BP diastolic 46–82; BMI 37.7
--- NOTE | 2024-07-16 00:16 | PTCARENOTE ---
Sys reviewed.changes noted, Juan José Anders NP notified of accu [id number], extra 2 units Novolog SC given in addition to ordered dose
[2024-07-16] MEDS: VIBRAMYCIN 100 MG TUBE ×2 (01:43→13:24)
[2024-07-16] MEDS: STERILE WATER FOR INJECTION 10 ML IV ×4 (01:43→19:17)
[2024-07-16] MEDS: MERREM 500 MG IV ×4 (01:43→19:17)
[2024-07-16] MEDS: PITRESSIN 100 IV ×3 (01:51→23:15)
[2024-07-16 03:26] LABS: Mean Corpuscular Hgb 28.8 pg (27.0-31.0); Mean Platelet Volume 11.5 fL (7.4-10.4); Platelet Count 334 10^3/uL (130-400); Red Blood Cell Count 3.13 10^6/uL (4.20-5.40); Red Cell Dist. Width 17.5 % (11.5-14.5); White Blood Cell Count 15.4 10^3/uL (4.8-10.8)
[2024-07-16 03:40] LABS: APTT 115.7 Sec (23.4-35.0)
[2024-07-16 03:52] LABS: ALT (SGPT) 18 U/L (0-35); AST (SGOT) 20 U/L (14-36); Albumin 2.4 g/dl (3.5-5.0); Alkaline Phosphatase 84 U/L (38-126); Blood Urea Nitrogen 44 mg/dl (7-17); Calcium 8.1 mg/dl (8.4-10.2); Carbon Dioxide 36 mmol/L (22-30); Chloride 101 mmol/L (98-107); Estimated Creatinine Clearance 62 ml/min; Glucose 290 mg/dl (70-99); Magnesium 2.1 mg/dl (1.6-2.3); Potassium 4.3 mmol/L (3.5-5.1); Sodium 144 mmol/L (135-145); Total Bilirubin 0.6 mg/dl (0.2-1.3); Total Protein 5.6 g/dl (6.3-8.2); eGFR > 60.00
[2024-07-16 03:59] LABS: NT-proBNP 5260 pg/ml
--- NOTE | 2024-07-16 03:59 | PTCARENOTE ---
sys reviewed, ett repos on r side at 24 cm, denies pain, dozing on & off
[2024-07-16] MEDS: SOLU-CORTEF 50 MG IV ×4 (05:05→23:12)
[2024-07-16] MEDS: NOVOLOG FLEXPEN-MODERATE RESISTANCE 5 UNITS SC (05:05)
[2024-07-16 05:13] LABS: Glucose - Point of Care 258 mg/dl (70-99)
[2024-07-16] MEDS: NEO-SYNEPHRINE 250 IV (06:08)
[2024-07-16] MEDS: FLOVENT 110 MCG INHALER 4 PUFF INH ×2 (07:42→20:23)
[2024-07-16] MEDS: ATROVENT NEBULES 0.5 MG INH ×4 (07:43→20:23)
[2024-07-16] MEDS: SODIUM CHLORIDE 3% FOR INHALATION 1 VIAL INH ×2 (07:43→20:23)
[2024-07-16] MEDS: DESENEX/MITRAZOL/ZEASORB 1 APPLIC TOPICAL ×2 (07:43→19:42)
[2024-07-16] MEDS: XOPENEX 1.25 MG INHALANT SOLUTION INH ×4 (07:43→20:24)
[2024-07-16] MEDS: LASIX 40 MG IV ×2 (07:44→16:08)
[2024-07-16] MEDS: PROTONIX IV 40 MG IV (07:44)
[2024-07-16] MEDS: PACERONE 400 MG TUBE ×2 (07:44→19:16)
[2024-07-16] MEDS: NSS (PRESERVATIVE FREE) 10 ML IV (07:44)
[2024-07-16] MEDS: MIRALAX 17 GRAMS TUBE (07:46)
--- NOTE | 2024-07-16 08:23 | W.PN.INTV ---
Today's Communication / Plan
Recommendations
Mechanical ventilation
Initially family wanted to pursue comfort care measures with hospice if not extubated by 07/17, however family had another discussion and they now want her to be full code
If patient not extubated by today then we will consult ENT given likelihood that she will be heading towards tracheostomy
Patient failed SBT today after about 45 minutes due to tachypnea with RR in the 40s
Once patient is ready for extubation, will extubate to NIV
Continue aggressive diuresis
Trend BNP
Goal BG 140�180
Continue hydrocortisone
Continue Xopenex + Atrovent
Abx per ID
Guarded prognosis
Assessment
-
Patient is a 78-year-old female with previous history of COPD, chronic hypercarbic respiratory failure on BiPAP, chronic heart failure with preserved EF, chronic hypoxemia presenting with increased shortness of breath and weakness over the past 24
hours. She was at wound clinic the day prior to admission and notably hypoxemic, was referred to the emergency room. On arrival ABG noted to be 7.29/76. She was treated with BiPAP overnight. Repeat ABG 7./. She had increasing somnolence
throughout the day. A decision was made for intubation due to persistent mental status changes and unresponsiveness.
#1. Acute on chronic hypoxic and hypercapnic respiratory failure s/p intubation 07/09/24. Respiratory failure is due to heart failure exacerbation, suspected right lower lobe pneumonia/aspiration as well as underlying COPD with morbid obesity and
history of sleep apnea with possibly obesity hypoventilation syndrome.
-Patient at baseline on oxygen and also has chronic hypercapnia with baseline PCO2 60
-Continue mechanical ventilation with daily SAT/SBT if clinically appropriate
-Titrate FiO2 + PEEP to maintain SpO2 88-95%
-Vent adjustments based on blood gas daily
-Once ready for extubation, will extubate to NIV
-Change vent settings to ASV 110%
-Continue with Flovent, nebulized Xopenex/Atrovent and on 07/15 I started IV stress dose hydrocortisone given concern for COPD exacerbation as well as shock state
#2. Shock, likely mixed septic shock and cardiogenic shock
-Continue vasopressors with Anders-Synephrine + vasopressin; levophed was stopped because of A-fib RVR.
-Continue stress dose hydrocortisone
-Avoid dobutamine in the setting of sepsis
-Monitor I/O
-ID service on board --> patient currently on meropenem + doxycycline
-RV panel is negative
-Urine culture from 07/09/2024 has grown Klebsiella aerogenes + lactobacillus
#2. Acute on chronic HFpEF, moderate aortic stenosis. Recent hospitalization in June for heart failure exacerbation.
-Continue aggressive diuresis, now currently on 40 mg IV Lasix BID
-Maintain net negative fluid balance
-Replete K>4, Mg>2 while being diuresed
-Cardiology service on case.
-Chest X ray shows pulmonary vascular congestion with suspected small bilateral pleural effusions, although difficult to assess fluid status due to body habitus --> slight improvement in pulmonary edema per CXR from today (07/16)
-Echo rechecked on 07/15/2024 showed hyperdynamic LV systolic function with EF 70-75%, with no significant change compared to prior echo on July 09, 2024; prior TTE on 07/30 showed mild�moderate MS with moderate aortic stenosis with peak/mean
gradients of 56/35 mmHg
#3. Right lower lobe pneumonia, suspect aspiration, enlarging effusion
-Considering patient is in shock and recent hospitalization about a month ago, continue antibiotics
-MRSA screen negative, follow-up on blood cultures (NGTD)
-Chest PT in view of right lower lobe mucous plugging
- Start sport bed
-Bedside POCUS performed, 07/14, only a small volume pleural effusion noted which appears simple without loculation - hence thoracentesis not recommended at that time
#4. Increasing lethargy, unresponsiveness. This is related to worsening hypercapnia and metabolic encephalopathy. (prior to requiring intubation)
-Currently patient is intubated and sedated
-Maintain goal RASS 0 to -2
#5. Acute kidney injury with hyperkalemia - now resolved
-Cardiorenal syndrome, creatinine now normal with diuresis
-Renally dose all meds; avoid nephrotoxic agents
-Nephrology service signed off on 07/11/2024
-Continue IV Lasix as above
#6. A-fib with RVR atrial fibrillation with RVR, new onset since hospitalization in June 2024
-Cardiology service on case
-Continue heparin gtt for stroke prophylaxis
-Continue phenylephrine, avoiding Levophed
-PO amiodarone started, dose managed by cardiology
-Continue telemetry monitoring
-Troponin peaked at 0.061 on 07/10/2024 � no longer need to continue trending at this time
#7. DM with hyperglycemia:
-insulin infusion --> weaned off on 07/15; continue basal-bolus SQ insulin dosing; diabetic RETAIL MERCHANDISER TECHNICIAN on board for assistance
-A1c: 6.8 on 06/11/2024
-Goal BG 140-180, especially while on stress dose steroids
Other:
-Continue tube feeding
-DVT prophylaxis with heparin infusion
-GI prophylaxis with PPI
Patient is now full code after family had a discussion on 07/15
Conditions present prior to admission
Diabetes
Hypertension
Hyperlipidemia
Morbid obesity
Elevated IgE
Severe sleep apnea, total index 56, desaturation adamaris 51%
Compliant and adequate with auto BiPAP
Severe COPD, spirometry 06/22/23- FVC 1.14 or 45%, FEV1 0.66 or 33, Ratio 57
Heart failure with preserved ejection fraction
History of anemia
History of pleural effusions, stable since 2010
Afib on Eliquis
Diagnostic Data
Chest X-Ray: 07/09/24 post intubation- 1. Endotracheal and nasogastric tubes are in satisfactory position.
2. Mild pulmonary edema, not significantly changed.
3. Obscuration of both hemidiaphragms, left greater than right, suggestive of small bilateral pleural effusions. Bibasilar airspace disease may also be present.
07/08/24- Cardiomegaly, unchanged. Pulmonary interstitial prominence again seen, cannot differentiate acute versus chronic. Some right basilar opacity and left hemidiaphragm again obscured. Cannot exclude bibasilar subsegmental atelectasis and/or
pneumonia and small bilateral pleural effusions.
Chest x-ray 06/14/2024: Moderate cardiomegaly. Mild increased interstitial markings. Improved compared to prior 06/12/2024
CT Scan: CTA 2018- No pulmonary embolism. Prominent distal pulmonary artery and right and left pulmonary arteries, suggesting an element of pulmonary hypertension. Mild stable chronic parenchymal findings, without evidence of acute pneumonia.
Long-term interval stability of 3 small pulmonary nodules, supporting a benign etiology.
CHEST 09/27/13- Stable left upper lobe pulmonary nodules since February 2011. There is extremely high probability that these are benign. Stable bibasilar scarring.
Findings suggesting pulmonary arterial hypertension. Mitral annulus calcification. Coronary artery disease. Essentially resolved right pleural effusion.
Echo: 06/13/24- Normal left ventricular chamber size. Normal left ventricular systolic function. Left ventricular ejection fraction is 55-60% by visual assessment. No gross regional wall motion abnormalities. Mild concentric left ventricular
hypertrophy. Normal right ventricular size and function. Mild to moderate mitral stenosis. Moderate aortic stenosis. Peak/mean gradients across the aortic valve are 46/28 mmHg and estimated aortic valve area is 1.1 cm2. Compared to prior study
dated 12/31/2023, there is no significant change, prior aortic valve peak/mean gradients were 48/27 mmHg, respectively.
PFT's: spirometry 06/22/23- FVC 1.14 or 45%, FEV1 0.66 or 33, Ratio 57 (severe obstruction)
Reports and relevant images were personally reviewed.
Critical care statement: A total of 38 minutes of critical care time was provided for this patient today. This includes management of unstable vital signs, evaluation of the patient at bedside, reviewing the patient's pertinent medical records
including radiographs, microbiology, laboratory evaluations, and discussion with primary team, consultants, pharmacy, nutrition, physical therapy, case management, charge nurse, critical care nursing, and respiratory therapy.
Subjective Dataa
Subjective Data
Date of Service:
Date of Service: July 16, 2024
Chief Complaint: Double Bass Player Follow Up
Subjective:
Patient was seen and evaluated this morning. Remains intubated on AC/CMV at 14/350/6/40%, with PIP 25 cmH2O, VTe 364 mL and breathing at 16 breaths/min. End-tidal CO2: 46. Saturating 98% with BP via NIBP: 115/61, BP via A-line: 102/44 and heart
rate 74. Currently on tube feeds at 45 cc/hr. Blood pressure supported with vasopressin at 0.03 units/min and Anders-Synephrine at 40 mcg/min. Also on heparin drip. Patient easily arousable and following commands. Able to lift head slightly off
the pillow but is very weak. I discussed the patient's case with the granddaughter, Dafne, and answered all of her questions.
Review of Systems
General: Other (Unobtainable - intubated)
Objective Data
Data Reviewed
Vital Signs / I&O / Oxygen:
Vital Signs
Temp Pulse Resp BP Pulse Ox
99.5 F 76 14 114/57 98
07/16/24 07:39 07/16/24 07:50 07/16/24 07:50 07/16/24 06:30 07/16/24 07:50
Intake and Output
07/15/24 07/16/24 07/17/24
06:59 06:59 06:59
Intake Total 2958.9 / 3112.6 3463.3 / 3463.3
Output Total 1665 / 1715 3235 / 3235
Balance 1293.9 / 1397.6 228.3 / 228.3
SaO2 [CPAP] 93
SaO2 [A/C] 98
SaO2 98
Nasal Cannula flow liters per 5
minute
Physical Exam
General: Respiratory Distress (negative), Comfortable, Chills (negative) and Sweats (negative)
HEENT: Normocephalic, Anicteric and Other (ETT in place)
Cardiovascular: Irregular Rhythm (Irregularly irregular), Murmur (FINA heard loudest at RUSB) and Peripheral Edema (negative)
Respiratory: Wheeze (negative), Crackles (Bilateral), Rhonchi (negative), Non-Labored Respirations and ET Tube (Mechanical breath sounds heard bilaterally)
GI: Soft, Distended (Abdominal obesity), Non Tender and Normal Bowel Sounds
Neurology: Tremors (negative), Lethargic (Easily arousable to voice) and Other (Following all commands)
Skin: Warm, Dry, Cyanosis (negative) and Jaundice (negative)
Labs/Micro/Reports
Lab Data
07/16/24 03:12
07/16/24 03:12
Laboratory Results
07/16/24
03:12
APTT 115.7 H
Microbiology
07/15/24 13:20 Nasalpharynx Influenza Type A (PCR) - Final
Not Detected
07/15/24 13:20 Nasalpharynx Influenza Type A (H1) (PCR) - Final
Not Detected
07/15/24 13:20 Nasalpharynx Influenza Type A (H3) (PCR) - Final
Not Detected
07/15/24 13:20 Nasalpharynx Influenza Type B (PCR) - Final
Not Detected
07/15/24 13:20 Nasalpharynx Resp Syncytial Virus Type A (PCR) - Final
Not Detected
07/15/24 13:20 Nasalpharynx Resp Syncytial Virus Type B (PCR) - Final
Not Detected
07/15/24 13:20 Nasalpharynx Adenovirus DNA (PCR) - Final
Not Detected
07/15/24 13:20 Nasalpharynx Human Metapneumovirus (PCR) - Final
Not Detected
07/15/24 13:20 Nasalpharynx Parainfluenza Virus Type 1 (PCR) - Final
Not Detected
07/15/24 13:20 Nasalpharynx Parainfluenza Virus Type 2 (PCR) - Final
Not Detected
07/15/24 13:20 Nasalpharynx Parainfluenza Virus Type 3 (PCR) - Final
Not Detected
07/15/24 13:20 Nasalpharynx Parainfluenza Virus Type 4 - Final
Not Detected
07/15/24 13:20 Nasalpharynx Rhinovirus (PCR) - Final
Not Detected
07/12/24 11:34 Blood/Venous Blood Culture - Preliminary
No Growth in 72 hours- Final report to follow
07/11/24 13:28 Feces/Stool Salmonella/Shigella Culture - Final
No Salmonella, Shigella, Aeromonas or Plesiomonas species
isolated.
07/11/24 13:28 Feces/Stool Campylobacter Culture - Final
No Campylobacter species isolated.
07/11/24 13:28 Feces/Stool Shiga Toxin Test - Final
No E. coli Shiga Toxin 1 or 2 detected.
07/11/24 13:28 Feces/Stool Stool Leukocytes - Final
07/14/24 10:07 Tracheal Aspirate Respiratory Culture - Preliminary
Usual Respiratory Blanca
07/14/24 10:07 Tracheal Aspirate Gram Stain - Preliminary
07/09/24 18:20 Blood/Venous Blood Culture - Final
No Growth - Final Report
07/09/24 18:20 Blood/Venous Blood Culture - Final
No Growth - Final Report
--- NOTE | 2024-07-16 08:24 | W.PN.CARDCBS ---
Today's Communication / Plan
-
Continue supportive care
Wean pressors as tolerated
IV Lasix 40 mg IV twice daily
Impression / Plan
-
.
Family Physician:� Trina Ralph
Primary Visual Merchandising Associate: Dr. Simmons
Impression:
Sepsis with hypotension requiring pressor support
Vent dependent respiratory failure extubated and then later re-intubated 07/14/2024
Admitted with SOB and acute on hypoxic respiratory failure 06/10/24
New persistent atrial fibrillation with rapid ventricular response
AE COPD
Acute HFpEF
Hyperkalemia
Change in mental status
Mod peak/mean 48/27 mmHg and ZAY 1.0 cm sq by echo 12/21/23
Mod MS with peak/mean 17/7 mmHg by echo 12/21/23
MARK on BiPAP
HTN
HLD
DM2
Chronic iron deficiency anemia
Morbid obesity, BMI 36.4
h/o pulmonary nodules
Code status: Limited DNR, ok to intubate, no CPR
ECHO 07/2019: EF 60-65%, mod cLVH, MAC, mild MR, mild to mod , peak/mean 26/16mmHg, ZAY 1.1cm2
ECHO 09/24/21: EF 65 to 70%, mild concentric LVH, mild , peak/mean gradients 31/19 mmHg, ZAY 1.1 cm�, trivial pericardial effusion, no significant change compared to prior
Echo 12/21/23: EF 55-60%, mild conc LVH, mod MS with peak/mean 17/7 mmHg, mod peak/mean 48/27 mmHg and ZAY 1.0 cm sq
Echo 06/13/24: EF 55 to 60%, no gross regional WMA, mild to moderate MS with mean gradient 6 mmHg at an HR of 76 bpm, mild MR, moderate peak/mean 46/28 mmHg and ZAY 1.1 cm SQ
Echo 07/09/24: EF 65-70%, mild to moderate mitral stenosis, mean gradient 7, moderate aortic stenosis, 56/35 mmHg, no comment on AI, mild to moderate mitral stenosis, mean gradient 7 no comment on mitral regurgitation, normal atria, normal RV, could
not determine pulmonary artery systolic pressure
Plan:
She is largely unchanged, still on the ventilator, per nursing tired during weaning trial yesterday.
Heart rate is controlled but she still requires Anders-Synephrine and vasopressin. Will attempt to wean pressors as possible.
Continue IV Lasix. proBNP is somewhat improved but still with evidence of heart failure. She is azotemic, I did not increase her furosemide.
Continue heparin.
I gave passing thought to cardioversion to improve her hemodynamics but in fearful that her underlying rhythm may be bradycardic which would lead to its own set of problems. For now we will continue the current strategy.
Daughter who is a nurse asked about hypersensitivity pneumonitis related to amiodarone. Given relatively short duration I think this is unlikely and would continue amiodarone for now, observing closely.
Prognosis is guarded given how long she has been on the ventilator with marginal hemodynamics and ongoing evidence of heart failure.
HPI: Patient came to ER today with increased weakness and a lower than usual pulse ox reading at home, patient now admitted with acute HF and cardiology has been consulted. Patient was just admitted to from 06/10/2024 until 06/19/2024 with acute
on chronic hypoxic multifactorial respiratory failure and also a new diagnosis of paroxysmal Afib. During that admission patient was diuresed with Lasix 80 mg IV BID. In addition to BiPAP therapy. Unfortunately the recorded weights during that
admission were not accurate because they were using a bed scale. I and O readings were also inaccurate, but the patient reported some subjective improvement. Patient was seen in the office on 06/26/2024 and was dutifully taking her dose of Lasix 80
mg twice daily, but was noted to be hypotensive and so her usual dose of nifedipine was stopped. Patient was seen in the wound clinic today and was noted to be SOB above baseline and hypoxic so she was referred to ER. Patient was using her
usual 3 L nasal cannula of supplemental oxygen and had improved pulse ox by increasing to 5 L. proBNP is up to 9300 today and was only as high as 1590 during her last admission. Again the recorded weights are not accurate
Progress Note - Visual Merchandising Associate
Subjective
Date of Service: July 16, 2024:
Current meds: IV fentanyl, IV heparin, meropenem, phenylephrine, vasopressin, pantoprazole 40 mg IV daily, doxycycline, amiodarone 400 twice daily, Lasix 40 mg IV twice daily, insulin, Atrovent, Xopenex, hydrocortisone 50 every 6
114/57, pulse 76, resp rate 14, afebrile, sats 98%, intake and output +3 L, weight is 93.3 kg, if accurate up 1.2 kg,, awake alert, on vent, granddaughter at bedside who is a nurse, irregular controlled rate, JVD modestly elevated, aortic stenosis
murmur, some edema
chest x-ray yesterday with effusions, prominent vasculature
Hemoglobin 9, platelets 334, CO2 is 36, BUN and creatinine are 44 and 0.8, proBNP is 5206, had been 9300 on July 08
Objective
Labs:
07/16/24 03:12
07/16/24 03:12
Labs
Hgb 9.0 g/dL (12.0-16.0) L 07/16/24 03:12
Hct 31.0 % (37.0-47.0) L 07/16/24 03:12
Plt Count 334 10^3/uL (130-400) 07/16/24 03:12
PT 18.4 Sec (11.4-14.6) H 07/09/24 15:19
INR 1.50 07/09/24 15:19
APTT 115.7 Sec (23.4-35.0) H 07/16/24 03:12
Sodium 144 mmol/L (135-145) 07/16/24 03:12
Potassium 4.3 mmol/L (3.5-5.1) 07/16/24 03:12
BUN 44 mg/dl (7-17) H 07/16/24 03:12
Creatinine 0.8 mg/dL (0.6-1.0) 07/16/24 03:12
Glucose 290 mg/dl (70-99) H 07/16/24 03:12
Vital Signs and I&O:
Vital Signs
Temp Pulse Resp BP Pulse Ox
37.5 C 76 14 114/57 98
07/16/24 07:39 07/16/24 07:50 07/16/24 07:50 07/16/24 06:30 07/16/24 07:50
Vital Signs
Temp Pulse Resp BP Pulse Ox
37.5 C 76 14 114/57 98
07/16/24 07:39 07/16/24 07:50 07/16/24 07:50 07/16/24 06:30 07/16/24 07:50
Intake & Output
07/14/24 07/15/24 07/16/24 07/17/24
07:59 07:59 07:59 07:59
Intake Total 2988.1 / 3266.8 3309.6 / 3309.6
Output Total 1665 / 2140 3185 / 3185
Balance 1323.1 / 1126.8 124.6 / 124.6
Physical Exam
Physical Exam
See above
--- NOTE | 2024-07-16 08:28 | PN.DE.MGMTRT ---
Insulin Management
- -
07/16/2024; Diabetes Management Follow up
Patient admitted 07/08 with breathing problem, sepsis, acute on chronic respiratory failure due to acute pulmonary edema on chronic heart failure, with NEW a fib. PMH COPD, on 3L O2 at home chronically, HTN, HLD, diabetes, morbid obesity. Prior to
admission chart reflects patient was taking 10 - 25 units on N @ HS, Humalog 12 units with breakfast and lunch, Jardiance 10 mg daily and metformin 1000 mg BID. A1C 06/11/2024 was 6.8%, Cr 1.0, eGFR 57.66
Pt is critically ill, was re-intubated 07/14, currently sedated, unable to discuss diabetes care plan. Family- Dtr and Grand-dtr at bedside, all questions answered.
Transitioned off glycemic protocol insulin infusion 07/15 at noon. Receivied 15 units lantus, then moderate corrective Q 6. Glucose up to 302 @ HS. Received 20 units lantus @ hs, Fasting glucose 290 venous. Will increase HS lantus to 25 units.
Currently receiving tube feeds @ 45 per hour. Will start Q6 hour novolog 5 units with corrective insulin
Discussed with nurse.
Will cont to follow
Diabetes History
- -
Type of Diabetes: 2 requiring insulin
Pre-Admission Diabetes Regimen
07/16/24
03:12
Creatinine 0.8
Insulin Pump Settings
IP Diabetes Regimen
07/15/24 07/15/24 07/15/24
08:57 11:01 12:02
Glucose
POC Glucose 122 H 218 H 203 H
07/15/24 07/15/24 07/15/24
13:00 14:01 17:40
Glucose
POC Glucose 201 H 148 H 269 H
07/15/24 07/15/24 07/16/24
21:04 23:36 03:12
Glucose 290 H
POC Glucose 302 H 251 H
07/16/24
05:02
Glucose
POC Glucose 258 H
Patient Education
--- NOTE | 2024-07-16 08:32 | PTCARENOTE ---
Received pt sleeping.Pt awakens to voice.Motions/nods head to communicate.Follows commands.+KERNS noted.Denies pain.A Fib noted.Right TLC intact with Vasopressin,Phenylephrine and Heparin gtts.Right A Line with good wave form.Zeroed and positioned at
mid axillary.Using NIBP for vasopressor weaning parameters as per outgoing RN.#8 ETT to vent.Coarse rhonchi throughout with decreased breath sounds bibasilar.POX 97%Suctioned for moderate thick enriquez secretions.Beaver intact with tube feed as
ordered.Indwelling bowel catheter draining liquid brown stool.Santana draining yellow urine.Skin integrity as documented. Pt's granddaughter at bedside.Plan of care discussed with pt and her granddaughter.
[2024-07-16 10:43] LABS: APTT 74.3 Sec (23.4-35.0)
[2024-07-16] MEDS: NOVOLOG FLEXPEN-MODERATE RESISTANCE 7 UNITS SC (12:11)
[2024-07-16] MEDS: NOVOLOG FLEXPEN 5 UNITS SC (12:12)
[2024-07-16 12:19] LABS: Glucose - Point of Care 303 mg/dl (70-99)
--- NOTE | 2024-07-16 13:05 | PTCARENOTE ---
Pt assessed.No change in assessment noted.Pt tolerated SBT PS 5/5 x 1 hour.ETT to ASV 110% 40% as per MD order.
--- NOTE | 2024-07-16 13:41 | W.PN.HOSP.TC ---
Addendum entered and electronically signed by French Kidd MD 07/16/24 13:55:
correction; ADC not today, > 48 hours
Original Note:
Today's Communication/Plan
-
continue current plan
ongoing attempts to wean
Assessment / Plan
Assessment / Plan
Assessment:
Acute on chronic hypoxic respiratory failure
Acute hypercapnic respiratory failure
- related to acute CHF. hx of MARK/COPD contributing
- intubated 07/09, extubated 07/14 with rapid re-intubation 07/14 for hypercapnia and respiratory distress
- Afternoon Babysitter following
- vent/sedation management per ICU
- IV steroids started 07/15
Acute on chronic heart failure with preserved EF
- continue IV Lasix - requires intensive monitoring of I/Os, weights, lytes
- Limited bedside echocardiogram done July 09 shows preserved EF and unchanged.
- Echo 07/15: Normal left ventricular size. Hyperdynamic left ventricular systolic function. No regional wall motion abnormalities are seen. LV ejection fraction is 70-75%. Compared to the previous full study echo, the EF from July 09, 2024, there
is no significant change in EF. Valves not assessed in this study.
- Cardiology following
Shock, multifactorial from sepsis and possibly cardiogenic
- wean pressors as able
TME in setting of hypoxia, hypercapnia, heart failure, possible sepsis, etc
- reassess mentation when off sedation and acute illness recovers
Fevers of unknown origin
- CT chest 07/10 with small bilateral pleural effusions, left greater than right, adjacent bilateral lower lobe parenchymal opacities possibly representing pneumonia. Large amount of mucous plug in the right lower lobe bronchi.
- Has a UTI with urine cultures growing Klebsiella and Lactobacillus
- continue Merrem/Doxy per ID empirically; per ID UTI not source of fevers. Noted to have urinary retention during last hospitalization. She was discharged with Santana catheter and Flomax with recommendation for outpatient urology follow-up.
Discharged on a course of Keflex for possible UTI. Required a Santana catheter for 3 days as per family.
- Stool studies negative, no apparent noninfectious cause such as vasculitis/VTE
- viral respiratory panel negative
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
- continue wound care
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
Nutritional support
- tube feeds
- / AXR with normal gas pattern
TANIKA - suspect related to septic shock, ATN. TANIKA resolved.
Hypernatremia - sodium 145, free water flushes continue
Hypokalemia - resolved.
persistent atrial fibrillation with rapid ventricular response
- continue Amiodarone
- continue IV heparin - requires intensive monitoring of PTTs
- on Eliquis at home
small b/l pleural effusions
Troponin elevation
- likely acute nonischemic myocardial injury vs type II CA in setting of Rapid AFib
- peaked at .06
- Cardiology following
COPD without exacerbation
MARK - uses BiPAP at home.
Hyperlipidemia - atorvastatin.
Type 2 diabetes (IDDM)
- A1c 6.8%
- home regimen (Metformin, Jardiance, basal/bolus insulin) held
- continue regular insulin drip per hyperglycemic protocol
- SHANK PINNER following
Essential hypertension - hold antihypertensives while on vasopressors.
Chronic anemia - macrocytic. Hemoglobin stable at 9.1, monitor for now. Baseline hemoglobin appears to be 10-11.
B12, folic acid normal. Cannot rule out component of iron deficiency.
Obesity due to excess calories
DVT ppx: IV Heparin
Code: Full
Total Critical Care Time 40 minutes. I was immediately available to the patient and staff. I personally examined, reviewed labs, diagnostic images/reports, interpretations, treatment plans, discussed patient care with other providers and family or
caregivers (if patient is unable to make decisions), entered orders as appropriate and documented the medical record.
Anticipated Discharge: Today
Subjective/Interval History
-
Date of Service: July 16, 2024
remains on pressors
IV steroids started last evening
Code status to full code last evening
Objective Data
-
Labs:
Laboratory Results
07/16/24 07/16/24 07/16/24
03:12 10:12 16:00
WBC 15.4 H
Hgb 9.0 L
Hct 31.0 L
Plt Count 334
APTT 115.7 H 74.3 H Pending
Sodium 144
Potassium 4.3
Chloride 101
Carbon Dioxide 36 H
BUN 44 H
Creatinine 0.8
Glucose 290 H
Calcium 8.1 L
Total Bilirubin 0.6
AST 20
ALT 18
Alkaline Phosphatase 84
Vital Signs:
Vital Signs
Temp Pulse Resp BP Pulse Ox
99.2 F 87 26 116/53 97
07/16/24 12:00 07/16/24 11:04 07/16/24 11:04 07/16/24 08:30 07/16/24 12:00
I&O
07/15/24 07/16/24 07/17/24
06:59 06:59 06:59
Intake Total 2958.9 / 3112.6 3463.3 / 3574.3 686 / 686
Output Total 1665 / 1715 3235 / 3250 1085 / 1085
Balance 1293.9 / 1397.6 228.3 / 324.3 -399 / -399
Physical Exam
-
General: No Apparent Distress and Intubated
HEENT: Normocephalic, Atraumatic and Other (+JVD)
Respiratory: Crackles
Cardiac: Irregular Rhythm and Murmur
GI: Soft
Neuro: Awake and Alert
Psych: Calm
Data Reviewed
-
Critical Care Time (in minutes): 40
Labs: Labs Reviewed by me
[2024-07-16 16:37] LABS: APTT 66.3 Sec (23.4-35.0)
--- NOTE | 2024-07-16 16:59 | PTCARENOTE ---
Pt assessed.No change in assessment noted.
--- NOTE | 2024-07-16 17:50 | PTCARENOTE ---
Blood sugar 338.Dr Barbour made aware.ICU Glycemic protocol obtained as per MD order.
[2024-07-16 17:53] LABS: Glucose - Point of Care 338 mg/dl (70-99)
[2024-07-16] MEDS: NOVOLIN R 8 UNITS IV (18:35)
[2024-07-16] MEDS: NOVOLIN R INSULIN INFUSION 100 IV (18:37)
[2024-07-16 18:44] LABS: Glucose - Point of Care 350 mg/dl (70-99)
--- NOTE | 2024-07-16 19:06 | PTCARENOTE ---
ICU Glycemic Protocol initiated as ordered.
[2024-07-16] MEDS: HEPARIN 25000 UNITS/250 ML IV (19:15)
--- NOTE | 2024-07-16 19:15 | PTCARENOTE ---
Rec'd pt awake, alert, watching TV, wrists on for safety, denies pain, KERNS to command, family at bedside & updated on pt care, temp 100.3 core- tylenol 650mg via tube given, R dirk graham dc'd due to damped wave form & poor return of blood, pressure
held at site, dsg applied, titrating tabby to keep MAP > 65, presesntly at 20mic, vasopressin at 0.03 units, on glycemic protocal- see flow sheet for titrations, hep gtt at 1300 unit/hr, weak distal pulses + edema, # 8 oral ett-repos at 24 cm R lip,
asv 110, 6 peep, 40%, lungs coarse, sat 97, suct for thick enriquez secretions, + bowel sounds, fecal mgmt sys draining brown liquid stool, left nares [place] - rec jevity 1.5 at 45ml/hr & 10ml/hr h20 flush, no n/v, thermister sheth draining cloudy yellow
urine
[2024-07-16] MEDS: TYLENOL ORAL SOLUTION 650 MG PO (19:16)
[2024-07-16] MEDS: NOVOLOG FLEXPEN-MODERATE RESISTANCE SC (19:19)
[2024-07-16] MEDS: NOVOLOG FLEXPEN SC (19:19)
[2024-07-16 19:50] LABS: Glucose - Point of Care 330 mg/dl (70-99)
[2024-07-16 20:51] LABS: Glucose - Point of Care 298 mg/dl (70-99)
[2024-07-16 21:53] LABS: Glucose - Point of Care 240 mg/dl (70-99)
[2024-07-16 22:52] LABS: Glucose - Point of Care 197 mg/dl (70-99)
[2024-07-16 23:58] LABS: Glucose - Point of Care 183 mg/dl (70-99)
[2024-07-17] VITALS (55 sets, daily range): BP systolic 86–147; BP diastolic 44–73; BMI 37.0
--- NOTE | 2024-07-17 | PTCARENOTE ---
sys reviewed, lungs coarse, crackles in bases, CHG bath done, changed to cont lat rotation bed, percussion done
[2024-07-17] MEDS: NOVOLIN R INSULIN INFUSION 100 IV ×2 (00:21→23:41)
[2024-07-17 00:50] LABS: Glucose - Point of Care 156 mg/dl (70-99)
[2024-07-17] MEDS: MERREM 500 MG IV ×4 (01:24→20:15)
[2024-07-17] MEDS: VIBRAMYCIN 100 MG TUBE ×2 (01:24→14:16)
[2024-07-17] MEDS: STERILE WATER FOR INJECTION 10 ML IV ×4 (01:24→20:16)
[2024-07-17 01:54] LABS: Glucose - Point of Care 135 mg/dl (70-99)
[2024-07-17 02:54] LABS: Glucose - Point of Care 134 mg/dl (70-99)
[2024-07-17] MEDS: NEO-SYNEPHRINE 250 IV (03:24)
[2024-07-17 03:28] LABS: Hematocrit 29.3 % (37.0-47.0); Hemoglobin 8.9 g/dL (12.0-16.0); Mean Corp Hgb Conc. 30.4 g/dL (33.0-37.0); Mean Corpuscular Hgb 29.3 pg (27.0-31.0); Mean Corpuscular Volume 96.4 fL (81.0-99.0); Mean Platelet Volume 11.2 fL (7.4-10.4); Platelet Count 389 10^3/uL (130-400); Red Blood Cell Count 3.04 10^6/uL (4.20-5.40); Red Cell Dist. Width 17.5 % (11.5-14.5); White Blood Cell Count 17.8 10^3/uL (4.8-10.8)
[2024-07-17 03:38] LABS: Venous Blood Gas B.E. 15.8 mmol/L (-4 to +4); Venous Blood Gas HCO3 42.1 mmol/L (22-27); Venous Blood Gas pCO2 62 mmHg (35-48); Venous Blood Gas pH 7.44 (7.32-7.43); Venous Blood Gas pO2 89 mmHg (30-50)
[2024-07-17 03:39] LABS: Venous Blood Gas O2 Therapy VENT
[2024-07-17 03:41] LABS: APTT 77.6 Sec (23.4-35.0)
[2024-07-17 03:42] LABS: ALT (SGPT) 16 U/L (0-35); AST (SGOT) 18 U/L (14-36); Albumin 2.5 g/dl (3.5-5.0); Alkaline Phosphatase 70 U/L (38-126); Blood Urea Nitrogen 49 mg/dl (7-17); Calcium 8.6 mg/dl (8.4-10.2); Chloride 102 mmol/L (98-107); Estimated Creatinine Clearance 82 ml/min; Glucose 112 mg/dl (70-99); Potassium 3.4 mmol/L (3.5-5.1); Sodium 148 mmol/L (135-145); Total Bilirubin 0.6 mg/dl (0.2-1.3); Total Protein 5.7 g/dl (6.3-8.2); Triglycerides 78 mg/dl (10-149); eGFR > 60.00
[2024-07-17 03:49] LABS: Prealbumin (Transthyretin) 9.4 mg/dl (17.6-36.0)
[2024-07-17 03:50] LABS: Glucose - Point of Care 102 mg/dl (70-99)
[2024-07-17 04:01] LABS: Carbon Dioxide 39 mmol/L (22-30)
--- NOTE | 2024-07-17 04:11 | PTCARENOTE ---
sys reviewed, ett repos on left side at 24cm, percussion done
[2024-07-17] MEDS: KCL ELIXIR 40 MEQ TUBE (04:22)
[2024-07-17 04:50] LABS: Glucose - Point of Care 113 mg/dl (70-99)
[2024-07-17] MEDS: SOLU-CORTEF 50 MG IV ×4 (05:25→23:40)
[2024-07-17 05:53] LABS: Glucose - Point of Care 107 mg/dl (70-99)
[2024-07-17 06:53] LABS: Glucose - Point of Care 137 mg/dl (70-99)
[2024-07-17] MEDS: NOVOLOG FLEXPEN SC ×3 (07:53→18:27)
[2024-07-17 08:01] LABS: Glucose - Point of Care 132 mg/dl (70-99)
--- NOTE | 2024-07-17 08:10 | W.PN.INTV ---
Today's Communication / Plan
Recommendations
Mechanical ventilation with plans to extubate today to NIV; will do NIV x 1-2 hours and then continue NIV prn during the day and with sleep
Initially family wanted to pursue comfort care measures with hospice if not extubated by 07/17, however family had another discussion on 07/15 and they now want her to be full code
If pt fails extubation then will consult ENT for trach
Patient failed SBT on 07/16 after about 45 minutes due to tachypnea with RR in the 40s
Diuresis on hold for now given acute hypernatremia and alkalosis
Trend BNP
Goal BG 140�180
Continue hydrocortisone
Check RUE Duplex US due to swelling and given she has a midline in that arm
Continue Xopenex + Atrovent
Abx per ID
Guarded prognosis
Assessment
-
Patient is a 78-year-old female with previous history of COPD, chronic hypercarbic respiratory failure on BiPAP, chronic heart failure with preserved EF, chronic hypoxemia presenting with increased shortness of breath and weakness over the past 24
hours. She was at wound clinic the day prior to admission and notably hypoxemic, was referred to the emergency room. On arrival ABG noted to be 7.29/76. She was treated with BiPAP overnight. Repeat ABG 7./90. She had increasing somnolence
throughout the day. A decision was made for intubation due to persistent mental status changes and unresponsiveness.
#1. Acute on chronic hypoxic and hypercapnic respiratory failure s/p intubation 07/09/24. Respiratory failure is due to heart failure exacerbation, suspected right lower lobe pneumonia/aspiration as well as underlying COPD with morbid obesity and
history of sleep apnea with possibly obesity hypoventilation syndrome.
-Patient at baseline on oxygen and also has chronic hypercapnia with baseline PCO2 60 on home BiPAP
-Continue mechanical ventilation with daily SAT/SBT if clinically appropriate --> plan to do PS trial this AM and extubate to NIV at 14/8; if she fails extubation again then will consult ENT for tracheostomy
-In the interim, titrate FiO2 + PEEP to maintain SpO2 88-95%
-Vent adjustments based on blood gas daily
-Continue ASV 110%
-Continue with Flovent, nebulized Xopenex/Atrovent and on 07/15 I started IV stress dose hydrocortisone given concern for COPD exacerbation as well as shock state
#2. Shock, likely mixed septic shock and cardiogenic shock
-Continue vasopressors with Anders-Synephrine; now off vasopressin; levophed previously stopped because of A-fib RVR.
-Continue stress dose hydrocortisone
-Avoid dobutamine in the setting of sepsis
-Monitor I/O
-ID service on board --> patient currently on meropenem + doxycycline
-RV panel is negative
-Urine culture from 07/09/2024 has grown Klebsiella aerogenes + lactobacillus
#2. Acute on chronic HFpEF, moderate aortic stenosis. Recent hospitalization in June for heart failure exacerbation.
-Sodium and bicarb rising this am --> diuresis on hold for now although she did get a dose this AM of lasix 40mg IVP
-Monitor strict I/O
-Replete K>4, Mg>2
-Cardiology service on board with recs appreciated
-Chest X ray shows pulmonary vascular congestion with suspected small bilateral pleural effusions, although difficult to assess fluid status due to body habitus --> slight improvement in pulmonary edema per CXR from 07/16
-Echo rechecked on 07/15/2024 showed hyperdynamic LV systolic function with EF 70-75%, with no significant change compared to prior echo on July 09, 2024; prior TTE on 07/30 showed mild�moderate MS with moderate aortic stenosis with peak/mean
gradients of 56/35 mmHg
#3. Right lower lobe pneumonia, suspect aspiration, enlarging effusion
-Considering patient is in shock and recent hospitalization about a month ago, continue antibiotics
-MRSA screen negative, follow-up on blood cultures (NGTD)
-Chest PT in view of right lower lobe mucous plugging
- Started sport bed on 07/16
-Bedside POCUS performed, 07/14, only a small volume pleural effusion noted which appears simple without loculation - hence thoracentesis not recommended at that time
#4. Increasing lethargy, unresponsiveness. This is related to worsening hypercapnia and metabolic encephalopathy. (prior to requiring intubation)
-She is much more alert but still remains exquisitely weak and deconditioned
-Currently patient is intubated and sedated
-Maintain goal RASS 0 to -2
#5. Acute kidney injury with hyperkalemia - now resolved
-Cardiorenal syndrome, creatinine now normal with diuresis
-Renally dose all meds; avoid nephrotoxic agents
-Nephrology service signed off on 07/11/2024
-Holding IV lasix for now as stated above
#6. A-fib with RVR atrial fibrillation with RVR, new onset since hospitalization in June 2024
-Cardiology service on case
-Continue heparin gtt for stroke prophylaxis
-Continue phenylephrine, avoiding Levophed
-PO amiodarone started, dose managed by cardiology
-Continue telemetry monitoring
-Troponin peaked at 0.061 on 07/10/2024 � no longer need to continue trending at this time
#7. DM with hyperglycemia:
-insulin infusion --> weaned off on 07/15; resumed IV insulin gtt on 07/16; diabetic ADVERTISING SALES EXECUTIVE on board for assistance
-A1c: 6.8 on 06/11/2024
-Goal BG 140-180, especially while on stress dose steroids
Other:
-Continue tube feeding - currently at goal --> hold for extubation
-DVT prophylaxis with heparin infusion
-GI prophylaxis with PPI
Patient is now full code after family had a discussion on 07/15
Continue ICU level of care for this critically ill patient.
Conditions present prior to admission
Diabetes
Hypertension
Hyperlipidemia
Morbid obesity
Elevated IgE
Severe sleep apnea, total index 56, desaturation adamaris 51%
Compliant and adequate with auto BiPAP
Severe COPD, spirometry 06/22/23- FVC 1.14 or 45%, FEV1 0.66 or 33, Ratio 57
Heart failure with preserved ejection fraction
History of anemia
History of pleural effusions, stable since 2010
Afib on Eliquis
Diagnostic Data
Chest X-Ray: 07/09/24 post intubation- 1. Endotracheal and nasogastric tubes are in satisfactory position.
2. Mild pulmonary edema, not significantly changed.
3. Obscuration of both hemidiaphragms, left greater than right, suggestive of small bilateral pleural effusions. Bibasilar airspace disease may also be present.
07/08/24- Cardiomegaly, unchanged. Pulmonary interstitial prominence again seen, cannot differentiate acute versus chronic. Some right basilar opacity and left hemidiaphragm again obscured. Cannot exclude bibasilar subsegmental atelectasis and/or
pneumonia and small bilateral pleural effusions.
Chest x-ray 06/14/2024: Moderate cardiomegaly. Mild increased interstitial markings. Improved compared to prior 06/12/2024
CT Scan: CTA 2018- No pulmonary embolism. Prominent distal pulmonary artery and right and left pulmonary arteries, suggesting an element of pulmonary hypertension. Mild stable chronic parenchymal findings, without evidence of acute pneumonia.
Long-term interval stability of 3 small pulmonary nodules, supporting a benign etiology.
CHEST 09/27/13- Stable left upper lobe pulmonary nodules since February 2011. There is extremely high probability that these are benign. Stable bibasilar scarring.
Findings suggesting pulmonary arterial hypertension. Mitral annulus calcification. Coronary artery disease. Essentially resolved right pleural effusion.
Echo: 06/13/24- Normal left ventricular chamber size. Normal left ventricular systolic function. Left ventricular ejection fraction is 55-60% by visual assessment. No gross regional wall motion abnormalities. Mild concentric left ventricular
hypertrophy. Normal right ventricular size and function. Mild to moderate mitral stenosis. Moderate aortic stenosis. Peak/mean gradients across the aortic valve are 46/28 mmHg and estimated aortic valve area is 1.1 cm2. Compared to prior study
dated 12/31/2023, there is no significant change, prior aortic valve peak/mean gradients were 48/27 mmHg, respectively.
PFT's: spirometry 06/22/23- FVC 1.14 or 45%, FEV1 0.66 or 33, Ratio 57 (severe obstruction)
Reports and relevant images were personally reviewed.
Critical care statement: A total of 41 minutes of critical care time was provided for this patient today. This includes management of unstable vital signs, evaluation of the patient at bedside, reviewing the patient's pertinent medical records
including radiographs, microbiology, laboratory evaluations, and discussion with primary team, consultants, pharmacy, nutrition, physical therapy, case management, charge nurse, critical care nursing, and respiratory therapy.
Subjective Dataa
Subjective Data
Date of Service:
Date of Service: July 17, 2024
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
Subjective:
Patient was seen and evaluated this morning. Remains intubated on ASV 110%, PEEP of 6 and FiO2 at 40% with PIP [id number], VTe 280cc and breathing at 25 breaths/min. End-tidal CO2 currently 48, BP via NIBP 104/51, heart rate 83 and saturating 98%. A
line removed overnight as it was dysfunctional. Off vasopressin and on anders at 20mcg/min. She is following commands, able to lift head off pillow, but remains very weak overall.
Review of Systems
General: Other (Unobtainable - intubated)
Objective Data
Data Reviewed
Vital Signs / I&O / Oxygen:
Vital Signs
Temp Pulse Resp BP Pulse Ox
99.6 F 78 20 115/59 100
07/17/24 07:20 07/17/24 08:57 07/17/24 08:24 07/17/24 08:57 07/17/24 08:31
Intake and Output
07/16/24 07/17/24 07/18/24
06:59 06:59 06:59
Intake Total 3463.3 / 3574.3 2534.5 / 2534.5
Output Total 3235 / 3250 2775 / 2775
Balance 228.3 / 324.3 -240.5 / -240.5
SaO2 [ASV] 97
SaO2 [CPAP] 93
SaO2 [A/C] 97
SaO2 100
Nasal Cannula flow liters per 5
minute
Physical Exam
General: Respiratory Distress (negative), Comfortable, Chills (negative) and Sweats (negative)
HEENT: Normocephalic, Anicteric and Other (ETT in place; thick neck)
Cardiovascular: Irregular Rhythm (Irregularly irregular), Murmur (FINA heard loudest at RUSB) and Peripheral Edema (Trace LE edema b/l)
Respiratory: Wheeze (negative), Crackles (Bilateral), Rhonchi (bilateral), Non-Labored Respirations and ET Tube (Mechanical breath sounds heard bilaterally)
GI: Soft, Distended (Abdominal obesity), Non Tender and Normal Bowel Sounds
Neurology: Awake, Alert, Tremors (negative) and Other (Following all commands)
Skin: Warm, Dry, Cyanosis (negative) and Jaundice (negative)
Labs/Micro/Reports
Lab Data
07/17/24 03:16
07/17/24 03:16
Laboratory Results
07/16/24 07/16/24 07/16/24
10:12 16:14 21:43
APTT 74.3 H 66.3 H 86.0 H
07/17/24
03:16
APTT 77.6 H
Microbiology
07/12/24 11:34 Blood/Venous Blood Culture - Preliminary
No Growth in 4 days- Final report to follow
07/14/24 10:07 Tracheal Aspirate Respiratory Culture - Final
Maxine albicans
07/14/24 10:07 Tracheal Aspirate Gram Stain - Final
07/15/24 13:20 Nasalpharynx Influenza Type A (PCR) - Final
Not Detected
07/15/24 13:20 Nasalpharynx Influenza Type A (H1) (PCR) - Final
Not Detected
07/15/24 13:20 Nasalpharynx Influenza Type A (H3) (PCR) - Final
Not Detected
07/15/24 13:20 Nasalpharynx Influenza Type B (PCR) - Final
Not Detected
07/15/24 13:20 Nasalpharynx Resp Syncytial Virus Type A (PCR) - Final
Not Detected
07/15/24 13:20 Nasalpharynx Resp Syncytial Virus Type B (PCR) - Final
Not Detected
07/15/24 13:20 Nasalpharynx Adenovirus DNA (PCR) - Final
Not Detected
07/15/24 13:20 Nasalpharynx Human Metapneumovirus (PCR) - Final
Not Detected
07/15/24 13:20 Nasalpharynx Parainfluenza Virus Type 1 (PCR) - Final
Not Detected
07/15/24 13:20 Nasalpharynx Parainfluenza Virus Type 2 (PCR) - Final
Not Detected
07/15/24 13:20 Nasalpharynx Parainfluenza Virus Type 3 (PCR) - Final
Not Detected
07/15/24 13:20 Nasalpharynx Parainfluenza Virus Type 4 - Final
Not Detected
07/15/24 13:20 Nasalpharynx Rhinovirus (PCR) - Final
Not Detected
07/11/24 13:28 Feces/Stool Salmonella/Shigella Culture - Final
No Salmonella, Shigella, Aeromonas or Plesiomonas species
isolated.
07/11/24 13:28 Feces/Stool Campylobacter Culture - Final
No Campylobacter species isolated.
07/11/24 13:28 Feces/Stool Shiga Toxin Test - Final
No E. coli Shiga Toxin 1 or 2 detected.
07/11/24 13:28 Feces/Stool Stool Leukocytes - Final
07/09/24 18:20 Blood/Venous Blood Culture - Final
No Growth - Final Report
07/09/24 18:20 Blood/Venous Blood Culture - Final
No Growth - Final Report
[2024-07-17] MEDS: ATROVENT NEBULES 0.5 MG INH ×4 (08:20→19:53)
[2024-07-17] MEDS: XOPENEX 1.25 MG INHALANT SOLUTION INH ×4 (08:20→19:53)
[2024-07-17] MEDS: FLOVENT 110 MCG INHALER 4 PUFF INH (08:20)
[2024-07-17] MEDS: SODIUM CHLORIDE 3% FOR INHALATION 1 VIAL INH ×2 (08:22→19:53)
--- NOTE | 2024-07-17 08:30 | PTCARENOTE ---
Assumed care of pt at 0715 following shift report. Pt remains intubated on vent at settings as ordered w/ Pox 97-99%. Pt resting w/ eyes closed- arousable to name. Nods/shakes head appropriately to questions. Follows commands- KERNS, weakly but
equally. Bilateral wrist restraints remain in place to protect lines/tubes. Lt NGT placement confirmed at 65cm, Jevity 1.5 tube feeding infusing at goal rate 45ml/hr w/ auto hourly water flush of 10ml/hr. FMS in place w/ liquid brown stool noted.
Santana patent and draining dark yellow urine w/ sediment noted. Insulin gtt per glycemic protocol via Rt midline IV site, Vasopressin, Heparin, and Neosynephrine via Rt SC TLC at rates documented on work list. Physical assessment as documented.
Turned/repositioned, comfort care and hygiene provided. Percussion/vibration initiated (10min q4hr). Pt's daughter present in room- updated as requested and questions answered. Safe environment maintained.
--- NOTE | 2024-07-17 08:35 | PN.DE.MGMTRT ---
Insulin Management
- -
07/17/2024; Diabetes Management Follow up
Patient admitted 07/08 with breathing problem, sepsis, acute on chronic respiratory failure due to acute pulmonary edema on chronic heart failure, with NEW a fib. PMH COPD, on 3L O2 at home chronically, HTN, HLD, diabetes, morbid obesity. Prior to
admission chart reflects patient was taking 10 - 25 units on N @ HS, Humalog 12 units with breakfast and lunch, Jardiance 10 mg daily and metformin 1000 mg BID. A1C 06/11/2024 was 6.8%, Cr 1.0, eGFR 57.66
Pt is critically ill, was re-intubated 07/14, currently sedated, unable to discuss diabetes care plan. Family at bedside, all questions answered.
Transitioned off glycemic protocol insulin infusion 07/15 at noon.
07/16 Tube feeds at goal 45 per hour, added 5 units novolog Q 6 hours. Noon glucose 307, patient received 12 units novolog, 17:39 glucose 338, glycemic protocol insulin infusion restarted @ 10 units per hour.
07/17 Tube feeds continue @ 45 per hour Currently glucose 132, insulin infusion @ 2.6 units per hour. Will continue glycemic protocol for 24 hours to establish insulin requirements.
Discussed with nurse.
Will cont to follow
Diabetes History
- -
Type of Diabetes: 2 requiring insulin
Pre-Admission Diabetes Regimen
07/17/24
03:16
Creatinine 0.6
Insulin Pump Settings
IP Diabetes Regimen
07/16/24 07/16/24 07/16/24
12:08 17:39 18:32
Glucose
POC Glucose 303 H 338 H 350 H
07/16/24 07/16/24 07/16/24
19:39 20:39 21:42
Glucose
POC Glucose 330 H 298 H 240 H
07/16/24 07/16/24 07/17/24
22:40 23:46 00:38
Glucose
POC Glucose 197 H 183 H 156 H
07/17/24 07/17/24 07/17/24
01:42 02:42 03:16
Glucose 112 H
POC Glucose 135 H 134 H
07/17/24 07/17/24 07/17/24
03:39 04:39 05:41
Glucose
POC Glucose 102 H 113 H 107 H
07/17/24 07/17/24
06:41 07:50
Glucose
POC Glucose 137 H 132 H
Patient Education
[2024-07-17 08:54] LABS: Glucose - Point of Care 185 mg/dl (70-99)
[2024-07-17] MEDS: MIRALAX 17 GRAMS TUBE (08:56)
[2024-07-17] MEDS: PROTONIX IV 40 MG IV (08:56)
[2024-07-17] MEDS: PACERONE 400 MG TUBE ×2 (08:57→20:15)
[2024-07-17] MEDS: LASIX 40 MG IV (08:57)
[2024-07-17] MEDS: NSS (PRESERVATIVE FREE) 10 ML IV (08:57)
[2024-07-17] MEDS: DESENEX/MITRAZOL/ZEASORB 1 APPLIC TOPICAL ×2 (08:58→20:16)
--- NOTE | 2024-07-17 09:40 | W.PN.ID1 ---
Date of Service
Date of Service: July 17, 2024
Today's Communication
Continue antibiotics for today.
Assessment / Plan
Acute on chronic hypoxemic respiratory failure; on vent (07/09/2024)
Leukocytosis;
- Suspect reactive rather than secondary to infection.
Fevers trending down
Bacteriuria
Hypotension
� Remains on 2 pressors.
COPD
Chronic hypoxemic respiratory insufficiency (3 L O2 at home)
HTN
Dyslipidemia
Diabetes mellitus
Obesity
P A-fib
MARK
Recommendations:
Bcx x 2 neg to date. Sputum Cx : usual respiratory reid. Recovered Maxine is not a pathogen.
Urine cx with Klebsiella x 2 strains , both susceptible to meropenem.
Viral respiratory panel also negative.
Was febrile on meropenem, thus unlikely urine source
Repeat COVID and Influenza tests : negative
CXR with bibasilar opacities - atelectasis vs PNA.
Currently meropenem (d#7) / doxycycline (d#6)
Repeat sputum culture (07/14/2024) unrevealing.
Continue antibiotics for today.
Trend white count and temperature curve.
Continue with supportive measures.
Patient remains critically ill, in intensive care unit, requiring ventilator support, along with pressor support.
Chief Complaint
-: Fever and Clinical Sepsis
Subjective / Review of Systems
Patient seen and examined. Remains on vent at this time. No other significant changes overnight.
Vital Signs / Physical Exam
Vital Signs
Vital Signs
Temp Pulse Resp BP Pulse Ox
99.6 F 78 20 115/59 100
07/17/24 07:20 07/17/24 08:57 07/17/24 08:24 07/17/24 08:57 07/17/24 08:31
Physical Exam
Constitutional: Comfortable, Acutely Ill and Non-toxic
Head: Normocephalic and Other (ET tube in place. NG tube in place.)
Eyes: Sclera Anicteric
Cardiovascular: Irregular Rate, S1/S2 and Murmur; Negative S3/S4
Pulmonary: Coarse and Other (on vent)
Gastrointestinal: Soft, Non Tender, Non Distended, Normal Bowel Sounds, No Rebound, No Guarding and Other (FMS in place.)
Genito-Urinary: Santana and Clear Urine
Extremities: Edema
Skin: Negative Rash or Jaundice
Neurological: Awake
Psychological: Calm
Objective Data
Lab Data
Lab Results
07/17/24 03:16
07/17/24 03:16
PT 18.4 Sec (11.4-14.6) H 07/09/24 15:19
INR 1.50 07/09/24 15:19
APTT 77.6 Sec (23.4-35.0) H 07/17/24 03:16
Estimated Creat Clear 82 ml/min 07/17/24 03:16
Lactic Acid 0.9 mmol/L (0.7-2.0) 07/11/24 16:19
Total Bilirubin 0.6 mg/dl (0.2-1.3) 07/17/24 03:16
AST 18 U/L (14-36) 07/17/24 03:16
ALT 16 U/L (0-35) 07/17/24 03:16
Alkaline Phosphatase 70 U/L (38-126) 07/17/24 03:16
Most recent labs reviewed.
Micro Results:
07/12/24 11:34 Blood Culture - Preliminary
Blood/Venous No Growth in 4 days- Final report to follow
07/14/24 10:07 Respiratory Culture - Final
Tracheal Aspirate Maxine albicans
Gram Stain - Final
07/15/24 13:20 Influenza Type A (PCR) - Final
Nasalpharynx Not Detected
Influenza Type A (H1) (PCR) - Final
Not Detected
Influenza Type A (H3) (PCR) - Final
Not Detected
Influenza Type B (PCR) - Final
Not Detected
Resp Syncytial Virus Type A (PCR) - Final
Not Detected
Resp Syncytial Virus Type B (PCR) - Final
Not Detected
Adenovirus DNA (PCR) - Final
Not Detected
Human Metapneumovirus (PCR) - Final
Not Detected
Parainfluenza Virus Type 1 (PCR) - Final
Not Detected
Parainfluenza Virus Type 2 (PCR) - Final
Not Detected
Parainfluenza Virus Type 3 (PCR) - Final
Not Detected
Parainfluenza Virus Type 4 - Final
Not Detected
Rhinovirus (PCR) - Final
Not Detected
07/11/24 13:28 Salmonella/Shigella Culture - Final
Feces/Stool No Salmonella, Shigella, Aeromonas or Plesiomonas species
isolated.
Campylobacter Culture - Final
No Campylobacter species isolated.
Shiga Toxin Test - Final
No E. coli Shiga Toxin 1 or 2 detected.
Stool Leukocytes - Final
07/09/24 18:20 Blood Culture - Final
Blood/Venous No Growth - Final Report
07/09/24 18:20 Blood Culture - Final
Blood/Venous No Growth - Final Report
07/12/24 12:45 Influenza Types A & B ([place]) - Final
Nasal Swab Negative for Influenza A & B, NAAT
Negative results must be combined with clinical observations
and patient history.
Nucleic Acid Amplification test (NAAT)performed on the
[email or web address] platform.
07/10/24 00:11 Respiratory Culture - Final
Sputum Usual Respiratory Reid
Gram Stain - Final
07/09/24 15:59 Urine Culture - Final
Urine Klebsiella aerogenes
Klebsiella aerogenes#2
Lactobacillus species
07/11/24 13:28 C. difficile GDH Antigen & Toxins - Final
Feces/Stool Negative for toxigenic C.difficile
07/11/24 08:05 Influenza Types A & B ([place]) - Final
Nasal Swab Negative for Influenza A & B, NAAT
Negative results must be combined with clinical observations
and patient history.
Nucleic Acid Amplification test (NAAT)performed on the
[employer] platform.
07/08/24 17:37 MRSA Screen - Final
Nose No Methicillin Resistant Staphylococcus aureus isolated.
Imaging:
07/11/2024 CXR (portable): ET tube projects over the trachea. Nasogastric tube not visualized, although lies below left hemidiaphragm. Heart is mildly enlarged. Minimal bibasilar airspace consolidation, with associated haziness of each
hemidiaphragm. Mild cephalization of the pulmonary vasculature. Please see full dictation for additional detail. Film personally viewed.
07/12/2024 CXR: Bibasilar opacification, right greater than left which could represent subsegmental atelectasis and/or pneumonia and possible tiny right pleural effusion.
[2024-07-17 09:59] LABS: Glucose - Point of Care 182 mg/dl (70-99)
--- NOTE | 2024-07-17 10:12 | W.PN.CARDCBS ---
Today's Communication / Plan
-
Given hypotension and need for 2 pressors with slow weight will try midodrine 5 mg 3 times daily to stabilize blood pressure.
Wean pressors as tolerates.
She is receiving IV Lasix. proBNP is somewhat . She is azotemic, and sodium is rising. I have held Lasix for now and we will continue to follow.
Atrial fibrillation is rate controlled. Continue amiodarone. De-escalate later this hospital stay as tolerates. Continue IV heparin
Impression / Plan
-
.
Family Physician:� Trina Ralph
Primary Tour Driver: Dr. Simmons
Impression:
Sepsis with hypotension requiring pressor support
Vent dependent respiratory failure extubated and then later re-intubated 07/14/2024
Admitted with SOB and acute on hypoxic respiratory failure 06/10/24
New persistent atrial fibrillation with rapid ventricular response
Klebsiella UTI cultures
AE COPD
Acute HFpEF
Hyperkalemia
Change in mental status
Mod peak/mean 48/27 mmHg and ZAY 1.0 cm sq by echo 12/21/23
Mod MS with peak/mean 17/7 mmHg by echo 12/21/23
MARK on BiPAP
HTN
HLD
DM2
Chronic iron deficiency anemia
Morbid obesity, BMI 36.4
h/o pulmonary nodules
Code status: Limited DNR, ok to intubate, no CPR
ECHO 07/2019: EF 60-65%, mod cLVH, MAC, mild MR, mild to mod , peak/mean 26/16mmHg, ZAY 1.1cm2
ECHO 09/24/21: EF 65 to 70%, mild concentric LVH, mild , peak/mean gradients 31/19 mmHg, ZAY 1.1 cm�, trivial pericardial effusion, no significant change compared to prior
Echo 12/21/23: EF 55-60%, mild conc LVH, mod MS with peak/mean 17/7 mmHg, mod peak/mean 48/27 mmHg and ZAY 1.0 cm sq
Echo 06/13/24: EF 55 to 60%, no gross regional WMA, mild to moderate MS with mean gradient 6 mmHg at an HR of 76 bpm, mild MR, moderate peak/mean 46/28 mmHg and ZAY 1.1 cm SQ
Echo 07/09/24: EF 65-70%, mild to moderate mitral stenosis, mean gradient 7, moderate aortic stenosis, 56/35 mmHg, no comment on AI, mild to moderate mitral stenosis, mean gradient 7 no comment on mitral regurgitation, normal atria, normal RV, could
not determine pulmonary artery systolic pressure
Plan:
She continues with hypotension requiring 2 pressors. Pressors weaned down slightly last night. Discussed with family at the bedside.
In addition to continuing to treat sepsis and antibiotics per infectious disease/primary service will try midodrine 5 mg 3 times daily to stabilize blood pressure.
Wean pressors as tolerates.
Ventilator weaning trials per executive creative director as tolerates.
She is receiving IV Lasix. proBNP is somewhat improved but still with evidence of heart failure. She is azotemic, and sodium is rising. I have held Lasix for now and we will continue to follow.
Atrial fibrillation is rate controlled. Continue amiodarone. De-escalate later this hospital stay as tolerates
Continue IV heparin for CVA prophylaxis.
Given rate control I do not believe Rastafarian of sinus rhythm urgently as indicated.
Prognosis is guarded given how long she has been on the ventilator with marginal hemodynamics and ongoing evidence of heart failure.
Moderate aortic valve stenosis and mild to moderate mitral stenosis noted.
Discussed with nursing staff along with family.
31 minutes total critical care time
HPI: Patient came to ER today with increased weakness and a lower than usual pulse ox reading at home, patient now admitted with acute HF and cardiology has been consulted. Patient was just admitted to from 06/10/2024 until 06/19/2024 with acute
on chronic hypoxic multifactorial respiratory failure and also a new diagnosis of paroxysmal Afib. During that admission patient was diuresed with Lasix 80 mg IV BID. In addition to BiPAP therapy. Unfortunately the recorded weights during that
admission were not accurate because they were using a bed scale. I and O readings were also inaccurate, but the patient reported some subjective improvement. Patient was seen in the office on 06/26/2024 and was dutifully taking her dose of Lasix 80
mg twice daily, but was noted to be hypotensive and so her usual dose of nifedipine was stopped. Patient was seen in the wound clinic today and was noted to be SOB above baseline and hypoxic so she was referred to ER. Patient was using her
usual 3 L nasal cannula of supplemental oxygen and had improved pulse ox by increasing to 5 L. proBNP is up to 9300 today and was only as high as 1590 during her last admission. Again the recorded weights are not accurate
Progress Note - Tour Driver
Subjective
Date of Service: July 17, 2024
She denies chest pain she is able to communicate well on the ventilator.
Objective
Labs:
07/17/24 03:16
07/17/24 03:16
Labs
Hgb 8.9 g/dL (12.0-16.0) L 07/17/24 03:16
Hct 29.3 % (37.0-47.0) L 07/17/24 03:16
Plt Count 389 10^3/uL (130-400) 07/17/24 03:16
PT 18.4 Sec (11.4-14.6) H 07/09/24 15:19
INR 1.50 07/09/24 15:19
APTT 77.6 Sec (23.4-35.0) H 07/17/24 03:16
Sodium 148 mmol/L (135-145) H 07/17/24 03:16
Potassium 3.4 mmol/L (3.5-5.1) L 07/17/24 03:16
BUN 49 mg/dl (7-17) H 07/17/24 03:16
Creatinine 0.6 mg/dL (0.6-1.0) 07/17/24 03:16
Glucose 112 mg/dl (70-99) H 07/17/24 03:16
Vital Signs and I&O:
Vital Signs
Temp Pulse Resp BP Pulse Ox
99.6 F 78 20 115/59 100
07/17/24 07:20 07/17/24 08:57 07/17/24 08:24 07/17/24 08:57 07/17/24 08:31
Vital Signs
Temp Pulse Resp BP Pulse Ox
99.6 F 78 20 115/59 100
07/17/24 07:20 07/17/24 08:57 07/17/24 08:24 07/17/24 08:57 07/17/24 08:31
Intake & Output
07/15/24 07/16/24 07/17/24 07/18/24
06:59 06:59 06:59 06:59
Intake Total 2958.9 / 3112.6 3463.3 / 3574.3 2534.5 / 2534.5
Output Total 1665 / 1715 3235 / 3250 2775 / 2775
Balance 1293.9 / 1397.6 228.3 / 324.3 -240.5 / -240.5
Physical Exam
Physical Exam
General: Critically ill woman
Neck: Intubated
Heart: Distant heart sounds irregular with 3/6 basal systolic murmur
Lungs: Coarse anterior breath sounds intubated.
Extremities: No clubbing, cyanosis or legs wrapped with +1 edema
Neuro: Awake and nods appropriately.
--- NOTE | 2024-07-17 10:27 | VATNOTE ---
During routine assessment of midline, noted that R arm looks significantly more swollen than left. RUE circumference 10 cm above the antecubital fossa measured 35.5 cm today versus 33 cm at time of insertion. Significant dependent edema noted. R
forearm circumference 14 cm above the wrist measuring 29 cm versus 25 cm 14 cm above the wrist in the L forearm. Discussed with PCN who will move the insulin infusion from the midline to the subclavian triple lumen central line and request a
peripheral vascular ultrasound of the RUE from the screw machine tool setter during rounds. RUE limb restriction bracelet remains in place. Dressing change deferred at this time in case midline needs to be removed.
[2024-07-17] MEDS: ProAmatine 5 MG PO ×3 (11:24→18:26)
[2024-07-17 11:34] LABS: Glucose - Point of Care 171 mg/dl (70-99)
--- NOTE | 2024-07-17 12:23 | PTCARENOTE ---
Pt continues to rest quietly in bed. and daughter visiting at bedside. No distress noted. Vasopressin off. Neosynephrine titrated as documented in worklist intervention. Pt continues to deny c/o pain. Resp Therapy in room and initiated vent
wean/SBT at 1210. PS 8/PEEP 6, 40% FiO2. Education/emotional support provided. No additional changes from previous assessment findings.
--- NOTE | 2024-07-17 13:00 | W.PN.HOSP.TC ---
Today's Communication/Plan
-
IV Lasix held with hypernatremia
mild increase in hourly FWF
continue IV abx
continue IV Steroids
attempt weans
family agreeable to trach if no successful wean
Assessment / Plan
Assessment / Plan
Assessment:
Acute on chronic hypoxic respiratory failure
Acute hypercapnic respiratory failure
- related to acute CHF. hx of MARK/COPD contributing
- intubated 07/09, extubated 07/14 with rapid re-intubation 07/14 for hypercapnia and respiratory distress
- Customer Business Manager following
- vent/sedation management per ICU
- IV steroids started 07/15
Acute on chronic heart failure with preserved EF
- holding IV Lasix presently - requires intensive monitoring of I/Os, weights, lytes
- Limited bedside echocardiogram done July 09 shows preserved EF and unchanged.
- Echo 07/15: Normal left ventricular size. Hyperdynamic left ventricular systolic function. No regional wall motion abnormalities are seen. LV ejection fraction is 70-75%. Compared to the previous full study echo, the EF from July 09, 2024, there
is no significant change in EF. Valves not assessed in this study.
- Cardiology following
Shock, multifactorial from sepsis and possibly cardiogenic
- wean pressors as able
TME in setting of hypoxia, hypercapnia, heart failure, possible sepsis, etc
- reassess mentation when off sedation and acute illness recovers
Fevers of unknown origin
- CT chest 07/10 with small bilateral pleural effusions, left greater than right, adjacent bilateral lower lobe parenchymal opacities possibly representing pneumonia. Large amount of mucous plug in the right lower lobe bronchi.
- Has a UTI with urine cultures growing Klebsiella and Lactobacillus
- continue Merrem/Doxy per ID empirically; per ID UTI not source of fevers. Noted to have urinary retention during last hospitalization. She was discharged with Santana catheter and Flomax with recommendation for outpatient urology follow-up.
Discharged on a course of Keflex for possible UTI. Required a Santana catheter for 3 days as per family.
- Stool studies negative, no apparent noninfectious cause such as vasculitis/VTE
- viral respiratory panel negative
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
- continue wound care
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
Nutritional support
- tube feeds
- / AXR with normal gas pattern
TANIKA - suspect related to septic shock, ATN. TANIKA resolved.
Hypernatremia - sodium 148, free water flushes continue
Hypokalemia - resolved.
persistent atrial fibrillation with rapid ventricular response
- continue Amiodarone
- continue IV heparin - requires intensive monitoring of PTTs
- on Eliquis at home
small b/l pleural effusions
Troponin elevation
- likely acute nonischemic myocardial injury vs type II SC in setting of Rapid AFib
- peaked at .06
- Cardiology following
COPD without exacerbation
MARK - uses BiPAP at home.
Hyperlipidemia - atorvastatin.
Type 2 diabetes (IDDM)
- A1c 6.8%
- home regimen (Metformin, Jardiance, basal/bolus insulin) held
- continue regular insulin drip per hyperglycemic protocol
- HOT METAL CAR OPERATOR following
Essential hypertension - hold antihypertensives while on vasopressors.
Chronic anemia - macrocytic. Hemoglobin stable at 9.1, monitor for now. Baseline hemoglobin appears to be 10-11.
B12, folic acid normal. Cannot rule out component of iron deficiency.
Obesity due to excess calories
DVT ppx: IV Heparin
Code: Full
Total Critical Care Time 40 minutes. I was immediately available to the patient and staff. I personally examined, reviewed labs, diagnostic images/reports, interpretations, treatment plans, discussed patient care with other providers and family or
caregivers (if patient is unable to make decisions), entered orders as appropriate and documented the medical record.
Anticipated Discharge: > 48 hours
Subjective/Interval History
-
Date of Service: July 17, 2024
on vent wean
IV Lasix held by cardiology
Objective Data
-
Labs:
Laboratory Results
07/17/24
03:16
WBC 17.8 H
Hgb 8.9 L
Hct 29.3 L
Plt Count 389
APTT 77.6 H
Sodium 148 H
Potassium 3.4 L
Chloride 102
Carbon Dioxide 39 H
BUN 49 H
Creatinine 0.6
Glucose 112 H
Calcium 8.6
Total Bilirubin 0.6
AST 18
ALT 16
Alkaline Phosphatase 70
Vital Signs:
Vital Signs
Temp Pulse Resp BP Pulse Ox
99 F 99 23 108/56 97
07/17/24 11:00 07/17/24 12:17 07/17/24 12:17 07/17/24 12:15 07/17/24 12:17
I&O
07/16/24 07/17/24 07/18/24
06:59 06:59 06:59
Intake Total 3463.3 / 3574.3 2534.5 / 2620.5 528.6 / 528.6
Output Total 3235 / 3250 2775 / 2775 690 / 690
Balance 228.3 / 324.3 -240.5 / -154.5 -161.4 / -161.4
Physical Exam
-
General: Intubated
HEENT: Normocephalic and Atraumatic
Respiratory: Rhonchi and Crackles
Cardiac: Regular Rhythm and S1/S2
GI: Soft
Genito-urinary: No Costovertebral Tender
Hematologic / Lymphatic: No Lymphadenopathy
Psych: Calm
Data Reviewed
-
Critical Care Time (in minutes): 41
Labs: Labs Reviewed by me
[2024-07-17 13:11] LABS: Glucose - Point of Care 166 mg/dl (70-99)
--- NOTE | 2024-07-17 13:43 | PTCARENOTE ---
Pt remains on vent wean. Pt appears comfortable w/ RR mid 20's. Pox 97-98%. HR 100-120's. EtCO2 50's. Dr Day updated on pt's present status and order given to change vent settings to PS 5/PEEP 5 with ABG in 30 minutes. Resp Therapy notified and
vent changes made. Pt's and daughter remain at bedside and updated on plan of care. No additional changes from previous assessment findings.
[2024-07-17 14:29] LABS: B.E. 15.5 mmol/L; PO2 127 mmHg (83-108); pH 7.39 (7.35-7.45)
[2024-07-17 14:31] LABS: PCO2 71 mmHg (32-35)
--- NOTE | 2024-07-17 15:05 | CM ---
CM following re: discharge planning.
Discussed in rounds, reviewed pt's chart. Family presents at Rounds meeting.
Per Rounds meeting, pt remains intubated, continue supportive care, weaning vent, family agrees to trach if no success with weaning off vent.
D/C plan: uncertain at this time and will depend on pt's progress.
CM will follow with discharge plan updates as hospitalization progresses
--- NOTE | 2024-07-17 15:24 | PTCARENOTE ---
Dr Barbour notified of ABG results and to pt's room to evaluate pt. Tube feedings placed on hold. Order to extubate pt received. Resp therapy in room- pt extubated at 1500 to NIV 14/8 w/ 40% FiO2. Pox 99% RR mid 20's. HR 115-120's. Restraints
removed. Family at bedside. Pt denies c/o pain or SOB at this time. Will continue to monitor.
[2024-07-17 15:39] LABS: Glucose - Point of Care 146 mg/dl (70-99)
[2024-07-17] MEDS: HEPARIN 25000 UNITS/250 ML IV (16:07)
[2024-07-17 16:14] LABS: O2 Saturation % 99.4 % (94-98); PO2 149 mmHg (83-108); pH 7.38 (7.35-7.45)
[2024-07-17 16:16] LABS: HCO3 42.6 mmol/L (21-28); PCO2 72 mmHg (32-35)
[2024-07-17 16:55] LABS: Glucose - Point of Care 122 mg/dl (70-99)
--- NOTE | 2024-07-17 17:30 | PTCARENOTE ---
Pt tolerated NIV w/o complication. Pox stable 100%. RR mid 20's. No distress. Family at bedside. NIV removed per Dr Hernandez and pt placed on O2 via midflow NC - initally 5l/min w/ POx 100% and titrated to 3l/min w/ POx 97%. Pt tolerating well. Oral
care provided. Turned and repositioned. Pt denies c/o pain. Tubefeedings infusing. No additional changes from previous assessment findings.
[2024-07-17 18:40] LABS: Glucose - Point of Care 146 mg/dl (70-99)
[2024-07-17 19:43] LABS: Glucose - Point of Care 177 mg/dl (70-99)
[2024-07-17] MEDS: PULMICORT 0.5 MG INH (19:53)
[2024-07-17 19:55] LABS: O2 Saturation % 99.5 % (94-98); PCO2 70 mmHg (32-35); PO2 137 mmHg (83-108); pH 7.39 (7.35-7.45)
[2024-07-17 19:56] LABS: HCO3 42.4 mmol/L (21-28)
--- NOTE | 2024-07-17 20:00 | PTCARENOTE ---
Pt received drowsy but arousable. Sats upper 90s on 3L NC. Pt on tabby gtt at 30 mcg and maintaining MAP >65. Tolerating tube feeds at current rate. Assessment as charted.
[2024-07-17 21:43] LABS: Glucose - Point of Care 167 mg/dl (70-99)
[2024-07-17 23:39] LABS: Glucose - Point of Care 187 mg/dl (70-99)
[2024-07-18] VITALS (69 sets, daily range): BP systolic 67–133; BP diastolic 38–80; BMI 37.3
--- NOTE | 2024-07-18 | PTCARENOTE ---
Pt with poor urine output-average of 10-20ml/hr. Commercial Illustrator physical therapist aware. Will continue to do hourly urine output.
[2024-07-18 00:43] LABS: Glucose - Point of Care 185 mg/dl (70-99)
[2024-07-18 01:42] LABS: Glucose - Point of Care 180 mg/dl (70-99)
[2024-07-18] MEDS: VIBRAMYCIN 100 MG TUBE ×2 (02:36→14:15)
[2024-07-18] MEDS: STERILE WATER FOR INJECTION 10 ML IV ×3 (02:36→14:08)
[2024-07-18] MEDS: MERREM 500 MG IV ×3 (02:36→14:08)
[2024-07-18 02:44] LABS: Glucose - Point of Care 159 mg/dl (70-99)
[2024-07-18 03:44] LABS: Glucose - Point of Care 169 mg/dl (70-99)
--- NOTE | 2024-07-18 04:53 | PTCARENOTE ---
No change in assessment. Pt sleeping when undisturbed.
[2024-07-18 04:56] LABS: Glucose - Point of Care 145 mg/dl (70-99)
[2024-07-18 04:57] LABS: Venous Blood Gas B.E. 12.6 mmol/L (-4 to +4); Venous Blood Gas HCO3 42.2 mmol/L (22-27); Venous Blood Gas O2 Sat % 97.7 %; Venous Blood Gas pH 7.27 (7.32-7.43); Venous Blood Gas pO2 86 mmHg (30-50)
[2024-07-18 05:03] LABS: Hematocrit 32.1 % (37.0-47.0); Hemoglobin 9.1 g/dL (12.0-16.0); Mean Corp Hgb Conc. 28.3 g/dL (33.0-37.0); Mean Corpuscular Hgb 28.7 pg (27.0-31.0); Mean Corpuscular Volume 101.3 fL (81.0-99.0); Mean Platelet Volume 11.6 fL (7.4-10.4); Platelet Count 404 10^3/uL (130-400); Red Blood Cell Count 3.17 10^6/uL (4.20-5.40); Red Cell Dist. Width 18.3 % (11.5-14.5); White Blood Cell Count 15.7 10^3/uL (4.8-10.8)
[2024-07-18 05:15] LABS: Venous Blood Gas O2 Therapy 40%; Venous Blood Gas pCO2 92 mmHg (35-48)
[2024-07-18] MEDS: SOLU-CORTEF 50 MG IV ×4 (05:39→23:30)
[2024-07-18 05:41] LABS: ALT (SGPT) 18 U/L (0-35); AST (SGOT) 20 U/L (14-36); Albumin 2.8 g/dl (3.5-5.0); Alkaline Phosphatase 74 U/L (38-126); Blood Urea Nitrogen 61 mg/dl (7-17); Calcium 8.7 mg/dl (8.4-10.2); Chloride 102 mmol/L (98-107); Estimated Creatinine Clearance 61 ml/min; Glucose 153 mg/dl (70-99); Potassium 3.8 mmol/L (3.5-5.1); Sodium 148 mmol/L (135-145); Total Bilirubin 0.5 mg/dl (0.2-1.3); Triglycerides 96 mg/dl (10-149); eGFR > 60.00
[2024-07-18 05:45] LABS: Glucose - Point of Care 185 mg/dl (70-99)
[2024-07-18 06:11] LABS: Carbon Dioxide 39 mmol/L (22-30)
[2024-07-18 06:16] LABS: APTT 78.8 Sec (23.4-35.0)
[2024-07-18 06:38] LABS: Glucose - Point of Care 198 mg/dl (70-99)
[2024-07-18] MEDS: ATROVENT NEBULES 0.5 MG INH ×4 (07:18→20:14)
[2024-07-18] MEDS: SODIUM CHLORIDE 3% FOR INHALATION 1 VIAL INH ×2 (07:18→20:14)
[2024-07-18] MEDS: XOPENEX 1.25 MG INHALANT SOLUTION INH ×4 (07:18→20:14)
[2024-07-18] MEDS: PULMICORT INH (07:22)
[2024-07-18] MEDS: NOVOLOG FLEXPEN 4 UNITS SC (07:32)
[2024-07-18] MEDS: MIRALAX 17 GRAMS TUBE (07:38)
[2024-07-18] MEDS: PROTONIX IV 40 MG IV (07:39)
[2024-07-18] MEDS: PACERONE 400 MG TUBE ×2 (07:39→19:59)
[2024-07-18] MEDS: ProAmatine 5 MG PO (07:39)
[2024-07-18] MEDS: NSS (PRESERVATIVE FREE) 10 ML IV (07:40)
[2024-07-18 07:41] LABS: Glucose - Point of Care 213 mg/dl (70-99)
--- NOTE | 2024-07-18 08:02 | W.PN.INTV ---
Today's Communication / Plan
Recommendations
Extubated on 07/17 to NIV; continue with NIV during the day as needed as well as at nighttime with sleep
Serial blood gases to trend pH + pCO2 to assure stable
Initially family wanted to pursue comfort care measures with hospice if not extubated by 07/17, however family had another discussion on 07/15 and pt now full code
Diuresis on hold for now given acute hypernatremia and alkalosis --> Free water flushes increased today to 25 cc/hr and plan to resume Lasix tomorrow
Trend BNP
Goal BG 140�180
Continue hydrocortisone - start weaning tomorrow
RUE Duplex US on 07/17/2024 showed no evidence of thrombus - done due to swelling and given she has a midline in that arm
Continue Xopenex + Atrovent
Continue tube feeds and have DATA SCIENCE AND IOT MANAGER evaluate today for swallow evaluation
Abx per ID
Weaning off insulin drip today
If blood gas shows stable hypercapnia by tomorrow and she remains off pressors and off insulin drip, then will downgrade to IMU on 07/19/2024 with pulmonary continuing to follow
Assessment
-
Patient is a 78-year-old female with previous history of COPD, chronic hypercarbic respiratory failure on BiPAP, chronic heart failure with preserved EF, chronic hypoxemia presenting with increased shortness of breath and weakness over the past 24
hours. She was at wound clinic the day prior to admission and notably hypoxemic, was referred to the emergency room. On arrival ABG noted to be 7.29/76. She was treated with BiPAP overnight. Repeat ABG 7.. She had increasing somnolence
throughout the day. A decision was made for intubation due to persistent mental status changes and unresponsiveness.
#1. Acute on chronic hypoxic and hypercapnic respiratory failure s/p intubation 07/09/24, extubated 07/14 --> failed and re-intubated on 07/14 --> finally extubated to NIV as of 07/17. Respiratory failure is due to heart failure exacerbation, suspected
right lower lobe pneumonia/aspiration as well as underlying COPD with morbid obesity and history of sleep apnea with possibly obesity hypoventilation syndrome.
-Patient at baseline on oxygen and also has chronic hypercapnia with baseline PCO2 60 on home BiPAP
-Continue with NIV with sleep and prn during the day for naps or SOB episodes; titrate FiO2 to maintain SpO2 88-95%
-Continue serial blood gases to trend pH and pCO2
-Change Flovent to pulmicort, and continue nebulized Xopenex/Atrovent and on 07/15 I started IV stress dose hydrocortisone given concern for COPD exacerbation as well as shock state
- start to wean down solucortef starting tomorrow AM
#2. Shock, likely mixed septic shock and cardiogenic shock
-Continue vasopressors with Anders-Synephrine; now off vasopressin as of 07/17; levophed previously stopped because of A-fib RVR.
-Continue stress dose hydrocortisone as stated above
-Avoid dobutamine in the setting of sepsis
-Monitor I/O
-ID service on board --> patient currently on meropenem + doxycycline
-RV panel is negative
-Urine culture from 07/09/2024 has grown Klebsiella aerogenes + lactobacillus
#2. Acute on chronic HFpEF, moderate aortic stenosis. Recent hospitalization in June for heart failure exacerbation.
-Sodium and bicarb rising as of 07/17 --> diuresis on hold since evening of 07/17
-Free water flushes increased to 25cc/hr from 10cc/hr in an effort to normalize sodium so we can resume diuresis - cardiology aware
-Monitor strict I/O
-Replete K>4, Mg>2
-Cardiology service on board with recs appreciated
-Chest X ray shows pulmonary vascular congestion with suspected small bilateral pleural effusions, although difficult to assess fluid status due to body habitus --> slight improvement in pulmonary edema per CXR from 07/16
-Echo rechecked on 07/15/2024 showed hyperdynamic LV systolic function with EF 70-75%, with no significant change compared to prior echo on July 09, 2024; prior TTE on 07/30 showed mild�moderate MS with moderate aortic stenosis with peak/mean
gradients of 56/35 mmHg
#3. Right lower lobe pneumonia, suspect aspiration, enlarging effusion
-Considering patient is in shock and recent hospitalization about a month ago, continue antibiotics
-MRSA screen negative, follow-up on blood cultures (NGTD)
-Chest PT in view of right lower lobe mucous plugging
- Started sport bed on 07/16
-Bedside POCUS performed, 07/14, only a small volume pleural effusion noted which appears simple without loculation - hence thoracentesis not recommended at that time
#4. Increasing lethargy, unresponsiveness. This is related to worsening hypercapnia and metabolic encephalopathy. (prior to requiring intubation)
-She is awake and alert, but remains exquisitely weak and deconditioned
-She will require long-term PT/OT
#5. Acute kidney injury with hyperkalemia - now resolved
-Cardiorenal syndrome, creatinine now normal with diuresis
-Renally dose all meds; avoid nephrotoxic agents
-Nephrology service signed off on 07/11/2024
-Holding IV lasix for now as stated above - will resume lasix tomorrow (07/19)
#6. A-fib with RVR atrial fibrillation with RVR, new onset since hospitalization in June 2024
-Cardiology service on case
-Transition off heparin gtt today to Eliquis
-Continue phenylephrine, avoiding Levophed
-PO amiodarone started, dose managed by cardiology
-Continue telemetry monitoring
-Troponin peaked at 0.061 on 07/10/2024 � no longer need to continue trending at this time
#7. DM with hyperglycemia:
-insulin infusion --> weaned off on 07/15; resumed IV insulin gtt on 07/16; diabetic FACER OPERATOR on board for assistance --> will bridge off insulin gtt today and resume basal-bolus insulin SQ dosing
-A1c: 6.8 on 06/11/2024
-Goal BG 140-180, especially while on stress dose steroids
Other:
-Continue tube feeding - currently at goal
-DVT prophylaxis: changing from heparin gtt to Eliquis today
-GI prophylaxis with PPI
Patient is now full code after family had a discussion on 07/15
Continue ICU level of care for this critically ill patient who remains on vasopressors and also requires NIV
Conditions present prior to admission
Diabetes
Hypertension
Hyperlipidemia
Morbid obesity
Elevated IgE
Severe sleep apnea, total index 56, desaturation adamaris 51%
Compliant and adequate with auto BiPAP
Severe COPD, spirometry 06/22/23- FVC 1.14 or 45%, FEV1 0.66 or 33, Ratio 57
Heart failure with preserved ejection fraction
History of anemia
History of pleural effusions, stable since 2010
Afib on Eliquis
Diagnostic Data
Chest X-Ray: 07/09/24 post intubation- 1. Endotracheal and nasogastric tubes are in satisfactory position.
2. Mild pulmonary edema, not significantly changed.
3. Obscuration of both hemidiaphragms, left greater than right, suggestive of small bilateral pleural effusions. Bibasilar airspace disease may also be present.
07/08/24- Cardiomegaly, unchanged. Pulmonary interstitial prominence again seen, cannot differentiate acute versus chronic. Some right basilar opacity and left hemidiaphragm again obscured. Cannot exclude bibasilar subsegmental atelectasis and/or
pneumonia and small bilateral pleural effusions.
Chest x-ray 06/14/2024: Moderate cardiomegaly. Mild increased interstitial markings. Improved compared to prior 06/12/2024
CT Scan: CTA 2018- No pulmonary embolism. Prominent distal pulmonary artery and right and left pulmonary arteries, suggesting an element of pulmonary hypertension. Mild stable chronic parenchymal findings, without evidence of acute pneumonia.
Long-term interval stability of 3 small pulmonary nodules, supporting a benign etiology.
CHEST 09/27/13- Stable left upper lobe pulmonary nodules since February 2011. There is extremely high probability that these are benign. Stable bibasilar scarring.
Findings suggesting pulmonary arterial hypertension. Mitral annulus calcification. Coronary artery disease. Essentially resolved right pleural effusion.
Echo: 06/13/24- Normal left ventricular chamber size. Normal left ventricular systolic function. Left ventricular ejection fraction is 55-60% by visual assessment. No gross regional wall motion abnormalities. Mild concentric left ventricular
hypertrophy. Normal right ventricular size and function. Mild to moderate mitral stenosis. Moderate aortic stenosis. Peak/mean gradients across the aortic valve are 46/28 mmHg and estimated aortic valve area is 1.1 cm2. Compared to prior study
dated 12/31/2023, there is no significant change, prior aortic valve peak/mean gradients were 48/27 mmHg, respectively.
PFT's: spirometry 06/22/23- FVC 1.14 or 45%, FEV1 0.66 or 33, Ratio 57 (severe obstruction)
Reports and relevant images were personally reviewed.
Critical care statement: A total of 37 minutes of critical care time was provided for this patient today. This includes management of unstable vital signs, evaluation of the patient at bedside, reviewing the patient's pertinent medical records
including radiographs, microbiology, laboratory evaluations, and discussion with primary team, consultants, pharmacy, nutrition, physical therapy, case management, charge nurse, critical care nursing, and respiratory therapy.
Subjective Dataa
Subjective Data
Date of Service:
Date of Service: July 18, 2024
Chief Complaint: Mine Deputy Follow Up
Subjective:
Patient was seen in the morning today. Currently on an NIV at 18/8cmH2O, after being on 14/8cmH2O overnight. Now on 30% FiO2 from 40%. Also on Anders-Synephrine at 20 mcg/min. BP 110/56, heart rate 97 and saturating 95%. She is awake, alert and
answering questions appropriately. She denies shortness of breath, chest pain, nausea, fevers or chills.
Review of Systems
General: Other (Negative unless mentioned above)
Objective Data
Data Reviewed
Vital Signs / I&O / Oxygen:
Vital Signs
Temp Pulse Resp BP Pulse Ox
97.2 F 75 19 106/59 96
07/18/24 08:00 07/18/24 09:15 07/18/24 09:15 07/18/24 09:15 07/18/24 09:15
Intake and Output
07/17/24 07/18/24 07/19/24
06:59 06:59 06:59
Intake Total 2534.5 / 2620.5 2010.6 / 2095.6 661 / 661
Output Total 2775 / 2775 1100 / 1125 500 / 500
Balance -240.5 / -154.5 910.6 / 970.6 161 / 161
SaO2 [NIV (Non Invasive 99
Ventilation)]
SaO2 [ASV] 97
SaO2 [CPAP] 93
SaO2 [A/C] 97
SaO2 96
Nasal Cannula flow liters per 3
minute
Physical Exam
General: Respiratory Distress (negative), Comfortable, Chills (negative) and Sweats (negative)
HEENT: Normocephalic, Anicteric and Other (Thick neck)
Cardiovascular: Irregular Rhythm (Irregularly irregular), Murmur (FINA heard loudest at RUSB), Peripheral Edema (Trace LE edema b/l) and Other (Normal heart rate)
Respiratory: Wheeze (negative), Crackles (Bilateral), Rhonchi (bilateral), Non-Labored Respirations and Stridor (negative)
GI: Soft, Distended (Abdominal obesity), Non Tender and Normal Bowel Sounds
Neurology: Awake, Alert and Tremors (negative)
Skin: Warm, Dry, Cyanosis (negative) and Jaundice (negative)
Labs/Micro/Reports
Lab Data
07/18/24 04:36
07/18/24 04:36
Laboratory Results
07/17/24 07/17/24 07/17/24
14:17 16:04 19:52
APTT
pH 7.39 7.38 7.39
pCO2 71 H* 72 H* 70 H
pO2 127 H 149 H 137 H
HCO3 43.0 H* 42.6 H* 42.4 H*
O2 Delivery Level
07/18/24 07/18/24
04:37 05:32
APTT Cancelled 78.8 H
pH
pCO2
pO2
HCO3
O2 Delivery Level
Microbiology
07/12/24 11:34 Blood/Venous Blood Culture - Final
No Growth - Final Report
07/14/24 10:07 Tracheal Aspirate Respiratory Culture - Final
Maxine albicans
07/14/24 10:07 Tracheal Aspirate Gram Stain - Final
07/15/24 13:20 Nasalpharynx Influenza Type A (PCR) - Final
Not Detected
07/15/24 13:20 Nasalpharynx Influenza Type A (H1) (PCR) - Final
Not Detected
07/15/24 13:20 Nasalpharynx Influenza Type A (H3) (PCR) - Final
Not Detected
07/15/24 13:20 Nasalpharynx Influenza Type B (PCR) - Final
Not Detected
07/15/24 13:20 Nasalpharynx Resp Syncytial Virus Type A (PCR) - Final
Not Detected
07/15/24 13:20 Nasalpharynx Resp Syncytial Virus Type B (PCR) - Final
Not Detected
07/15/24 13:20 Nasalpharynx Adenovirus DNA (PCR) - Final
Not Detected
07/15/24 13:20 Nasalpharynx Human Metapneumovirus (PCR) - Final
Not Detected
07/15/24 13:20 Nasalpharynx Parainfluenza Virus Type 1 (PCR) - Final
Not Detected
07/15/24 13:20 Nasalpharynx Parainfluenza Virus Type 2 (PCR) - Final
Not Detected
07/15/24 13:20 Nasalpharynx Parainfluenza Virus Type 3 (PCR) - Final
Not Detected
07/15/24 13:20 Nasalpharynx Parainfluenza Virus Type 4 - Final
Not Detected
07/15/24 13:20 Nasalpharynx Rhinovirus (PCR) - Final
Not Detected
07/11/24 13:28 Feces/Stool Salmonella/Shigella Culture - Final
No Salmonella, Shigella, Aeromonas or Plesiomonas species
isolated.
07/11/24 13:28 Feces/Stool Campylobacter Culture - Final
No Campylobacter species isolated.
07/11/24 13:28 Feces/Stool Shiga Toxin Test - Final
No E. coli Shiga Toxin 1 or 2 detected.
07/11/24 13:28 Feces/Stool Stool Leukocytes - Final
[2024-07-18] MEDS: DESENEX/MITRAZOL/ZEASORB 1 APPLIC TOPICAL ×2 (08:32→19:59)
--- NOTE | 2024-07-18 08:35 | PTCARENOTE ---
report received, assessments per work list. patient drowsy but awakens ealiy. follows commands. oriented to person, place. voice a whisper and unintelligible. maee. denies pain. monitor afib. gtts per work list. glycemic protocol per work list. NIV
in place, lungs with diminished breath sounds. absent bases. abdomen obese, hyper active bowel sounds. [place] placement verified, tube feeds. flush per orders. sheth draining small amount cloudy yellow urine. fecal management system in place. thick
stool.wound care completed. daughter at bedside. plan of care reviewed. call schuster in reach
[2024-07-18 08:38] LABS: Glucose - Point of Care 210 mg/dl (70-99)
--- NOTE | 2024-07-18 09:03 | W.PN.HOSP.TC ---
Today's Communication/Plan
-
NIV management per pulm
continue IV abx, IV steroids
increase FWF for hypernatremia
continue IV Heparin
Assessment / Plan
Assessment / Plan
Assessment:
Acute on chronic hypoxic respiratory failure
Acute hypercapnic respiratory failure
- related to acute CHF. hx of MARK/COPD contributing
- intubated 07/09, extubated 07/14 with rapid re-intubation 07/14 for hypercapnia and respiratory distress, extubated to NIV 07/17
- Director Women following
- continue IV steroids started 07/15
Acute on chronic heart failure with preserved EF
- holding IV Lasix presently - requires intensive monitoring of I/Os, weights, lytes
- Limited bedside echocardiogram done July 09 shows preserved EF and unchanged.
- Echo 07/15: Normal left ventricular size. Hyperdynamic left ventricular systolic function. No regional wall motion abnormalities are seen. LV ejection fraction is 70-75%. Compared to the previous full study echo, the EF from July 09, 2024, there
is no significant change in EF. Valves not assessed in this study.
- Cardiology following
Shock, multifactorial from sepsis and possibly cardiogenic
- wean pressors as able
TME in setting of hypoxia, hypercapnia, heart failure, possible sepsis, etc
- reassess mentation when off sedation and acute illness recovers
Fevers of unknown origin
- CT chest 07/10 with small bilateral pleural effusions, left greater than right, adjacent bilateral lower lobe parenchymal opacities possibly representing pneumonia. Large amount of mucous plug in the right lower lobe bronchi.
- Has a UTI with urine cultures growing Klebsiella and Lactobacillus
- continue Merrem/Doxy per ID empirically; per ID UTI not source of fevers. Noted to have urinary retention during last hospitalization. She was discharged with Santana catheter and Flomax with recommendation for outpatient urology follow-up.
Discharged on a course of Keflex for possible UTI. Required a Santana catheter for 3 days as per family.
- Stool studies negative, no apparent noninfectious cause such as vasculitis/VTE
- viral respiratory panel negative
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
- continue wound care
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
Nutritional support
- tube feeds with FWF flushes
- 3/9 AXR with normal gas pattern
TANIKA - suspect related to septic shock, ATN. TANIKA resolved.
Hypernatremia - sodium 148, free water flushes continue (back to 25/hr)
Hypokalemia - resolved.
persistent atrial fibrillation with rapid ventricular response
- continue Amiodarone
- continue IV heparin - requires intensive monitoring of PTTs
- on Eliquis at home
small b/l pleural effusions
Troponin elevation
- likely acute nonischemic myocardial injury vs type II MO in setting of Rapid AFib
- peaked at .06
- Cardiology following
COPD without exacerbation
MARK - uses BiPAP at home.
Hyperlipidemia - atorvastatin.
Type 2 diabetes (IDDM)
- A1c 6.8%
- home regimen (Metformin, Jardiance, basal/bolus insulin) held
- continue regular insulin drip per hyperglycemic protocol; possible transition to SC today
- ATTIC FANS MECHANIC following
Essential hypertension - hold antihypertensives while on vasopressors.
Chronic anemia - macrocytic. Hemoglobin stable at 9.1, monitor for now. Baseline hemoglobin appears to be 10-11.
B12, folic acid normal. Cannot rule out component of iron deficiency.
Obesity due to excess calories
DVT ppx: IV Heparin
Code: Full
Total Critical Care Time 41 minutes. I was immediately available to the patient and staff. I personally examined, reviewed labs, diagnostic images/reports, interpretations, treatment plans, discussed patient care with other providers and family or
caregivers (if patient is unable to make decisions), entered orders as appropriate and documented the medical record.
Anticipated Discharge: > 48 hours
Subjective/Interval History
-
Date of Service: July 18, 2024
extubated to NIV yesterday
AM gas with hypercarbia and NIV settings adjusted
Feels ok, no complaints
Objective Data
-
Labs:
Laboratory Results
07/18/24 07/18/24 07/18/24
04:36 04:37 05:32
WBC 15.7 H
Hgb 9.1 L
Hct 32.1 L
Plt Count 404 H
APTT Cancelled 78.8 H
Sodium 148 H
Potassium 3.8
Chloride 102
Carbon Dioxide 39 H
BUN 61 H
Creatinine 0.8
Glucose 153 H
Calcium 8.7
Total Bilirubin 0.5
AST 20
ALT 18
Alkaline Phosphatase 74
Vital Signs:
Vital Signs
Temp Pulse Resp BP Pulse Ox
97.2 F 85 21 113/60 99
07/18/24 08:00 07/18/24 07:45 07/18/24 07:45 07/18/24 07:45 07/18/24 08:00
I&O
07/17/24 07/18/24 07/19/24
06:59 06:59 06:59
Intake Total 2534.5 / 2620.5 2009.6 / 2095.6 463 / 463
Output Total 2775 / 2775 1100 / 1125 450 / 450
Balance -240.5 / -154.5 910.6 / 970.6
Physical Exam
-
General: No Apparent Distress
HEENT: Normocephalic, Atraumatic and Other (NIV/BiPAP)
Respiratory: Rhonchi and Crackles
GI: Soft
Genito-urinary: No Costovertebral Tender
Neuro: AO x 3
Psych: Calm
Data Reviewed
-
Critical Care Time (in minutes): 41
Labs: Labs Reviewed by me
--- NOTE | 2024-07-18 09:10 | PN.DE.MGMTRT ---
Insulin Management
- -
07/18/2024; Diabetes Management Follow up
Patient admitted 07/08 with breathing problem, sepsis, acute on chronic respiratory failure due to acute pulmonary edema on chronic heart failure, with NEW a fib. PMH COPD, on 3L O2 at home chronically, HTN, HLD, diabetes, morbid obesity. Prior to
admission chart reflects patient was taking 10 - 25 units on N @ HS, Humalog 12 units with breakfast and lunch, Jardiance 10 mg daily and metformin 1000 mg BID. A1C 06/11/2024 was 6.8%, Cr 1.0, eGFR 57.66
Transitioned off glycemic protocol insulin infusion 07/15 at noon.
07/16 Tube feeds at goal 45 per hour, added 5 units novolog Q 6 hours. Noon glucose 307, patient received 12 units novolog, 17:39 glucose 338, glycemic protocol insulin infusion restarted @ 10 units per hour.
07/17 Tube feeds continue @ 45 per hour Currently glucose 132, insulin infusion @ 2.6 units per hour. Will continue glycemic protocol for 24 hours to establish insulin requirements.
07/18 Will transition to lantus 30 units now and daily then drip off 2 hours after administered, with Q 6 hour novolog 8 units with moderate corrective insulin
Discussed with nurse.
Will cont to follow
Diabetes History
- -
Type of Diabetes: 2 requiring insulin
Pre-Admission Diabetes Regimen
07/18/24
04:36
Creatinine 0.8
Insulin Pump Settings
IP Diabetes Regimen
07/17/24 07/17/24 07/17/24
09:48 11:23 13:00
Glucose
POC Glucose 182 H 171 H 166 H
07/17/24 07/17/24 07/17/24
15:27 16:44 18:29
Glucose
POC Glucose 146 H 122 H 146 H
07/17/24 07/17/24 07/17/24
19:32 21:31 23:27
Glucose
POC Glucose 177 H 167 H 187 H
07/18/24 07/18/24 07/18/24
00:32 01:30 02:33
Glucose
POC Glucose 185 H 180 H 159 H
07/18/24 07/18/24 07/18/24
03:33 04:36 04:38
Glucose 153 H
POC Glucose 169 H 145 H
07/18/24 07/18/24 07/18/24
05:34 06:26 07:29
Glucose
POC Glucose 185 H 198 H 213 H
07/18/24
08:26
Glucose
POC Glucose 210 H
Patient Education
[2024-07-18 09:36] LABS: Glucose - Point of Care 151 mg/dl (70-99)
[2024-07-18] MEDS: HEPARIN 25000 UNITS/250 ML IV (09:57)
[2024-07-18] MEDS: LANTUS 0.3 UNITS SC (09:59)
--- NOTE | 2024-07-18 10:21 | PTCARENOTE ---
fio2 decreased to 30% by RT, tube feed flush increased to 25ml/hr. tabby weaned to off. switchboard operator, hospitalist and diabetic TAILOR'S AIDE updated. orders received. lantus administered, to d/c glycemic insulin gtt@1200
[2024-07-18] MEDS: NOVOLOG FLEXPEN SC (10:29)
[2024-07-18 10:45] LABS: Glucose - Point of Care 150 mg/dl (70-99)
[2024-07-18 11:07] LABS: B.E. 14.7 mmol/L; O2 Saturation % 99.1 % (94-98); PO2 99 mmHg (83-108); pH 7.38 (7.35-7.45)
[2024-07-18] MEDS: NEO-SYNEPHRINE 250 IV (11:10)
[2024-07-18 11:12] LABS: PCO2 71 mmHg (32-35)
[2024-07-18 11:40] LABS: Glucose - Point of Care 153 mg/dl (70-99)
[2024-07-18] MEDS: ELIQUIS 5 MG TUBE ×2 (11:41→21:19)
[2024-07-18 12:34] LABS: Glucose - Point of Care 152 mg/dl (70-99)
[2024-07-18] MEDS: NOVOLOG FLEXPEN-MODERATE RESISTANCE 1 UNITS SC ×2 (12:53→17:46)
[2024-07-18] MEDS: NOVOLOG FLEXPEN 8 UNITS SC ×3 (12:53→23:29)
[2024-07-18] MEDS: LASIX 60 MG IV (13:25)
[2024-07-18] MEDS: ProAmatine 10 MG TUBE ×2 (13:25→17:45)
--- NOTE | 2024-07-18 13:38 | PTCARENOTE ---
reassessed. glycemic and heparin d/c'd per order. placed on midflow, coarse nonproductive cough. voice stronger, no gag. family at bedside
--- NOTE | 2024-07-18 14:41 | W.PN.ID1 ---
Date of Service
Date of Service: July 18, 2024
Today's Communication
Discontinue antibiotics and observe.
Assessment / Plan
Acute on chronic hypoxemic respiratory failure
-Improved; off vent.
Leukocytosis;
- Suspect reactive rather than secondary to infection.
Fevers trending down
Bacteriuria
Hypotension
� Remains on 2 pressors.
COPD
Chronic hypoxemic respiratory insufficiency (3 L O2 at home)
HTN
Dyslipidemia
Diabetes mellitus
Obesity
P A-fib
MARK
Recommendations:
Bcx x 2 neg to date. Sputum Cx : usual respiratory reid. Recovered Maxine is not a pathogen.
Urine cx with Klebsiella x 2 strains , both susceptible to meropenem.
Viral respiratory panel also negative.
Was febrile on meropenem, thus unlikely urine source
Repeat COVID and Influenza tests : negative
CXR with bibasilar opacities - atelectasis vs PNA.
Discontinue further antibiotics given negative cultures. Close observation off antibiotic coverage.
Continue with supportive measures.
����������������������������������������������������������
Chief Complaint
-: Fever and Clinical Sepsis
Subjective / Review of Systems
Patient seen and examined. Now extubated.
Vital Signs / Physical Exam
Vital Signs
Vital Signs
Temp Pulse Resp BP Pulse Ox
96.8 F L 84 22 105/52 99
07/18/24 11:41 07/18/24 13:30 07/18/24 13:30 07/18/24 13:30 07/18/24 13:30
Physical Exam
Constitutional: Comfortable, Acutely Ill and Non-toxic
Head: Normocephalic and Other (ET tube in place. NG tube in place.)
Eyes: Sclera Anicteric
Cardiovascular: Irregular Rate, S1/S2 and Murmur; Negative S3/S4
Pulmonary: Coarse and Other (Decreased breath sounds at bases.)
Gastrointestinal: Soft, Non Tender, Non Distended, Normal Bowel Sounds, No Rebound, No Guarding and Other (FMS in place.)
Genito-Urinary: Santana and Clear Urine
Extremities: Edema
Skin: Negative Rash or Jaundice
Neurological: Awake
Psychological: Calm
Objective Data
Lab Data
Lab Results
07/18/24 04:36
07/18/24 04:36
PT 18.4 Sec (11.4-14.6) H 07/09/24 15:19
INR 1.50 07/09/24 15:19
APTT 78.8 Sec (23.4-35.0) H 07/18/24 05:32
Estimated Creat Clear 61 ml/min 07/18/24 04:36
Lactic Acid 0.9 mmol/L (0.7-2.0) 07/11/24 16:19
Total Bilirubin 0.5 mg/dl (0.2-1.3) 07/18/24 04:36
AST 20 U/L (14-36) 07/18/24 04:36
ALT 18 U/L (0-35) 07/18/24 04:36
Alkaline Phosphatase 74 U/L (38-126) 07/18/24 04:36
Most recent labs reviewed.
Micro Results:
07/12/24 11:34 Blood Culture - Final
Blood/Venous No Growth - Final Report
07/14/24 10:07 Respiratory Culture - Final
Tracheal Aspirate Maxine albicans
Gram Stain - Final
07/15/24 13:20 Influenza Type A (PCR) - Final
Nasalpharynx Not Detected
Influenza Type A (H1) (PCR) - Final
Not Detected
Influenza Type A (H3) (PCR) - Final
Not Detected
Influenza Type B (PCR) - Final
Not Detected
Resp Syncytial Virus Type A (PCR) - Final
Not Detected
Resp Syncytial Virus Type B (PCR) - Final
Not Detected
Adenovirus DNA (PCR) - Final
Not Detected
Human Metapneumovirus (PCR) - Final
Not Detected
Parainfluenza Virus Type 1 (PCR) - Final
Not Detected
Parainfluenza Virus Type 2 (PCR) - Final
Not Detected
Parainfluenza Virus Type 3 (PCR) - Final
Not Detected
Parainfluenza Virus Type 4 - Final
Not Detected
Rhinovirus (PCR) - Final
Not Detected
07/11/24 13:28 Salmonella/Shigella Culture - Final
Feces/Stool No Salmonella, Shigella, Aeromonas or Plesiomonas species
isolated.
Campylobacter Culture - Final
No Campylobacter species isolated.
Shiga Toxin Test - Final
No E. coli Shiga Toxin 1 or 2 detected.
Stool Leukocytes - Final
07/09/24 18:20 Blood Culture - Final
Blood/Venous No Growth - Final Report
07/09/24 18:20 Blood Culture - Final
Blood/Venous No Growth - Final Report
07/12/24 12:45 Influenza Types A & B ([place]) - Final
Nasal Swab Negative for Influenza A & B, NAAT
Negative results must be combined with clinical observations
and patient history.
Nucleic Acid Amplification test (NAAT)performed on the
[employer] platform.
07/10/24 00:11 Respiratory Culture - Final
Sputum Usual Respiratory Reid
Gram Stain - Final
07/09/24 15:59 Urine Culture - Final
Urine Klebsiella aerogenes
Klebsiella aerogenes#2
Lactobacillus species
07/11/24 13:28 C. difficile GDH Antigen & Toxins - Final
Feces/Stool Negative for toxigenic C.difficile
07/11/24 08:05 Influenza Types A & B ([place]) - Final
Nasal Swab Negative for Influenza A & B, NAAT
Negative results must be combined with clinical observations
and patient history.
Nucleic Acid Amplification test (NAAT)performed on the
[employer] platform.
07/08/24 17:37 MRSA Screen - Final
Nose No Methicillin Resistant Staphylococcus aureus isolated.
Imaging:
07/11/2024 CXR (portable): ET tube projects over the trachea. Nasogastric tube not visualized, although lies below left hemidiaphragm. Heart is mildly enlarged. Minimal bibasilar airspace consolidation, with associated haziness of each
hemidiaphragm. Mild cephalization of the pulmonary vasculature. Please see full dictation for additional detail. Film personally viewed.
07/12/2024 CXR: Bibasilar opacification, right greater than left which could represent subsegmental atelectasis and/or pneumonia and possible tiny right pleural effusion.
--- NOTE | 2024-07-18 15:09 | PTCARENOTE ---
dangled at bedside with assist of 2. heart rate 120's with activity. moist cough. able to expectorate large amount thick enriquez blood tinged sputum after dangle. weak gag. frequent oral care provided. unable to tolerate tabby wean, continues per work
list.
--- NOTE | 2024-07-18 15:51 | W.PN.CARDCBS ---
Today's Communication / Plan
-
Extra free water added
Resume Lasix 60 mg IV twice daily and follow electrolytes and volume status.
Antibiotics per primary service/infectious disease
Eliquis for atrial fibrillation heparin discontinued agree.
Continue rate control of atrial fibrillation.
Continue amiodarone. Eventually de-escalate.
Impression / Plan
-
.
Family Physician:� Trina Ralph
Primary Administrative Assistant: Dr. Simmons
Impression:
Sepsis with hypotension requiring pressor support
Vent dependent respiratory failure extubated and then later re-intubated 07/14/2024 (extubated 07/17/2024)
Admitted with SOB and acute on hypoxic respiratory failure 06/10/24
New persistent atrial fibrillation (admission 06/2024)
Klebsiella UTI cultures
AE COPD
Acute HFpEF
Hyperkalemia
Change in mental status
Mod peak/mean 48/27 mmHg and ZAY 1.0 cm sq by echo 12/21/23
Mod MS with peak/mean 17/7 mmHg by echo 12/21/23
MARK on BiPAP
HTN
HLD
DM2
Chronic iron deficiency anemia
Morbid obesity, BMI 36.4
h/o pulmonary nodules
Code status: Limited DNR, ok to intubate, no CPR
ECHO 07/2019: EF 60-65%, mod cLVH, MAC, mild MR, mild to mod , peak/mean 26/16mmHg, ZAY 1.1cm2
ECHO 09/24/21: EF 65 to 70%, mild concentric LVH, mild , peak/mean gradients 31/19 mmHg, ZAY 1.1 cm�, trivial pericardial effusion, no significant change compared to prior
Echo 12/21/23: EF 55-60%, mild conc LVH, mod MS with peak/mean 17/7 mmHg, mod peak/mean 48/27 mmHg and ZAY 1.0 cm sq
Echo 06/13/24: EF 55 to 60%, no gross regional WMA, mild to moderate MS with mean gradient 6 mmHg at an HR of 76 bpm, mild MR, moderate peak/mean 46/28 mmHg and ZAY 1.1 cm SQ
Echo 07/09/24: EF 65-70%, mild to moderate mitral stenosis, mean gradient 7, moderate aortic stenosis, 56/35 mmHg, no comment on AI, mild to moderate mitral stenosis, mean gradient 7 no comment on mitral regurgitation, normal atria, normal RV, could
not determine pulmonary artery systolic pressure
Plan:
She was extubated and tolerating extubation currently. Family is at the bedside. We spoke at length.
On 07/17/2024 I added midodrine to her regimen given she was on 2 pressors which were weaned off and then Phenylephrine was restarted. Midodrine was increased to 10 mg 3 times daily today to stabilize blood pressure. Follow.
Continue to treat sepsis and antibiotics per infectious disease/primary service.
Wean pressors as tolerates.
She is above her dry weight which previously was in the 180s. She likely has quite a bit of third spacing and both yesterday and today sodium elevated at 148. Yesterday I held p.m. dose of Lasix.
Additional free water is being added to regimen.
Resume IV Lasix 60 mg IV twice daily.
Continue to watch increasing BUN. Creatinine remains stable. Follow electrolytes.
Atrial fibrillation is rate controlled (except when she was undergoing weaning trials for extubation). Continue amiodarone. De-escalate later this hospital stay as tolerates
Heparin discontinued in favor of Eliquis.
Given rate control of atrial fibrillation I do not believe [employer] of sinus rhythm is urgently needed. Especially given tenuous respiratory status.
Valvular disease noted with moderate aortic valve stenosis and mild to moderate mitral stenosis.
Prognosis is guarded
Discussed with nursing staff along with family. Discussed with pharmacy.
HPI: Patient came to ER today with increased weakness and a lower than usual pulse ox reading at home, patient now admitted with acute HF and cardiology has been consulted. Patient was just admitted to from 06/10/2024 until 06/19/2024 with acute
on chronic hypoxic multifactorial respiratory failure and also a new diagnosis of paroxysmal Afib. During that admission patient was diuresed with Lasix 80 mg IV BID. In addition to BiPAP therapy. Unfortunately the recorded weights during that
admission were not accurate because they were using a bed scale. I and O readings were also inaccurate, but the patient reported some subjective improvement. Patient was seen in the office on 06/26/2024 and was dutifully taking her dose of Lasix 80
mg twice daily, but was noted to be hypotensive and so her usual dose of nifedipine was stopped. Patient was seen in the wound clinic today and was noted to be SOB above baseline and hypoxic so she was referred to ER. Patient was using her
usual 3 L nasal cannula of supplemental oxygen and had improved pulse ox by increasing to 5 L. proBNP is up to 9300 today and was only as high as 1590 during her last admission. Again the recorded weights are not accurate
Progress Note - Administrative Assistant
Subjective
Date of Service: July 18, 2024
She denies chest pain and palpitations.
Objective
Labs:
07/18/24 04:36
07/18/24 04:36
Labs
Hgb 9.1 g/dL (12.0-16.0) L 07/18/24 04:36
Hct 32.1 % (37.0-47.0) L 07/18/24 04:36
Plt Count 404 10^3/uL (130-400) H 07/18/24 04:36
PT 18.4 Sec (11.4-14.6) H 07/09/24 15:19
INR 1.50 07/09/24 15:19
APTT 78.8 Sec (23.4-35.0) H 07/18/24 05:32
Sodium 148 mmol/L (135-145) H 07/18/24 04:36
Potassium 3.8 mmol/L (3.5-5.1) 07/18/24 04:36
BUN 61 mg/dl (7-17) H 07/18/24 04:36
Creatinine 0.8 mg/dL (0.6-1.0) 07/18/24 04:36
Glucose 153 mg/dl (70-99) H 07/18/24 04:36
Vital Signs and I&O:
Vital Signs
Temp Pulse Resp BP Pulse Ox
98.3 F 91 22 97/45 94
07/18/24 15:43 07/18/24 14:42 07/18/24 14:42 07/18/24 14:42 07/18/24 15:09
Vital Signs
Temp Pulse Resp BP Pulse Ox
98.3 F 91 22 97/45 94
07/18/24 15:43 07/18/24 14:42 07/18/24 14:42 07/18/24 14:42 07/18/24 15:09
Intake & Output
07/16/24 07/17/24 07/18/24 07/19/24
06:59 06:59 06:59 06:59
Intake Total 3463.3 / 3574.3 2534.5 / 2620.5 2010.6 / 2095.6 1161.5 / 1161.5
Output Total 3235 / 3250 2775 / 2775 1100 / 1125 880 / 880
Balance 228.3 / 324.3 -240.5 / -154.5 910.6 / 970.6 281.5 / 281.5
Physical Exam
Physical Exam
General: Chronically ill woman
Heart: Distant heart sounds irregular. 2/6 basal systolic murmur
Lungs: Coarse anterior breath sounds
Extremities: No clubbing, cyanosis and +1 edema bilaterally.
Neuro: Grossly nonfocal, awake, alert and oriented x3.
--- NOTE | 2024-07-18 16:26 | PTOTSP ---
ST Acute Care Evaluation
Pt currently presents with clinical symptoms of oropharyngeal dysphagia characterized by reduced oral strength resulting in anterior spillage as well as persistent weak coughing and throat clearing s/p almost all PO intake indicative of suspected
airway invasion.
Recommendations:
- STRICT NPO; no ARHP - not appropriate at this time.
- All nutrition, hydration, and meds via NG tube.
- Aspiration and reflux precautions: HOB upright as often as possible and oral care QID.
- HASSOCK MAKER to f/u re: re-assessing pt's appropriateness for PO diet re-initiation and to determine if pt would benefit from an instrumental swallow study.
--- NOTE | 2024-07-18 16:42 | CM ---
Patient seen at bedside with grand-daughter Dafne
extubated to NIV on 07/17
on tube feed
Await PT/OT
PLAN: Monitor patient hospital progress, anticipate needs
[2024-07-18 17:43] LABS: Glucose - Point of Care 181 mg/dl (70-99)
--- NOTE | 2024-07-18 20:00 | PTCARENOTE ---
Resumed care of pt laying in bed with family at bedside. Pt AAOx3, forgetful at times. HR in the 90's to low 100's in Afib with PVC's on the monitor. HR irreg, Murmer present. POX 98% on 3 LO2 mid flow. Lungs dec t/o. Occasional moist productive
cough, assisted with Yankour, thick enriquez sec. Left Nare [place] sump in place infusing Jevity 1.5 @45ml/hr with 25ml/ flush. + bowel, round obese abd. FMS in place draining liquid brown stool. Zari care provided. Temp sensing sheth in place draining
yellow urine. Weak peripheral pulses present. Heels elevated on pillow. Sacral foam, B/L heel foams in place. Right midline in place. Right tripple subclavian infusing Anders @40mcg/min to keep MAP >65. Pt repositioned per comfort. Denies any
complaints of pain at this time. Call schuster in reach. Will continue to monitor.
[2024-07-18] MEDS: FLOVENT 110 MCG INHALER 4 PUFF INH (20:15)
[2024-07-18] MEDS: NOVOLOG FLEXPEN-MODERATE RESISTANCE 3 UNITS SC (23:29)
[2024-07-18 23:39] LABS: Glucose - Point of Care 218 mg/dl (70-99)
[2024-07-19] VITALS (29 sets, daily range): BP systolic 93–146; BP diastolic 54–80; PULSE 2–115; O2SAT 94–97; BMI 37.4
--- NOTE | 2024-07-19 00:26 | PTCARENOTE ---
Pt resting comfortably. NIV now in place and settings as documented. Attempting to wean Anders. No issues to report at this time. Call schuster in reach. Close monitoring maintained.
[2024-07-19 04:07] LABS: Hematocrit 30.3 % (37.0-47.0); Hemoglobin 8.9 g/dL (12.0-16.0); Mean Corp Hgb Conc. 29.4 g/dL (33.0-37.0); Mean Corpuscular Hgb 28.9 pg (27.0-31.0); Mean Corpuscular Volume 98.4 fL (81.0-99.0); Mean Platelet Volume 11.6 fL (7.4-10.4); Platelet Count 381 10^3/uL (130-400); Red Blood Cell Count 3.08 10^6/uL (4.20-5.40); Red Cell Dist. Width 18.2 % (11.5-14.5); White Blood Cell Count 10.9 10^3/uL (4.8-10.8)
[2024-07-19 04:16] LABS: APTT 38.4 Sec (23.4-35.0)
[2024-07-19 04:17] LABS: B.E. 17.1 mmol/L; O2 Saturation % 97.2 % (94-98); PCO2 68 mmHg (32-35); PO2 73 mmHg (83-108); pH 7.42 (7.35-7.45)
[2024-07-19 04:19] LABS: O2 Therapy 40%
[2024-07-19 04:21] LABS: HCO3 44.1 mmol/L (21-28)
[2024-07-19 04:31] LABS: Blood Urea Nitrogen 71 mg/dl (7-17); Calcium 8.7 mg/dl (8.4-10.2); Chloride 101 mmol/L (98-107); Estimated Creatinine Clearance 61 ml/min; Glucose 244 mg/dl (70-99); Sodium 146 mmol/L (135-145); eGFR > 60.00
--- NOTE | 2024-07-19 04:37 | PTCARENOTE ---
Complete bed bath provided, linens changed. FMS flushed, galindo care provided, sacral foam intact. Desenex applied to abd folds/ breast folds. NIV mask removed, oral care provided. Pt positioned per comfort. TF infusing as ordered. NO issues to report
at this time. Anders tapered off. Vital signs stable. Will continue to monitor.
[2024-07-19 04:40] LABS: NT-proBNP 6640 pg/ml
[2024-07-19 04:42] LABS: Carbon Dioxide 37 mmol/L (22-30)
[2024-07-19 06:02] LABS: Glucose - Point of Care 251 mg/dl (70-99)
[2024-07-19] MEDS: NOVOLOG FLEXPEN 8 UNITS SC (06:05)
[2024-07-19] MEDS: NOVOLOG FLEXPEN-MODERATE RESISTANCE 5 UNITS SC ×2 (06:06→11:47)
[2024-07-19] MEDS: XOPENEX 1.25 MG INHALANT SOLUTION INH ×5 (06:55→20:56)
[2024-07-19] MEDS: ATROVENT NEBULES 0.5 MG INH ×4 (06:55→20:56)
[2024-07-19] MEDS: SODIUM CHLORIDE 3% FOR INHALATION 1 VIAL INH ×2 (07:38→20:56)
--- NOTE | 2024-07-19 07:54 | PN.DE.MGMTRT ---
Insulin Management
- -
07/19/2024; Diabetes Management Follow up
Patient admitted 07/08 with breathing problem, sepsis, acute on chronic respiratory failure due to acute pulmonary edema on chronic heart failure, with NEW a fib. PMH COPD, on 3L O2 at home chronically, HTN, HLD, diabetes, morbid obesity. Prior to
admission chart reflects patient was taking 10 - 25 units on N @ HS, Humalog 12 units with breakfast and lunch, Jardiance 10 mg daily and metformin 1000 mg BID. A1C 06/11/2024 was 6.8%, Cr 1.0, eGFR 57.66
Transitioned off glycemic protocol insulin infusion 07/15 at noon.
Pt awake, alert, NRB mask on face, unable to discuss diabetes care plan. at bedside, supportive and able to discuss diabetes care plan.
07/16 started on Tube feeds at goal 45 per hour, glycemic protocol insulin infusion restarted @ 10 units per hour.
Remains on IV steroids and tube feeds @ goal 45cc/hr, contributing to Hyperglycemia.
07/18 was transitioned off insulin infusion to Lantus 30 units Q 6 hour NovoLog 8 units with moderate corrective insulin.
Glucose remains elevated >200, HS 218. FBG 244 this AM, other glucose range 150 to 213 requiring 1-5 units of additional corrective insulin
Will increase NovoLog to 10 units Q6 hrs and cont increase Lantus to 32 units
Discussed with nurse. Will cont to follow
Diabetes History
- -
Type of Diabetes: 2 requiring insulin
Pre-Admission Diabetes Regimen
07/19/24
03:57
Creatinine 0.8
Insulin Pump Settings
IP Diabetes Regimen
07/18/24 07/18/24 07/18/24
08:26 09:25 10:34
Glucose
POC Glucose 210 H 151 H 150 H
07/18/24 07/18/24 07/18/24
11:28 12:23 17:32
Glucose
POC Glucose 153 H 152 H 181 H
07/18/24 07/19/24 07/19/24
23:27 03:57 05:49
Glucose 244 H
POC Glucose 218 H 251 H
Patient Education
[2024-07-19] MEDS: DESENEX/MITRAZOL/ZEASORB 1 APPLIC TOPICAL ×2 (08:11→19:53)
[2024-07-19] MEDS: LASIX 60 MG IV ×2 (08:11→15:22)
[2024-07-19] MEDS: PROTONIX IV 40 MG IV (08:12)
[2024-07-19] MEDS: NSS (PRESERVATIVE FREE) 10 ML IV (08:12)
[2024-07-19] MEDS: SOLU-CORTEF 50 MG IV ×3 (08:12→23:00)
[2024-07-19] MEDS: PACERONE 400 MG TUBE ×2 (08:13→19:53)
[2024-07-19] MEDS: ELIQUIS 5 MG TUBE ×2 (08:13→19:53)
[2024-07-19] MEDS: LANTUS 0.3 UNITS SC (08:13)
[2024-07-19] MEDS: ProAmatine 10 MG TUBE (08:13)
[2024-07-19] MEDS: MIRALAX TUBE (08:14)
[2024-07-19 08:17] LABS: Glucose - Point of Care 224 mg/dl (70-99)
--- NOTE | 2024-07-19 08:19 | W.PN.INTV ---
Today's Communication / Plan
Recommendations
Extubated on 07/17 to NIV; change from NIV to BiPAP and continue with sleep and prn during the day
Serial blood gases to trend pH + pCO2 to assure stable
Initially family wanted to pursue comfort care measures with hospice if not extubated by 07/17, however family had another discussion on 07/15 and pt now full code
Lasix resumed today
Give a dose of metolazone today as well
Trend BNP
Goal BG 140�180 with basal-bolus SQ insulin
Continue hydrocortisone with wean
RUE Duplex US on 07/17/2024 showed no evidence of thrombus - done due to swelling and given she has a midline in that arm
Continue Xopenex + Atrovent; change flovent to pulmicort
Continue tube feeds; MASSAGE COORDINATOR following --> pt to remain strict NPO
s/p course of ABx - last day was 07/18
Blood gases shows stable chronic hypercapnia - patient to stable for downgrade out of ICU to IMU. Pulmonary service will continue to follow along.
Assessment
-
Patient is a 78-year-old female with previous history of COPD, chronic hypercarbic respiratory failure on BiPAP, chronic heart failure with preserved EF, chronic hypoxemia presenting with increased shortness of breath and weakness over the past 24
hours. She was at wound clinic the day prior to admission and notably hypoxemic, was referred to the emergency room. On arrival ABG noted to be 7.29/76. She was treated with BiPAP overnight. Repeat ABG 7.. She had increasing somnolence
throughout the day. A decision was made for intubation due to persistent mental status changes and unresponsiveness.
#1. Acute on chronic hypoxic and hypercapnic respiratory failure s/p intubation 07/09/24, extubated 07/14 --> failed and re-intubated on 07/14 --> finally extubated to NIV as of 07/17. Respiratory failure is due to heart failure exacerbation, suspected
right lower lobe pneumonia/aspiration as well as underlying COPD with morbid obesity and history of sleep apnea with possibly obesity hypoventilation syndrome.
-Patient at baseline on oxygen and also has chronic hypercapnia with baseline PCO2 60 on home BiPAP
-Change from NIV to BiPAP and use with sleep and prn during the day for naps or SOB episodes; titrate FiO2 to maintain SpO2 88-95%
-Continue serial blood gases to trend pH and pCO2
-Change Flovent to pulmicort, and continue nebulized Xopenex/Atrovent and on 07/15 I started IV stress dose hydrocortisone given concern for COPD exacerbation as well as shock state
- start to wean down solucortef starting tomorrow AM to 50mg IV q12hr
#2. Shock, likely mixed septic shock and cardiogenic shock � shock state resolved as of this morning
-Patient has been off of Anders-Synephrine since approximately 4 AM on 07/19/2024; she has been off vasopressin as of 07/17; levophed previously stopped because of A-fib RVR.
-Continue stress dose hydrocortisone as stated above
-Avoid dobutamine in the setting of sepsis
-Monitor I/O
-ID service on board --> last day of antibiotics was 07/18/2024 with meropenem + doxycycline
-RV panel is negative
-Urine culture from 07/09/2024 has grown Klebsiella aerogenes + lactobacillus
#2. Acute on chronic HFpEF, moderate aortic stenosis. Recent hospitalization in June for heart failure exacerbation.
-Sodium and bicarb rising as of 07/17 --> diuresis on hold since evening of 07/17
-On 07/18, free water flushes increased to 25cc/hr from 10cc/hr in an effort to normalize sodium so we can resume diuresis - lasix resumed today with 60mgm IV BID; cardiology recs appreciated
-Monitor strict I/O
-Replete K>4, Mg>2
-Cardiology service on board with recs appreciated
-Chest X ray shows pulmonary vascular congestion with suspected small bilateral pleural effusions, although difficult to assess fluid status due to body habitus --> slight improvement in pulmonary edema per CXR from 07/16
-Echo rechecked on 07/15/2024 showed hyperdynamic LV systolic function with EF 70-75%, with no significant change compared to prior echo on July 09, 2024; prior TTE on 07/30 showed mild�moderate MS with moderate aortic stenosis with peak/mean
gradients of 56/35 mmHg
- Give a dose of metolazone today as this would help diuresis as well as bring down the study
#3. Right lower lobe pneumonia, suspect aspiration, enlarging effusion
-Considering patient is in shock and recent hospitalization about a month ago, continue antibiotics
-MRSA screen negative, follow-up on blood cultures (NGTD)
-Chest PT in view of right lower lobe mucous plugging
- Started sport bed on 07/16
-Bedside POCUS performed, 07/14, only a small volume pleural effusion noted which appears simple without loculation - hence thoracentesis not recommended at that time
#4. Increasing lethargy, unresponsiveness. This is related to worsening hypercapnia and metabolic encephalopathy. (prior to requiring intubation)
-She is awake and alert, but remains exquisitely weak and deconditioned
-She will require long-term PT/OT
#5. Acute kidney injury with hyperkalemia - now resolved
-Cardiorenal syndrome, creatinine now normal with diuresis
-Renally dose all meds; avoid nephrotoxic agents
-Nephrology service signed off on 07/11/2024
-IV lasix resumed today (07/19)
#6. A-fib with RVR atrial fibrillation with RVR, new onset since hospitalization in June 2024
-Cardiology service on case
-Transitioned off heparin gtt on 07/18 to Eliquis
-PO amiodarone started, dose managed by cardiology
-Continue telemetry monitoring
-Troponin peaked at 0.061 on 07/10/2024 � no longer need to continue trending at this time
#7. DM with hyperglycemia:
-insulin infusion --> weaned off on 07/15; resumed IV insulin gtt on 07/16; diabetic DIRECTOR CALL on board for assistance --> bridged off insulin gtt on 07/18; continue basal-bolus insulin SQ dosing
-A1c: 6.8 on 06/11/2024
-Goal BG 140-180, especially while on steroids
Other:
-Continue tube feeding - currently at goal
-DVT prophylaxis: Eliquis
-GI prophylaxis with PPI
Patient is now full code after family had a discussion on 07/15
Patient to stable for downgrade out of ICU to IMU. Pulmonary service will continue to follow along.
Conditions present prior to admission
Diabetes
Hypertension
Hyperlipidemia
Morbid obesity
Elevated IgE
Severe sleep apnea, total index 56, desaturation adamaris 51%
Compliant and adequate with auto BiPAP
Severe COPD, spirometry 06/22/23- FVC 1.14 or 45%, FEV1 0.66 or 33, Ratio 57
Heart failure with preserved ejection fraction
History of anemia
History of pleural effusions, stable since 2010
Afib on Eliquis
Diagnostic Data
Chest X-Ray: 07/09/24 post intubation- 1. Endotracheal and nasogastric tubes are in satisfactory position.
2. Mild pulmonary edema, not significantly changed.
3. Obscuration of both hemidiaphragms, left greater than right, suggestive of small bilateral pleural effusions. Bibasilar airspace disease may also be present.
07/08/24- Cardiomegaly, unchanged. Pulmonary interstitial prominence again seen, cannot differentiate acute versus chronic. Some right basilar opacity and left hemidiaphragm again obscured. Cannot exclude bibasilar subsegmental atelectasis and/or
pneumonia and small bilateral pleural effusions.
Chest x-ray 06/14/2024: Moderate cardiomegaly. Mild increased interstitial markings. Improved compared to prior 06/12/2024
CT Scan: CTA 2018- No pulmonary embolism. Prominent distal pulmonary artery and right and left pulmonary arteries, suggesting an element of pulmonary hypertension. Mild stable chronic parenchymal findings, without evidence of acute pneumonia.
Long-term interval stability of 3 small pulmonary nodules, supporting a benign etiology.
CHEST 09/27/13- Stable left upper lobe pulmonary nodules since February 2011. There is extremely high probability that these are benign. Stable bibasilar scarring.
Findings suggesting pulmonary arterial hypertension. Mitral annulus calcification. Coronary artery disease. Essentially resolved right pleural effusion.
Echo: 06/13/24- Normal left ventricular chamber size. Normal left ventricular systolic function. Left ventricular ejection fraction is 55-60% by visual assessment. No gross regional wall motion abnormalities. Mild concentric left ventricular
hypertrophy. Normal right ventricular size and function. Mild to moderate mitral stenosis. Moderate aortic stenosis. Peak/mean gradients across the aortic valve are 46/28 mmHg and estimated aortic valve area is 1.1 cm2. Compared to prior study
dated 12/31/2023, there is no significant change, prior aortic valve peak/mean gradients were 48/27 mmHg, respectively.
PFT's: spirometry 06/22/23- FVC 1.14 or 45%, FEV1 0.66 or 33, Ratio 57 (severe obstruction)
Reports and relevant images were personally reviewed.
Total time spent today was 76 minutes for this encounter. Time includes reviewing laboratory test/imaging results, reviewing pertinent medical records, obtaining and reviewing medical history, performing an appropriate exam, ordering medications,
tests and procedures. Time also includes documentation of this encounter, coordinating patient care and communicating with other healthcare professionals. Total time does not include separately billed tests performed on this date of service.
Subjective Dataa
Subjective Data
Date of Service:
Date of Service: July 19, 2024
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
Subjective:
Patient seen and evaluated this morning. Heart rate 117, BP 118/74 and saturating 96%. This morning she was short of breath while on 3L/min, and was placed back onto BiPAP 23/12 bled with 10L/min. Failed MASSAGE COORDINATOR today. She wore NIV overnight on 23/12
at 30% FiO2. This morning, her and daughter were both at bedside. All questions were answered. Patient feels well, although heart rate was in the 110-120s, and patient did not feel any pain or anxiety at the time. Also denies shortness
of breath. Still remains very weak overall.
Review of Systems
General: Other (Negative unless mentioned above)
Objective Data
Data Reviewed
Vital Signs / I&O / Oxygen:
Vital Signs
Temp Pulse Resp BP Pulse Ox
98.9 F 94 18 121/56 95
07/19/24 03:25 07/19/24 08:13 07/19/24 06:58 07/19/24 08:13 07/19/24 06:58
Intake and Output
07/18/24 07/19/24 07/20/24
06:59 06:59 06:59
Intake Total 2009.6 / 5.6 2375.5 / 2375.5
Output Total 1100 / 1125 2730 / 2730
Balance 910.6 / 970.6 -354.5 / -354.5
SaO2 [NIV (Non Invasive 94
Ventilation)]
SaO2 [ASV] 97
SaO2 [CPAP] 93
SaO2 [A/C] 97
SaO2 95
Nasal Cannula flow liters per 3
minute
Physical Exam
General: Respiratory Distress (negative), Comfortable, Chills (negative) and Sweats (negative)
HEENT: Normocephalic, Anicteric and Other (Thick neck)
Cardiovascular: Irregular Rhythm (Irregularly irregular), Murmur (FINA heard loudest at RUSB), Peripheral Edema (Trace LE edema b/l) and Other (Tachycardic)
Respiratory: Wheeze (negative), Crackles (Bilateral), Rhonchi (bilateral), Non-Labored Respirations and Stridor (negative)
GI: Soft, Distended (Abdominal obesity), Non Tender and Normal Bowel Sounds
Neurology: Awake, Alert and Tremors (negative)
Skin: Warm, Dry, Cyanosis (negative) and Jaundice (negative)
Labs/Micro/Reports
Lab Data
07/19/24 03:57
07/19/24 03:57
Laboratory Results
07/18/24 07/19/24 07/19/24
10:59 03:57 04:10
APTT 38.4 H
pH 7.38 7.42
pCO2 71 H* 68 H
pO2 99 73 L
HCO3 42.0 H* 44.1 H*
O2 Delivery Level 40%
Microbiology
07/12/24 11:34 Blood/Venous Blood Culture - Final
No Growth - Final Report
07/14/24 10:07 Tracheal Aspirate Respiratory Culture - Final
Maxine albicans
07/14/24 10:07 Tracheal Aspirate Gram Stain - Final
--- NOTE | 2024-07-19 09:29 | PTCARENOTE ---
report received, assessments per work list. off NIV@0845, placed on 3 liters midflow. monitor afib with bbb, occasional pvc. right triple lumen capped and patent with good blood returns. right mid line capped, patent without a blood return. +murmur.
lungs with coarse breath sounds, weak nonproductive cough. rotation and percussion per orders. fecal management system draining loose brown stool. wound care provided per orders. patient denies pain. ngt patent for tube feeds. minimal residuals.
reviewed plan with patient and daughter at bedside. call schuster in reach
--- NOTE | 2024-07-19 09:48 | PTCARENOTE ---
no urine output post lasix, bladder scan 434, sheth occluded. removed. external urine catheter applied
--- NOTE | 2024-07-19 10:04 | W.PN.HOSP.TC ---
Today's Communication/Plan
-
diuretics per Cardiology
steroids per Pulmonary
possible transition to BiPAP and O2 from NIV; if safely achieved could downgrade to IMU
observe off Abx
PT/OT
Assessment / Plan
Assessment / Plan
Assessment:
Acute on chronic hypoxic respiratory failure
Acute hypercapnic respiratory failure
- related to acute CHF. hx of MARK/COPD contributing
- intubated 07/09, extubated 07/14 with rapid re-intubation 07/14 for hypercapnia and respiratory distress, extubated to NIV 07/17
- General Internist following
- continue IV steroids started 08/15
Acute on chronic heart failure with preserved EF
- continue0 IV Lasix - requires intensive monitoring of I/Os, weights, lytes
- Limited bedside echocardiogram done July 09 shows preserved EF and unchanged.
- Echo 07/15: Normal left ventricular size. Hyperdynamic left ventricular systolic function. No regional wall motion abnormalities are seen. LV ejection fraction is 70-75%. Compared to the previous full study echo, the EF from July 09, 2024, there
is no significant change in EF. Valves not assessed in this study.
- Cardiology following
Shock, multifactorial from sepsis and possibly cardiogenic
- wean pressors as able
TME in setting of hypoxia, hypercapnia, heart failure, possible sepsis, etc
- reassess mentation when off sedation and acute illness recovers
Fevers of unknown origin
- CT chest 07/10 with small bilateral pleural effusions, left greater than right, adjacent bilateral lower lobe parenchymal opacities possibly representing pneumonia. Large amount of mucous plug in the right lower lobe bronchi.
- Has a UTI with urine cultures growing Klebsiella and Lactobacillus
- per ID UTI not source of fevers. Noted to have urinary retention during last hospitalization. She was discharged with Santana catheter and Flomax with recommendation for outpatient urology follow-up. Discharged on a course of Keflex for possible
UTI. Required a Santana catheter for 3 days as per family.
- Stool studies negative, no apparent noninfectious cause such as vasculitis/VTE
- viral respiratory panel negative
- has completed a course of Merrem and Doxycycline per ID. Observe now off antibiotics
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
- continue wound care
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
Nutritional support
- tube feeds with FWF flushes
- 07/14 AXR with normal gas pattern
TANIKA - suspect related to septic shock, ATN. TANIKA resolved.
Hypernatremia - sodium 146, free water flushes continue (back to 25/hr)
Hypokalemia - resolved.
persistent atrial fibrillation with rapid ventricular response
- continue Amiodarone
- continue Eliquis
small b/l pleural effusions
Troponin elevation
- likely acute nonischemic myocardial injury vs type II CO in setting of Rapid AFib
- peaked at .06
- Cardiology following
COPD without exacerbation
MARK - uses BiPAP at home.
Hyperlipidemia - atorvastatin.
Type 2 diabetes (IDDM)
- A1c 6.8%
- home regimen (Metformin, Jardiance, basal/bolus insulin) held
- s/p insulin drip, now on SC insulin basal bolus
- CORNICE UPHOLSTERER following
Essential hypertension - hold antihypertensives while on vasopressors.
Chronic anemia - macrocytic. Hemoglobin stable at 9.1, monitor for now. Baseline hemoglobin appears to be 10-11.
B12, folic acid normal. Cannot rule out component of iron deficiency.
Obesity due to excess calories
DVT ppx: Eliquis
Code: Full
Total Critical Care Time 41 minutes. I was immediately available to the patient and staff. I personally examined, reviewed labs, diagnostic images/reports, interpretations, treatment plans, discussed patient care with other providers and family or
caregivers (if patient is unable to make decisions), entered orders as appropriate and documented the medical record.
Anticipated Discharge: > 48 hours
Subjective/Interval History
-
Date of Service: July 19, 2024
on NIV, with plans to move towards BiPAP
no complaints
Objective Data
-
Labs:
Laboratory Results
07/19/24 07/19/24
03:57 04:10
WBC 10.9 H
Hgb 8.9 L
Hct 30.3 L
Plt Count 381
APTT 38.4 H
HCO3 44.1 H*
Sodium 146 H
Potassium 4.0
Chloride 101
Carbon Dioxide 37 H
BUN 71 H
Creatinine 0.8
Glucose 244 H
Calcium 8.7
Vital Signs:
Vital Signs
Temp Pulse Resp BP Pulse Ox
98.9 F 94 18 121/56 95
07/19/24 03:25 07/19/24 08:13 07/19/24 06:58 07/19/24 08:13 07/19/24 06:58
I&O
07/18/24 07/19/24 07/20/24
06:59 06:59 06:59
Intake Total 2009.6 / 2094.6 2375.5 / 2445.5 310 / 310
Output Total 1100 / 1125 2730 / 2740 20 / 20
Balance 910.6 / 970.6 -354.5 / -294.5 290 / 290
Physical Exam
-
General: No Apparent Distress
HEENT: Normocephalic and Atraumatic
Respiratory: Rhonchi and Crackles; Negative Wheezes
Cardiac: Regular Rhythm and S1/S2
GI: Soft and Nontender
Neuro: AO x 3
Hematologic / Lymphatic: No Lymphadenopathy
Psych: Calm
Data Reviewed
-
Critical Care Time (in minutes): 41
Labs: Labs Reviewed by me
--- NOTE | 2024-07-19 10:28 | W.PN.ID1 ---
Date of Service
Date of Service: July 19, 2024
Today's Communication
Sign off.
Assessment / Plan
Acute on chronic hypoxemic respiratory failure
-Improved; off vent.
Leukocytosis;
- Suspect reactive rather than secondary to infection.
- improved
Fevers trending down
Bacteriuria
Hypotension
� Remains on 2 pressors.
COPD
Chronic hypoxemic respiratory insufficiency (3 L O2 at home)
HTN
Dyslipidemia
Diabetes mellitus
Obesity
P A-fib
MARK
Recommendations:
Bcx x 2 neg to date. Sputum Cx : usual respiratory reid. Recovered Maxine is not a pathogen.
Urine cx with Klebsiella x 2 strains , both susceptible to meropenem.
Viral respiratory panel also negative.
Was febrile on meropenem, thus unlikely urine source
Repeat COVID and Influenza tests : negative
CXR with bibasilar opacities - atelectasis vs PNA.
White count improved. Patient remains afebrile. Appears to be doing well off antibiotics.
Nothing further to add from a Infectious Diseases standpoint.
Will see again at your request.
����������������������������������������������������������
Chief Complaint
-: Fever and Clinical Sepsis
Subjective / Review of Systems
Patient seen and examined. Remains off vent. Feels well.
Review of Systems: No Fever and No Chills
Vital Signs / Physical Exam
Vital Signs
Vital Signs
Temp Pulse Resp BP Pulse Ox
98.7 F 94 18 121/56 96
07/19/24 08:00 07/19/24 08:13 07/19/24 06:58 07/19/24 08:13 07/19/24 08:00
Physical Exam
Constitutional: No Acute Distress, Comfortable, Chronically Ill and Non-toxic
Head: Normocephalic
Eyes: Sclera Anicteric
Cardiovascular: Irregular Rate, S1/S2 and Murmur; Negative S3/S4
Pulmonary: Coarse and Other (Decreased breath sounds at bases.)
Gastrointestinal: Soft, Non Tender, Non Distended, Normal Bowel Sounds, No Rebound, No Guarding and Other (FMS in place.)
Genito-Urinary: Santana and Clear Urine
Extremities: Edema
Skin: Negative Rash or Jaundice
Neurological: Awake
Psychological: Calm
Objective Data
Lab Data
Lab Results
07/19/24 03:57
07/19/24 03:57
PT 18.4 Sec (11.4-14.6) H 07/09/24 15:19
INR 1.50 07/09/24 15:19
APTT 38.4 Sec (23.4-35.0) H 07/19/24 03:57
Estimated Creat Clear 61 ml/min 07/19/24 03:57
Lactic Acid 0.9 mmol/L (0.7-2.0) 07/11/24 16:19
Total Bilirubin 0.5 mg/dl (0.2-1.3) 07/18/24 04:36
AST 20 U/L (14-36) 07/18/24 04:36
ALT 18 U/L (0-35) 07/18/24 04:36
Alkaline Phosphatase 74 U/L (38-126) 07/18/24 04:36
Most recent labs reviewed.
Chest X-Ray: Image Reviewed and Report Reviewed
Micro Results:
07/12/24 11:34 Blood Culture - Final
Blood/Venous No Growth - Final Report
07/14/24 10:07 Respiratory Culture - Final
Tracheal Aspirate Maxine albicans
Gram Stain - Final
07/15/24 13:20 Influenza Type A (PCR) - Final
Nasalpharynx Not Detected
Influenza Type A (H1) (PCR) - Final
Not Detected
Influenza Type A (H3) (PCR) - Final
Not Detected
Influenza Type B (PCR) - Final
Not Detected
Resp Syncytial Virus Type A (PCR) - Final
Not Detected
Resp Syncytial Virus Type B (PCR) - Final
Not Detected
Adenovirus DNA (PCR) - Final
Not Detected
Human Metapneumovirus (PCR) - Final
Not Detected
Parainfluenza Virus Type 1 (PCR) - Final
Not Detected
Parainfluenza Virus Type 2 (PCR) - Final
Not Detected
Parainfluenza Virus Type 3 (PCR) - Final
Not Detected
Parainfluenza Virus Type 4 - Final
Not Detected
Rhinovirus (PCR) - Final
Not Detected
07/11/24 13:28 Salmonella/Shigella Culture - Final
Feces/Stool No Salmonella, Shigella, Aeromonas or Plesiomonas species
isolated.
Campylobacter Culture - Final
No Campylobacter species isolated.
Shiga Toxin Test - Final
No E. coli Shiga Toxin 1 or 2 detected.
Stool Leukocytes - Final
07/09/24 18:20 Blood Culture - Final
Blood/Venous No Growth - Final Report
07/09/24 18:20 Blood Culture - Final
Blood/Venous No Growth - Final Report
07/12/24 12:45 Influenza Types A & B ([place]) - Final
Nasal Swab Negative for Influenza A & B, NAAT
Negative results must be combined with clinical observations
and patient history.
Nucleic Acid Amplification test (NAAT)performed on the
[employer] platform.
07/10/24 00:11 Respiratory Culture - Final
Sputum Usual Respiratory Reid
Gram Stain - Final
07/09/24 15:59 Urine Culture - Final
Urine Klebsiella aerogenes
Klebsiella aerogenes#2
Lactobacillus species
07/11/24 13:28 C. difficile GDH Antigen & Toxins - Final
Feces/Stool Negative for toxigenic C.difficile
07/11/24 08:05 Influenza Types A & B ([place]) - Final
Nasal Swab Negative for Influenza A & B, NAAT
Negative results must be combined with clinical observations
and patient history.
Nucleic Acid Amplification test (NAAT)performed on the
[employer] platform.
07/08/24 17:37 MRSA Screen - Final
Nose No Methicillin Resistant Staphylococcus aureus isolated.
Imaging:
07/19/2024 CXR (portable): Low lung volumes. Vascular congestion noted. No noted infiltrates.
07/11/2024 CXR (portable): ET tube projects over the trachea. Nasogastric tube not visualized, although lies below left hemidiaphragm. Heart is mildly enlarged. Minimal bibasilar airspace consolidation, with associated haziness of each
hemidiaphragm. Mild cephalization of the pulmonary vasculature. Please see full dictation for additional detail. Film personally viewed.
07/12/2024 CXR: Bibasilar opacification, right greater than left which could represent subsegmental atelectasis and/or pneumonia and possible tiny right pleural effusion.
--- NOTE | 2024-07-19 10:30 | WOUNDNOTE ---
R LATERAL LOWER LEG
--- NOTE | 2024-07-19 10:35 | WOUNDNOTE ---
WON RN NOTE: Followed up today with assist from nurse Courtney. R buttock/sacral chronic stage 4 PI packing just done by nurse, some yellow drainage reported, periwound moist with some chronic discoloration of skin. Added 2x2 gauze over packing
under foam. R lateral lower leg with skin tear, steri strips in place, added adaptic and changed foam dressing. Heels boggy and barely blanchable, foams changed and pillow under calves with adequate offloading. Can add air chair cushion on pillow as
needed. L buttock with evolving stage 2 PI vs DTI. Small area open with red base, remainder of area maroon in color with thin blistering of skin on top. Suspect ulcer will be superficial rather than true deep tissue injury. Silicone foam in use on L
buttock and changed this morning by nurse. at bedside confirmed his has several areas of discolored skin on her body which is not new. Patient's oxygen saturation decreased into the low 80's when turning. With deep breaths encouraged
by nurse, patient's Sat's returned to 90's. Patient remains on air mattress with turning schedule. Tube feedings in use for nutrition. Despite preventative measures in place, patient is at risk for further PI's due to medical condition. Will update
care plan, orders confirmed with hospitalist and follow as needed.
[2024-07-19 11:41] LABS: Glucose - Point of Care 269 mg/dl (70-99)
[2024-07-19] MEDS: NOVOLOG FLEXPEN 10 UNITS SC ×3 (11:48→23:00)
--- NOTE | 2024-07-19 12:14 | PTCARENOTE ---
patient reassessed. tachypnea, c/o dyspnea. weak cough, able to suction large amount thick enriquez sputum post percussion via sport bed. RT at bedside, to trial patient on bipap. voiding large amount urine via purewick
[2024-07-19] MEDS: ProAmatine TUBE ×2 (13:06→18:13)
[2024-07-19 14:46] LABS: B.E. 18.7 mmol/L; O2 Saturation % 99.2 % (94-98); PO2 109 mmHg (83-108); pH 7.42 (7.35-7.45)
[2024-07-19 14:48] LABS: PCO2 71 mmHg (32-35)
[2024-07-19 14:49] LABS: HCO3 46.1 mmol/L (21-28)
[2024-07-19] MEDS: LOPRESSOR 2.5 MG IV (15:21)
--- NOTE | 2024-07-19 15:58 | CM ---
CM following re: discharge planning.
Reviewed pt's chart, met with t. per rounds meeting, continue NIV, possible transition to BiPAP and O2, continue supportive care.
PT and OT will evaluate the pt when clinically appropriate to determine a level of care at discharge.
D/C plan: uncertain at this time and will de[end on pt's progress.
CM will follow with discharge plan updates as hospitalization progresses
--- NOTE | 2024-07-19 16:31 | PTCARENOTE ---
patient bipap off after abg, remains tachycardic. prn dose lopressor given. dangled at bedside for 6 minutes with PT/OT. incontinent moderate amount urine. bladder scan 66 PVR.
[2024-07-19] MEDS: ZAROXOLYN 5 MG PO (17:02)
[2024-07-19 18:09] LABS: Glucose - Point of Care 182 mg/dl (70-99)
[2024-07-19] MEDS: NOVOLOG FLEXPEN-MODERATE RESISTANCE 1 UNITS SC ×2 (18:10→23:01)
--- NOTE | 2024-07-19 18:20 | W.PN.CARDCBS ---
Today's Communication / Plan
-
rate control AF
Diuresis
Impression / Plan
-
.
Family Physician:� Trina Ralph
Primary Proposal Specialist: Dr. Simmons
Impression:
Sepsis with hypotension requiring pressor support
Vent dependent respiratory failure extubated and then later re-intubated 07/14/2024 (extubated 07/17/2024)
Admitted with SOB and acute on hypoxic respiratory failure 06/10/24
New persistent atrial fibrillation (admission 06/2024)
Klebsiella UTI cultures
AE COPD
Acute HFpEF
Hyperkalemia
Change in mental status
Mod peak/mean 48/27 mmHg and ZAY 1.0 cm sq by echo 12/21/23
Mod MS with peak/mean 17/7 mmHg by echo 12/21/23
MARK on BiPAP
HTN
HLD
DM2
Chronic iron deficiency anemia
Morbid obesity, BMI 36.4
h/o pulmonary nodules
Code status: Limited DNR, ok to intubate, no CPR
ECHO 07/2019: EF 60-65%, mod cLVH, MAC, mild MR, mild to mod , peak/mean 26/16mmHg, ZAY 1.1cm2
ECHO 09/24/21: EF 65 to 70%, mild concentric LVH, mild , peak/mean gradients 31/19 mmHg, ZAY 1.1 cm�, trivial pericardial effusion, no significant change compared to prior
Echo 12/21/23: EF 55-60%, mild conc LVH, mod MS with peak/mean 17/7 mmHg, mod peak/mean 48/27 mmHg and ZAY 1.0 cm sq
Echo 06/13/24: EF 55 to 60%, no gross regional WMA, mild to moderate MS with mean gradient 6 mmHg at an HR of 76 bpm, mild MR, moderate peak/mean 46/28 mmHg and ZAY 1.1 cm SQ
Echo 07/09/24: EF 65-70%, mild to moderate mitral stenosis, mean gradient 7, moderate aortic stenosis, 56/35 mmHg, no comment on AI, mild to moderate mitral stenosis, mean gradient 7 no comment on mitral regurgitation, normal atria, normal RV, could
not determine pulmonary artery systolic pressure
Plan:
79-year-old female with medically complex patient with ventilator pendant respiratory failure 07/09 with prolonged ventilation and failed extubation 07/14 now reextubated 07/17 now on facemask with as needed BiPAP
-Respiratory status remains tenuous
-Patient is awake and alert responding to questions and offering no complaints
-N.p.o. receiving nutrition and medications through NG tube
-Efforts for PT/OT and speech therapy ongoing
-Aspiration precautions
-Pulmonary/truck body builder apprentice is following
Shock, mixed picture with sepsis and heart failure with preserved ejection fraction/volume overload
-Blood pressures have improved and she is now off pressors
-Antibiotics have been completed and ID service has signed off
Acute on chronic heart failure with preserved ejection fraction/moderate aortic stenosis
-Continue aggressive diuresis with IV Lasix; provided metolazone today
-I's and O's/follow daily weights
-Follow renal function and electrolytes. Keep K greater than 4, mag greater than 2
Rapid atrial fibrillation currently in rapid rates
-IV Lopressor 2.5 mg at bedside with improved rates
-Plan for rate control strategy as patient is too tenuous for cardioversion and required anesthesia
-Continue amiodarone. Add standing Lopressor
-Anticoagulation with Eliquis
-Follow telemetry and EKGs
HPI: Patient came to ER today with increased weakness and a lower than usual pulse ox reading at home, patient now admitted with acute HF and cardiology has been consulted. Patient was just admitted to from 06/10/2024 until 06/19/2024 with acute
on chronic hypoxic multifactorial respiratory failure and also a new diagnosis of paroxysmal Afib. During that admission patient was diuresed with Lasix 80 mg IV BID. In addition to BiPAP therapy. Unfortunately the recorded weights during that
admission were not accurate because they were using a bed scale. I and O readings were also inaccurate, but the patient reported some subjective improvement. Patient was seen in the office on 06/26/2024 and was dutifully taking her dose of Lasix 80
mg twice daily, but was noted to be hypotensive and so her usual dose of nifedipine was stopped. Patient was seen in the wound clinic today and was noted to be SOB above baseline and hypoxic so she was referred to ER. Patient was using her
usual 3 L nasal cannula of supplemental oxygen and had improved pulse ox by increasing to 5 L. proBNP is up to 9300 today and was only as high as 1590 during her last admission. Again the recorded weights are not accurate
Progress Note - Proposal Specialist
Subjective
Date of Service: July 19, 2024
Patient was seen and examined with nursing and family at bedside. She was awake and alert responding to simple questions and offering no complaints.
Objective
Labs:
07/19/24 03:57
07/19/24 03:57
Labs
Hgb 8.9 g/dL (12.0-16.0) L 07/19/24 03:57
Hct 30.3 % (37.0-47.0) L 07/19/24 03:57
Plt Count 381 10^3/uL (130-400) 07/19/24 03:57
PT 18.4 Sec (11.4-14.6) H 07/09/24 15:19
INR 1.50 07/09/24 15:19
APTT 38.4 Sec (23.4-35.0) H 07/19/24 03:57
Sodium 146 mmol/L (135-145) H 07/19/24 03:57
Potassium 4.0 mmol/L (3.5-5.1) 07/19/24 03:57
BUN 71 mg/dl (7-17) H 07/19/24 03:57
Creatinine 0.8 mg/dL (0.6-1.0) 07/19/24 03:57
Glucose 244 mg/dl (70-99) H 07/19/24 03:57
Vital Signs and I&O:
Vital Signs
Temp Pulse Resp BP Pulse Ox
99.1 F 104 25 114/71 93
07/19/24 15:18 07/19/24 18:13 07/19/24 14:56 07/19/24 18:13 07/19/24 14:00
Vital Signs
Temp Pulse Resp BP Pulse Ox
99.1 F 104 25 114/71 93
07/19/24 15:18 07/19/24 18:13 07/19/24 14:56 07/19/24 18:13 07/19/24 14:00
Intake & Output
07/17/24 07/18/24 07/19/24 07/20/24
06:59 06:59 06:59 06:59
Intake Total 2534.5 / 2620.5 2010.6 / 2095.6 2375.5 / 2445.5 1020 / 1020
Output Total 2775 / 2775 1100 / 1125 2730 / 2740 720 / 720
Balance -240.5 / -154.5 910.6 / 970.6 -354.5 / -294.5 300 / 300
Physical Exam
Physical Exam
General: Chronically ill woman, NIV 30%; NGT
Heart: Distant heart sounds irregular. 2/6 basal systolic murmur
Lungs: Coarse anterior breath sounds; decreased BS
Extremities: +1 edema bilaterally.
[2024-07-19] MEDS: LOPRESSOR 25 MG TUBE (19:53)
--- NOTE | 2024-07-19 20:04 | PTCARENOTE ---
Received pt from previous RN. Pt is AAOx3, drowsy @ times, slow speech. Afib w/ BBB and PVCs on the monitor. On 4L midflow O2 sat 99%, lungs are diminished/coarse/rhonchi. Bipap HS. Left nare [place], Jevity @ 45ml/hr, 25 ml water flush. FMS in place.
Pw in place, hygiene provided. Wound care provided (see worklist). CHG and mouth care done. Pt is laying in bed with call schuster in reach. Family @ bedside. Safe environment maintained.
[2024-07-19] MEDS: PULMICORT 0.5 MG INH (20:56)
[2024-07-19 23:07] LABS: Glucose - Point of Care 172 mg/dl (70-99)
[2024-07-20] VITALS (26 sets, daily range): BP systolic 90–139; BP diastolic 50–73; PULSE 2–111; BMI 37.1
[2024-07-20 04:11] LABS: Venous Blood Gas B.E. 22.6 mmol/L (-4 to +4); Venous Blood Gas HCO3 50.8 mmol/L (22-27); Venous Blood Gas O2 Sat % 99.3 %; Venous Blood Gas pO2 94 mmHg (30-50)
[2024-07-20 04:13] LABS: Venous Blood Gas O2 Therapy 10L/min
[2024-07-20 04:14] LABS: Venous Blood Gas pCO2 82 mmHg (35-48)
[2024-07-20 04:42] LABS: Blood Urea Nitrogen 85 mg/dl (7-17); Calcium 8.5 mg/dl (8.4-10.2); Chloride 100 mmol/L (98-107); Estimated Creatinine Clearance 54 ml/min; Glucose 155 mg/dl (70-99); Magnesium 2.2 mg/dl (1.6-2.3); Phosphorus 4.6 mg/dl (2.5-4.5); Potassium 3.5 mmol/L (3.5-5.1); Sodium 150 mmol/L (135-145); Triglycerides 78 mg/dl (10-149); eGFR > 60.00
[2024-07-20 04:45] LABS: Hemoglobin 8.9 g/dL (12.0-16.0); Mean Corp Hgb Conc. 28.7 g/dL (33.0-37.0); Mean Corpuscular Hgb 28.3 pg (27.0-31.0); Mean Corpuscular Volume 98.7 fL (81.0-99.0); Mean Platelet Volume 11.7 fL (7.4-10.4); Platelet Count 357 10^3/uL (130-400); Red Blood Cell Count 3.14 10^6/uL (4.20-5.40); White Blood Cell Count 9.7 10^3/uL (4.8-10.8)
[2024-07-20 04:52] LABS: Carbon Dioxide 43 mmol/L (22-30)
[2024-07-20 04:57] LABS: NT-proBNP 7400 pg/ml
[2024-07-20] MEDS: NOVOLOG FLEXPEN 10 UNITS SC ×3 (05:43→17:30)
[2024-07-20] MEDS: NOVOLOG FLEXPEN-MODERATE RESISTANCE 3 UNITS SC (05:44)
[2024-07-20 05:55] LABS: Glucose - Point of Care 209 mg/dl (70-99)
[2024-07-20] MEDS: SODIUM CHLORIDE 3% FOR INHALATION 1 VIAL INH ×2 (07:23→20:11)
[2024-07-20] MEDS: XOPENEX 1.25 MG INHALANT SOLUTION INH ×4 (07:23→20:11)
[2024-07-20] MEDS: PULMICORT 0.5 MG INH ×2 (07:23→20:11)
[2024-07-20] MEDS: ATROVENT NEBULES 0.5 MG INH ×4 (07:23→20:12)
[2024-07-20] MEDS: NSS (PRESERVATIVE FREE) IV (07:52)
[2024-07-20] MEDS: SOLU-CORTEF 50 MG IV ×2 (08:18→21:30)
[2024-07-20] MEDS: LASIX 60 MG IV (08:18)
[2024-07-20] MEDS: LANTUS 0.32 UNITS SC (08:19)
[2024-07-20] MEDS: ELIQUIS 5 MG TUBE ×2 (08:19→21:29)
[2024-07-20] MEDS: MIRALAX TUBE (08:20)
[2024-07-20] MEDS: DESENEX/MITRAZOL/ZEASORB 1 APPLIC TOPICAL ×2 (08:20→21:28)
[2024-07-20] MEDS: PREVACID 30 MG TUBE (08:20)
[2024-07-20] MEDS: LOPRESSOR 25 MG TUBE ×2 (08:20→21:30)
[2024-07-20] MEDS: PACERONE 400 MG TUBE ×2 (08:20→21:31)
[2024-07-20] MEDS: ProAmatine 5 MG TUBE (08:21)
--- NOTE | 2024-07-20 09:38 | W.PN.PUL3 ---
Today's Communication / Plan
-
Extubated on 07/17 to NIV; continue BiPAP with sleep and prn during the day
Serial blood gases to trend pH + pCO2 to assure stable
Initially family wanted to pursue comfort care measures with hospice if not extubated by 07/17, however family had another discussion on 07/15 and pt now full code
Continue IV lasix
Trend Na with serial BMP
Free water raised to 40cc/hr today
Trend BNP
Goal BG 140�180 with basal-bolus SQ insulin
Continue hydrocortisone with wean
RUE Duplex US on 07/17/2024 showed no evidence of thrombus - performed due to swelling and given she has a midline in that arm
Continue Xopenex, Atrovent, and pulmicort
Continue tube feeds; EXPORT TRAFFIC DEPARTMENT MANAGER following --> pt to remain strict NPO
s/p course of ABx - last day was 07/18
Blood gases shows stable chronic hypercapnia
Pulmonary service will continue to follow along.
Assessment
-
Patient is a 78-year-old female with previous history of COPD, chronic hypercarbic respiratory failure on BiPAP, chronic heart failure with preserved EF, chronic hypoxemia presenting with increased shortness of breath and weakness over the past 24
hours. She was at wound clinic the day prior to admission and notably hypoxemic, was referred to the emergency room. On arrival ABG noted to be 7.29/76. She was treated with BiPAP overnight. Repeat ABG 7./. She had increasing somnolence
throughout the day. A decision was made for intubation due to persistent mental status changes and unresponsiveness.
#1. Acute on chronic hypoxic and hypercapnic respiratory failure s/p intubation 07/09/24, extubated 07/14 --> failed and re-intubated on 07/14 --> finally extubated to NIV as of 07/17. Respiratory failure is due to heart failure exacerbation, suspected
right lower lobe pneumonia/aspiration as well as underlying COPD with morbid obesity and history of sleep apnea with possibly obesity hypoventilation syndrome.
-Patient at baseline on oxygen and also has chronic hypercapnia with baseline PCO2 60 on home BiPAP
-On 07/19, Dr. Barbour changed from NIV to BiPAP and continue to use with sleep and prn during the day for naps or SOB episodes; titrate FiO2 to maintain SpO2 88-95%
-Continue serial blood gases to trend pH and pCO2
-Continue pulmicort, nebulized Xopenex/Atrovent and on 07/15 I started IV stress dose hydrocortisone given concern for COPD exacerbation as well as shock state
- Continue solucortef 50mg IV q12hr --> wean as she clinically continues to improve
#2. Shock, likely mixed septic shock and cardiogenic shock � shock state resolved as of 07/19
-Patient has been off of Anders-Synephrine since approximately 4 AM on 07/19/2024; she has been off vasopressin as of 07/17; levophed previously stopped because of A-fib RVR.
-Continue stress dose hydrocortisone as stated above
-Avoid dobutamine in the setting of sepsis
-Monitor I/O
-ID service on board --> last day of antibiotics was 07/18/2024 with meropenem + doxycycline
-RV panel is negative
-Urine culture from 07/09/2024 has grown Klebsiella aerogenes + lactobacillus
#2. Acute on chronic HFpEF, moderate aortic stenosis. Recent hospitalization in June for heart failure exacerbation.
-Sodium and bicarb rising as of 07/17 --> diuresis was on hold evening of 07/17
-On 07/18, free water flushes increased to 25cc/hr from 10cc/hr in an effort to normalize sodium so we can resume diuresis - lasix resumed on 07/19 with 60mg IV BID --> now changed to 60mg IV once daily as of 07/20; cardiology recs appreciated
-Monitor strict I/O
-Replete K>4, Mg>2
-Cardiology service on board with recs appreciated
-Chest X ray shows pulmonary vascular congestion with suspected small bilateral pleural effusions, although difficult to assess fluid status due to body habitus --> slight improvement in pulmonary edema per CXR from 07/16
-Echo rechecked on 07/15/2024 showed hyperdynamic LV systolic function with EF 70-75%, with no significant change compared to prior echo on July 09, 2024; prior TTE on 07/30 showed mild�moderate MS with moderate aortic stenosis with peak/mean
gradients of 56/35 mmHg
- Gave a dose of metolazone on 07/19 today as this would help diuresis as well as bring down her sodium --> will consider raising free water further to help reduce the Na further
#3. Right lower lobe pneumonia, suspect aspiration, enlarging effusion
- s/p course of antibiotics
-MRSA screen negative, follow-up on blood cultures (NGTD)
-Chest PT in view of right lower lobe mucous plugging
- Started sport bed on 07/16
-Bedside POCUS performed, 07/14, only a small volume pleural effusion noted which appears simple without loculation - hence thoracentesis not recommended at that time
-Trend WBC and monitor for fevers
#4. Increasing lethargy, unresponsiveness. This is related to worsening hypercapnia and metabolic encephalopathy. (prior to requiring intubation)
-She is now awake and alert, but remains exquisitely weak and deconditioned
-She will require long-term PT/OT --> recommending skilled rehab
#5. Acute kidney injury with hyperkalemia - now resolved
-Cardiorenal syndrome, creatinine now normal with diuresis
-Renally dose all meds; avoid nephrotoxic agents
-Nephrology service signed off on 07/11/2024
-IV lasix resumed on 07/19
#6. A-fib with RVR atrial fibrillation with RVR, new onset since hospitalization in June 2024
-Cardiology service on case
-Transitioned off heparin gtt on 07/18 to Eliquis
-PO amiodarone started, dose managed by cardiology
-Continue telemetry monitoring
-Troponin peaked at 0.061 on 07/10/2024 � no longer need to continue trending at this time
#7. DM with hyperglycemia:
-insulin infusion --> weaned off on 07/15; resumed IV insulin gtt on 07/16; diabetic SENIOR TRIAL ATTORNEY on board for assistance --> bridged off insulin gtt on 07/18; continue basal-bolus insulin SQ dosing
-A1c: 6.8 on 06/11/2024
-Goal BG 140-180, especially while on steroids
Other:
-Continue tube feeding - currently at goal; unfortunately she still is required to be strict NPO per EXPORT TRAFFIC DEPARTMENT MANAGER, last evaluated on 07/19/2024
-DVT prophylaxis: Eliquis
-GI prophylaxis with PPI
Patient is now full code after family had a discussion on 07/15
Pulmonary service will continue to follow along.
Conditions present prior to admission
Diabetes
Hypertension
Hyperlipidemia
Morbid obesity
Elevated IgE
Severe sleep apnea, total index 56, desaturation adamaris 51%
Compliant and adequate with auto BiPAP
Severe COPD, spirometry 06/22/23- FVC 1.14 or 45%, FEV1 0.66 or 33, Ratio 57
Heart failure with preserved ejection fraction
History of anemia
History of pleural effusions, stable since 2010
Afib on Eliquis
Diagnostic Data
Chest X-Ray: 07/09/24 post intubation- 1. Endotracheal and nasogastric tubes are in satisfactory position.
2. Mild pulmonary edema, not significantly changed.
3. Obscuration of both hemidiaphragms, left greater than right, suggestive of small bilateral pleural effusions. Bibasilar airspace disease may also be present.
07/08/24- Cardiomegaly, unchanged. Pulmonary interstitial prominence again seen, cannot differentiate acute versus chronic. Some right basilar opacity and left hemidiaphragm again obscured. Cannot exclude bibasilar subsegmental atelectasis and/or
pneumonia and small bilateral pleural effusions.
Chest x-ray 06/14/2024: Moderate cardiomegaly. Mild increased interstitial markings. Improved compared to prior 06/12/2024
CT Scan: CTA 2018- No pulmonary embolism. Prominent distal pulmonary artery and right and left pulmonary arteries, suggesting an element of pulmonary hypertension. Mild stable chronic parenchymal findings, without evidence of acute pneumonia.
Long-term interval stability of 3 small pulmonary nodules, supporting a benign etiology.
CHEST 09/27/13- Stable left upper lobe pulmonary nodules since February 2011. There is extremely high probability that these are benign. Stable bibasilar scarring.
Findings suggesting pulmonary arterial hypertension. Mitral annulus calcification. Coronary artery disease. Essentially resolved right pleural effusion.
Echo: 06/13/24- Normal left ventricular chamber size. Normal left ventricular systolic function. Left ventricular ejection fraction is 55-60% by visual assessment. No gross regional wall motion abnormalities. Mild concentric left ventricular
hypertrophy. Normal right ventricular size and function. Mild to moderate mitral stenosis. Moderate aortic stenosis. Peak/mean gradients across the aortic valve are 46/28 mmHg and estimated aortic valve area is 1.1 cm2. Compared to prior study
dated 12/31/2023, there is no significant change, prior aortic valve peak/mean gradients were 48/27 mmHg, respectively.
PFT's: spirometry 06/22/23- FVC 1.14 or 45%, FEV1 0.66 or 33, Ratio 57 (severe obstruction)
Reports and relevant images were personally reviewed.
Total time spent today was 37 minutes for this encounter. Time includes reviewing laboratory test/imaging results, reviewing pertinent medical records, obtaining and reviewing medical history, performing an appropriate exam, ordering medications,
tests and procedures. Time also includes documentation of this encounter, coordinating patient care and communicating with other healthcare professionals. Total time does not include separately billed tests performed on this date of service.
Subjective Data
-
Date of Service:
Date of Service: July 20, 2024
Chief Complaint: Pulmonary Follow Up
Subjective:
Patient was seen and evaluated today at bedside. She feels well this morning. Patient's granddaughter and both at bedside and all questions were answered. Current heart rate 76, BP 117/64 and saturating 99% on 4 L/min nasal cannula. Wore
BiPAP overnight on 18/8 cmH2O bled with 10 L/min, which she wore throughout the night. She currently denies chest pain, difficulty breathing, nausea, fevers or chills.
Review of Systems
General: Other (Negative unless mentioned above)
Objective Data
Data Reviewed
Vital Signs / I&O / Oxygen:
Vital Signs
Temp Pulse Resp BP Pulse Ox
97.5 F 80 20 110/56 100
07/20/24 07:22 07/20/24 07:29 07/20/24 07:29 07/20/24 06:00 07/20/24 07:29
Intake and Output
07/19/24 07/20/24 07/21/24
06:59 06:59 06:59
Intake Total 2375.5 / 2445.5 2140 / 2140
Output Total 2730 / 2740 1970 / 1970
Balance -354.5 / -294.5 170 / 170
SaO2 [NIV (Non Invasive 96
Ventilation)]
SaO2 [ASV] 97
SaO2 [CPAP] 93
SaO2 [A/C] 97
SaO2 100
Nasal Cannula flow liters per 4
minute
Physical Exam
General: Respiratory Distress (negative), Comfortable, Chills (negative), Sweats (negative) and Other (Chronically ill, morbidly obese female with severe physical deconditioning)
HEENT: Normocephalic, Anicteric and Other (Thick neck)
Cardiovascular: Peripheral Edema (Trace lower extremity edema bilaterally)
Respiratory: Wheeze (negative), Crackles (Bibasilar), Rhonchi (negative) and Non-Labored Respirations
GI: Soft, Distended (Abdominal obesity), Non Tender and Normal Bowel Sounds
Neurology: Awake, Alert and Tremors (negative)
Skin: Warm, Dry, Cyanosis (negative) and Jaundice (negative)
Labs/Micro/Reports
Lab Data
07/20/24 04:03
07/20/24 04:03
Laboratory Results
07/19/24
14:33
pH 7.42
pCO2 71 H*
pO2 109 H
HCO3 46.1 H*
O2 Delivery Level
Microbiology
07/12/24 11:34 Blood/Venous Blood Culture - Final
No Growth - Final Report
--- NOTE | 2024-07-20 11:57 | PTCARENOTE ---
Rec'd pt at 0700. Pt sleeping with bipap mask on, removed by resp therapist and pt placed on 4LNC. Monitor Afib. Lungs dim/sct coarse with occas cough. +BS, abd soft/nt. FMS draining liquid brown stool. Purewick in place, pericare completed. Family
at bedside. Percussion Q4hrs on sport bed.
[2024-07-20 12:11] LABS: Glucose - Point of Care 251 mg/dl (70-99)
[2024-07-20] MEDS: NOVOLOG FLEXPEN-MODERATE RESISTANCE 5 UNITS SC (12:31)
[2024-07-20] MEDS: ProAmatine TUBE ×2 (13:13→18:01)
--- NOTE | 2024-07-20 13:30 | W.PN.HOSP.TC ---
Today's Communication/Plan
-
continue IV Lasix
increase FWF flushes to 40/hr
continue steroids
continue HS and PRN BiPAP
Assessment / Plan
Assessment / Plan
Assessment:
Acute on chronic hypoxic respiratory failure
Acute hypercapnic respiratory failure
- related to acute CHF. hx of MARK/COPD contributing
- intubated 07/09, extubated 07/14 with rapid re-intubation 07/14 for hypercapnia and respiratory distress, extubated to NIV 07/17 and now on BiPAP prn and HS
- Library Science Instructor following
- continue IV steroids started 07/15
Acute on chronic heart failure with preserved EF
- continue IV Lasix - requires intensive monitoring of I/Os, weights, lytes
- Limited bedside echocardiogram done July 09 shows preserved EF and unchanged.
- Echo 07/15: Normal left ventricular size. Hyperdynamic left ventricular systolic function. No regional wall motion abnormalities are seen. LV ejection fraction is 70-75%. Compared to the previous full study echo, the EF from July 09, 2024, there
is no significant change in EF. Valves not assessed in this study.
- Cardiology following
Shock, multifactorial from sepsis and possibly cardiogenic
- wean pressors as able
TME in setting of hypoxia, hypercapnia, heart failure, possible sepsis, etc
- reassess mentation when off sedation and acute illness recovers
Fevers of unknown origin
- CT chest 07/10 with small bilateral pleural effusions, left greater than right, adjacent bilateral lower lobe parenchymal opacities possibly representing pneumonia. Large amount of mucous plug in the right lower lobe bronchi.
- Has a UTI with urine cultures growing Klebsiella and Lactobacillus
- per ID UTI not source of fevers. Noted to have urinary retention during last hospitalization. She was discharged with Santana catheter and Flomax with recommendation for outpatient urology follow-up. Discharged on a course of Keflex for possible
UTI. Required a Santana catheter for 3 days as per family.
- Stool studies negative, no apparent noninfectious cause such as vasculitis/VTE
- viral respiratory panel negative
- has completed a course of Merrem and Doxycycline per ID. Observe now off antibiotics
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
- continue wound care
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
Nutritional support
- tube feeds with FWF flushes - increase to 40 cc/hour
- 07/14 AXR with normal gas pattern
TANIKA - suspect related to septic shock, ATN. TANIKA resolved.
Hypernatremia - sodium 146, free water flushes continue (increase to 40 cc/hour)
Hypokalemia - resolved.
persistent atrial fibrillation with rapid ventricular response
- continue Amiodarone
- continue Eliquis
small b/l pleural effusions
Troponin elevation
- likely acute nonischemic myocardial injury vs type II [place] in setting of Rapid AFib
- peaked at .06
- Cardiology following
COPD without exacerbation
MARK - uses BiPAP at home.
Hyperlipidemia - atorvastatin.
Type 2 diabetes (IDDM)
- A1c 6.8%
- home regimen (Metformin, Jardiance, basal/bolus insulin) held
- s/p insulin drip, now on SC insulin basal bolus
- OCCUPATIONAL HEALTH AND SAFETY ADVISER following
Essential hypertension - hold antihypertensives while on vasopressors.
Chronic anemia - macrocytic. Hemoglobin stable at 9.1, monitor for now. Baseline hemoglobin appears to be 10-11.
B12, folic acid normal. Cannot rule out component of iron deficiency.
Obesity due to excess calories
DVT ppx: Eliquis
Code: Full
Anticipated Discharge: > 48 hours
Subjective/Interval History
-
Date of Service: July 20, 2024
awake, no complaints
Objective Data
-
Labs:
Laboratory Results
07/20/24
04:03
WBC 9.7
Hgb 8.9 L
Hct 31.0 L
Plt Count 357
Sodium 150 H
Potassium 3.5
Chloride 100
Carbon Dioxide 43 H
BUN 85 H
Creatinine 0.9
Glucose 155 H
Calcium 8.5
Vital Signs:
Vital Signs
Temp Pulse Resp BP Pulse Ox
97.5 F 80 23 112/60 98
07/20/24 11:10 07/20/24 12:00 07/20/24 12:00 07/20/24 12:00 07/20/24 12:00
I&O
07/19/24 07/20/24 07/21/24
06:59 06:59 06:59
Intake Total 2375.5 / 2445.5 2140 / 2210 455 / 455
Output Total 2730 / 2740 1970 / 1970 750 / 750
Balance -354.5 / -294.5 170 / 240 -295 / -295
Physical Exam
-
General: No Apparent Distress
HEENT: Normocephalic and Atraumatic
Respiratory: Negative Wheezes
Cardiac: Regular Rhythm and S1/S2
GI: Soft
Genito-urinary: No Costovertebral Tender
Neuro: AO x 3
Hematologic / Lymphatic: No Lymphadenopathy
Psych: Calm
Data Reviewed
-
Total Time Spent with Patient (in minutes): 51
Labs: Labs Reviewed by me
--- NOTE | 2024-07-20 14:05 | W.PN.CARDCBS ---
Today's Communication / Plan
-
Diuresis has been limited by hypernatremia.
Unclear dry weight. proBNP 7400 noted. Hypernatremia noted
Primary service to increase free water
Will reduce Lasix today to 60 mg IV daily (She did receive Lasix 60 IV twice daily on 07/19/2024 with 5 mg of Zaroxolyn)
Will reassess day by day pending volume status clinically, oxygenation and electrolytes
Impression / Plan
-
.
Family Physician:� Trina Ralph
Primary Tip Cutter: Dr. Simmons
Impression:
Sepsis with hypotension requiring pressor support
Vent dependent respiratory failure extubated and then later re-intubated 07/14/2024 (extubated 07/17/2024)
Admitted with SOB and acute on hypoxic respiratory failure 06/10/24
New persistent atrial fibrillation (admission 06/2024)
Klebsiella UTI cultures
AE COPD
Acute HFpEF
Hypernatremia
Hyperkalemia
Change in mental status
Mod peak/mean 48/27 mmHg and AZY 1.0 cm sq by echo 12/21/23
Mod MS with peak/mean 17/7 mmHg by echo 12/21/23
MARK on BiPAP
HTN
HLD
DM2
Chronic iron deficiency anemia
Morbid obesity, BMI 36.4
h/o pulmonary nodules
Code status: Limited DNR, ok to intubate, no CPR
ECHO 07/2019: EF 60-65%, mod cLVH, MAC, mild MR, mild to mod , peak/mean 26/16mmHg, ZAY 1.1cm2
ECHO 09/24/21: EF 65 to 70%, mild concentric LVH, mild , peak/mean gradients 31/19 mmHg, ZAY 1.1 cm�, trivial pericardial effusion, no significant change compared to prior
Echo 12/21/23: EF 55-60%, mild conc LVH, mod MS with peak/mean 17/7 mmHg, mod peak/mean 48/27 mmHg and ZAY 1.0 cm sq
Echo 06/13/24: EF 55 to 60%, no gross regional WMA, mild to moderate MS with mean gradient 6 mmHg at an HR of 76 bpm, mild MR, moderate peak/mean 46/28 mmHg and ZAY 1.1 cm SQ
Echo 07/09/24: EF 65-70%, mild to moderate mitral stenosis, mean gradient 7, moderate aortic stenosis, 56/35 mmHg, no comment on AI, mild to moderate mitral stenosis, mean gradient 7 no comment on mitral regurgitation, normal atria, normal RV, could
not determine pulmonary artery systolic pressure
Plan:
Seen today with family at the bedside. Medically complex patient with 2 recent critical admissions. During this admission sepsis with hypotension VDRF 07/09/24 with prolonged ventilation and failed extubation 07/14/24 more recently reextubated 07/17/24
-Respiratory status remains fair
-Patient is awake and alert responding to questions
-N.p.o. receiving nutrition and medications through NG tube
-Efforts for PT/OT and speech therapy ongoing
-Aspiration precautions
-Pulmonary/car wrecker following
Shock, mixed picture with sepsis and heart failure with preserved ejection fraction/volume overload
-Blood pressures have improved and she is now off pressors and midodrine has been able to be decreased. Wean as tolerates.
-Antibiotics have been completed and ID service has signed off
-Hydrocortisone continues
Acute on chronic heart failure with preserved ejection fraction/moderate aortic stenosis
-Diuresis has been limited by hypernatremia. Discussed with primary service today. She is down 2 pounds. Unclear dry weight. From prior admission weights up and down and in the high 180s. More recently family tells me she has been in the 190s.
Weight today is down 2 pounds at 202 but sodium at its increased to 150.
-Primary service to increase free water
-Will reduce Lasix today to 60 mg IV daily despite proBNP increasing slightly to 7400
-She did receive Lasix 60 IV twice daily on 07/19/2024 with 5 mg of Zaroxolyn
-Will reassess day by day pending volume status clinically, oxygenation and electrolytes
-I's and O's/follow daily weights
-Follow renal function and electrolytes. Keep K greater than 4, mag greater than 2
Prior rapid atrial fibrillation currently on amiodarone for rate control along with metoprolol. Rates currently stable.
-Continue current treatment and as needed Lopressor IV if needed
-Plan for rate control strategy as patient is too tenuous for cardioversion and required anesthesia
-Anticoagulation with Eliquis
-Follow telemetry and EKGs
-Of note she has been on amiodarone this admission (not including last admission) for 5.6 g of loading. If stable consider dose reduction tomorrow.
Spoke with primary service. Spoke with family at the bedside. All questions answered.
31 minutes total critical care time coordinating care, and in discussion with family, reviewing labs and making treatment decisions.
HPI: Patient came to ER today with increased weakness and a lower than usual pulse ox reading at home, patient now admitted with acute HF and cardiology has been consulted. Patient was just admitted to from 06/10/2024 until 06/19/2024 with acute
on chronic hypoxic multifactorial respiratory failure and also a new diagnosis of paroxysmal Afib. During that admission patient was diuresed with Lasix 80 mg IV BID. In addition to BiPAP therapy. Unfortunately the recorded weights during that
admission were not accurate because they were using a bed scale. I and O readings were also inaccurate, but the patient reported some subjective improvement. Patient was seen in the office on 06/26/2024 and was dutifully taking her dose of Lasix 80
mg twice daily, but was noted to be hypotensive and so her usual dose of nifedipine was stopped. Patient was seen in the wound clinic today and was noted to be SOB above baseline and hypoxic so she was referred to ER. Patient was using her
usual 3 L nasal cannula of supplemental oxygen and had improved pulse ox by increasing to 5 L. proBNP is up to 9300 today and was only as high as 1590 during her last admission. Again the recorded weights are not accurate
Progress Note - Tip Cutter
Subjective
Date of Service: July 20, 2024
She denies chest pain and palpitations
Objective
Labs:
07/20/24 04:03
07/20/24 04:03
Labs
Hgb 8.9 g/dL (12.0-16.0) L 07/20/24 04:03
Hct 31.0 % (37.0-47.0) L 07/20/24 04:03
Plt Count 357 10^3/uL (130-400) 07/20/24 04:03
PT 18.4 Sec (11.4-14.6) H 07/09/24 15:19
INR 1.50 07/09/24 15:19
APTT 38.4 Sec (23.4-35.0) H 07/19/24 03:57
Sodium 150 mmol/L (135-145) H 07/20/24 04:03
Potassium 3.5 mmol/L (3.5-5.1) 07/20/24 04:03
BUN 85 mg/dl (7-17) H 07/20/24 04:03
Creatinine 0.9 mg/dL (0.6-1.0) 07/20/24 04:03
Glucose 155 mg/dl (70-99) H 07/20/24 04:03
Vital Signs and I&O:
Vital Signs
Temp Pulse Resp BP Pulse Ox
97.5 F 80 23 112/60 98
07/20/24 11:10 07/20/24 12:00 07/20/24 12:00 07/20/24 12:00 07/20/24 12:00
Vital Signs
Temp Pulse Resp BP Pulse Ox
97.5 F 80 23 112/60 98
07/20/24 11:10 07/20/24 12:00 07/20/24 12:00 07/20/24 12:00 07/20/24 12:00
Intake & Output
07/18/24 07/19/24 07/20/24 07/21/24
06:59 06:59 06:59 06:59
Intake Total 2009. / 2094.6 2375.5 / 2445.5 2140 / 2210 455 / 455
Output Total 1100 / 1125 2730 / 2740 1970 / 1970 750 / 750
Balance 910.6 / 970.6 -354.5 / -294.5 170 / 240 -295 / -295
Physical Exam
Physical Exam
General: Chronically ill-appearing woman
Heart: Distant heart sounds irregular 3/6 basal systolic murmur
Lungs: Oxygen in place. Coarse breath sounds
Extremities: No clubbing, cyanosis trace to +1 edema bilaterally.
Neuro: Awake
[2024-07-20] MEDS: NOVOLOG FLEXPEN-MODERATE RESISTANCE 1 UNITS SC (17:30)
[2024-07-20 17:40] LABS: Glucose - Point of Care 199 mg/dl (70-99)
[2024-07-20 17:57] LABS: Blood Urea Nitrogen 88 mg/dl (7-17); Calcium 8.7 mg/dl (8.4-10.2); Chloride 95 mmol/L (98-107); Estimated Creatinine Clearance 49 ml/min; Glucose 220 mg/dl (70-99); Potassium 3.3 mmol/L (3.5-5.1); Sodium 149 mmol/L (135-145); eGFR 57.66
[2024-07-20 19:08] LABS: Carbon Dioxide 46 mmol/L (22-30)
--- NOTE | 2024-07-20 21:00 | PTCARENOTE ---
supervising broker, pt lethargic but arouses to voice, nods appropriately, able to grasp hands. afebrile. AFib HR [id number]. R Subcl TLC, RUE midline WNL. pt on Bipap Sat 94%. L SS with TF at goal. FMS flushed, patent. CHG cloths, skin/wound care done,
new purewick. repositioned. Chest PT on sport bed. family remains at bedside.
[2024-07-20] MEDS: KCL ELIXIR 40 MEQ TUBE (21:28)
[2024-07-21] VITALS (37 sets, daily range): BP systolic 79–125; BP diastolic 43–92; PULSE 2–105; BMI 36.8
[2024-07-21] MEDS: NOVOLOG FLEXPEN-MODERATE RESISTANCE 5 UNITS SC ×2 (00:51→06:11)
[2024-07-21] MEDS: NOVOLOG FLEXPEN 10 UNITS SC ×2 (00:51→06:11)
[2024-07-21 01:01] LABS: Glucose - Point of Care 280 mg/dl (70-99)
[2024-07-21 04:11] LABS: Hematocrit 34.8 % (37.0-47.0); Hemoglobin 9.5 g/dL (12.0-16.0); Mean Corp Hgb Conc. 27.3 g/dL (33.0-37.0); Mean Corpuscular Hgb 28.1 pg (27.0-31.0); Mean Platelet Volume 11.9 fL (7.4-10.4); Platelet Count 358 10^3/uL (130-400); Red Blood Cell Count 3.38 10^6/uL (4.20-5.40); Red Cell Dist. Width 18.2 % (11.5-14.5); White Blood Cell Count 12.7 10^3/uL (4.8-10.8)
[2024-07-21 04:32] LABS: Blood Urea Nitrogen 94 mg/dl (7-17); Calcium 8.6 mg/dl (8.4-10.2); Chloride 95 mmol/L (98-107); Estimated Creatinine Clearance 37 ml/min; Glucose 251 mg/dl (70-99); Potassium 4.4 mmol/L (3.5-5.1); Sodium 151 mmol/L (135-145); eGFR 42.09
[2024-07-21 05:08] LABS: Carbon Dioxide 49 mmol/L (22-30)
[2024-07-21 06:20] LABS: Glucose - Point of Care 254 mg/dl (70-99)
[2024-07-21] MEDS: ATROVENT NEBULES 0.5 MG INH ×2 (07:22→11:43)
[2024-07-21] MEDS: PULMICORT 0.5 MG INH (07:22)
[2024-07-21] MEDS: SODIUM CHLORIDE 3% FOR INHALATION 1 VIAL INH (07:22)
[2024-07-21] MEDS: XOPENEX 1.25 MG INHALANT SOLUTION INH ×2 (07:22→11:42)
[2024-07-21] MEDS: ProAmatine 5 MG TUBE ×2 (08:02→12:19)
[2024-07-21] MEDS: LOPRESSOR 25 MG TUBE (08:02)
[2024-07-21] MEDS: ELIQUIS 5 MG TUBE (08:02)
[2024-07-21] MEDS: LASIX 60 MG IV (08:02)
[2024-07-21] MEDS: LANTUS 0.32 UNITS SC (08:02)
[2024-07-21] MEDS: PACERONE 400 MG TUBE (08:02)
[2024-07-21] MEDS: PREVACID 30 MG TUBE (08:02)
[2024-07-21] MEDS: SOLU-CORTEF 50 MG IV (08:03)
[2024-07-21] MEDS: DESENEX/MITRAZOL/ZEASORB 1 APPLIC TOPICAL (08:04)
--- NOTE | 2024-07-21 08:05 | PTCARENOTE ---
Rec'd pt at 0700. ~0730-Bipap mask removed by resp therapist and pt placed on 3LNC. Pt drowsy, opens eyes to tactile stimuli. Monitor Afib 80's. Lungs dim, pox 95%. +BS, abd soft/nt. NGT with TF 45mls/hr with 40ml/hr water flush. FMS draining liquid
brown stool. Small amt lara urine via purewick.
[2024-07-21] MEDS: NSS (PRESERVATIVE FREE) IV (08:16)
[2024-07-21] MEDS: MIRALAX TUBE (08:16)
--- NOTE | 2024-07-21 08:18 | W.PN.PUL3 ---
Addendum entered and electronically signed by Parish Barbour MD 07/22/24 01:22:
Correction to body of plan: Patient now requires NIV; not IV.
Original Note:
Today's Communication / Plan
-
Extubated on 07/17 to NIV; changed to BiPAP but unfortunately this morning she was acutely hypercapnic and unresponsive, now back on NIV and upgraded back to ICU
Serial blood gases to trend pH + pCO2 to assure stable --> low threshold to re-intubate despite low quality of life if she ends up with trach, family aware
Initially family wanted to pursue comfort care measures with hospice if not extubated by 07/17, however family had another discussion on 07/15 and pt now full code
Holding IV lasix for now given rise in Na and Cr - cards aware; nephro re-consulted
Trend Na with serial BMP
Free water raised to 40cc/hr 07/20 - D5W started 07/21
Trend BNP
Goal BG 140�180 with basal-bolus SQ insulin
Continue hydrocortisone with wean
RUE Duplex US on 07/17/2024 showed no evidence of thrombus - performed due to swelling and given she has a midline in that arm
Continue Xopenex, Atrovent, and pulmicort
Continue tube feeds; CAR TOP BOLTER following --> pt to remain strict NPO
s/p course of ABx - last day was 07/18 - may need to resume - follow up official report of CXR on 07/21
Continue ICU level care for this critically ill patient
Assessment
-
Patient is a 78-year-old female with previous history of COPD, chronic hypercarbic respiratory failure on BiPAP, chronic heart failure with preserved EF, chronic hypoxemia presenting with increased shortness of breath and weakness over the past 24
hours. She was at wound clinic the day prior to admission and notably hypoxemic, was referred to the emergency room. On arrival ABG noted to be 7.29/76. She was treated with BiPAP overnight. Repeat ABG 7.. She had increasing somnolence
throughout the day. A decision was made for intubation due to persistent mental status changes and unresponsiveness.
#1. Acute on chronic hypoxic and hypercapnic respiratory failure s/p intubation 07/09/24, extubated 07/14 --> failed and re-intubated on 07/14 --> finally extubated to NIV as of 07/17. Respiratory failure is due to heart failure exacerbation, suspected
right lower lobe pneumonia/aspiration as well as underlying COPD with morbid obesity and history of sleep apnea with possibly obesity hypoventilation syndrome.
-Patient at baseline on oxygen and also has chronic hypercapnia with baseline PCO2 60 on home BiPAP
-On 07/19, Dr. Barbour changed from NIV to BiPAP and continue to use with sleep and prn during the day for naps or SOB episodes; titrate FiO2 to maintain SpO2 88-95%
-Continue serial blood gases to trend pH and pCO2
-Continue pulmicort, nebulized Xopenex/Atrovent and on 07/15 I started IV stress dose hydrocortisone given concern for COPD exacerbation as well as shock state
- Continue solucortef 50mg IV q12hr --> wean as she clinically continues to improve --> given the rise in BUN, I will lower today to 50mg IV daily
#2. Shock, likely mixed septic shock and cardiogenic shock � shock state resolved as of 07/19
-Patient has been off of Anders-Synephrine since approximately 4 AM on 07/19/2024; she has been off vasopressin as of 07/17; levophed previously stopped because of A-fib RVR.
-Continue stress dose hydrocortisone as stated above with wean to off over next few days
-Avoid dobutamine in the setting of sepsis
-Monitor I/O
-ID service on board --> last day of antibiotics was 07/18/2024 with meropenem + doxycycline
-RV panel is negative
-Urine culture from 07/09/2024 has grown Klebsiella aerogenes + lactobacillus
#2. Acute on chronic HFpEF, moderate aortic stenosis. Recent hospitalization in June for heart failure exacerbation.
-Sodium and bicarb rising as of 07/17 --> diuresis was on hold evening of 07/17 --> resumed on 07/19
-On 07/18, free water flushes increased to 25cc/hr from 10cc/hr in an effort to normalize sodium so we can resume diuresis - lasix resumed on 07/19 with 60mg IV BID --> now changed to 60mg IV once daily as of 07/20; cardiology recs appreciated
-Monitor strict I/O
-Replete K>4, Mg>2
-Cardiology service on board with recs appreciated
-Chest X ray shows pulmonary vascular congestion with suspected small bilateral pleural effusions, although difficult to assess fluid status due to body habitus --> slight improvement in pulmonary edema per CXR from 07/16
-Echo rechecked on 07/15/2024 showed hyperdynamic LV systolic function with EF 70-75%, with no significant change compared to prior echo on July 09, 2024; prior TTE on 07/30 showed mild�moderate MS with moderate aortic stenosis with peak/mean
gradients of 56/35 mmHg
- Gave a dose of metolazone on 07/19 as this would help diuresis as well as bring down her sodium --> free water raised to 40cc/hr on 07/20
-Unfortunately on 07/21, sodium level is now 151 with serum bicarb level 49 and creatinine 1.3. Lasix given this morning but now on hold. Stat CXR obtained showing increased opacification in the left hilar region, possibly related to recurrent
pneumonia versus pulmonary edema. Follow-up official read. Recheck BNP
#3. Right lower lobe pneumonia, suspect aspiration, enlarging effusion
- s/p course of antibiotics
-MRSA screen negative, follow-up on blood cultures (NGTD)
-Chest PT in view of right lower lobe mucous plugging
- Started sport bed on 07/16
-Bedside POCUS performed, 07/14, only a small volume pleural effusion noted which appears simple without loculation - hence thoracentesis not recommended at that time
-Trend WBC and monitor for fevers
-CXR repeated on 07/21 as she was less responsive and more hypoxic � blood gas shows acute on chronic hypercapnia. She was changed to NIV. Follow-up official read on CXR as there is possible worsening pneumonia versus pulm edema - may need to
resume ABx
#4. Increasing lethargy, unresponsiveness. This is related to worsening hypercapnia and metabolic encephalopathy. (prior to requiring intubation)
-She has been awake and alert, but remains exquisitely weak and deconditioned --> on AM of 07/21 she was unresponsive and acutely hypercapnic. NIV resumed. Continue to trend blood gas as she remains at risk of being reintubated, in which case she
will need ENT consult for tracheostomy
-As long as she ends up not being reintubated then she will require long-term PT/OT --> recommending skilled rehab
#5. Acute kidney injury with hyperkalemia - Cr now worse as of 07/21
-Cardiorenal syndrome, creatinine now normal with diuresis
-Renally dose all meds; avoid nephrotoxic agents
-Nephrology service signed off on 07/11/2024 ---> reconsulted 07/21
-IV lasix resumed on 07/19 --> now on hold although she received am dose on 07/21
#6. A-fib with RVR atrial fibrillation with RVR, new onset since hospitalization in June 2024
-Cardiology service on case
-Transitioned off heparin gtt on 07/18 to Eliquis
-PO amiodarone started, dose managed by cardiology
-Continue telemetry monitoring
-Troponin peaked at 0.061 on 07/10/2024 � no longer need to continue trending at this time
#7. DM with hyperglycemia:
-insulin infusion --> weaned off on 07/15; resumed IV insulin gtt on 07/16; diabetic TIE CARRIER on board for assistance --> bridged off insulin gtt on 07/18; continue basal-bolus insulin SQ dosing and adjust as needed
-A1c: 6.8 on 06/11/2024
-Goal BG 140-180, especially while on steroids
Other:
-Continue tube feeding - currently at goal; unfortunately she still is required to be strict NPO per CAR TOP BOLTER, last evaluated on 07/19/2024
-DVT prophylaxis: Eliquis
-GI prophylaxis with PPI
Patient is now full code after family had a discussion on 07/15
Patient now requires an IV. Upgrade status back to ICU. School Cook/Pulmonary services will continue to follow along.
Conditions present prior to admission
Diabetes
Hypertension
Hyperlipidemia
Morbid obesity
Elevated IgE
Severe sleep apnea, total index 56, desaturation adamaris 51%
Compliant and adequate with auto BiPAP
Severe COPD, spirometry 06/22/23- FVC 1.14 or 45%, FEV1 0.66 or 33, Ratio 57
Heart failure with preserved ejection fraction
History of anemia
History of pleural effusions, stable since 2010
Afib on Eliquis
Diagnostic Data
Chest X-Ray: 07/09/24 post intubation- 1. Endotracheal and nasogastric tubes are in satisfactory position.
2. Mild pulmonary edema, not significantly changed.
3. Obscuration of both hemidiaphragms, left greater than right, suggestive of small bilateral pleural effusions. Bibasilar airspace disease may also be present.
07/08/24- Cardiomegaly, unchanged. Pulmonary interstitial prominence again seen, cannot differentiate acute versus chronic. Some right basilar opacity and left hemidiaphragm again obscured. Cannot exclude bibasilar subsegmental atelectasis and/or
pneumonia and small bilateral pleural effusions.
Chest x-ray 06/14/2024: Moderate cardiomegaly. Mild increased interstitial markings. Improved compared to prior 06/12/2024
CT Scan: CTA 2018- No pulmonary embolism. Prominent distal pulmonary artery and right and left pulmonary arteries, suggesting an element of pulmonary hypertension. Mild stable chronic parenchymal findings, without evidence of acute pneumonia.
Long-term interval stability of 3 small pulmonary nodules, supporting a benign etiology.
CHEST 09/27/13- Stable left upper lobe pulmonary nodules since February 2011. There is extremely high probability that these are benign. Stable bibasilar scarring.
Findings suggesting pulmonary arterial hypertension. Mitral annulus calcification. Coronary artery disease. Essentially resolved right pleural effusion.
Echo: 06/13/24- Normal left ventricular chamber size. Normal left ventricular systolic function. Left ventricular ejection fraction is 55-60% by visual assessment. No gross regional wall motion abnormalities. Mild concentric left ventricular
hypertrophy. Normal right ventricular size and function. Mild to moderate mitral stenosis. Moderate aortic stenosis. Peak/mean gradients across the aortic valve are 46/28 mmHg and estimated aortic valve area is 1.1 cm2. Compared to prior study
dated 12/31/2023, there is no significant change, prior aortic valve peak/mean gradients were 48/27 mmHg, respectively.
PFT's: spirometry 06/22/23- FVC 1.14 or 45%, FEV1 0.66 or 33, Ratio 57 (severe obstruction)
Reports and relevant images were personally reviewed.
Critical care statement: A total of 40 minutes of critical care time was provided for this patient today. This includes management of unstable vital signs, evaluation of the patient at bedside, reviewing the patient's pertinent medical records
including radiographs, microbiology, laboratory evaluations, and discussion with primary team, consultants, pharmacy, nutrition, physical therapy, case management, charge nurse, critical care nursing, and respiratory therapy.
Subjective Data
-
Date of Service:
Date of Service: July 21, 2024
Chief Complaint: Pulmonary Follow Up
Subjective:
This morning patient was less responsive and hypoxic. She was on BiPAP 23/12 bled with 6 L/min and O2 increased to 15 L/min with saturations improving from the low 70s up to 85%. She was then switched to an IV at 100% FiO2 with saturations shooting
up to 99%. She is minimally responsive but she does awaken to tactile stimulation but then quickly falls back asleep. Patient's daughter as well as both at bedside and they are concerned about the patient's breathing and oxygen levels as
well as mental status. I answered all of their questions and calmed them down.
Review of Systems
General: Unobtainable - Pat Unresp
Objective Data
Data Reviewed
Vital Signs / I&O / Oxygen:
Vital Signs
Temp Pulse Resp BP Pulse Ox
98.5 F 88 22 110/57 98
07/21/24 08:25 07/21/24 07:29 07/21/24 07:29 07/21/24 06:00 07/21/24 09:31
Intake and Output
07/20/24 07/21/24 07/22/24
06:59 06:59 06:59
Intake Total 2140 / 2210 194 / 2024 335 / 335
Output Total 1969 / 1969 1350 / 1350
Balance 170 / 240 590 / 675 335 / 335
SaO2 [NIV (Non Invasive 98
Ventilation)]
SaO2 [ASV] 97
SaO2 [CPAP] 93
SaO2 [A/C] 97
SaO2 96
Nasal Cannula flow liters per 3
minute
Physical Exam
General: Respiratory Distress (negative), Chills (negative), Sweats (negative) and Other (Chronically ill, morbidly obese female with severe physical deconditioning)
HEENT: Normocephalic, Anicteric and Other (Thick neck)
Cardiovascular: Peripheral Edema (Trace lower extremity edema bilaterally)
Respiratory: Wheeze (negative), Crackles (Bibasilar), Rhonchi (negative), Non-Labored Respirations and Accessory Resp Muscle Use (mild)
GI: Soft, Distended (Abdominal obesity), Non Tender and Normal Bowel Sounds
Neurology: Tremors (negative), Unresponsive and Other (minimally responsive)
Skin: Warm, Dry, Cyanosis (negative) and Jaundice (negative)
Labs/Micro/Reports
Lab Data
07/21/24 03:40
07/21/24 03:40
--- NOTE | 2024-07-21 09:40 | PTCARENOTE ---
Pt's daughter stating that pt is difficult to arouse and she's concerned that she might need bipap again. Pt placed on bipap mask by resp therapist. Pt's pox then dropping into high 70's-low 80's, Dr. Barbour at bedside, fio2 increased to 15L on
bipap with no change noted. Pt then placed on NIV, pox up to 100% and abg done. Fio2 weaned down to 45%, pox 96%.
[2024-07-21 09:44] LABS: B.E. 19.9 mmol/L; O2 Saturation % 97.5 % (94-98); PO2 78 mmHg (83-108); pH 7.29 (7.35-7.45)
[2024-07-21] MEDS: NOVOLIN N vial 0.07 UNITS SC (09:44)
[2024-07-21] MEDS: D5W 1000 IV (09:44)
[2024-07-21 09:46] LABS: HCO3 50.5 mmol/L (21-28); PCO2 105 mmHg (32-35)
--- NOTE | 2024-07-21 10:02 | W.PN.HOSP.TC ---
Today's Communication/Plan
-
wean IV steroids
holding IV Lasix; D5W and 1 dose Albumin. Nephrology consulted
check BNP and procal
NIV as acidosis worsened
d/w Cards and ICU
d/w family goals remains restorative, remains full code
Assessment / Plan
Assessment / Plan
Assessment:
Acute on chronic hypoxic respiratory failure
Acute hypercapnic respiratory failure
- related to acute CHF. hx of MARK/COPD contributing
- intubated 07/09, extubated 07/14 with rapid re-intubation 07/14 for hypercapnia and respiratory distress, extubated to NIV 07/17 and now on BiPAP prn and HS. 07/21 with respiratory acidosis requiring NIV again. ICU upgrade as well
- Migratory Game Bird Biologist following
- continue IV steroids started 07/15/24
Acute on chronic heart failure with preserved EF
- holding IV Lasix with difficult volume status
- Limited bedside echocardiogram done July 09 shows preserved EF and unchanged.
- Echo 07/15: Normal left ventricular size. Hyperdynamic left ventricular systolic function. No regional wall motion abnormalities are seen. LV ejection fraction is 70-75%. Compared to the previous full study echo, the EF from July 09, 2024, there
is no significant change in EF. Valves not assessed in this study.
- Cardiology following
Shock, multifactorial from sepsis and possibly cardiogenic
- wean pressors as able
TME in setting of hypoxia, hypercapnia, heart failure, possible sepsis, etc
- reassess mentation when off sedation and acute illness recovers
Fevers of unknown origin
- CT chest 07/10 with small bilateral pleural effusions, left greater than right, adjacent bilateral lower lobe parenchymal opacities possibly representing pneumonia. Large amount of mucous plug in the right lower lobe bronchi.
- Has a UTI with urine cultures growing Klebsiella and Lactobacillus
- per ID UTI not source of fevers. Noted to have urinary retention during last hospitalization. She was discharged with Santana catheter and Flomax with recommendation for outpatient urology follow-up. Discharged on a course of Keflex for possible
UTI. Required a Santana catheter for 3 days as per family.
- Stool studies negative, no apparent noninfectious cause such as vasculitis/VTE
- viral respiratory panel negative
- has completed a course of Merrem and Doxycycline per ID. Observe now off antibiotics
- rising WBC - check procalcitonin today
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
- continue wound care
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
Nutritional support
- tube feeds with FWF flushes - continue 40 cc/hour
- / AXR with normal gas pattern
TANIKA - suspect related to septic shock, ATN. TANIKA resolved.
Hypernatremia
- sodium 151, free water flushes continue at 40 cc/hour
- D5W started
- Nephrology started
Hypokalemia - resolved.
persistent atrial fibrillation with rapid ventricular response
- continue Amiodarone
- continue Eliquis
small b/l pleural effusions
Troponin elevation
- likely acute nonischemic myocardial injury vs type II DC in setting of Rapid AFib
- peaked at .06
- Cardiology following
COPD without exacerbation
MARK - uses BiPAP at home.
Hyperlipidemia - atorvastatin.
Type 2 diabetes (IDDM)
- A1c 6.8%
- home regimen (Metformin, Jardiance, basal/bolus insulin) held
- s/p insulin drip, now on SC insulin basal bolus
- GROCERY BUYER following
Essential hypertension - hold antihypertensives while on vasopressors.
Chronic anemia - macrocytic. Hemoglobin stable at 9.1, monitor for now. Baseline hemoglobin appears to be 10-11.
B12, folic acid normal. Cannot rule out component of iron deficiency.
Obesity due to excess calories
DVT ppx: Eliquis
Code: Full
Total Critical Care Time 41 minutes. I was immediately available to the patient and staff. I personally examined, reviewed labs, diagnostic images/reports, interpretations, treatment plans, discussed patient care with other providers and family
or caregivers (if patient is unable to make decisions), entered orders as appropriate and documented the medical record.
Anticipated Discharge: > 48 hours
Subjective/Interval History
-
Date of Service: July 21, 2024
more lethargic this AM, despite BiPAP overnight and now placed on NIV transferred back to ICU
CO2 105
Na 151
Objective Data
-
Labs:
Laboratory Results
07/21/24 07/21/24 07/21/24
03:40 09:24 09:24
WBC 12.7 H
Hgb 9.5 L
Hct 34.8 L
Plt Count 358
HCO3 50.5 H* Pending
Sodium 151 H
Potassium 4.4 D
Chloride 95 L
Carbon Dioxide 49 H
BUN 94 H
Creatinine 1.3 H
Glucose 251 H
Calcium 8.6
Vital Signs:
Vital Signs
Temp Pulse Resp BP Pulse Ox
98.5 F 88 22 110/57 98
07/21/24 08:25 07/21/24 07:29 07/21/24 07:29 07/21/24 06:00 07/21/24 09:31
I&O
07/20/24 07/21/24 07/22/24
06:59 06:59 06:59
Intake Total 0 / 2210 1939 335 / 335
Output Total 1969 / 1969 1350 / 1350
Balance 170 / 240 590 / 675 335 / 335
Physical Exam
-
General: Respiratory Distress
HEENT: Normocephalic and Atraumatic
Respiratory: Rhonchi, Crackles and Chest Tubes (+NIV)
GI: Soft
Musculoskeletal: Edema, Right Lower Extrem and Edema, Left Lower Extrem
Neuro: Awake and Other (lethargic)
Psych: Calm
Data Reviewed
-
Critical Care Time (in minutes): 41
Labs: Labs Reviewed by me
[2024-07-21] MEDS: ALBUMIN 5% 250 IV (10:23)
[2024-07-21 10:56] LABS: NT-proBNP 12900 pg/ml
[2024-07-21 11:30] LABS: Procalcitonin 0.19 ng/ml (0.0-0.25)
[2024-07-21 11:46] LABS: B.E. 18.9 mmol/L; O2 Saturation % 99.8 % (94-98); PO2 121 mmHg (83-108); pH 7.33 (7.35-7.45)
[2024-07-21] MEDS: NOVOLOG FLEXPEN 12 UNITS SC (11:48)
[2024-07-21] MEDS: NOVOLOG FLEXPEN-MODERATE RESISTANCE 7 UNITS SC (11:48)
[2024-07-21 11:49] LABS: PCO2 95 mmHg (32-35)
[2024-07-21 11:50] LABS: HCO3 50.1 mmol/L (21-28)
[2024-07-21 11:59] LABS: Glucose - Point of Care 319 mg/dl (70-99)
--- NOTE | 2024-07-21 12:14 | W.PN.UPDATE ---
Update Note
Progress Note Update
Family requested transfer to [facility] pulmonary/ICU attending is Dr. Veronica Sayed
--- NOTE | 2024-07-21 12:29 | W.PN.NEPH.PH ---
Today's Communication / Plan
-
D5W
Assessment/Plan
-
IMP:
Acute hypoxic respiratory insufficiency, baseline 3 L at home
Acute on chronic hypercapnic respiratory failure s/p intubation 07/09/24
TME
Recent admission for AECHF, d/c 06/19/24
Hyperkalemia
TANIKA, creatinine 1.6 (BL 0.9-1.0)
Azotemia
Possible UTI, r/o sepsis
COPD without exacerbation
MARK
Paroxysmal atrial fibrillation
Hyperlipidemia
DM 2 with hyperglycemia -hemoglobin A1c 6.8% in June.
Essential hypertension -currently hypotensive.
Chronic anemia
Plan:
Free water deficit at least 3.5 L, not counting ongoing losses
Continue D5W at 75 cc/h plus free water flush at 40 cc/h
Follow BMP
Low threshold for initiating pressors to keep mean arterial pressure greater than 65. Midodrine will not be able to maintain blood pressure
She does not appear to be ventilating well with NIV. I believe she will require reintubation.
ABG would be consistent with worsening respiratory acidosis and chronic metabolic alkalosis compensation
She has been accepted for transfer at [facility]
Discussed with family at bedside
Critical care time spent 40 minutes
-
-
Date of Service: July 21, 2024
CC / HPI / ROS
-
Chief Complaint:
TANIKA
hypotension
Hyponatremia
History of Present Illness:
Asked to see patient again for hyponatremia
Patient had been extubated on 07/17. However, there has been some difficulty with ventilation. She is on NIV. pCO2 has been rising
Blood pressure is now low
Creatinine has increased to 1.3 with rising BUN
Metabolic alkalosis has worsened 49
Sodium up to 151
Remains on tube feeding with free water flush at 40 cc/h
Critically ill in ICU
Poor response to Lasix
Review of Systems:
oliguric vis Purewick
Labs
-
Labs:
WBC 12.7 10^3/uL (4.8-10.8) H 07/21/24 03:40
RBC 3.38 10^6/uL (4.20-5.40) L 07/21/24 03:40
Hgb 9.5 g/dL (12.0-16.0) L 07/21/24 03:40
Hct 34.8 % (37.0-47.0) L 07/21/24 03:40
Plt Count 358 10^3/uL (130-400) 07/21/24 03:40
Sodium 151 mmol/L (135-145) H 07/21/24 03:40
Potassium 4.4 mmol/L (3.5-5.1) D 07/21/24 03:40
Chloride 95 mmol/L (98-107) L 07/21/24 03:40
Carbon Dioxide 49 mmol/L (22-30) H 07/21/24 03:40
BUN 94 mg/dl (7-17) H 07/21/24 03:40
Creatinine 1.3 mg/dL (0.6-1.0) H 07/21/24 03:40
eGFR 42.09 07/21/24 03:40
Glucose 251 mg/dl (70-99) H 07/21/24 03:40
Calcium 8.6 mg/dl (8.4-10.2) 07/21/24 03:40
Phosphorus 4.6 mg/dl (2.5-4.5) H 07/20/24 04:03
Fvl-H-Zlbzhojatwp Pept 32740 pg/ml 07/21/24 10:27
Albumin 2.8 g/dl (3.5-5.0) L 07/18/24 04:36
Physical Exam
-
Vital Signs:
Vital Signs
Temp Pulse Resp BP Pulse Ox
98.5 F 78 37 88/66 95
07/21/24 08:25 07/21/24 12:04 07/21/24 12:04 07/21/24 12:03 07/21/24 12:04
Cardiovascular:: Regular rate and rhythm
Respiratory:: Bilateral: Coarse (Poor breath sounds)
Lung Excursion:: Normal
Abdomen:: Nontender and Soft
Bowel Sounds:: Normal
Extremity Edema:: +1: Bilateral:
[2024-07-21 12:40] LABS: TSH Reflex To Free T4 0.47 uIU/ml (0.47-4.68)
--- NOTE | 2024-07-21 12:55 | W.PN.CARDCBS ---
Today's Communication / Plan
-
Family has requested transfer to [facility] in [place]
Respiratory status appears to be worsening and patient will be intubated
Blood pressure is marginal would likely need pressors. Previously Levophed was used successfully.
Nephrology seeing for worsening renal function and free water deficit
Try to maintain volume negative status if able
Poor overall prognosis
Impression / Plan
-
.
Family Physician:� Trina Ralph
Primary Tile Helper: Dr. Simmons
Impression:
Sepsis with hypotension requiring pressor support
Vent dependent respiratory failure extubated and then later re-intubated 07/14/2024 (extubated 07/17/2024)
Admitted with SOB and acute on hypoxic respiratory failure 06/10/24
New persistent atrial fibrillation (admission 06/2024)
Klebsiella UTI cultures
AE COPD
Acute HFpEF
Hypernatremia
Hyperkalemia
Change in mental status
Mod peak/mean 48/27 mmHg and ZAY 1.0 cm sq by echo 12/21/23
Mod MS with peak/mean 17/7 mmHg by echo 12/21/23
MARK on BiPAP
HTN
HLD
DM2
Chronic iron deficiency anemia
Morbid obesity, BMI 36.4
h/o pulmonary nodules
Code status: Limited DNR, ok to intubate, no CPR
ECHO 07/2019: EF 60-65%, mod cLVH, MAC, mild MR, mild to mod , peak/mean 26/16mmHg, ZAY 1.1cm2
ECHO 09/24/21: EF 65 to 70%, mild concentric LVH, mild , peak/mean gradients 31/19 mmHg, ZAY 1.1 cm�, trivial pericardial effusion, no significant change compared to prior
Echo 12/21/23: EF 55-60%, mild conc LVH, mod MS with peak/mean 17/7 mmHg, mod peak/mean 48/27 mmHg and ZAY 1.0 cm sq
Echo 06/13/24: EF 55 to 60%, no gross regional WMA, mild to moderate MS with mean gradient 6 mmHg at an HR of 76 bpm, mild MR, moderate peak/mean 46/28 mmHg and ZAY 1.1 cm SQ
Echo 07/09/24: EF 65-70%, mild to moderate mitral stenosis, mean gradient 7, moderate aortic stenosis, 56/35 mmHg, no comment on AI, mild to moderate mitral stenosis, mean gradient 7 no comment on mitral regurgitation, normal atria, normal RV, could
not determine pulmonary artery systolic pressure
Plan:
Seen today with family at the bedside. Medically complex patient with 2 recent critical admissions. This is left her profoundly weak. Today she is not is doing as well as yesterday currently with noninvasive ventilation and decreased mentation.
At the time that I saw her ABG pending. Vital signs were stable but prior to my placing this note blood pressure started to decrease. In addition she continues with hypernatremia and free water deficit despite being volume overloaded now with
worsening azotemia.
During this admission sepsis with hypotension VDRF 07/09/24 with prolonged ventilation and failed extubation 07/14/24 more recently reextubated 07/17/24 and now plan is for reintubation 07/21/2024
-Respiratory status worsening with recurrent respiratory failure
-Continues to be extremely weak and despite continued efforts by multidisciplinary team she will require reintubation.
-ABG reviewed with stable oxygenation but pCO2 95 mmHg (lowest that has been achieved is 50s to 60s millimeters of mercury)
-Aspiration precautions
Shock, mixed picture with sepsis and heart failure with preserved ejection fraction/volume overload
-Most recent echocardiogram stable 07/15/2024
-Once again will likely need pressor support, successfully use Levophed previously. Previously midodrine was successfully started and pressors were weaned off.
-Antibiotics have been completed and ID service had signed off. May need reassessment.
-Hydrocortisone continues
Acute on chronic heart failure with preserved ejection fraction/moderate aortic stenosis
-Diuresis has been limited by hypernatremia. Previous dry weight was in the 190s currently weight is 200.
-Nephrology working to replete free water deficit.
-Continue to try to maintain negative volume balance overall
-Follow labs
-I's and O's/follow daily weights
Hypernatremia
-Plan per nephrology
Prior rapid atrial fibrillation currently on amiodarone for rate control of atrial fibrillation along with metoprolol. Rates currently stable.
-Continue current treatment and as needed Lopressor IV
-Plan for rate control strategy as patient is too tenuous for cardioversion and required anesthesia. Suspect this may not make a huge impact at this time.
-Anticoagulation with Eliquis as able
-Follow telemetry and EKGs
-Of note she has been on amiodarone this admission (not including last admission) for more than 6 g of loading. I have reduced amiodarone to 200 mg daily.
Renal insufficiency
-Starting to worsen
-Keep mean arterial pressure greater than 65 mmHg. Likely will need pressor support
Spoke with primary service/chemistry technical officer/nephrology. I have spoke with nursing.
I have spoke with family at the bedside. I did discuss at the bedside poor overall short-term and long-term prognosis. Family has requested transfer to [facility] in [place] given their level of comfort with that hospital. I have relayed this
to primary team
40 minutes total critical care time coordinating care, and in discussion with family, reviewing labs and making treatment decisions.
HPI: Patient came to ER today with increased weakness and a lower than usual pulse ox reading at home, patient now admitted with acute HF and cardiology has been consulted. Patient was just admitted to from 06/10/2024 until 06/19/2024 with acute
on chronic hypoxic multifactorial respiratory failure and also a new diagnosis of paroxysmal Afib. During that admission patient was diuresed with Lasix 80 mg IV BID. In addition to BiPAP therapy. Unfortunately the recorded weights during that
admission were not accurate because they were using a bed scale. I and O readings were also inaccurate, but the patient reported some subjective improvement. Patient was seen in the office on 06/26/2024 and was dutifully taking her dose of Lasix 80
mg twice daily, but was noted to be hypotensive and so her usual dose of nifedipine was stopped. Patient was seen in the wound clinic today and was noted to be SOB above baseline and hypoxic so she was referred to ER. Patient was using her
usual 3 L nasal cannula of supplemental oxygen and had improved pulse ox by increasing to 5 L. proBNP is up to 9300 today and was only as high as 1590 during her last admission. Again the recorded weights are not accurate
Progress Note - Tile Helper
Subjective
Date of Service: July 21, 2024
Patient unable to give history.
Objective
Labs:
07/21/24 03:40
07/21/24 03:40
Labs
Hgb 9.5 g/dL (12.0-16.0) L 07/21/24 03:40
Hct 34.8 % (37.0-47.0) L 07/21/24 03:40
Plt Count 358 10^3/uL (130-400) 07/21/24 03:40
PT 18.4 Sec (11.4-14.6) H 07/09/24 15:19
INR 1.50 07/09/24 15:19
APTT 38.4 Sec (23.4-35.0) H 07/19/24 03:57
Sodium 151 mmol/L (135-145) H 07/21/24 03:40
Potassium 4.4 mmol/L (3.5-5.1) D 07/21/24 03:40
BUN 94 mg/dl (7-17) H 07/21/24 03:40
Creatinine 1.3 mg/dL (0.6-1.0) H 07/21/24 03:40
Glucose 251 mg/dl (70-99) H 07/21/24 03:40
Vital Signs and I&O:
Vital Signs
Temp Pulse Resp BP Pulse Ox
98.5 F 78 37 88/66 95
07/21/24 08:25 07/21/24 12:04 07/21/24 12:04 07/21/24 12:03 07/21/24 12:04
Vital Signs
Temp Pulse Resp BP Pulse Ox
98.5 F 78 37 88/66 95
07/21/24 08:25 07/21/24 12:04 07/21/24 12:04 07/21/24 12:03 07/21/24 12:04
Intake & Output
07/19/24 07/20/24 07/21/24 07/22/24
06:59 06:59 06:59 06:59
Intake Total 2375.5 / 2445.5 2140 / 2210 194 / 2024 905 / 905
Output Total 2730 / 2740 1969 / 1969 1350 / 1350
Balance -354.5 / -294.5 170 / 240 590 / 675 905 / 905
Physical Exam
Physical Exam
General: Ill-appearing and somnolent
Heart: Distant heart sounds and irregular
Lungs: Coarse anterior breath sounds
Extremities: +1 edema
Neuro: Somnolent
[2024-07-21] MEDS: NEO-SYNEPHRINE 250 IV ×2 (13:13→15:27)
--- NOTE | 2024-07-21 13:30 | CM ---
CM received message from Dr Braswell-
Family requested transfer to [facility] - accepting pulmonary/ICU attending is Dr. Veronica Sayed
No bed availability at [facility] today.
Transport will need to be requested when bed opens-? need for insurance auth vs ?family to pay privately.
Floor CM/SW covering tomorrow will need f/u with all parties.
CM/SW will continue to follow to ensure a safe and timely dc.
--- NOTE | 2024-07-21 13:45 | PTCARENOTE ---
1130-Family asking to speak with MD, requesting that pt be transferred to [facility] and that they have accepting MD. Government Affairs Fellow/hospitalist/emt intermediate aware and transfer process started. ~1200-SBP dropping into 80's-MAP 65-75, MD aware.
Midodrine given with minimal results, SBP dropping into 70-80's with MAP 50-60's, MD notified ~1315 Anders started and titrated to keep MAP >65.
--- NOTE | 2024-07-21 14:22 | W.PN.UPDATE ---
Update Note
Progress Note Update
Family discussion held and they would like the patient transferred to [facility]. Given that she remains on NIV and she is unable to be transferred on this modality (plus she was not stable earlier on BiPAP, decision made to electively
intubate her prior to her transfer. Family aware and are actually encouraging her to be intubated so that the transfer is safe. direct support professional home health is at 3 PM today.
[2024-07-21] MEDS: DIPRIVAN 100 IV (14:42)
--- NOTE | 2024-07-21 14:46 | W.SUR.POST ---
Surgical Immediate Post Op
Note
Endotracheal Intubation
Date of procedure: 07/21/2024
Pre Op Diagnosis: Acute respiratory failure with hypoxia + hypercapnia
Post Op Diagnosis: Same as above
Procedure Performed: Endotracheal intubation
Primary Surgeon/Proceduralist: Dr. Barbour
Secondary Surgeons: Same as above
Anesthesia: N/A
Estimated Blood Loss: N/A
Fluids: N/A
Drains/Shunts: N/A
Specimens/Cultures: N/A
Doppler/Duplex/Angio (Y/N): N/A
Complications: No immediate complication
Operative Findings: Patient was intubated in the ICU as she was awaiting transfer to outside hospital ([facility]. RSI given with 30 mg etomidate +110 mg succinylcholine. Sedation then started with propofol and prn fentanyl. S3 blade used and
ETT seen inserting into cords with good visualization from video laryngoscope. Continuous end-tidal capnography attached. CXR will be ordered to further confirm placement. ETT taped at 22 mm at the lip. Family made aware.
--- NOTE | 2024-07-21 15:00 | PTCARENOTE ---
Bed available at [facility] for a 1500 pickup time. Decision made for intubation for airway management/safety for transport. MD discussed with family at bedside. ~[address] Barbour at bedside with #8 ETT, 22cm lip. PCXR taken.
--- NOTE | 2024-07-21 15:50 | TRANSFER ---
Report called to Angel Luis at [facility] at 1545. Report given to [facility] emergency transport team, pt left at 1555.
[2024-07-21 16:22] LABS: Triglycerides 80 mg/dl (10-149)
== END 2024-07-21 16:04 | disposition short-term general hospital (02) | DRG 207 ==
LOC: ICU 14:21
PROVIDERS: Internal Medicine; Internal Medicine Critical Care Medicine; Internal Medicine Infectious Disease; Nurse Practitioner Family; Nurse Practitioner Primary Care; Physician Assistant; ADMITTING PHYSICIAN Hospitalist; ATTENDING PHYSICIAN Internal Medicine; CONSULT PHYSICIAN Internal Medicine; CONSULT PHYSICIAN Internal Medicine Cardiovascular Disease; CONSULT PHYSICIAN Internal Medicine Infectious Disease; EMERGENCY PHYSICIAN Emergency Medicine; FAMILY PHYSICIAN Family Medicine; OTHER PHYSICIAN Internal Medicine
PROC: 5A09357 Assistance with Respiratory Ventilation, Less than 24 Consecutive Hours, Continuous Positive Airway Pressure (ICD-10-PCS; 2024-07-08)
PROC: 5A1955Z Respiratory Ventilation, Greater than 96 Consecutive Hours (ICD-10-PCS; 2024-07-09)
PROC: 0BH17EZ Insertion of Endotracheal Airway into Trachea, Via Natural or Artificial Opening (ICD-10-PCS; 2024-07-09)
PROC: 03HY32Z Insertion of Monitoring Device into Upper Artery, Percutaneous Approach (ICD-10-PCS; 2024-07-10)
PROC: 02HV33Z Insertion of Infusion Device into Superior Vena Cava, Percutaneous Approach (ICD-10-PCS; 2024-07-10)
PROC: 5A1945Z Respiratory Ventilation, 24-96 Consecutive Hours (ICD-10-PCS; 2024-07-14)
DX: J96.21 Acute and chronic respiratory failure with hypoxia (principal); L89.314 Pressure ulcer of right buttock, stage 4; I50.33 Acute on chronic diastolic (congestive) heart failure; A41.9 Sepsis, unspecified organism; R57.0 Cardiogenic shock; G92.8 Other toxic encephalopathy; R65.21 Severe sepsis with septic shock; N17.0 Acute kidney failure with tubular necrosis; J18.9 Pneumonia, unspecified organism; J69.0 Pneumonitis due to inhalation of food and vomit; N39.0 Urinary tract infection, site not specified; E87.0 Hyperosmolality and hypernatremia; I48.19 Other persistent atrial fibrillation; J44.1 Chronic obstructive pulmonary disease with (acute) exacerbation; E87.20 Acidosis, unspecified; K86.2 Cyst of pancreas; Z99.11 Dependence on respirator [ventilator] status; T17.590A Other foreign object in bronchus causing asphyxiation, initial encounter; J44.0 Chronic obstructive pulmonary disease with (acute) lower respiratory infection; J96.22 Acute and chronic respiratory failure with hypercapnia; E87.6 Hypokalemia; G47.33 Obstructive sleep apnea (adult) (pediatric); W44.F9XA Other object of natural or organic material, entering into or through a natural orifice, initial encounter; D50.9 Iron deficiency anemia, unspecified; E11.65 Type 2 diabetes mellitus with hyperglycemia; I11.0 Hypertensive heart disease with heart failure; E87.5 Hyperkalemia; E66.01 Morbid (severe) obesity due to excess calories; Z66 Do not resuscitate; B96.1 Klebsiella pneumoniae [K. pneumoniae] as the cause of diseases classified elsewhere; E78.00 Pure hypercholesterolemia, unspecified; I08.0 Rheumatic disorders of both mitral and aortic valves; R79.89 Other specified abnormal findings of blood chemistry; Z11.52 Encounter for screening for COVID-19; Z68.37 Body mass index [BMI] 37.0-37.9, adult; Z99.81 Dependence on supplemental oxygen; R33.8 Other retention of urine; Z87.891 Personal history of nicotine dependence; Z79.01 Long term (current) use of anticoagulants; Z79.4 Long term (current) use of insulin; Z79.84 Long term (current) use of oral hypoglycemic drugs; Z79.51 Long term (current) use of inhaled steroids
CPT/HCPCS: 93308; 36600; 71045; 71250; 74018; 74176; 80048; 80053; 80076; 81003; 81015; 82040; 82570; 82607; 82728; 82746; 82805; 82962; 83540; 83550; 83605; 83735; 83880; 84100; 84134; 84145; 84300; 84443; 84478; 84484; 85025; 85027; 85045; 85610; 85730; 87040; 87045; 87046; 87070; 87077; 87086; 87186; 87205; 87324; 87427; 87449; 87502; 87633; 87811; 89055; 92526; 92610; 93005; 93321; 93325; 93971; 94002; 94003; 94640; 94660; 97163; 97167; 99285; P9045; P9047; Q9950